=== PATIENT | female | born 1950 | race African-American/Black ===

== ENCOUNTER 2020-05-30 11:58 | Outpatient (CLI) | payer MEDICARE, OTHER, SELFPAY ==
[2020-05-30 12:38] LABS: Eosinophils Absolute Auto 0.1 K/mm3 (0-0.3); Eosinophils Percent Auto 2.5 % (0-4.4); Hematocrit 41.8 % (37.0-47.0); Hemoglobin 14.4 g/dL (12.0-15.0); Immature Granulocyte Absolute 0.01 K/mm3 (0.00-0.031); Immature Granulocyte Percent A 0.2 % (0-0.5); Lymphocytes Absolute Auto 1.81 K/mm3 (0.9-3.2); Lymphocytes Percent Auto 45.1 % (18.3-44.2); Mean Corpuscular HGB Conc 34.4 g/dl (32-36); Mean Corpuscular Hemoglobin 29.4 pg (26-34); Mean Corpuscular Volume 85.3 fl (80-100); Mean Platelet Volume 12.1 fl (7.4-10.4); Monocytes Absolute Auto 0.5 K/mm3 (0.1-0.6); Monocytes Percent Auto 11.7 % (2.6-8.5); Neutrophils Absolute Auto 1.6 K/mm3 (1.3-6.7); Neutrophils Percent Auto 39.5 % (45.5-73.1); Platelet Count Result 207 k/mm3 (150-375); Red Cell Distribution Width 14.6 % (11.5-14.5)
[2020-05-30 12:59] LABS: Alanine Aminotransferase 19 U/L (4-35); Albumin Level 4.2 g/dL (3.5-5.1); Alkaline Phosphatase 78 U/L (38-126); Aspartate Amino Transferase 31 U/L (14-36); Bilirubin,Total 0.7 mg/dL (0.2-1.3); Blood Urea Nitrogen 15 mg/dL (7-17); Calcium 9.4 mg/dL (8.4-10.2); Carbon Dioxide 24 mmol/L (22-30); Chloride 107 mmol/L (98-107); Cholesterol 253 mg/dL (0-200); Estimated Glomerular Filt Rate > 60; Glucose 99 mg/dL (65-105); HDL Direct 89 mg/dL; Potassium 3.8 mmol/L (3.4-5.0); Sodium 138 mmol/L (137-145); Triglycerides 41 mg/dL (<150)
[2020-05-30 13:10] LABS: LDL Cholesterol Direct 114 mg/dL
[2020-05-30 15:07] LABS: Total Triiodothyronine (T3) 0.96 NG/ML (0.97-1.69)
[2020-05-30 17:56] LABS: Vitamin D 25 Hydroxy 17.5 ng/mL
[2020-06-03 14:14] LABS: Triiodothyronine T3 Free 2.5 pg/mL (2.3-4.2)
== END 2020-05-30 11:59 | disposition home or self-care (01) ==
PROVIDERS: PCP Family Medicine; Visit Provider Nurse Practitioner
DX: E55.9 Vitamin D deficiency, unspecified (principal); E78.00 Pure hypercholesterolemia, unspecified
CPT/HCPCS: 36415; 80053; 80061; 82306; 84443; 84480; 84481; 85025

== ENCOUNTER → 2020-07-26 11:34 | Outpatient (CLI) | payer MEDICARE, OTHER, SELFPAY ==
--- NOTE | ~2020-07-26 | MM_ITS ---
EXAMINATION: MM screening art BI w gilberto HISTORY: Screening mammogram TECHNIQUE: Craniocaudal and mediolateral oblique 3-D tomosynthesis images were obtained and synthetic 2-D images were generated. CAD analysis was submitted and interpreted. COMPARISON: 06/09/2018 bilateral digital screening mammogram BREAST PARENCHYMAL COMPOSITION: FINDINGS: There is no evidence of suspicious mass, calcification, or architectural distortion to sugg est malignancy in either breast. There has been no suspicious interval change. IMPRESSION: 1. No mammographic evidence of malignancy. 2. Recommend routine screening mammography in one year. BI-RADS Category 1: Negative Reviewed, dictated and finalized at location A.
== END ==
PROVIDERS: PCP Family Medicine; Visit Provider Family Medicine
DX: Z12.31 Encounter for screening mammogram for malignant neoplasm of breast (principal)
CPT/HCPCS: 77063; 77067

== ENCOUNTER 2020-09-09 10:08 | Outpatient (CLI) | payer MEDICARE, OTHER, SELFPAY ==
[2020-09-09 11:48] LABS: Vitamin D 25 Hydroxy 33.7 ng/mL
== END 2020-09-09 10:09 | disposition home or self-care (01) ==
LOC: ANHLAB 10:11
PROVIDERS: PCP Family Medicine; Visit Provider Nurse Practitioner
DX: E55.9 Vitamin D deficiency, unspecified (principal)
CPT/HCPCS: 36415; 82306

== ENCOUNTER 2021-02-07 10:36 | Outpatient (CLI) | payer MEDICARE, OTHER, SELFPAY ==
[2021-02-07 11:04] LABS: Basophils Absolute Auto 0.1 K/mm3 (0.0-0.1); Basophils Percent Auto 1.2 % (0.2-1.2); Eosinophils Absolute Auto 0.1 K/mm3 (0-0.3); Eosinophils Percent Auto 2.6 % (0-4.4); Hematocrit 40.7 % (37.0-47.0); Hemoglobin 13.8 g/dL (12.0-15.0); Immature Reticulocyte Fraction 7.9 % (3.0-15.9); Lymphocytes Absolute Auto 2.16 K/mm3 (0.9-3.2); Lymphocytes Percent Auto 50.2 % (18.3-44.2); Mean Corpuscular HGB Conc 33.9 g/dl (32-36); Mean Corpuscular Hemoglobin 29.3 pg (26-34); Mean Corpuscular Volume 86.4 fl (80-100); Mean Platelet Volume 10.9 fl (7.4-10.4); Monocytes Absolute Auto 0.5 K/mm3 (0.1-0.6); Monocytes Percent Auto 12.6 % (2.6-8.5); Neutrophils Absolute Auto 1.4 K/mm3 (1.3-6.7); Neutrophils Percent Auto 33.4 % (45.5-73.1); Platelet Count Result 207 k/mm3 (150-375); Red Blood Count 4.71 M/mm3 (4.2-5.4); Red Cell Distribution Width 14.5 % (11.5-14.5); Reticulocyte Hemoglobin Conten 35.1 pg (28.2-35.7); Reticulocyte Percent 1.31 % (0.7-4.3); Reticulocytes Absolute 0.06 B/L (32.2-175.7); White Blood Count 4.3 K/mm3 (4.5-10.0)
[2021-02-07 11:19] LABS: Alanine Aminotransferase 20 U/L (4-35); Albumin Level 4.3 g/dL (3.5-5.1); Alkaline Phosphatase 73 U/L (38-126); Anion Gap 3 mmol/L (8-16); Aspartate Amino Transferase 33 U/L (14-36); Bilirubin,Total 0.6 mg/dL (0.2-1.3); Blood Urea Nitrogen 13 mg/dL (7-17); Calcium 9.3 mg/dL (8.4-10.2); Carbon Dioxide 29 mmol/L (22-30); Chloride 106 mmol/L (98-107); Cholesterol 257 mg/dL (0-200); Estimated Glomerular Filt Rate > 60; Glucose 97 mg/dL (65-105); HDL Direct 95 mg/dL; Lactate Dehydrogenase 546 U/L (313-618); Potassium 4.1 mmol/L (3.4-5.0); Sodium 138 mmol/L (137-145); Triglycerides 40 mg/dL (<150)
[2021-02-07 11:29] LABS: LDL Cholesterol Direct 111 mg/dL; Transferrin 257 mg/dL (206-381)
[2021-02-07 11:45] LABS: Iron 84 ug/dL (37-170)
[2021-02-07 11:48] LABS: Total Triiodothyronine (T3) 1.02 NG/ML (0.97-1.69)
[2021-02-07 11:54] LABS: Percent Iron Saturation 26 % (20-50)
[2021-02-07 11:56] LABS: Free T4 Free Thyroxine 0.99 ng/mL (0.78-2.19); Vitamin D 25 Hydroxy 32.7 ng/mL
[2021-02-07 12:23] LABS: Folic Acid 14.5 ng/mL (2.76->20)
== END 2021-02-07 10:37 | disposition home or self-care (01) ==
PROVIDERS: PCP Family Medicine; Visit Provider Nurse Practitioner Family
DX: N95.0 Postmenopausal bleeding (principal); E78.00 Pure hypercholesterolemia, unspecified; E55.9 Vitamin D deficiency, unspecified; R53.83 Other fatigue
CPT/HCPCS: 36415; 80053; 80061; 82306; 82607; 82728; 82746; 83540; 83550; 83615; 84439; 84443; 84466; 84480; 85025; 85046

== ENCOUNTER → 2022-06-11 08:27 | Outpatient (CLI) | payer MEDICARE, OTHER, SELFPAY ==
--- NOTE | ~2022-06-11 | US_ITS ---
EXAMINATION: US pelvic complete w TV DATE: 06/11/2022 09:15 INDICATION: Postmenopausal bleeding Comparison:No prior studies for comparison. TECHNIQUE: Multiple transabdominal and endovaginal sonographic images of the pelvis performed. FINDINGS: The uterus measures 13.4 x 8.3 x 10.5 cm. There are uterine fibroids, largest being calcifi ed measuring 7.7 x 7.3 x 5.8 cm The endometrial complex measures 9 mm. The ovaries are not visualized. There is no free fluid in the pelvis. There are no abnormal masses seen on either side. IMPRESSION: 1. Enlarged fibroid uterus with endometrial thickening. The differential diagnosis includes endometri al hyperplasia, polyp and carcinoma. Biopsy is recommended. Reviewed, dictated and finalized at location A. IMPRESSION: 1. Enlarged fibroid uterus with endometrial thickening. The differential diagno sis includes endometrial hyperplasia, polyp and carcinoma. Biopsy is recommended.
== END ==
PROVIDERS: PCP Family Medicine; Visit Provider Nurse Practitioner Adult Health
DX: N95.0 Postmenopausal bleeding (principal); D25.9 Leiomyoma of uterus, unspecified
CPT/HCPCS: 76830; 76856

== ENCOUNTER 2023-05-20 01:38 | Day surgery (SDC) | payer MEDICARE, OTHER, SELFPAY ==
[2023-05-08 14:00] VITALS: BMI 20.9
[2023-05-20 07:15] VITALS: BP 126/75; PULSE 61; RESP 18; TEMP 36.5; O2SAT 100; BMI 19.3
[2023-05-20] MEDS: LACTATED RINGERS 1,000 ML 150 ML IV CONT (07:30)
--- NOTE | 2023-05-20 08:02 | WPDANESEPPF ---
Anes - Initial Pre Proc Eval Procedure: Operation Date: 05/20/23 08:30 Proposed Procedures p Colonoscopy - Trevor Jeffrey MD Date/Time: 05/20/23 08:02 Surgeon: Trevor Jeffrey MD Pre Op Diagnosis: melena Patient Data Age: 73 Gender: F Height: 1.57 m Weight: 48.1 kg Last Vital Signs Temp 97.7 F 05/20/23 07:15 Pulse 61 05/20/23 07:15 Resp 18 05/20/23 07:15 BP 126/75 05/20/23 07:15 Pulse Ox 100 05/20/23 07:15 O2 Del Method Room Air 05/20/23 07:15 Allergies Allergy/AdvReac Type Severity Reaction Status Date / Time codeine Allergy Mild PASS OUT Verified 05/20/23 07:12 Home Medications Medication Instructions Recorded Confirmed Type No Home Medications 05/20/23 05/20/23 History Patient hx anesthesia problems: none Family hx anesthesia problems: none Results Review: All pre-operative results and documents have been reviewed as part of the pre-operative evaluation. [facility] Social History Social History Living arrangements: with family Anes - Eval Final PreProcedure Day of Procedure 05/20/23 08:02 Patient weight: normal Heart: regular rate and rhythm Lungs: clear to auscultation Airway: Mallampati scale class 1 Neurological: alert and oriented Last oral intake: >/= 8 hours ASA classification: I Emergent: no Anesthetic plan: proceed Anesthesia type and monitoring: general GIVS and standard monitoring Results Review: All pre-operative results and documents have been reviewed as part of the pre-operative evaluation. Informed Consent: The patient's anesthetic plan and its attendant risks and benefits were discussed with the patient/family/POA. Questions were solicited and answers provided to the satisfaction of the patient/family/POA.
--- NOTE | 2023-05-20 08:15 | P.HP_ITS ---
History of Present Illness History of Present Illness Consent: Risks, benefits, and alternatives have been discussed and questions answered. Patient agrees to proceed with procedure. Chief complaint: positive cologuard test by history Narrative: Carlos Hare is a 73 year old female Referred by primary care service. Patient states that she had a Cologuard test that was positive. For this reason she is referred for exam. Patient denies any obvious blood in her stools. Patient states that stools are brown in color and not black in color. No old records are sent to accompany patient. Patient states she is known to have hemorrhoids. Her family history is noncontributory. Review of Systems Review of Systems: Review of systems noncontributory. [facility] Social History Social History Living arrangements: with family Meds Home Medications and Allergies Home Medications Medication Instructions Recorded Confirmed Type No Home Medications 05/20/23 05/20/23 History Allergies Allergy/AdvReac Type Severity Reaction Status Date / Time codeine Allergy Mild PASS OUT Verified 05/20/23 07:12 Vital Signs Vital Signs - 24 hr 05/20/23 07:15 Temperature 97.7 F Pulse Rate 61 Respiratory Rate 18 Blood Pressure 126/75 Pulse Oximetry 100 Oxygen Delivery Room Air Exam Narrative: Physical exam reveals patient to be alert. Vital signs stable. HEENT exam is unremarkable. Patient is anicteric. Lungs are clear to auscultation and percussion. Heart is without murmur or extra sounds. Abdomen bowel sounds are present soft nontender with no hepatosplenomegaly. Digital external rectal exam is normal. Assessment and Plan Assessment and plan (1) Positive colorectal cancer screening using Cologuard test: Code(s): R19.5 - Other fecal abnormalities Status: Acute Assessment and Plan: Patient reports having positive Cologuard test. Results of testing not available for review. Patient is accompanied by a no from Stating she has melena. Patient however states she has had no visible blood in her stools. Her stools have been brown and she denies any black stools. Patient reports she does have a history of hemorrhoids. Colonoscopy arranged today at the [facility] primary care service it appears she has had a positive Cologuard test further recommendations on screening will be given after endoscopy.
[2023-05-20 09:24] VITALS: BP 98/58; PULSE 70; RESP 24; O2SAT 100
[2023-05-20 09:34] VITALS: BP 114/67; PULSE 70; RESP 16; O2SAT 100
[2023-05-20 09:44] VITALS: BP 140/80; PULSE 61; RESP 20; O2SAT 100
== END 2023-05-20 09:55 | disposition home or self-care (01) ==
PROVIDERS: PCP Nurse Practitioner Adult Health; Visit Provider Internal Medicine Gastroenterology
PROC: 0DJD8ZZ Inspection of Lower Intestinal Tract, Via Natural or Artificial Opening Endoscopic (ICD-10-PCS; CPT 45378; principal; 2023-05-20 08:30)
DX: R19.5 Other fecal abnormalities (principal); Z86.010 Personal history of colon polyps
CPT/HCPCS: 45378; J2704; J7120

== ENCOUNTER → 2023-05-30 11:11 | Outpatient (CLI) | payer MEDICARE, OTHER, SELFPAY ==
--- NOTE | ~2023-05-30 | MM_ITS ---
EXAMINATION: MM screening art BI w gilberto HISTORY: Screening TECHNIQUE: Craniocaudal and mediolateral oblique 3-D tomosynthesis images were obtained and synthetic 2-D images were generated. CAD analysis was submitted and interpreted. COMPARISON: Comparison to multiple prior studies sequentially, with oldest reviewed study dated 06/09. BREAST PARENCHYMAL COMPOSITION: The breasts are heterogeneously dense, which may obscure small masses . FINDINGS: There is no evidence of suspicious mass, calcification, or architectural distortion to sugg est malignancy in either breast. There has been no suspicious interval change. IMPRESSION: 1. No mammographic evidence of malignancy. 2. Recommend routine screening mammography in one year. BI-RADS Category 1: Negative Reviewed, dictated and finalized at location A.
== END ==
PROVIDERS: PCP Nurse Practitioner Adult Health; Visit Provider Nurse Practitioner Adult Health
DX: Z12.31 Encounter for screening mammogram for malignant neoplasm of breast (principal)
CPT/HCPCS: 77063; 77067

== ENCOUNTER 2023-06-05 11:18 | Outpatient (CLI) | payer MEDICARE, OTHER, SELFPAY ==
[2023-06-05 11:53] LABS: Basophils Percent Auto 0.7 % (0.2-1.2); Eosinophils Absolute Auto 0.1 K/mm3 (0-0.3); Eosinophils Percent Auto 1.3 % (0-4.4); Hemoglobin 13.4 g/dL (12.0-15.0); Immature Granulocyte Absolute 0.01 K/mm3 (0.00-0.031); Immature Granulocyte Percent A 0.2 % (0-0.5); Lymphocytes Percent Auto 41.3 % (18.3-44.2); Mean Corpuscular HGB Conc 33.5 g/dl (32-36); Mean Corpuscular Hemoglobin 28.8 pg (26-34); Mean Platelet Volume 11.1 fl (7.4-10.4); Monocytes Absolute Auto 0.5 K/mm3 (0.1-0.6); Monocytes Percent Auto 10.7 % (2.6-8.5); Neutrophils Absolute Auto 2.1 K/mm3 (1.3-6.7); Neutrophils Percent Auto 45.8 % (45.5-73.1); Platelet Count Result 235 k/mm3 (150-375); Red Blood Count 4.65 M/mm3 (4.2-5.4); Red Cell Distribution Width 14.8 % (11.5-14.5); White Blood Count 4.6 K/mm3 (4.5-10.0)
[2023-06-05 12:03] LABS: Alanine Aminotransferase 22 U/L (6-35); Albumin Level 4.2 g/dL (3.5-5.1); Alkaline Phosphatase 76 U/L (38-126); Anion Gap 4 mmol/L (8-16); Aspartate Amino Transferase 32 U/L (14-36); Bilirubin,Total 0.6 mg/dL (0.2-1.3); Blood Urea Nitrogen 13 mg/dL (7-17); Calcium 9.1 mg/dL (8.4-10.2); Carbon Dioxide 28 mmol/L (22-30); Chloride 106 mmol/L (98-107); Cholesterol 229 mg/dL (0-200); Estimated Glomerular Filt Rate > 60; Glucose 97 mg/dL (65-110); HDL Direct 90 mg/dL; Sodium 138 mmol/L (137-145); Triglycerides 47 mg/dL (<150)
[2023-06-05 12:14] LABS: LDL Cholesterol Direct 100 mg/dL
[2023-06-05 12:21] LABS: Creatinine Urine 108.4 mg/dL
[2023-06-05 12:25] LABS: Microalbumin Urine Random 22.8 mg/L (0-16.7)
[2023-06-05 12:27] LABS: Free T4 Free Thyroxine 1.12 ng/mL (0.78-2.19); Vitamin D 25 Hydroxy 22.2 ng/mL
[2023-06-05 12:58] LABS: Total Triiodothyronine (T3) 1.07 NG/ML (0.97-1.69)
== END 2023-06-05 11:19 | disposition home or self-care (01) ==
LOC: ANHLAB 11:20
PROVIDERS: PCP Nurse Practitioner Adult Health; Visit Provider Nurse Practitioner Adult Health
DX: E78.5 Hyperlipidemia, unspecified (principal); R53.83 Other fatigue; R53.1 Weakness; R80.9 Proteinuria, unspecified; E55.9 Vitamin D deficiency, unspecified
CPT/HCPCS: 36415; 80053; 80061; 82043; 82306; 84439; 84443; 84480; 85025

== ENCOUNTER 2024-02-12 15:47 | Outpatient (CLI) | payer MEDICARE, OTHER, SELFPAY ==
--- NOTE | ~2024-02-12 | XR_ITS ---
XR hip LT min 2V DATE: 02/12/2024 16:43 INDICATION: Left hip pain TECHNIQUE: AP and lateral views COMPARISON: None FINDINGS: There is prominent irregularity along the lateral aspect of the left iliac crest which may be related to recent or remote trauma. No fracture or dislocation of the left hip is noted otherwise. No avascular necrosis or bone destruct ion of the left femur. Normal alignment at the pubic symphysis and sacroiliac joints. IMPRESSION: Prominent irregularity at the lateral cortical margin of the left iliac crest, which may be due to recent or remote trauma. Radiographs are available for comparison Otherwise negative left hip Reviewed, dictated and finalized at location B. IMPRESSION: Prominent irregularity at the lateral cortical margin of the left i liac crest, which may be due to recent or remote trauma. Radiographs are availa ble for comparison Otherwise negative left hip
== END 2024-02-12 15:48 ==
LOC: MICIMG 15:50
PROVIDERS: PCP Registered Nurse; Visit Provider Registered Nurse
DX: M25.552 Pain in left hip (principal)
CPT/HCPCS: 73502

== ENCOUNTER 2024-10-07 14:59 | Emergency (ER) | payer MEDICARE, OTHER, SELFPAY ==
[2024-10-07] VITALS (15 sets, daily range): BP systolic 96–116; BP diastolic 61–75; PULSE 84–101; RESP 14–26; TEMP 37.2; O2SAT 97–100
--- NOTE | ~2024-10-07 | CT_ITS ---
CT cervical spine wo con Ordering provider: Jassi Pendleton MD History: . fall . Comparison: None. Technique: CT of the cervical spine was performed without contrast. Sagittal and coronal reformatted images were also obtained and reviewed. Automated exposure control and iterative reconstruction ishaan hnique were employed. The dose-length product was 97.15 mGy-cm. FINDINGS: VERTEBRAE: Destructive changes seen in multiple vertebrae with maximum changes seen in C6. Suggestive of metastatic lesion. Osteomyelitis is less likely. Slight loss of volume of C6 is noted. No subluxa tion.. The occipital condyles are intact. DISC SPACES: Narrowing of the disc C5-C6 and C6-C7. PARASPINOUS SOFT TISSUES: Soft tissue density seen anterior to the C6 vertebra most likely extension of metastatic lesion or hematoma. IMPRESSION: Pathological compression fracture seen in C6 with anterior soft tissue swelling. Underlying metastati c lesions highly suggestive. Other smaller hypodensities are seen in multiple vertebrae including C3 and C5. Reviewed, dictated and finalized at location A. AURANT HOST/HOSTESS IMPRESSION: Pathological compression fracture seen in C6 with anterior soft tissue swelling . Underlying metastatic lesions highly suggestive. Other smaller hypodensities are seen in multiple vertebrae including C3 and C5.
--- NOTE | ~2024-10-07 | CT_ITS ---
EXAMINATION: CT brain wo con DATE: 10/07/2024 15:58 INDICATION: Fall, found down TECHNIQUE: Computed tomography (CT) of the head was performed without intravenous contrast. Sagittal and coronal reconstructions were performed. The mA was adjusted according to patient size. Iterative reconstruction technique was employed. The dose-length product was 529.67 mGy-cm. COMPARISON: None FINDINGS: No fracture. No acute intracranial hemorrhage, acute infarction or abnormal extra axial fluid collect ion. There is mild scattered white matter hypoattenuation consistent with chronic small vessel ischem ic disease. Symmetric prominence of the sulci consistent with mild age-appropriate diffuse cerebral v olume loss. Ventricles are normal and symmetric. No mass/mass effect. The orbits, paranasal sinuses a nd mastoid air cells are normal. IMPRESSION: 1. Normal aging brain. No fracture or acute intracranial process. Reviewed, dictated and finalized at location A. ER
--- NOTE | ~2024-10-07 | XR_ITS ---
XR chest 1V portable Ordering provider: Connor Saleh MD History: 74 years Female with . syncope . Comparison: None. FINDINGS: MEDIASTINUM: The cardiac silhouette is not enlarged. Right Port-A-Cath with the tip overlying superio r vena cava. Slightly prominent right hilum. LUNGS: No infiltrates, effusions or pneumothorax. OTHER: No free air under the diaphragm. IMPRESSION: No acute cardiopulmonary pathology. Reviewed, dictated and finalized at location A. ET MACHINE OPERATOR
--- NOTE | 2024-10-07 15:06 | ECG_ITS ---
Test Date: 2024-10-07 15:09:02 Measurements Intervals [place] Rate: 93 P: 59 IN: 150 QRS: 40 QRSD: 72 T: 48 QT: 274 QTc: 342 Interpretive Statements SINUS RHYTHM NONSPECIFIC T-WAVE ABNORMALITY- INFERIOR LEADS BASELINE ARTIFACT- I, II, III, AVR, AVL, AVF, V1, V3, V7 BORDERLINE ECG No previous ECG available for comparison Electronically Signed On 10-07-2024 15:12:32 MEDICAL RECORD TRANSCRIBER by Torres Palumbo D.O.
--- NOTE | 2024-10-07 15:29 | ED.GENADULT ---
HPI - General Adult General Chief complaint: Syncope Stated complaint: SYNCOPY Time Seen by Provider: 10/07/24 15:28 Source: patient Related Data Home Medications Medication Instructions Recorded Confirmed No Home Medications 05/20/23 05/20/23 Allergies Allergy/AdvReac Type Severity Reaction Status Date / Time codeine Allergy Mild PASS OUT Verified 10/07/24 15:10 [facility] Social History Social History Living arrangements: with family Course Consultations Consultation #1: DR BLAIR, ONCOLOGIST AT [facility] ACCEPTED PATIENT TRANSFER. Date: 10/07/24 Time: 18:32 Consultation #2: DR LINDSEY SLAUGHTER AT [facility]. WAITING FOR BED AVAILABLE AT [facility] Date: 10/07/24 Time: 22:05 Vital Signs Vital signs: Vital Signs Temperature 37.2 C 10/07/24 14:59 Pulse Rate 95 10/07/24 14:59 Respiratory Rate 18 10/07/24 14:59 Blood Pressure 113/61 10/07/24 14:59 Pulse Oximetry 97 10/07/24 14:59 Oxygen Delivery Room Air 10/07/24 14:59 Temperature 37.2 C 10/07/24 14:59 Pulse Rate 86 10/07/24 20:46 Respiratory Rate 17 10/07/24 20:46 Blood Pressure 107/73 10/07/24 20:46 Pulse Oximetry 99 10/07/24 20:46 Oxygen Delivery Room Air 10/07/24 14:59 Medical Decision Making MDM Narrative Medical decision making narrative: PATIENT CAME TO THE ED BY AMBULANCE BECAUSE OF SYNCOPE, NO WARNING SIGNS PRIOR TO BLACKING OUT. PATIENT DENIES ANY PAIN AFTER THE FALL OR ON ARRIVAL TO THE ED. PATIENT BLAMING THE CHEMOTHERAPY ON September WHICH CAUSING HER GENERAL WEAKNESS. VITAL SIGNS ARE STABLE PHYSICAL EXAMINATION SHOWING A MILD MARCH STATION, UNDERWEIGHT, OTHERWISE INSIGNIFICANT. BLOOD WORKUP TODAY WITH CBC, CMP SHOWED HEMOGLOBIN OF 8.0, HEMATOCRIT 25.8, MCV 77.7, PLATELETS 388, SODIUM 133, OTHERWISE INSIGNIFICANT ABNORMALITY URINALYSIS SHOWED FINDING CONSISTENT WITH INFECTION CHEST X-RAY SHOWED NO ACUTE ABNORMALITIES, CT HEAD WITHOUT CONTRAST SHOWED NO ACUTE ABNORMALITIES CT CERVICAL SPINE WITHOUT CONTRAST SHOWED PATHOLOGICAL COMPRESSION FRACTURE C6 INDICATING UNDERLYING METASTATIC LESIONS, OTHER LESIONS IN MULTIPLE VERTEBRA INCLUDING C3 AND C5 PATIENT HAD HISTORY OF MIN ENDOMETRIAL CANCER LAST CHEMOTHERAPY SEPTEMBER 15, 2024 PATIENT WAS ACCEPTED TO BE TRANSFERRED TO [facility] DISCUSSED WITH THE ONCOLOGIST, DR. BLAIR. WAITING FOR BED AVAILABILITY UP Differential Diagnosis Differential Diagnosis: ABOVE Vital Signs Vital Signs: Vital Signs Temperature 37.2 C 10/07/24 14:59 Pulse Rate 95 10/07/24 14:59 Respiratory Rate 18 10/07/24 14:59 Blood Pressure 113/61 10/07/24 14:59 Pulse Oximetry 97 10/07/24 14:59 Oxygen Delivery Room Air 10/07/24 14:59 Temperature 37.2 C 10/07/24 14:59 Pulse Rate 86 10/07/24 20:46 Respiratory Rate 17 10/07/24 20:46 Blood Pressure 107/73 10/07/24 20:46 Pulse Oximetry 99 10/07/24 20:46 Oxygen Delivery Room Air 10/07/24 14:59 Lab Data 10/07/24 16:08 10/07/24 16:08 Labs: Lab Results 10/07/24 10/07/24 Range/Units 16:08 16:31 WBC 8.1 (4.5-10.0) K/mm3 RBC 3.32 L (4.2-5.4) M/mm3 Hgb 8.0 L D (12.0-15.0) g/dL Hct 25.8 L (37.0-47.0) % MCV 77.7 L (80-100) fl MCH 24.1 L (26-34) pg MCHC 31.0 L (32-36) g/dl RDW 20.9 H (11.5-14.5) % Plt Count 388 H D (150-375) k/mm3 MPV 9.2 (7.4-10.4) fl Immature Gran % (Auto) 1.0 H (0-0.5) % Neut % (Auto) 73.9 H (45.5-73.1) % Lymph % (Auto) 9.8 L (18.3-44.2) % Armstrong % (Auto) 14.4 H (2.6-8.5) % Eos % (Auto) 0.5 (0-4.4) % Baso % (Auto) 0.4 (0.2-1.2) % Lymph # (Auto) 0.80 L (0.9-3.2) K/mm3 Armstrong # (Auto) 1.2 H (0.1-0.6) K/mm3 Eos # (Auto) 0.0 (0-0.3) K/mm3 Baso # (Auto) 0.0 (0.0-0.1) K/mm3 Abs Immat Gran (auto) 0.08 H (0.00-0.031) K/mm3 Absolute Neuts (auto) 6.0 (1.3-6.7) K/mm3 Absolute Nucleated RBC 0.000 (0.0-0.012) K/mm3 Nucleated RBC % 0.0 (0.0-0.2) % Sodium 133 L (137-145) mmol/L Potassium 4.0 (3.4-5.0) mmol/L Chloride 96 L (98-107) mmol/L Carbon Dioxide 31 H (22-30) mmol/L Anion Gap 6 (4-12) mmol/L BUN 20 H (7-17) mg/dL Creatinine 0.90 (0.7-1.0) mg/dL Estim Creat Clear Calc 37 ml/min Estimated GFR > 60 (59 - ) Glucose 128 H (65-110) mg/dL Calcium 9.8 (8.4-10.2) mg/dL Total Bilirubin 0.4 (0.2-1.3) mg/dL AST 55 H (14-36) U/L ALT 48 H (6-35) U/L Alkaline Phosphatase 77 (38-126) U/L Total Protein 8.0 (6.3-8.2) g/dL Albumin 3.7 (3.5-5.1) g/dL Urine Color Dark yellow (Yellow) Urine Appearance Clear (Clear) Urine pH 6.0 (5.0-9.0) Ur Specific [place] 1.011 (1.001-1.035) Urine Protein Trace (Negative) mg/dL Urine Glucose (UA) Negative (Negative) mg/dL Urine Ketones Negative (Negative) mg/dL Ur Blood (Man) 2+ H (Negative) Urine Nitrate Negative (Negative) Urine Bilirubin Negative (Negative) Urine Urobilinogen 0.2 (<2.0) mg/dL Leukocyte Esterase Rfl 1+ H (Negative) GIGI/UL Urine RBC 21-50 H (0-2) /hpf Urine WBC 21-50 H (0-3) /hpf Ur Squamous Epith Cells Occasional (Few) /hpf Urine Bacteria None seen /hpf Urine Casts 0-2 Imaging Data Radiologist's impression: Impressions Head CT 10/07/24 16:10 IMPRESSION: 1. Normal aging brain. No fracture or acute intracranial process. Cervical Spine CT 10/07/24 16:11 IMPRESSION: Pathological compression fracture seen in C6 with anterior soft tissue swelling. Underlying metastatic lesions highly suggestive. Other smaller hypodensities are seen in multiple vertebrae including C3 and C5. Chest X-Ray 10/07/24 16:27 IMPRESSION: No acute cardiopulmonary pathology. Critical Care Time Critical Care Time Critical Care Time: Yes Total Critical Care Time: 30 Discharge Plan Discharge Clinical Impression: Syncope, Pathologic fracture of vertebra Patient Disposition: Acute Care Hospital Condition: Stable Prescriptions: No Action No Home Medications Follow-up/Referrals: Dwayne,Milind Perry, INK MAKER [Primary Care Provider] -
[2024-10-07 16:21] LABS: Basophils Percent Auto 0.4 % (0.2-1.2); Eosinophils Percent Auto 0.5 % (0-4.4); Hematocrit 25.8 % (37.0-47.0); Immature Granulocyte Absolute 0.08 K/mm3 (0.00-0.031); Lymphocytes Percent Auto 9.8 % (18.3-44.2); Mean Corpuscular Hemoglobin 24.1 pg (26-34); Mean Corpuscular Volume 77.7 fl (80-100); Mean Platelet Volume 9.2 fl (7.4-10.4); Monocytes Absolute Auto 1.2 K/mm3 (0.1-0.6); Monocytes Percent Auto 14.4 % (2.6-8.5); Neutrophils Percent Auto 73.9 % (45.5-73.1); Platelet Count Result 388 k/mm3 (150-375); Red Blood Count 3.32 M/mm3 (4.2-5.4); Red Cell Distribution Width 20.9 % (11.5-14.5); White Blood Count 8.1 K/mm3 (4.5-10.0)
[2024-10-07 16:32] LABS: Alanine Aminotransferase 48 U/L (6-35); Albumin Level 3.7 g/dL (3.5-5.1); Alkaline Phosphatase 77 U/L (38-126); Anion Gap 6 mmol/L (4-12); Aspartate Amino Transferase 55 U/L (14-36); Bilirubin,Total 0.4 mg/dL (0.2-1.3); Blood Urea Nitrogen 20 mg/dL (7-17); Calcium 9.8 mg/dL (8.4-10.2); Carbon Dioxide 31 mmol/L (22-30); Chloride 96 mmol/L (98-107); Estimated CRCL calculation 37 ml/min; Estimated Glomerular Filt Rate > 60; Glucose 128 mg/dL (65-110); Sodium 133 mmol/L (137-145)
[2024-10-07 16:57] LABS: Add Urine Microscopic? YES; Appearance Urine Clear (Clear); Bacteria Urine None Seen /hpf; Bilirubin Urine Negative (Negative); Blood Urine 2+ (Negative); Color Urine Dark Yellow (Yellow); Glucose Urine UA Negative (Negative); Ketones Urine Negative (Negative); Leukocyte Esterase Ur 1+ LEU/UL (Negative); Nitrate Urine Negative (Negative); Non Pathogenic Casts 0-2; Protein Urine Trace mg/dL (Negative); RBC Urine 21-50 /hpf (0-2); Specific Grav Ur 1.011 (1.001-1.035); Squamous Epithelial Cell Urine Occasional /hpf (Few); Urobilinogen Urine 0.2 mg/dL (<2.0); WBC Urine 21-50 /hpf (0-3)
[2024-10-08] VITALS (23 sets, daily range): BP systolic 98–115; BP diastolic 58–83; PULSE 79–98; RESP 10–29; TEMP 36.9; O2SAT 99–100
--- NOTE | 2024-10-08 00:19 | PC.NURSE ---
Pt transferred from stretcher to hospital bed at this time. Pt resting comfortably w call light within reach.
--- NOTE | 2024-10-08 08:10 | PC.NURSE ---
Food tray ordered for patient
--- NOTE | 2024-10-08 08:59 | PC.NURSE ---
[facility] transfer center called and states patient has been accepted and has a room at [facility] room 5941. EMS to be called for transport
== END 2024-10-08 10:26 | disposition short-term general hospital (02) ==
PROVIDERS: Emergency Medicine; Emergency Provider Emergency Medicine; PCP Registered Nurse
DX: R55 Syncope and collapse (principal); M84.58XA Pathological fracture in neoplastic disease, other specified site, initial encounter for fracture; C54.1 Malignant neoplasm of endometrium; Z79.60 Long term (current) use of unspecified immunomodulators and immunosuppressants; R94.31 Abnormal electrocardiogram [ECG] [EKG]
CPT/HCPCS: 36415; 70450; 71045; 72125; 80053; 81001; 85025; 87086; 93005; 99285

== ENCOUNTER 2024-12-15 16:50 | Inpatient (IN) | payer MEDICARE, OTHER, SELFPAY ==
--- NOTE | ~2024-12-15 | CT_ITS ---
Clinical Indication: Anemia, syncope, history of cancer CT Scan of the Chest, Abdomen, and Pelvis with Contrast: Technique: Contiguous sections were acquired throughout the chest, abdomen, and pelvis after intraven ous administration of 100 cc of Omnipaque 350. Dose reduction technique was used on this scan by uti lizing automated exposure control and iterative reconstruction technique. The dose-length product (DL P) was 438.26 mGy-cm. Findings: Enlarged AP window/left hilar lymph node measures 3.3 x 1.7 cm. Subcarinal adenopathy measures 3.3 x 2.7 cm. Right hilar lymph node measures 9 mm in short axis. No pulmonary embolus. No aortic aneurysm or dissection. No axillary lymphadenopathy. There is no evidence of pleural or pericardial effusion. The lungs are clear. No pulmonary nodules or infiltrates are noted. There is a 3.9 x 3.6 cm hypodense hepatic mass (axial image 30), suspicious for metastasis. There is an additional 0.8 cm hypodense mass in the lateral left hepatic lobe (axial image 44). There is a thi rd suspicious 1.5 cm hypodense lesion in the caudate lobe (axial image 53). Several probable tiny add itional hepatic cysts are present. The spleen, pancreas, gallbladder, left adrenal gland, and kidneys are within normal limits. There is a 4.3 x 2.2 cm right adrenal mass. No evidence of aortic aneurysm . There is left periaortic lymphadenopathy, with largest node measuring 2.7 cm in diameter. Adenopath y extends along the left common iliac chain.. No bowel obstruction or bowel wall thickening. There is no evidence to suggest acute appendicitis. Urinary bladder is unremarkable. No adnexal mass. Probable prior hysterectomy. No ascites. There is left inguinal lymphadenopathy, with largest node measuring 2.2 cm in diameter (axial image 1 34). There is a heterogeneous soft tissue mass at the anterior margin of the left iliac crest, measur ing 5.4 x 4.2 cm, with destructive change of the anterior aspect of the left iliac crest. There is a 2 cm ovoid lymph node or soft tissue mass in the posterolateral proximal right thigh (axial image 194 ), suspicious for soft tissue metastasis. There is lytic lesion extensively involving the left lamina, pedicle, and spinous process of T12, com patible with osseous metastasis. There is a small lucent lesion with sclerotic margin at the posterio r inferior corner of the L3 vertebral body, indeterminate. Impression: Extensive neoplastic/metastatic disease, including mediastinal lymphadenopathy, hepatic and right adr enal metastatic disease, retroperitoneal and left inguinal lymphadenopathy, as well as large soft tis tad mass extending from or involving the anterior margin of the left iliac wing. Additional osseous m etastasis present in the posterior elements of T12, and soft tissue metastasis in the posterolateral right thigh. Please see details above. Reviewed, dictated and finalized at location M. PLANT SUPERVISOR Impression: Extensive neoplastic/metastatic disease, including mediastinal lymphadenopathy, hepatic and right adrenal metastatic disease, retroperitoneal and left inguina l lymphadenopathy, as well as large soft tissue mass extending from or involvin g the anterior margin of the left iliac wing. Additional osseous metastasis pre sent in the posterior elements of T12, and soft tissue metastasis in the hide worker olateral right thigh. Please see details above.
--- NOTE | ~2024-12-15 | CT_ITS ---
Non-contrast Head CT History: Recurrent syncope COMPARISON: 10/07/2024 Technique: Axial non-contrast imaging of the brain was performed. Dose reduction technique was used on this scan by utilizing automated exposure control and iterative reconstruction technique. The dose -length product (DLP) was 605.33 mGy-cm. Findings: There is no evidence of intracranial hemorrhage, mass lesion, or acute infarct. Brain par enchyma appears normal. The ventricles and subarachnoid spaces are normal in size. The calvarium ap pears normal. There is left sphenoid sinus disease. The remaining visualized paranasal sinuses and ma stoid air cells are clear. Impression: No intracranial abnormality seen. Left sphenoid sinus disease. Reviewed, dictated and finalized at [facility]. OWS CHARGER ASSEMBLER Impression: No intracranial abnormality seen. Left sphenoid sinus disease.
--- NOTE | ~2024-12-15 | XR_ITS ---
CHEST RADIOGRAPH CLINICAL HISTORY: syncope cough . COMPARISON: 10/07/2024 TECHNIQUE: Single portable view of the chest. FINDINGS Right internal jugular central venous power port catheter identified with its tip projecting over the right atrium. The remainder of the cardiomediastinal silhouette is otherwise unremarkable. The lungs are clear. Visualized osseous structures and soft tissues are unremarkable. IMPRESSION: No focal infiltrate or effusion. Reviewed, dictated and finalized at location A. RN
--- OUTSIDE RECORDS SUMMARY | 2024-12-15 16:55 | XMS_ITS | Encounter Summary ---
Author Organization [facility] Healthcare Address [address] [place] [address] Care Team Providers Care Outer Diameter Grinder Name Role Phone Shea Mercado NP Unavailable [phone] Cristobal Salvador MD Primary Care Provider [phone] Kirsten Del Rosario MD Unavailable Tabatha Lopes MD Unavailable [phone] Encounter Details Date Type Department Care Team (Late st Contact Info) Description 12/11/2024 Telephone [facility] ([facility]) [address] [place] [id number] Linda Medley, LOLA Social History Tobacco Use Types Packs/Day Years Used Date Smoking Tobacco: Never OASIS D0700: Social Isolation Answer Da te Recorded Frequency of experiencing loneliness or isolatio n Never 12/12/2024 OASIS A1250: Transportation Answer Date Recorded Lack of Transportation (Medical) No 12/12/2024 Lack of Transportation (Non-Medical) No 12/12/2024 Patient Unable or Declines to Respond No 12/12/2024 OASIS B1300: Health Literacy Answer Ruddy e Recorded Frequency of needing help to read materials from doctor or pharmacy Rarely 12/12/2024 AUDIT-C Answer Date Recorded Q1: How often do you have a drink containing alcohol? Never 12/10/2024 Q2: How many drinks containi ng alcohol do you have on a typical day when you are drinking? Patient does not drink Q3: How often do you have si x or more drinks on one occasion? Never 12/10/2024 Personal Safety Answer Date Recorded Have you ever been in or are you currently in a harmful physical or emotional relationship or is someone making you feel afraid or unsafe? Denies 10/08/2024 Education Answer Date Recorded What is the highest level of school you have completed or the highest degree you have received? 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 Pt will go to local lab to get CBC and CMP. Discussed with pt if she has increasing or concerning symptoms to go to the ER. Patient verbalized understanding of all discussed and knows the number to reach out with any more questions. [employer] documented in this encounter Plan of Treatment Not on file documented as of this encounter Visit Diagnoses Not on filedocumented in this encounter Care Teams Outer Diameter Grinder Relationship Specialty Start Date End Date Cristobal Salvador MD [address] [place] [id number] PCP - General Family Medicine 03/17/24 Shea Mercado NP Nurse Practitioner Obstetrics and Gynecology 06/22/22 Kirsten Del Rosario MD [address] [facility] [address] [place] [address] Radiation Oncologist Radiation Oncology 06/30/24 Tabatha Lopes MD [id number] [place] [address] Surgeon Gynecologic Oncology 06/30/24 documented as of this encounter
--- OUTSIDE RECORDS SUMMARY | 2024-12-15 16:55 | XMS_ITS | Encounter Summary ---
Author Organization [facility] Healthcare Address [address] [place] [address] Care Team Providers Care Carpenters Supervisor Name Role Phone Shea Mercado NP Unavailable [phone] Cristobal Salvador MD Primary Care Provider Kirsten Del Rosario MD Unavailable Tabatha Lopes MD Unavailable [phone] Reason for Visit * Auth/Cert (Routine) Specialty Diagnoses / Procedures Referred By Contac t Referred To Contact Referral ID Status Reason Start Date Expiration Date Visits Re quested Visits Authorized [id number] 1 1 Encounter Details Date Type Department Care Team (Latest Contact Info) Description 12/12/2024 11:30 AM WORKFORCE SERVICES REPRESENTATIVE Home Care Visit [facility] [address] [address] [address] [place] [address] Yesenia Verma, PT PT OASIS START OF CARE Social History Tobacco Use Types Packs/Day Years [...] Master's degree (e.g., MA, MS, Sandy, MEd, SPRINKLER IRRIGATION EQUIPMENT MECHANIC, ADAM) 07/12/2022 Comments No Sex and Gender Information Value Date Recorded Sex Assigned at Not on file Legal Sex Female 1:04 PM CDT Gender Identity Not on file Sexual Orientation Not on file 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 Industry 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 End Date 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 Not on file Not on file Not on file documented as of this encounter Last Filed Vital Signs Vital Sign Reading Time Taken Comments Blood Pressure 104/62 12/12/2024 12:15 PM WORKFORCE SERVICES REPRESENTATIVE Pulse 70 12/12/2024 12:15 PM WORKFORCE SERVICES REPRESENTATIVE Temperature 36.4 ??C (97.5 ??F) 12/12/2024 12:[address] Respiratory Rate 17 12/12/2024 12:15 PM WORKFORCE SERVICES REPRESENTATIVE Oxygen Saturation 99% 12/12/2024 12:15 PM WORKFORCE SERVICES REPRESENTATIVE Inhaled Oxygen Concentration - - Weight - - Height - - Body Mass Index - - documented in this encounter Miscellaneous Notes * Home Health/Infusion Yesenia Richard, PT - 12/12/2024 12:05 PM WORKFORCE SERVICES REPRESENTATIVE SITUATION Focus of Care: 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 PMH: CONFIRMED in [facility] by PCP and palliative care: hypercholsterolemia, endometrial cancer, recent C-spine fx Prior Level of Functioning: independent with no device including up/down steps to bedroom and shower Current Living Conditions/Safety Hazards: fall risk, reports episodes of passing out ASSESSMENT Abnormal assessment findings: fall risk, fatigues easily Medication Issues: none noted Re-hospitalization risk: low Barriers to care/social drivers: Environmental barriers in home- upstairs bedroom and shower RECOMMENDATIONS POC confirmed with : Pete Plan for my discipline: 1 wk 2 then 2 wk 2 then 1 wk 5 Other disciplines ordered/recommended: Physical Therapy only Supply/HME/equipment needs or issues: may benefit from walker or cane or wheelchair in home in nearfuure Follow ups needed: as scheduled port not being accessed right now FORCE SERVICES REPRESENTATIVE * Quality Review - Toya Davison, ELECTRICAL DRAFTER - 12/12/2024 11:48 AM CST [id number] corrected. FORCE SERVICES REPRESENTATIVE documented in this encounter Plan of Treatment Not on file documented as of this encounter Visit Diagnoses Not on filedocumented in this encounter Home Health Visit - Care Plan Visit Details Visit Type -PT OASIS Start o f Care Discipline -Physical Therapy Problems Problem Description Start Date Status Goals Interve ntions Pressure Prevention Disciplines: Skilled Disciplines Pressure Prevention 12/12/2024 Active 1 goal linked to scheduled/documen brandon intervention 1 goal intervention scheduled/documen brandon in this visit Monitor patient's vital signs every home health visit Disciplines: Skilled Disciplines, SN, PT, OT, ELECTRICAL DRAFTER, INDUSTRIAL SAFETY AND HEALTH SPECIALIST Monitor patient's vital signs every home health visit. 12/12/2024 Active 1 goal linked to scheduled/documen brandon intervention 1 goal intervention scheduled/documen brandon in this visit Infection Prevention Disciplines: Skilled Disciplines Infection Prevention 12/12/2024 Active 1 goal linked to scheduled/documen brandon intervention 3 goal interventions scheduled/documen brandon in this visit Fall Precautions/Safe ty Concerns Disciplines: Skilled Disciplines Fall precautions and general safety 12/12/2024 Active 1 goal linked to scheduled/documen brandon intervention 1 goal intervention scheduled/documen brandon in this visit Pain Disciplines: Core Disciplines Alteration in comfort 12/12/2024 Active 1 goal linked to scheduled/documen brandon intervention 1 goal intervention scheduled/documen brandon in this visit PT Medication Management Disciplines: Physical Therapy PT Medication Management 12/12/2024 Active - 1 problem intervention scheduled/documen brandon in this visit PT Impaired Functional Mobility/Balance Disciplines: Physical Therapy Impaired functional mobility/balance 12/12/2024 Active - 3 problem interventions scheduled/hugo taylor in this visit Goals Goal Associated Problem Outcome Goal Met? Visit Notes Prevent development of pressure injuries Description: assisted goal: The patient will maintain intact skin and avoid the development of pressure injuries within 4 weeks Short term goal: The patient/caregiver will understand and adhere to pressure prevention interventions within 2 weeks Pressure Prevention No Measure vital signs during every home health visit during episode of care Description: Home industrial service technician to measure vital signs during every home health visit during episode of care. Monitor patient's vital signs every home health visit No Verbalize signs of infection Description: Patient/caregiver will demonstrate knowledge of infection prevention strategies by verbalizing signs and symptoms of infection. Infection Prevention No Demonstrate fall and safety precautions Description: Patient/caregiver maintains safe home environment as evidenced by remaining free from falls, injury due to falls, demonstrating safety precautions, and identifying strategies to reduce falls by discharge Fall Precautions/Safety Concerns No Report that pain has been reduced or controlled Description: Patient/caregiver/family will verbalize satisfaction with the patients level of pain and symptom control. Pain No Interventions Intervention Associated Problem/Goal Status Variance Visit Notes Instruct on Pressure Prevention Description: Instruct patient/caregiver on inspecting the skin regularly for signs of impaired skin integrity, repositioning the patient on an individualized schedule according to the patient's tissue tolerance, skin condition, mobility, medical condition, and treatment goals. Avoid vigorous massage and emphasize the importance of increasing activity and mobility. Avoid using donut-shaped devices and foam cutouts for pressure redistribution. Determine if patient is using or needs a pressure reduction surface. Instruct patient/caregiver on using moisture barriers and absorbent pads/briefs as needed, avoiding prolonged skin contact with wet materials, and cleaning and drying skin thoroughly after incontinence episodes. If patient is malnourished instruct patient/caregiver on physician ordered diet, increased fluid intake if not contraindicated, and a list of possible protein sources to promote skin integrity. Problem:Pressure Prevention Goal:Prevent development of pressure injuries Completed Instructed patient/caregiver on inspecting the skin regularly for signs of impaired skin integrity, repositioning the patient on an individualized schedule according to the patient's tissue tolerance, skin condition, mobility, medical condition, and treatment goals. Avoid vigorous massage and emphasize the importance of increasing activity and mobility. Monitor Vital Signs Description: Monitor blood pressure, pulse, oxygen saturation, respirations Problem:Monitor patient's vital signs every home health visit Goal:Measure vital signs during every home health visit during episode of care Completed Aspects of Care Description: Instruct patient/caregiver on universal precautions and home infection control measures Problem:Infection Prevention Goal:Verbalize signs of infection Completed Instructed patient/caregiver on universal precautions and home infection control measures patient verbalizes good understanding of instructions and provides safe verbalization/return demonstration of instructions. Educate Patient on Infection Prevention Description: Instruct patient on signs and symptoms of infection IE: fever, odor, change in color, increased amount of drainage, purulent drainage, warmth. Problem:Infection Prevention Goal:Verbalize signs of infection Completed Instructed patient on signs and symptoms of infection IE: fever, odor, change in color, increased amount of drainage, purulent drainage, warmth. patient verbalizes good understanding of instructions Educate Family on Infection Prevention Description: Instructed family on signs and symptoms of infection IE: fever, odor, change in color, increased amount of drainage, purulent drainage, warmth. Problem:Infection Prevention Goal:Verbalize signs of infection Completed Instructed patient on signs and symptoms of infection IE: fever, odor, change in color, increased amount of drainage, purulent drainage, warmth. patient verbalizes good understanding of instructions High Fall Risk Precautions Description: Instruct patient/caregiver Izzy to use proper lighting in all areas, stand/sit up slowly, use appropriate footwear when walking, use proper assistive devices, and to keep pathways clear of cords and clutter to prevent falls. Remove/secure throw rugs. Educate patient on medications and disease processes that increase fall risk, using corrective lenses as prescribed, placing hard to reach items within reach, what to do in the event of a fall and to report any falls to the home health agency. Problem:Fall Precautions/Safety Concerns Goal:Demonstrate fall and safety precautions Completed Instructed patient/caregiver Izzy to use proper lighting in all areas, stand/sit up slowly, use appropriate footwear when walking, use proper assistive devices, and to keep pathways clear of cords and clutter to prevent falls. Remove/secure throw rugs. Educated patient on medications and disease processes that increase fall risk, using corrective lenses as prescribed, placing hard to reach items within reach, what to do in the event of a fall and to report any falls to the home health agency. Instruct on pain management techniques Description: Instruct in pharmacologic and nonpharmacologic pain management techniques. Problem:Pain Goal:Report that pain has been reduced or controlled Completed Medication Regimen Description: Assess patient/caregiver ability to follow prescribed medication regimen, including monitoring for side effects, notifying physician of questions or concerns and contacting pharmacy for refills when needed. Problem:PT Medication Management Completed reviewed med list. patient denies any needs for education on meds. [facility] MD and pharmacy provide adequate medication education. no major interactions noted with current meds. reviewed meds in home. patient has complete med list available in home. instructed patient to take meds as prescribed. patient verbalizes good understanding of instructions and provides safe verbalization/return demonstration of instructions. Gait/Stair Training Description: Instruct patient/caregiver and perform gait/stair training. Problem:PT Impaired Functional Mobility/Balance Completed instructed to rest as needed, gradually increase walking program as tolerated and use assistive device as needed for safety. patient verbalizes good understanding of instructions and provides safe verbalization/return demonstration of instructions. Therapeutic Exercise Description: Perform therapeutic exercise, progressing as tolerated. Problem:PT Impaired Functional Mobility/Balance Completed demonstrates sitting Alejandro LE exercises X 10 reps: ankle pumps, knee extension, hip abduction, marching. Home Exercise Program (HEP) Description: Instruct patient/caregiver and perform HEP. Problem:PT Impaired Functional Mobility/Balance Completed instructed to continue HEP X 10-20 reps BID as tolerated. issued handouts for reference. patient verbalizes good understanding of instructions and provides safe verbalization/return demonstration of instructions. documented in this encounter Care Teams Carpenters Supervisor Relationship Specialty Start Date End Date Cristobal Salvador MD [address] [place] [address] PCP - General Family Medicine 03/17/24 Shea Mercado NP Nurse Practitioner Obstetrics and Gynecology 06/22/22 Kirsten Del Rosario MD [address] [facility] [address] [place] [address] Radiation Oncologist Radiation Oncology 06/30/24 Tabatha Lopes MD [id number] [place] [address] Surgeon Gynecologic Oncology 06/30/24 documented as of this encounter
--- OUTSIDE RECORDS SUMMARY | 2024-12-15 16:55 | XMS_ITS | Encounter Summary ---
Author Organization [facility] Healthcare Address [address] [place] [address] Care Team Providers Care Income Tax Preparer Name Role Phone Shea Mercado NP Unavailable [phone] Cristobal Salvador MD Primary Care Provider Kirsten Del Rosario MD Unavailable Tabatha Lopes MD Unavailable [phone] Reason for Visit * Auth/Cert (Routine) Specialty Diagnoses / Procedures Referred By Contac t Referred To Contact Referral ID Status Reason Start Date Expiration Date Visits Re quested Visits Authorized [id number] 1 1 Encounter Details Date Type Department Care Team (Late st Contact Info) Description 12/15/2024 Home Care Visit [facility] [address] [address] [address] [place] [address] Cherie Camarillo, [facility] Social History Tobacco Use Types Packs/Day Years [...] Master's degree (e.g., MA, MS, Sandy, MEd, HEDGE FUND TRADER, ADAM) 07/12/2022 Comments No Sex and Gender Information Value Date Recorded Sex Assigned at Not on file Legal Sex Female 1:04 PM CDT Gender Identity Not on file Sexual Orientation Not on file 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 on file Not on file Not on file documented as of this encounter Plan of Treatment Not on file documented as of this encounter Visit Diagnoses Not on filedocumented in this encounter Care Teams Income Tax Preparer Relationship Specialty Start Date End Date Cristobal Salvador MD [address] [address] PCP - General Family Medicine 03/17/24 Shea Mercado NP Nurse Practitioner Obstetrics and Gynecology 06/22/22 Kirsten Del Rosario MD [address] [facility] [address] [place] [address] Radiation Oncologist Radiation Oncology 06/30/24 Tabatha Lopes MD [address] [facility] [id number] [place] [address] Surgeon Gynecologic Oncology 06/30/24 documented as of this encounter
--- OUTSIDE RECORDS SUMMARY | 2024-12-15 16:55 | XMS_ITS | Encounter Summary ---
Author Organization [facility] Healthcare Address [address] [place] [address] Care Team Providers Care Speech Assistant Name Role Phone Shea Mercado NP Unavailable [phone] Cristobal Salvador MD Primary Care Provider Kirsten Del Roasrio MD Unavailable Tabatha Lopes MD Unavailable [phone] Reason for Visit * Auth/Cert (Routine) Specialty Diagnoses / Procedures Referred By Contac t Referred To Contact Referral ID Status Reason Start Date Expiration Date Visits Re quested Visits Authorized [id number] 1 1 Encounter Details Date Type Department Care Team (Late st Contact Info) Description 12/15/2024 Home Care Visit [facility] [address] [place] [address] Eveline Lagos RN NURSE MED RECON FOR THERAPY Social History Tobacco Use Types Packs/Day Years [...] Master's degree (e.g., MA, MS, Sandy, MEd, CLERICAL METHODS ANALYST, ADAM) 07/12/2022 Comments No Sex and Gender Information Value Date Recorded Sex Assigned at Not on file Legal Sex Female 1:04 PM CDT Gender Identity Not on file Sexual Orientation Not on file 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 file Not on file Not on file documented as of this encounter Plan of Treatment Not on file documented as of this encounter Visit Diagnoses Not on filedocumented in this encounter Care Teams Speech Assistant Relationship Specialty Start Date End Date Cristobal Salvador MD [address] [address] PCP - General Family Medicine 03/17/24 Shea Mercado NP Nurse Practitioner Obstetrics and Gynecology 06/22/22 Kirsten Del Rosario MD [address] [facility] [address] [place] [address] Radiation Oncologist Radiation Oncology 06/30/24 Tabatha Lopes MD [id number] [place] [address] Surgeon Gynecologic Oncology 06/30/24 documented as of this encounter
--- OUTSIDE RECORDS SUMMARY | 2024-12-15 16:56 | XMS_ITS | Data Portability ---
Author Organization [facility] Address [address] [place] [address] Care Team Providers [employer] Manager Name Role Phone NAHOMI SIGALA Primary Care Provider Assessment No assessment recorded. Plan of Treatment Reminders Order Date Submit Date Provider Last Modified By Organization Details Last Modified Time Details Appointments None record ed. Lab None record ed. Referral None record ed. Procedures None record ed. Surgeries None record ed. Imaging None record ed. Medication Orders None record ed. Patient TargetsNo targets recorded. Patient InstructionsNo instructions recorded. Reason for Referral None Reported. Results Created Date Observation Date Name Description Value Unit Range Abnormal Flag Note LastModifiedBy Organization Detail LastModifiedTime 06/12/20 22 06/12/2022 IMAGE GUIDE D PAP AND HPV REGAR DLESS image guided Pap, HPV regardless of Pap result SEE RESULT S BELOW CASE REPOR T: Cytol ogy Gynec ologi seda Repor t Case: [id number] Autho luis antonio francis Provi ole: Shea Mercado, VONNIE Colle cted: 06/12 1118 Order ing Locat ion: [place] Patho logy Recei sherita: 06/13 0238 First Scree n: Vik Paulino ed, CT Speci men: Scree beryl Pap - Image d, Cervi x STATE MENT OF ADEQU ACY: Satis facto ry for evalu ation Trans forma tion zone compo nent prese nt FINAL DIAGN OSIS: Negat tiny for Intra epith elial Lesio n or Malig elsi (NIL) . Elect ting godinez piedad d by Vik Paulino ed, CT on 022 at 11:02 PM ----- ----- ----- ----- ----- ----- ----- ----- ----- ----- ----- ----- ----- ----- ----- ----- ----- ---- HPV RESUL TS: HPV mRNA E6/E7 : No HPV mRNA Detec brandon NOTE: This high risk HPV mRNA assay detec ts fourt een high- risk HPV types (16, 18, 31, 33, 35, 39, 45, 51, 52, 56, 58, 59, 66, 68) witho ut diffe renti ation . COMME NT: Note: This speci men was revie wed by a Cytot echno logis t and/o r Patho logis t (as indic ated in this repor t) after evalu ation using the Thinp rep Imagi ng Syste m. CLINI SEDA INFOR MATIO N: Menst rual Statu s: LMP (if appli cable ): Clini seda Histo ry/Pr eviou s Pap: Type of Neopl antonia (if appli cable ): Signi fican t Clini seda Findi ngs: Other Histo ry: Hormo dianne (if appli cable ): PAP EDUCA MIHAI L NOTE: The Pap Test is a scree beryl test with an inher ent false negat tiny rate. Liqui d-bas ed sampl ing may decre ase, but will not elimi jarret, false negat tiny resul ts. A negat tiny resul t does not precl ude the prese nce and/o r devel opmen t of disea se, since the prese nce of abnor mal cells in the sampl e depen ds on the locat ion of the lesio n and sampl ing techn ique. Muriel nued regul ar scree beryl is the best metho d of cance r preve ntion . If repor brandon cytol ogic findi ng do not corre late with physi seda and/o r histo rical findi ngs, fur er inves tigat ion is recom zachery d, as clini stephy sheffield nted. Not Available [facility] [address], [place], [address], 06/16/2022 00:05:28 06/19/20 22 06/19/2022 SURGI SEDA PATHO LOGY surgical pathology SEE RESULT S BELOW CASE REPOR T: Surgi seda Patho logy Repor t Case: [id number] Autho luis antonio penny Provi ole: Shea Mercado, NEWSPAPER INSERTER Colle cted: 06/19 1012 Order ing Locat ion: [place] Patho [place] Recei sherita: 06/20 0758 Patho logis t: Hermes Wright MD Speci mens: A) - Endom etriu m, emb B) - Endoc ervix , ecc FINAL DIAGN OSIS: A. 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 B. Endoc ervix , curet tage: -Rare minut e fragm ent of benig n ectoc ervic al mucos a. -No endoc ervic al mucos a prese nt for evalu ation . Elect ting shine by Hermes Wright MD on 2021 at 10:54 AM ----- ----- ----- ----- ----- ----- ----- ----- ----- ----- ----- ----- ----- ----- ----- ----- ----- ---- COMME NT: Immun ohist ochem ical stain s, perfo rmed on block A1, revea l that tumor cells are posit tiny for Napsi n A (stro ng, diffu se), ER (weak , focal ), and negat tiny for RI and CEA; p53 is diffi cult to inter pret but favor ed to be wild- type (norm al) in tumor cells . This case was seen in intra depar tment al revie w with agree ment on the above diagn osis on 06/22. Diagn osis was commu nicat ed to Shea Mercado NEWSPAPER INSERTER by Dr. Nafisa luo via phone at 10:53 AM on 06/22. CLINI SEDA INFOR MATIO N: R93.8 9 MICRO SCOPI C DESCR IPTIO N: A micro scopi c exami natio n was perfo rmed. This test was devel oped and its perfo rmanc e wilfredo cteri stics deter mined by Mariusz duckworth r[facility] ine. It has not been clear ed or appro sherita by the U. S. Food and Drug Admin istra tion. The FDA has deter mined that such clear ance or appro sarai is not neces valeria. This test may be used for clini seda purpo se. It shoul d not be regar ded as inves tigat ional or for resea rch. This labor atory is certi fied under the Clini seda Labor atory Impro vemen t Amend ments of 1987 (CLIA ) as quali fied to perfo rm high compl exity clini seda labor atory testi ng. In cases which have decal cifie d tissu es, the resul ts shoul d be inter prete d with cauti on given the possi bilit y of false negat bjorn. The posit tiny contr ols demon strat e appro priat e posit tiny stain ing. The known tissu e negat tiny contr ols are negat tiny. The non-i mmune serum contr ol was non-r eacti ve. GROSS DESCR IPTIO N: A. Endom etriu m. The speci men is label ed with the patie nt's name, luca brantleyi cs and EMB . Recei sherita in forma sahara is a 2.0 x 2.0 x 0.3 cm aggre gate of hennessy-b rown tissu e and blood clot mixed with mucoi d mater ial. The entir e speci men is submi tted in one casse tte. Gross ed by Nasir Barnard Endoc ervix . The speci men is label ed with the patie nt's name, luca brantleyi cs and ECC . Recei sherita in forma sahara is a less than 0.1 cm aggre gate of mucus and minut e white -hennessy tissu e. The entir e speci men is filte red throu gh a filte r bag and is submi tted in one casse tte; howev er, defin itive tissu e may not survi ve proce ssing . Gross ed by Nasir Cifuentes Not Available [facility] [address] [place], [address], 06/22/2022 11:56:31 06/19/20 22 06/19/2022 SURGI SEDA PATHO LOGY surgical pathology SEE RESULT S BELOW SURI TIPTON: [facility] pan , the slide s were sent out for addit ional consu ltati on at [facility] [address] [place] [address] and revie wed by Radhika marroquin MD., who agree s with the origi nal diagn osis. The compl ete repor t has been scann ed into [employer]. Suri tipton elect ting herbert d by Hermes Wright MD on 10/01 at 10:25 AM ----- ----- ----- ----- ----- ----- ----- ----- ----- ----- ----- ----- ----- ----- ----- ----- ----- ---- CASE REPOR T: Surgi seda Patho logy Repor t Case: [id number] Autho luis antonio francis Provi ole: Shea Mercado NP Colle cted: 06/19 1012 Order ing Locat ion: [place] Patho [place]y Recei shreita: 06/20 0758 Patho logis t: Hermes Wright MD Speci mens: A) - Endom etriu m, emb B) - Endoc ervix , ecc FINAL DIAGN OSIS: A. 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 B. Endoc ervix , curet tage: -Rare minut e fragm ent of benig n ectoc ervic al mucos a. -No endoc ervic al mucos a prese nt for evalu ation . Elect ting shine by Hermes Wright MD on 2021 at 10:54 AM ----- ----- ----- ----- ----- ----- ----- ----- ----- ----- ----- ----- ----- ----- ----- ----- ----- ---- COMME NT: Immun ohist ochem ical stain s, perfo rmed on block A1, revea l that tumor cells are posit tiny for Napsi n A (stro ng, diffu se), ER (weak , focal ), and negat tiny for RI and CEA; p53 is diffi cult to inter pret but favor ed to be wild- type (norm al) in tumor cells . This case was seen in intra depar tment al revajit w with agree ment on the above diagn osis on 06/22. Diagn osis was commu nicat ed to Shea Mercado NEWSPAPER INSERTER by Dr. Nafisa luo via phone at 10:53 AM on 06/22. CLINI SEDA INFOR MATIO N: R93.8 9 MICRO SCOPI C DESCR IPTIO N: A micro scopi c exami natio n was perfo rmed. This test was devel oped and its perfo rmanc e wilfredo cteri stics deter mined by [facility] landon. It has not been clear ed or appro sherita by the U. S. Food and Drug Admin istra tion. The FDA has deter mined that such clear ance or appro sarai is not neces valeria. This test may be used for clini seda purpo se. It shoul d not be regar ded as inves tigat ional or for resea rch. This labor atory is certi fied under the Clini seda Labor atory Impro vemen t Amend ments of 1987 (CLIA ) as quali fied to perfo rm high compl exity clini seda labor atory testi ng. In cases which have decal cifie d tissu es, the resul ts shoul d be inter prete d with cauti on given the possi bilit y of false negat bjorn. The posit tiny contr ols demon strat e appro priat e posit tiny stain ing. The known tissu e negat tiny contr ols are negat tiny. The non-i mmune serum contr ol was non-r eacti ve. GROSS DESCR IPTIO N: A. Cheikhm wild m. The speci men is label ed with the patie nt's name, luca castillo cs and EMB . Recei sherita in forma sahara is a 2.0 x 2.0 x 0.3 cm aggre gate of hennessy-b rown tissu e and blood clot mixed with mucoi d mater ial. The entir e speci men is submi tted in one casse tte. Gross ed by Nasir Cifuentes B. Endoc ervix . The speci men is label ed with the patie nt's name, luca raphi cs and ECC . Recei sherita in forma sahara is a less than 0.1 cm aggre gate of mucus and minut e white -hennessy tissu e. The entir e speci men is filte red throu gh a filte r bag and is submi tted in one casse tte; howev er, defin itive tissu e may not survi ve proce ssing . Gross ed by Nasir Cifuentes Not Available [facility] (Lab) [address], [place], [address], 10/01/2022 11:28:06 06/12/20 22 06/11/2022 US, trans vagin al No observ ation record ed. [facility] [address], [place], [address], 06/14/2022 15:03:30 Result Notes None recorded. Procedures Surgical History Date Name Laterality Status Provider Name and Address Organization Details Recorded Time 06/19/20 22 Endometrial Biopsy completed Shea Mercado, [facility] [address], [place], [address], [facility] 06/19/2022 10:02:57 04/16/20 19 Date of Last Mammogram completed [facility] 06/12/2022 10:14:38 09/21/[address] [facility] 06/12/2022 10:14:38 06/18/20 16 Date of Last Pap Smear completed [facility] 06/12/2022 10:14:38 Tubal Ligation completed [facility] 06/12/2022 10:14:50 Imaging Results Imaging Date Name Status LastModified by Organization Details LastModified Time 06/11/2022 US, transvaginal completed [facility] [address] [address], [place], [address], 06/14/2022 15:03:30 Procedure Notes None recorded. Medical Equipment None Reported. Allergies No known drug allergies Medications Not known to be on any medication Vitals Date Recorded Body height Body mass index (BMI) Body weight Systolic blood pressure Diastolic blood pressure Provider Name and Address Organization Details Last Updated DateTime 06/12/2022 157.48 cm 20.9 kg/m2 66586.25 g 133 mm[Hg] 76 mm[Hg] [facility] 10:14:34 Date Recorded Body height Body mass index (BMI) Body weight Systolic blood pressure Diastolic blood pressure Provider Name and Address Organization Details Last Updated DateTime 06/19/2022 157.48 cm 20.9 kg/m2 48044.53 g 121 mm[Hg] 73 mm[Hg] [facility] 09:50:34 Social History Question Answer Notes LastModified by Organizat ion Details LastModified Time Tobacco Smoking Status Never Smoker Augie Carlos [facility] 06/19/2022 09:27:46 Do You Have An Advance Directive? Yes Information n ot available 06/12/2022 What Is Your Level Of Alcohol Consumption? None Information not available 06/12/2022 Are You Blind Or Do You Have Difficulty Seeing? No Information n ot available 06/12/2022 What Is Your Level Of Caffeine Consumption? Occasional Information not available 06/12/2022 In The 14 Days Before Symptom Onset, Have You Had Close Contact With A Laboratory-confirm ed COVID-19 While That Case Was Ill? No Information n ot available 06/12/2022 In The 14 Days Before Symptom Onset, Have You Had Close Contact With A Person Who Is Under Investigation For COVID-19 While That Person Was Ill? No Information not available 06/12/2022 Have You Been To An Area Known To Be High Risk For COVID-19? Yes Information not available 06/12/2022 Are You Deaf Or Do You Have Serious Difficulty Hearing? No Information not available 06/12/2022 What Type Of Diet Are You Following? REGULAR Information n ot available 06/12/2022 What Is The Highest Grade Or Level Of School You Have Completed Or The Highest Degree You Have Received? [id number] Information not available 06/12/2022 What Is Your Occupation? Retired Information not available 06/12/2022 Are There Any Guns Present In Your Home? No Information not available 06/12/2022 Do You Use Protection During Sex? No Information not available 06/12/2022 Do You Use Your Seat Belt Or Car Seat Routinely? Yes Information not available 06/12/2022 Do You Have Smoke And Carbon Monoxide Detectors In Your Home? Yes Information not available 06/12/2022 How Much Tobacco Do You Smoke? No Information not available 06/12/2022 Do You Feel Stressed (tense, Restless, Nervous, Or Anxious, Or Unable To Sleep At Night)? [id number] Information not available 06/12/2022 Do You Use Any Illicit Or Recreational Drugs? No Information not available 06/12/2022 Do You Use Sunscreen Routinely? No Information not available 06/12/2022 Have You Used IV Drugs? No Information not available 06/12/2022 Sex: Unknown Functional Status Question Answer Note LastModified by Organizat ion Details LastModified Time Do you have difficulty walking or climbing stairs? No [email or web address] Information not available 06/19/2022 Are you able to walk? YESWOREST Information not available 06/12/2022 Are you able to care for yourself? Yes [email or web address] Information not available 06/19/2022 Do you have difficulty dressing or bathing? No [email or web address] Information not available 06/19/2022 What is your exercise level? Moderate Information not available 06/12/2022 Mental Status None recorded. Family History Nothing Reported. Medical History Condition Response Allergies (Food, seasonal, environmental ) N Other N Drug/Latex Allergies/Reactions N Blood Transfusion N Breast Cancer N Dermatologic Disorders N Lung Disease N Defects or Inherited Disease N Breast Problem N Gestational Diabetes N Hematologic disorders N Anesthesia Complications N History of STI N Deep Vein Thrombosis N Polycystic ovary syndrome N Anxiety Disorder N Autoimmune disease N Arthritis N Polyps N Infertility N Acid Reflux (GERD) N History of abnormal pap N Cancer N Varicosities N Stroke N Neurologic/Epilepsy N Endometriosis N High Cholesterol N Fibromyalgia N Headaches N Kidney Disease N Heart Problems N Thyroid Problems N Kidney or Bladder Problems N GI Problems N Eating Disorder N Anemia N Art (IVF or FET) N Psychiatric Illness N Ovarian Cancer N Diabetes N Pulmonary (TB, Asthma) N Hepatitis/Liver Disease N No Past Medical History Y Eczema N Urinary Tract Infection N Abuse/Domestic Violence N Asthma N Trauma/Violence N Depression/ depression N Heart Disease N Pre-Eclampsia N Hypertension N Osteoporosis N Thrombophilias N Gynecological History Statement/Question Response Date of Last Mammogram 04/16/2019 Y STIs/STDs N Was last menstrual period normal N HPV Vaccine N Duration of Flow (days) 7 Current Control Method Tubal Ligat ion Age at First Child 25 If Post Menopausal, Age at Menopause 51 Sexually Active? N Age of first menstrual cycle 13 Date of Last Pap Smear 06/18/2016 LMP Unknown 09/21/2018 N Obstetrics History GPAL:G 2 P 0 0 0 2 Type Value Living 2 Total 2 Past Encounters Encounter ID Performer Location Encounter Start Date Encounter Closed Date Diagnosis/Indication Diagnosis SNOMED-CT Code Diagnosis ICD10 Code Diagnosis Note [id number] HEATHER Desai [place] [address] [address] 06/12/2022 09:31:35 06/12/2022 11:55:51 Postmenopausal bleeding 75458761 N95.0 We discussed postmenopa usal bleeding and the need for further evaluation / testingRec ords release signed and faxed, [facility] [place] [facility]Pap done todayWe discussed need for EMB for further evaluation , she will schedule thisWill await imaging reportRTC for EMB Time spent in visit is a total of 30 mins with at least 50% of visit consisting of counseling and review of plan of care. [id number] HEATHER Desai [facility] [address] [address] 06/19/2022 09:27:25 06/19/2022 10:31:36 Postmenopausal bleeding 84262390 N95.0 ECC and EMB performed without any immediate complicati onsPatient to call the office with any heavy vaginal bleeding, extreme pain, fevers, flu-like symptoms, foul vaginal discharge, etc.EMB f/u scheduled with Dr. Loving to discuss result/fur ther management Endometrium thickened 44 [id number] R93.89 Health Concerns Section Related Observation LastModified by Organization Detai ls LastModified Time None Recorded Concern Status LastModified by Organization Details LastModified Time None Recorded Advance Directives Directive Y: Payers Encounter Date Sequence Insurance Name Policy Number Policy Dubon Covered Member ID Dubon Member ID Guarantor Name 06/12/2022 1 [facility] [id number] Carlos Hare [id number] Carlos Hare 06/12/2022 2 [place] Carlos Hare [id number] Carlos Figueroad 06/19/2022 1 [facility] [id number] Carlos Figueroad [id number] Carlos Hare 06/19/2022 2 [place] Carlos Figueroad [id number] Carlos Hare Notes Date Note Type Note Provider Name and Address Organization Details Recorded Time 2 text/html 72yo Presents for postmenopausal bleeding x 2 weeksStarted as a heavier flow, now just only light spotting when wipingPostmenopausal since her early 50's. She has had an episode of postmenopausal bleeding every year since 2019. Was seen somewhere previously in 2020 and had a pelvic u/s but she did not go back for f/u.Seen by her PCP for this current episode, had a pelvic u/s done yesterday at [facility].She is having some pelvic tendernessNo hx of abnormal papsNot sexually active x 30 yearsDenies any medical hx or problems HEATHER Desai [address], [place], [address], [facility] 06/12/2022 11:11:20 2 text/html Patient presents for EMB due to endometrial thickening/[id number] Presents for postmenopausal bleeding x 2 weeksStarted as a heavier flow, now just only light spotting when wipingPostmenopausal since her early 50's. She has had an episode of postmenopausal bleeding every year since 2019. Was seen somewhere previously in 2020 and had a pelvic u/s but she did not go back for f/u.Seen by her PCP for this current episode, had a pelvic u/s done at [facility] on 06/11/22, showed thickened endometrium.She is having some pelvic tendernessNo hx of abnormal papsNot sexually active x 30 yearsDenies any medical hx or problems [address] [place], [address], [facility] 06/19/2022 10:09:42 OBGyn Episode Ob Episode Information Episode Created Date Number of Fetuses Patient Bloodtype Patient rh Status Prepregnancy Weight lbs Domestic Partner Domestic Partner Phone Father Name Instrument Operator Status 06/12/20 22 1 CLOSED Fetus Data First Name Last Name Admitted to NICU Weight (g) Sex Living Outcome Pediatric Complications Fetus ID Race Codes Race Delivery Type 3770.25 [id number] Vaginal Delivery Stephen Calculation Initial Stephen Date Initial Exam Date Initial Exam Provider Initial Ultrasound Date Last Menstrual Period Date Ultra Sound Weeks Gestation 0 Eighteen To Twenty Week Stephen Update Ultra Sound Date Fundal Height At Umbil Quickening Date Ultra Sound Latest Weeks Gestation Final Stephen Confirmed By Final Stephen Confirmed Date Final Stephen Date Ultra Sound Latest Days Gestation 0 0 Menstrual History Last Menstrual Date Menses Monthly On Bcp Conception Prior Menses Frequency Hcg Plus Date Menarche Onset Age Delivery Information Delivery Date Delivery Type Labor Anesthesia Weeks Gestation Incision Type Labor Labor Length Hrs Delivered By Post Complications Tubal Sterilization Discharge Date Comments 9 Discharge Information Feeding Method Contraceptive Method Maternal HG B and HCT Levels Ob Episode Information Episode Created Date Number of Fetuses Patient Bloodtype Patient rh Status Prepregnancy Weight lbs Domestic Partner Domestic Partner Phone Father Name Instrument Operator Status 06/12/20 22 1 CLOSED Fetus Data First Name Last Name Admitted to NICU Weight (g) Sex Living Outcome Pediatric Complications Fetus ID Race Codes Race Delivery Type 3316.66 [id number] Vaginal Delivery Stephen Calculation Initial Stephen Date Initial Exam Date Initial Exam Provider Initial Ultrasound Date Last Menstrual Period Date Ultra Sound Weeks Gestation 0 Eighteen To Twenty Week Stephen Update Ultra Sound Date Fundal Height At Umbil Quickening Date Ultra Sound Latest Weeks Gestation Final Stephen Confirmed By Final Stephen Confirmed Date Final Stephen Date Ultra Sound Latest Days Gestation 0 0 Menstrual History Last Menstrual Date Menses Monthly On Bcp Conception Prior Menses Frequency Hcg Plus Date Menarche Onset Age Delivery Information Delivery Date Delivery Type Labor Anesthesia Weeks Gestation Incision Type Labor Labor Length Hrs Delivered By Post Complications Tubal Sterilization Discharge Date Comments 5 Discharge Information Feeding Method Contraceptive Method Maternal HG B and HCT Levels
--- OUTSIDE RECORDS SUMMARY | 2024-12-15 16:56 | XMS_ITS | Referral Summary ---
Author Organization [facility] Address [address] [place] [address] Care Team Providers Care Medical Microbiologist Name Role Phone Shea Mercado TRAVELING REPAIR ACCOUNTANT Unavailable Cristobal Salvador MD Primary Care Provider [phone] Kirsten Del Rosario MD Unavailable Fe Le MD Unavailable Encounters Date Type Department Care Team Description 12/15/2024 Home Care Visit [address] [place] [address] Eveline Lagos, RN NURSE MED RECON FOR THERAPY 12/15/2024 Home Care Visit [address] [place] [address] Cherie Camarillo, PT CARE CONFERENCE 12/12/2024 Plan of Care Documentation [address] [place] [address] 12/12/2024 11:30 AM BODY PAINTER Home Care Visit [address] [place] [address] Yesenia Verma, PT PT OASIS START OF CARE 12/11/2024 3:42 PM BODY PAINTER - 12/11/2024 11:59 PM BODY PAINTER Hospital Encounter [address] [address] Endometrial cancer (CMS/HCC) (HCC) Discharge Disposition: Discharge to home or self care 12/11/2024 4:00 PM BODY PAINTER Lab [facility] Outpatient Lab at [address] [address] Hypercholesteremia (Primary Dx) 12/11/2024 Telephone [facility] Gynecologic [facility] ([facility]) [address] [place] [address] Lidna Medley, LOLA 12/11/2024 Orders Only [facility] Gynecologic Oncology [facility]) [address] [place] [address] Linda Medley, LOLA Endometrial cancer (CMS/HCC) (HCC) (Primary Dx) 12/11/2024 Telephone [facility] [address] [place] [address] Betzy Miller, LOLA Home Health 12/11/2024 Telephone [facility] Geriatric Medicine [address] [facility] [address] Medical Office Building 2 [place] [phone] Kymberly Shelton RN 12/10/2024 Telephone [facility] Orthopaedic Surgery [address] [place] [address] 6th [place] [address] Jay Hussein MD Appointment 12/10/2024 Telephone [facility] Nutrition Counseling [address] [place] [address] 12/10/2024 3:00 PM BODY PAINTER Telemedicine [facility] Outpatient Health - Palliative Care [address] [place] [address] Catrachita [facility] MD Cancer related pain (Primary Dx); Endometrial cancer (CMS/HCC) (HCC); Pain from bone metastases (HCC); Nausea and vomiting, unspecified vomiting type; Physical debility; Constipation, unspecified constipation type; Repeated falls; Palliative care encounter 11/26/2024 Telephone [facility] Outpatient Health - Palliative Care [address] [place] [address] Millie Tim, LOLA 11/19/2024 Telephone [facility] Nutrition Counseling 1 [facility] [place] [address] 11/18/2024 Orders Only [facility] ([facility]) [address] [place] [address] Linda Medley, LOLA 11/17/2024 Orders Only [facility] Gy[facility] ([facility]) [address] [place] [address] Linda Medley RN Endometrial cancer (CMS/HCC) (HCC) (Primary Dx); High risk medication use 11/13/2024 1:45 PM BODY PAINTER - 11/13/2024 11:59 PM BODY PAINTER Hospital Encounter [facility] ([facility]) [address] [place] [address] Cervical spinal stenosis Discharge Disposition: Discharge to home or self care 11/13/2024 2:30 PM BODY PAINTER Office Visit [facility] Orthopaedic Surgery [address] [place] [address] Advanced [facility] 6th [place] [address] [place] [address] Aiden Rowe MD Cervical spinal stenosis (Primary Dx) 11/12/2024 Orders Only [facility] Gy[facility] ([facility]) [address] [place] [address] Linda Medley, LOLA 11/06/2024 Telephone [facility] Outpatient Health - Palliative Care [address] [place] [address] [place] [address] Lolita Rojas RN 10/30/2024 9:00 AM BODY PAINTER Home Care Visit [address] [place] [phone] hCerie Camarillo, PT PT OASIS DISCHARGE 10/29/2024 Orders Only [facility] Gy[facility] ([facility]) [address] [place] [address] Linda Medley, LOLA Endometrial cancer (CMS/HCC) (HCC) (Primary Dx) 10/29/2024 Orders Only [facility] Gynecologic [facility] ([facility]) [address] [place] [address] Linda Medley RN 10/29/2024 11:30 AM BODY PAINTER Office Visit [facility] Obstetrics and Gynecology [address] [facility] Advanced Medicine 13th [place] [address] [place] [address] Fe Le MD Endometrial cancer (CMS/HCC) (HCC) (Primary Dx) 10/28/2024 12:15 PM BODY PAINTER Home Care Visit [address] [place] [address] Lorie Schaeffer PTA PT HOME VISIT 10/27/2024 Orders Only [facility] Radiation Oncology [address] [place] [address] Kirsten Del Rosario MD Adverse effect of radiation therapy, initial encounter (Primary Dx) 10/27/2024 Telephone [facility] Nutrition Counseling [address] [place] [address] 10/23/2024 1:30 PM BODY PAINTER Home Care Visit [address] [place] [address] Lorie Schaeffer PTA PT HOME VISIT 10/22/2024 Completion of Therapy [facility] Radiation Oncology [address] [place] [address] Kirsten Del Rosario MD 10/22/2024 Orders Only RAD ONC TREATMENTS Miscellaneous, Not In File 10/22/2024 3:43 PM BODY PAINTER - 10/22/2024 11:59 PM BODY PAINTER Hospital Encounter [facility] Radiation Oncology [address] [place] [address] Kirsten Del Rosario MD Discharge Disposition: Discharge to home or self care 10/21/2024 Orders Only RAD ONC TREATMENTS Miscellaneous, Not In File 10/21/2024 12:15 PM BODY PAINTER Home Care Visit [address] [place] [address] Lorie Schaeffer PTA PT HOME VISIT 10/21/2024 3:00 PM BODY PAINTER - 10/21/2024 11:59 PM BODY PAINTER Hospital Encounter [facility] Radiation Oncology [address] [facility] [place] [address] Kirsten Del Rosario MD Discharge Disposition: Discharge to home or self care 10/20/2024 OTV [facility] Radiation Oncology [address] [place] [address] Kirsten Del Rosario MD Endometrial cancer (CMS/HCC) (HCC) [C54.1] (Primary Dx) 10/20/2024 Orders Only RAD ONC TREATMENTS Miscellaneous, Not In File 10/20/2024 Home Care Visit [address] [place] [address] Cherie Camarillo, PT CARE CONFERENCE 10/20/2024 2:40 PM BODY PAINTER - 10/20/2024 11:59 PM BODY PAINTER Hospital Encounter [facility] Radiation Oncology [address] [place] [address] Kirsten Del Rosario MD Discharge Disposition: Discharge to home or self care 10/19/2024 Orders Only RAD ONC TREATMENTS Miscellaneous, Not In File 10/19/2024 3:56 PM BODY PAINTER - 10/19/2024 11:59 PM BODY PAINTER Hospital Encounter [facility] Radiation Oncology [address] [place] [address] Kirsten Del Rosario MD Discharge Disposition: Discharge to home or self care 10/18/2024 Home Care Visit [address] [place] [address] Sera Lopez, LOLA NURSE MED RECON FOR THERAPY 10/17/2024 Plan of Care Documentation [address] [place] [address] 10/17/2024 9:00 AM BODY PAINTER Home Care Visit [address] [place] [address] Suhail Huff, PT PT OASIS START OF CARE 10/16/2024 Orders Only RAD ONC TREATMENTS Miscellaneous, Not In File 10/16/2024 2:34 PM BODY PAINTER - 10/16/2024 11:59 PM BODY PAINTER Hospital Encounter [facility] Radiation Oncology [address] [place] [address] Kirsten Del Rosario MD Discharge Disposition: Discharge to home or self care 10/08/2024 11:12 AM BODY PAINTER - 10/15/2024 12:30 PM BODY PAINTER Hospital Encounter [address] [address] Fe Le MD Sanders, Brooke Elizabeth, MD Diagnosis unknown (Primary Dx); Endometrial cancer (CMS/HCC) (HCC); Physical deconditioning Discharge Disposition: Discharge to home, home health skilled care 10/13/2024 10:38 AM BODY PAINTER - 10/13/2024 11:59 PM BODY PAINTER Hospital Encounter [facility] Advanced [facility] Radiation Oncology [address] [place] [address] Kirsten Del Rosario MD Discharge Disposition: Discharge to home or self care 10/12/2024 7:55 AM BODY PAINTER Ancillary Procedure [facility] Vascular Lab IP [address] [place] [address] 09/24/2024 4:55 PM BODY PAINTER Lab [facility]) [facility] [place] [address] Endometrial cancer (CMS/HCC) (HCC) (Primary Dx) 09/24/2024 Orders Only [facility] Gynecologic [facility]) [address] [place] [address] Linda Medley RN Endometrial cancer (CMS/HCC) (HCC) (Primary Dx) 09/24/2024 1:00 PM BODY PAINTER Office Visit [facility] Obstetrics and Gynecology [address] [facility] 13th [place] [address] [place] [address] Fe Le MD Endometrial cancer (CMS/HCC) (HCC) 09/23/2024 Orders Only [facility] Gy[facility]) [address] [place] [address] Linda Medley RN Endometrial cancer (CMS/HCC) (HCC) (Primary Dx) 09/23/2024 Telephone [facility] Nutrition Counseling [address] [place] [address] Moon Daniels, JOSSELYN 09/15/2024 Completion of Therapy [facility] Radiation Oncology [address] [place] [address] [place] [address] Kirsten Del Rosario MD 09/15/2024 Orders Only RAD ONC TREATMENTS Miscellaneous, Not In File 09/15/2024 OTV [facility] Radiation Oncology [address] [place] [address] Kirsten Del Rosario MD Endometrial cancer ([facility]/HCC) (HCC) [C54.1] (Primary Dx) 09/15/2024 Orders Only RAD ONC TREATMENTS Miscellaneous, Not In File 09/15/2024 9:53 AM BODY PAINTER - 09/15/2024 11:59 PM BODY PAINTER Hospital Encounter [facility] Radiation Oncology [address] [place] [address] Kirsten Del Rosario MD Discharge Disposition: Discharge to home or self care 09/14/2024 Orders Only RAD ONC TREATMENTS Miscellaneous, Not In File 09/14/2024 12:38 PM BODY PAINTER - 09/14/2024 11:59 PM BODY PAINTER Hospital Encounter [facility] Radiation Oncology [address] [facility] [place] [address] Discharge Disposition: Discharge to home or self care from Last 3 Months Allergies Active Allergy Reactions Criticality Noted Date Comments Codeine Other (See comments) Low 08/02/2022 Patient states she passed out Medications cholecalcifero l (VITAMIN D-3) 400 unit capsuleIndicat ions:supplemen t Take by mouth every morning Active acetaminophen (TYLENOL) 500 mg tabletIndicati ons:Pain Take 1 tablet (500 mg total) by mouth every 6 (six) hours as needed for pain 30 tablet 2 Active polyethylene glycol (MIRALAX) 17 gram packetIndicati ons:constipati on Take 1 packet (17 g total) by mouth daily 14 packet 2 Active Additional Information Patient not taking.Reported on 12/10/2024 lidocaine-pril ocaine creamIndicatio ns:Administrat ion of Local Anesthesia Apply topically as needed for pain Apply 1 hour prior to IV access and cover. 30 g 1 4 Active pyridoxine HCl, vitamin B6, (VITAMIN B-6 ORAL) Take 1 tablet by mouth 2 (two) times a day Active ibuprofen (ADVIL,MOTRIN) 600 mg tabletIndicati ons:Pain Take 1 tablet (600 mg total) by mouth every 6 (six) hours as needed for pain 30 tablet 4 Active B complex-vitami n C-folic acid 5 mg tabletIndicati ons:Vitamin Deficiency Prevention Take 1 tablet by mouth daily 30 tablet 11 4 10/15/20 25 Active Additional Information Patient not taking.Reported on 12/10/2024 cyanocobalamin (Vitamin B-12) 1,000 mcg tabletIndicati ons:Prevention of Vitamin B12 Deficiency Take 1 tablet (1,000 mcg total) by mouth daily 30 tablet 11 4 10/15/20 25 Active prochlorperazi ne (COMPAZINE) 5 mg tabletIndicati ons:Nausea and Vomiting Take 1 tablet (5 mg total) by mouth every 6 (six) hours as needed for nausea or vomiting Active ondansetron (ZOFRAN) 8 mg tabletIndicati ons:Prevention of Chemotherapy-I nduced Nausea and Vomiting Take 1 tablet by mouth every 8 (eight) hours as needed for nausea or vomiting Active ferrous sulfate 325 mg (65 mg of elemental iron) tabletIndicati ons:Iron Deficiency Anemia Take 1 tablet (325 mg total) by mouth daily with breakfast 30 tablet 11 4 12/10/19 25 Discontin ued(Thera py completed ) al & mag hydroxide with simethicone-di phenhydramine- lidocaine (MAGIC MOUTHWASH) suspension 2-4-3Isgihufbh ns:Adverse effect of radiation therapy, initial encounter Take 10 mL by mouth every 3 (three) hours as needed (esophagitis) 500 mL 2 4 12/10/19 25 Discontin ued(Thera py completed ) Active Problems Problem Noted Date Diagnosed Date Physical debility 12/10/2024 Repeated falls 12/10/2024 Endometrial cancer (CMS/HCC) 07/12/2022 Cancer Staging:Pathologic stage from 08/20/2022:FIGO Stage IA(pT1a, pN0(sn), cM0) - Signed by Fe Le MD on 10/12/2022 Clinical stage from 03/02/2024:FIGO Stage IVC, calculated as Stage IVB(rcTX, cN2a, cM1) - Signed by Flaquito Christensen MD on 06/27/2024 Hypercholesteremia 07/12/2022 Resolved Problems Problem Noted Date Diagnosed Date Resolved Date Pre-procedure lab exam 04/10/202406/17 At high risk for bleeding 04/10/2024 Social History Tobacco Use Types Packs/Day Years Used Date Smoking Tobacco: Never Tobacco Cessation:Counseling Given: Not Answered OASIS [id number]: Social Isolation Answer Da te [...] Master's degree (e.g., MA, MS, Sandy, MEd, [employer], ADAM) 07/12/2022 Comments No Sex and Gender Information Value Date Recorded Sex Assigned at Not on file Legal Sex Female 1:04 PM CDT Gender Identity Not on file Sexual Orientation Not on file 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 Not on file Not on file Not on file Last Filed Vital Signs Vital Sign Reading Time Taken Comments Blood Pressure 104/62 12/12/2024 12:15 PM BODY PAINTER Pulse 70 12/12/2024 12:15 PM BODY PAINTER Temperature 36.4 ??C (97.5 ??F) 12/12/2024 1 2:15 PM BODY PAINTER Respiratory Rate 17 12/12/2024 12:1 5 PM BODY PAINTER Oxygen Saturation 99% 12/12/2024 12: 15 PM BODY PAINTER Inhaled Oxygen Concentration - - Weight 46.2 kg (101 lb 14.4 oz) 024 11:48 AM BODY PAINTER Height 157.5 cm (5' 2.01 ) 10/29/2024 1 1:48 AM BODY PAINTER Body Mass Index 18.63 10/29/2024 11:48 AM BODY PAINTER Plan of Treatment Not on file Medical Devices Implanted Type Area Tar Man Device Identifier Shelf Expiration Date Model / Serial / Lot [employer] Excela Low Porfile Power Port 8fr 1.6mm 1 Lumen [id number] - [id number] Implanted:Qty: 1 on 04/14/2024 at [facility] [employer] 01/11/2029 [id number] / / [id number] Procedures Procedure Name Priority Date/Time Associated Diagnosis Comments EGFR Routine 12/11/2024 4:17 PM BODY PAINTER Endometrial cancer (CMS/HCC) (HCC) DIFFERENTIAL AUTO Routine 12/11/2024 4:1 7 PM BODY PAINTER Endometrial cancer (CMS/HCC) (HCC) CBC WITH AUTO DIFFERENTIAL Routine 12/11/2024 4:17 PM BODY PAINTER Endometrial cancer (CMS/HCC) (HCC) COMPREHENSIVE METABOLIC PANEL Routine 12/11/2024 4:17 PM BODY PAINTER Endometrial cancer (CMS/HCC) (HCC) XR SPINE CERVICAL 2 OR 3 VIEWS Schedule Routine, Read Routine (OP Routine) 11/13/2024 2:02 PM BODY PAINTER Cervical spinal stenosis RAD ONC ARIA SESSION SUMMARY 10/22/2024 4:33 PM BODY PAINTER RAD ONC ARIA SESSION SUMMARY 10/21/2024 3:32 PM BODY PAINTER RAD ONC ARIA SESSION SUMMARY 10/20/2024 3:06 PM BODY PAINTER RAD ONC ARIA SESSION SUMMARY 10/19/2024 4:23 PM BODY PAINTER RAD ONC ARIA SESSION SUMMARY 10/16/2024 3:10 PM BODY PAINTER EGFR Routine 10/14/2024 9:03 PM BODY PAINTER PHOSPHORUS Routine 10/14/2024 9:03 PM BODY PAINTER MAGNESIUM Routine 10/14/2024 9:03 PM BODY PAINTER BASIC METABOLIC PANEL Routine 10/14/2024 9:03 PM BODY PAINTER CBC WITHOUT DIFFERENTIAL Routine 10/14/2024 9:03 PM BODY PAINTER EGFR Routine 10/13/2024 8:20 PM BODY PAINTER PHOSPHORUS Routine 10/13/2024 8:20 PM BODY PAINTER MAGNESIUM Routine 10/13/2024 8:20 PM BODY PAINTER BASIC METABOLIC PANEL Routine 10/13/2024 8:20 PM BODY PAINTER CBC WITHOUT DIFFERENTIAL Routine 10/13/2024 8:20 PM BODY PAINTER TRANSFUSE RED BLOOD CELLS Timed 10/13/2024 5:35 PM BODY PAINTER TYPE AND SCREEN Timed 10/13/2024 3:35 PM BODY PAINTER PREPARE RBC Timed 10/13/2024 3:31 PM BODY PAINTER EGFR Routine 10/12/2024 8:40 PM BODY PAINTER PHOSPHORUS Routine 10/12/2024 8:40 PM BODY PAINTER MAGNESIUM Routine 10/12/2024 8:40 PM BODY PAINTER BASIC METABOLIC PANEL Routine 10/12/2024 8:40 PM BODY PAINTER CBC WITHOUT DIFFERENTIAL Routine 10/12/2024 8:40 PM BODY PAINTER US CAROTIDS DUPLEX BILATERAL ED Urgent/IP Urgent 10/12/2024 2:[address] CHEST PE ABDOMEN PELVIS W CONTRAST ED Urgent/IP Urgent 10/12/2024 10:50 AM BODY PAINTER TROPONIN I HIGH-SENSITIVITY Timed 10/12/2024 7:07 AM BODY PAINTER ECG 12-LEAD Routine 10/12/2024 6:58 AM BODY PAINTER EGFR Routine 10/11/2024 8:23 PM BODY PAINTER PHOSPHORUS Routine 10/11/2024 8:23 PM BODY PAINTER MAGNESIUM Routine 10/11/2024 8:23 PM BODY PAINTER BASIC METABOLIC PANEL Routine 10/11/2024 8:23 PM BODY PAINTER CBC WITHOUT DIFFERENTIAL Routine 10/11/2024 8:23 PM BODY PAINTER XR CHEST 1 VIEW ED Urgent/IP Urgent 10/11/2024 3:07 PM BODY PAINTER URINALYSIS, MICROSCOPIC ONLY STAT 10/11/2024 2:32 PM BODY PAINTER URINALYSIS AND REFLEX TO MICROSCOPIC AND CULTURE STAT 10/11/2024 2:32 PM BODY PAINTER EGFR STAT 10/11/2024 2:22 PM BODY PAINTER DIFFERENTIAL AUTO STAT 10/11/2024 2:2 2 PM BODY PAINTER LACTATE STAT 10/11/2024 2:22 PM BODY PAINTER BASIC METABOLIC PANEL STAT 10/11/2024 2:22 PM BODY PAINTER CBC WITH AUTO DIFFERENTIAL STAT 10/11/2024 2:22 PM BODY PAINTER RESPIRATORY PATHOGEN PANEL Routine 10/11/2024 2:22 PM BODY PAINTER BLOOD CULTURE Routine 10/11/2024 2:22 PM BODY PAINTER BLOOD CULTURE Routine 10/11/2024 2:22 PM BODY PAINTER EGFR Routine 10/10/2024 8:47 PM BODY PAINTER PHOSPHORUS Routine 10/10/2024 8:47 PM BODY PAINTER MAGNESIUM Routine 10/10/2024 8:47 PM BODY PAINTER BASIC METABOLIC PANEL Routine 10/10/2024 8:47 PM BODY PAINTER CBC WITHOUT DIFFERENTIAL Routine 10/10/2024 8:47 PM BODY PAINTER ECG 12-LEAD STAT 10/10/2024 2:15 PM BODY PAINTER EGFR Routine 10/09/2024 8:11 PM BODY PAINTER PHOSPHORUS Routine 10/09/2024 8:11 PM BODY PAINTER MAGNESIUM Routine 10/09/2024 8:11 PM BODY PAINTER BASIC METABOLIC PANEL Routine 10/09/2024 8:11 PM BODY PAINTER CBC WITHOUT DIFFERENTIAL Routine 10/09/2024 8:11 PM BODY PAINTER MRI BRAIN W WO CONTRAST IP Routine 10/09/2024 2:25 PM BODY PAINTER MRI SPINE TOTAL COMPLETE W WO CONTRAST IP Routine 10/09/2024 2:25 PM BODY PAINTER EGFR Routine 10/08/2024 8:48 PM BODY PAINTER PHOSPHORUS Routine 10/08/2024 8:48 PM BODY PAINTER MAGNESIUM Routine 10/08/2024 8:48 PM BODY PAINTER BASIC METABOLIC PANEL Routine 10/08/2024 8:48 PM BODY PAINTER CBC WITHOUT DIFFERENTIAL Routine 10/08/2024 8:48 PM BODY PAINTER XR SPINE CERVICAL 2 OR 3 VIEWS IP Routine 10/08/2024 6:20 PM BODY PAINTER XR SCOLIOSIS AP LAT IP Routine 10/08/2024 6 :19 PM BODY PAINTER XR TRANSFER OF OUTSIDE FILMS Routine 10/08/2024 2:48 PM BODY PAINTER NEURO CT OUTSIDE CONSULT Routine 10/08/2024 2:42 PM BODY PAINTER Diagnosis unknown NEURO CT OUTSIDE CONSULT Routine 10/08/2024 2:35 PM BODY PAINTER Diagnosis unknown EGFR Routine 10/08/2024 12:25 PM BODY PAINTER DIFFERENTIAL AUTO Routine 10/08/2024 12: 25 PM BODY PAINTER CBC WITH AUTO DIFFERENTIAL Routine 10/08/2024 12:25 PM BODY PAINTER PHOSPHORUS Routine 10/08/2024 12:25 PM BODY PAINTER MAGNESIUM Routine 10/08/2024 12:25 PM BODY PAINTER COMPREHENSIVE METABOLIC PANEL Routine 10/08/2024 12:25 PM BODY PAINTER EGFR Routine 09/24/2024 2:26 PM BODY PAINTER Endometrial cancer (CMS/HCC) (HCC) DIFFERENTIAL AUTO Routine 09/24/2024 2:2 6 PM BODY PAINTER Endometrial cancer (CMS/HCC) (HCC) COMPREHENSIVE METABOLIC PANEL Routine 09/24/2024 2:26 PM BODY PAINTER Endometrial cancer (CMS/HCC) (HCC) CA 125 Routine 09/24/2024 2:26 PM BODY PAINTER Endometrial cancer (CMS/HCC) (HCC) CBC WITH AUTO DIFFERENTIAL Routine 09/24/2024 2:26 PM BODY PAINTER Endometrial cancer (CMS/HCC) (HCC) RAD ONC ARIA COURSE SUMMARY 09/15/2024 1:49 PM BODY PAINTER RAD ONC ARIA SESSION SUMMARY 09/15/2024 10:26 AM BODY PAINTER RAD ONC ARIA SESSION SUMMARY 09/14/2024 1:15 PM BODY PAINTER from Last 3 Months Results * eGFR (12/11/2024 4:17 PM BODY PAINTER) eGFR >90 >=60 mL/min/1. 73 m2 Comment: Interpretive Data Reference Interval Normal ?>/= 90 mL/min/1.73m2 Mildly decreased* ? 60 - 89 mL/min/1.73m2 Mildly to moderately decreased ?45 - 59 mL/min/1.73m2 Moderately to severely decreased ??30 - 44 mL/min/1.73m2 Severely decreased ?15 - 29 mL/min/1.73m2 Kidney Failure ?< 15 ??mL/min/1.73m2 *Relative to young adult level Estimated glomerular filtration rate is determined by the 2020 CKD-EPI equation recommended by the National Kidney Foundation (A Unifying Approach to GFR Estimation: Recommendations of the NKF-ASK Task Force on Reassessing the Inclusion of Race in Diagnosing Kidney Disease, JASN 2020). The CKD-EPI equation should not be used for patients with unstable renal function and has not been validated in children and those over 70. Current interpretive data was last reviewed 2021. Blood 12/11/2024 4:17 PM BODY PAINTER 12/11/2024 8:52 PM BODY PAINTER us Fe Le MD LAB BLOOD ORDERABLES Eleni parker Result [facility] [id number] Department [place] [address] * (ABNORMAL) Differential, auto (12/11/2024 4:17 PM BODY PAINTER) Neutrophil abs 6.2 1.5 - 6.5 K/cumm Imm gran abs 0.2(H) 0.0 - 0.1 K/cumm [facility] Lymphocyte abs 0.9 0.8 - 3.3 K/cumm [facility] Monocyte abs 1.2(H) 0.2 - 0.8 K/cumm [facility] Eosinophil abs 0.0 0.0 - 0.5 K/cumm [facility] Basophil abs 0.0 0.0 - 0.1 K/cumm [facility] Neutrophil pct 72.4 % [facility] Comment: Interpretive Data Percent cell count reference ranges are not reported, since discordance with absolute values may lead to misinterpretation of CBC data. Current Interpretive Data was last revised on 2018. Imm gran pct 1.8 % [facility] Comment: Interpretive Data Percent cell count reference ranges are not reported, since discordance with absolute values may lead to misinterpretation of CBC data. Current Interpretive Data was last revised on 2018. Lymphocyte pct 10.9 % [facility] Comment: Interpretive Data Percent cell count reference ranges are not reported, since discordance with absolute values may lead to misinterpretation of CBC data. Current Interpretive Data was last revised on 2018. Monocyte pct 14.0 % [facility] Comment: Interpretive Data Percent cell count reference ranges are not reported, since discordance with absolute values may lead to misinterpretation of CBC data. Current Interpretive Data was last revised on 2018. Eosinophil pct 0.4 % [facility] Comment: Interpretive Data Percent cell count reference ranges are not reported, since discordance with absolute values may lead to misinterpretation of CBC data. Current Interpretive Data was last revised on 2018. Basophil pct 0.5 % [facility] Comment: Interpretive Data Percent cell count reference ranges are not reported, since discordance with absolute values may lead to misinterpretation of CBC data. Current Interpretive Data was last revised on 2018. Blood 12/11/2024 4:17 PM BODY PAINTER 12/11/2024 8:47 PM BODY PAINTER us Fe Le MD LAB BLOOD ORDERABLES Eleni l Result [facility] [id number] [address] Department of Laboratories [place], [place] [id number] * (ABNORMAL) CBC with auto differential (12/11/2024 4:17 PM BODY PAINTER) WBC 8.5 3.8 - 9.9 K/cumm Hgb 6.8(L) 11.9 - 15.5 g/dL [facility] Hct 23.1(L) 35.6 - 45.5 % [facility] Plt 562(H) 150 - 400 K/cumm [facility] MPV 9.4 9.1 - 12.3 fL [facility] RBC 3.13(L) 3.90 - 5.20 M/cumm [facility] MCV 73.8(L) 81.3 - 96.4 fL [facility] MCH 21.7(L) 27.1 - 33.3 pg [facility] MCHC 29.4(L) 32.3 - 35.7 g/dL [facility] RDW CV 19.4(H) 11.1 - 14.9 % [facility] RDW SD 51.6(H) 35.7 - 48.1 fL [facility] NRBC abs 0.00 0.00 - 0.01 K/cumm [facility] Blood 12/11/2024 4:17 PM BODY PAINTER 12/11/2024 8:47 PM BODY PAINTER us Fe Le MD LAB BLOOD ORDERABLES Eleni parker Result [facility] [address] [address] Department [place] [address] * (ABNORMAL) Comprehensive metabolic panel (12/11/2024 4:17 PM BODY PAINTER) Sodium 129(L) 135 - 145 mmol/L Potassium, pl 4.7 3.3 - 4.9 mmol/L [facility] Chloride 92(L) 97 - 110 mmol/L [facility] CO2 24 22 - 32 mmol/L [facility] Anion gap 13 2 - 15 mmol/L [facility] BUN 10 6 - 25 mg/dL [facility] Creatinine 0.49(L) 0.60 - 1.10 mg/dL [facility] Glucose 134 70 - 199 mg/dL [facility] Comment: Interpretive Data Fasting glucose >/= 126 mg/dl is diagnostic for diabetes. ?? Fasting is defined as no caloric intake for at least 8 hours. Fasting glucose between 100 mg/dl to 125 mg/dl is diagnostic of prediabetes. In a patient with classic symptoms of hyperglycemia or hyperglycemic crisis, a random glucose >/= 200 mg/dl is diagnostic for diabetes. In the absence of unequivocal hyperglycemia, results should be confirmed by repeat testing. The classification and Diagnosis of Diabetes Diabetes Care 202; 46: S19-S40. Current interpretive data was last revised 2022. Calcium 10.8(H) 8.5 - 10.3 mg/dL [facility] Bilirubin, total 0.3 0.1 - 1.2 mg/dL [facility] Protein, pl 8.0 6.5 - 8.5 g/dL [facility] Albumin 2.8(L) 3.5 - 5.0 g/dL [facility] Alk phos 198(H) 40 - 130 Units/L [facility] ALT 119(H) 7 - 45 Units/L [facility] AST 114(H) 10 - 45 Units/L [facility] Blood 12/11/2024 4:17 PM BODY PAINTER 12/11/2024 8:47 PM BODY PAINTER Fe Le MD LAB BLOOD [place] [address] [address] Department [place] [address] * XR Spine Cervical 2 or 3 Views (11/13/2024 2:02 PM BODY PAINTER) Anatomical Region Laterality Modality Spine N/A Computed Radiogr aphy 11/13/2024 2:33 PM BODY PAINTER Impressions 11/13/2024 2:33 PM BODY PAINTER 1. ??Unchanged appearance of the lytic C6 lesion with pathologic fracture without interval height loss. Electronically signed by: Shruti Hogue MD Narrative 11/13/2024 2:33 PM BODY PAINTER EXAMINATION: XR SPINE CERVICAL 2 OR 3 VIEWS HISTORY: ??Fracture. FINDINGS: Comparison to 10/08/2024, 10/07/2024. Unchanged appearance of the C6 lytic lesion with mild pathologic fracture. ??No significant interval height loss. ??Moderate multilevel degenerative disc disease. ??Mild retrolisthesis of C4-C6. Prevertebral soft tissues are normal. ??No new fractures. ??Partially visualized right internal jugular Port-A-Cath. Procedure Note Shruti Hogue MD - 11/13/2024 EXAMINATION: XR SPINE CERVICAL 2 OR 3 VIEWS HISTORY: Fracture. FINDINGS: Comparison to 10/08/2024, 10/07/2024. Unchanged appearance of the C6 lytic lesion with mild pathologic fracture. No significant interval height loss. Moderate multilevel degenerative disc disease. Mild retrolisthesis of C4-C6. Prevertebral soft tissues are normal. No new fractures. Partially visualized right internal jugular Port-A-Cath. IMPRESSION: 1. Unchanged appearance of the lytic C6 lesion with pathologic fracture without interval height loss. Electronically signed by: Shruti Hogue MD us Aiden Rowe MD IMG XR PROCEDURES Final Re sult * RAD ONC ARIA SESSION SUMMARY (10/22/2024 4:33 PM BODY PAINTER) Course Name C2_C_spine _2023 ARIA Course Plan Date 10/13/2024 6:42 AM ARIA Elapsed Days 6 ARIA Treatment Start Date 10/16/2024 ARIA Treatment Site C Spine ARIA Dose Given To Date (cGy) 2,000 ARIA Session Dosage Given (cGy) 400 ARIA Plan ID C Spine ARIA Fractions Treated 5 ARIA Prescribed Dose Per Fraction (cGy) 400 ARIA Prescribed Total Dose (cGy) 2,000 ARIA 10/22/2024 4:33 PM BODY PAINTER us Not In File Miscellaneous RADIATION ONCOLOGY ORD ERABLES Final Result ARIA * RAD ONC ARIA SESSION SUMMARY (10/21/2024 3:32 PM BODY PAINTER) Course Name C2_C_spine _2023 ARIA Course Plan Date 10/13/2024 6:42 AM ARIA Elapsed Days 5 ARIA Treatment Start Date 10/16/2024 ARIA Treatment Site C Spine ARIA Dose Given To Date (cGy) 1,600 ARIA Session Dosage Given (cGy) 400 ARIA Plan ID C Spine ARIA Fractions Treated 4 ARIA Prescribed Dose Per Fraction (cGy) 400 ARIA Prescribed Total Dose (cGy) 2,000 ARIA 10/21/2024 3:32 PM BODY PAINTER us Not In File Miscellaneous RADIATION ONCOLOGY ORD ERABLES Final Result [facility] * RAD ONC ARIA SESSION SUMMARY (10/20/2024 3:06 PM BODY PAINTER) Course Name C2_C_spine _2023 ARIA Course Plan Date 10/13/2024 6:42 AM ARIA Elapsed Days 4 ARIA Treatment Start Date 10/16/2024 ARIA Treatment Site C Spine ARIA Dose Given To Date (cGy) 1,200 ARIA Session Dosage Given (cGy) 400 ARIA Plan ID C Spine ARIA Fractions Treated 3 ARIA Prescribed Dose Per Fraction (cGy) 400 ARIA Prescribed Total Dose (cGy) 2,000 ARIA 10/20/2024 3:06 PM BODY PAINTER us Not In File Miscellaneous RADIATION ONCOLOGY ORD ERABLES Final Result Performing Organization Address City/[facility] Co de Phone Number ARIA * RAD ONC ARIA SESSION SUMMARY (10/19/2024 4:23 PM BODY PAINTER) Course Name C2_C_spine ARIA Course Plan Date 10/13/2024 6:42 AM ARIA Elapsed Days 3 ARIA Treatment Start Date 10/16/2024 ARIA Treatment Site C Spine ARIA Dose Given To Date (cGy) 800 ARIA Session Dosage Given (cGy) 400 ARIA Plan ID C Spine ARIA Fractions Treated 2 ARIA Prescribed Dose Per Fraction (cGy) 400 ARIA Prescribed Total Dose (cGy) 2,000 ARIA 10/19/2024 4:23 PM BODY PAINTER us Not In File Miscellaneous RADIATION ONCOLOGY ORD ERABLES Final Result ARIA * RAD ONC ARIA SESSION SUMMARY (10/16/2024 3:10 PM BODY PAINTER) Course Name C2_C_spine _2024 ARIA Course Plan Date 10/13/2024 6:42 AM ARIA Elapsed Days 0 ARIA Treatment Start Date 10/16/2024 ARIA Treatment Site C Spine ARIA Dose Given To Date (cGy) 400 ARIA Session Dosage Given (cGy) 400 ARIA Plan ID C Spine ARIA Fractions Treated 1 ARIA Prescribed Dose Per Fraction (cGy) 400 ARIA Prescribed Total Dose (cGy) 2,000 ARIA 10/16/2024 3:10 PM BODY PAINTER us Not In File Miscellaneous RADIATION ONCOLOGY ORD ERABLES Final Result ARIA * eGFR (10/14/2024 9:03 PM BODY PAINTER) eGFR >90 >=60 mL/min/1. 73 m2 Comment: Interpretive Data Reference Interval Normal ?>/= 90 mL/min/1.73m2 Mildly decreased* ? 60 - 89 mL/min/1.73m2 Mildly to moderately decreased ?45 - 59 mL/min/1.73m2 Moderately to severely decreased ??30 - 44 mL/min/1.73m2 Severely decreased ?15 - 29 mL/min/1.73m2 Kidney Failure ?< 15 ??mL/min/1.73m2 *Relative to young adult level Estimated glomerular filtration rate is determined by the 2020 CKD-EPI equation recommended by the National Kidney Foundation (A Unifying Approach to GFR Estimation: Recommendations of the NKF-ASK Task Force on Reassessing the Inclusion of Race in Diagnosing Kidney Disease, JASN 2020). The CKD-EPI equation should not be used for patients with unstable renal function and has not been validated in children and those over 70. Current interpretive data was last reviewed 2021. Blood 10/14/2024 9:03 PM BODY PAINTER 10/14/2024 9:22 PM BODY PAINTER Fe Le MD LAB BLOOD ORDERABLES Eleni l Result Performing Organization Address [facility]/ZIP Co de Phone Number [facility] Department [place] [address] * (ABNORMAL) CBC without differential (10/14/2024 9:03 PM BODY PAINTER) Pathologist [facility] [place] WBC 6.9 3.8 - 9.9 K/cumm Hgb 8.4(L) 11.9 - 15.5 g/dL [facility] Hct 26.2(L) 35.6 - 45.5 % [facility] Plt 354 150 - 400 K/cumm [facility] MPV 9.5 9.1 - 12.3 fL [facility] RBC 3.33(L) 3.90 - 5.20 M/cumm [facility] MCV 78.7(L) 81.3 - 96.4 fL [facility] MCH 25.2(L) 27.1 - 33.3 pg [facility] MCHC 32.1(L) 32.3 - 35.7 g/dL [facility] RDW CV 19.8(H) 11.1 - 14.9 % [facility] RDW SD 57.2(H) 35.7 - 48.1 fL [facility] NRBC abs 0.00 0.00 - 0.01 K/cumm [facility] Blood 10/14/2024 9:03 PM BODY PAINTER 10/14/2024 9:22 PM BODY PAINTER Fe Le MD LAB BLOOD ORDERABLES Eleni l Result [facility] Department [place] [address] * Phosphorus (10/14/2024 9:03 PM BODY PAINTER) Pathologist [facility] [place] Phosphorus, pl 2.5 2.3 - 4.5 mg/dL Blood 10/14/2024 9:03 PM BODY PAINTER 10/14/2024 9:22 PM BODY PAINTER Fe Le MD LAB BLOOD ORDERABLES Eleni l Result Performing Organization Address City/[facility]/ZIP Co de Phone Number [facility] [place] [address] * Magnesium (10/14/2024 9:03 PM BODY PAINTER) [facility] Magnesium 1.9 1.4 - 2.5 mg/dL Blood 10/14/2024 9:03 PM BODY PAINTER 10/14/2024 9:22 PM BODY PAINTER Fe Le MD LAB BLOOD ORDERABLES Eleni l Result Performing Organization Address [facility] de Phone Number [facility] [place] [address] * (ABNORMAL) Basic metabolic panel (10/14/2024 9:03 PM BODY PAINTER) [facility] Sodium 135 135 - 145 mmol/L Potassium, pl 3.5 3.3 - 4.9 mmol/L [facility] Chloride 98 97 - 110 mmol/L [facility] CO2 24 22 - 32 mmol/L [facility] Anion gap 13 2 - 15 mmol/L [facility] BUN 12 6 - 25 mg/dL [facility] Creatinine 0.59(L) 0.60 - 1.10 mg/dL [facility] Glucose 218(H) 70 - 199 mg/dL [facility] Comment: Interpretive Data Fasting glucose >/= 126 mg/dl is diagnostic for diabetes. ?? Fasting is defined as no caloric intake for at least 8 hours. Fasting glucose between 100 mg/dl to 125 mg/dl is diagnostic of prediabetes. In a patient with classic symptoms of hyperglycemia or hyperglycemic crisis, a random glucose >/= 200 mg/dl is diagnostic for diabetes. In the absence of unequivocal hyperglycemia, results should be confirmed by repeat testing. The classification and Diagnosis of Diabetes Diabetes Care 202; 46: S19-S40. Current interpretive data was last revised 2022. Calcium 8.9 8.5 - 10.3 mg/dL [facility] Blood 10/14/2024 9:03 PM BODY PAINTER 10/14/2024 9:22 PM BODY PAINTER us Fe Le MD LAB BLOOD ORDERABLES Eleni parker Result [facility] Department [place] [address] * eGFR (10/13/2024 8:20 PM BODY PAINTER) eGFR >90 >=60 mL/min/1. 73 m2 Comment: Interpretive Data Reference Interval Normal ?>/= 90 mL/min/1.73m2 Mildly decreased* ? 60 - 89 mL/min/1.73m2 Mildly to moderately decreased ?45 - 59 mL/min/1.73m2 Moderately to severely decreased ??30 - 44 mL/min/1.73m2 Severely decreased ?15 - 29 mL/min/1.73m2 Kidney Failure ?< 15 ??mL/min/1.73m2 *Relative to young adult level Estimated glomerular filtration rate is determined by the 2020 CKD-EPI equation recommended by the National Kidney Foundation (A Unifying Approach to GFR Estimation: Recommendations of the NKF-ASK Task Force on Reassessing the Inclusion of Race in Diagnosing Kidney Disease, JASN 2020). The CKD-EPI equation should not be used for patients with unstable renal function and has not been validated in children and those over 70. Current interpretive data was last reviewed 2021. Blood 10/13/2024 8:20 PM BODY PAINTER 10/13/2024 8:49 PM BODY PAINTER Fe Le MD LAB BLOOD ORDERABLES Eleni l Result Performing Organization Address City/[facility]/ZIP Co de Phone Number [facility] Department [place] [address] * (ABNORMAL) CBC without differential (10/13/2024 8:20 PM BODY PAINTER) Pathologist [facility] [place] WBC 6.7 3.8 - 9.9 K/cumm Hgb 8.6(L) 11.9 - 15.5 g/dL [facility] Hct 26.3(L) 35.6 - 45.5 % [facility] Plt 351 150 - 400 K/cumm [facility] MPV 9.3 9.1 - 12.3 fL [facility] RBC 3.40(L) 3.90 - 5.20 M/cumm [facility] MCV 77.4(L) 81.3 - 96.4 fL [facility] MCH 25.3(L) 27.1 - 33.3 pg [facility] MCHC 32.7 32.3 - 35.7 g/dL [facility] RDW CV 20.0(H) 11.1 - 14.9 % [facility] RDW SD 56.2(H) 35.7 - 48.1 fL [facility] NRBC abs 0.00 0.00 - 0.01 K/cumm [facility] Blood 10/13/2024 8:20 PM BODY PAINTER 10/13/2024 8:48 PM BODY PAINTER Fe Le MD LAB BLOOD ORDERABLES Eleni l Result [facility] [place] [employer] [place] [address] * Phosphorus (10/13/2024 8:20 PM BODY PAINTER) Pathologist [facility] Phosphorus, pl 3.7 2.3 - 4.5 mg/dL Blood 10/13/2024 8:20 PM BODY PAINTER 10/13/2024 8:49 PM BODY PAINTER Fe Le MD LAB BLOOD ORDERABLES Eleni l Result Performing Organization Address City/[facility]/ZIP Co de Phone Number [facility] [place] [address] * Magnesium (10/13/2024 8:20 PM BODY PAINTER) Pathologist [facility] Magnesium 2.1 1.4 - 2.5 mg/dL Blood 10/13/2024 8:20 PM BODY PAINTER 10/13/2024 8:49 PM BODY PAINTER Fe Le MD LAB BLOOD ORDERABLES Eleni l Result Performing Organization Address [facility] de Phone Number [facility] [place] [address] * (ABNORMAL) Basic metabolic panel (10/13/2024 8:20 PM BODY PAINTER) [facility] Sodium 137 135 - 145 mmol/L Potassium, pl 3.9 3.3 - 4.9 mmol/L [facility] Chloride 100 97 - 110 mmol/L [facility] CO2 27 22 - 32 mmol/L [facility] Anion gap 10 2 - 15 mmol/L [facility] BUN 12 6 - 25 mg/dL [facility] Creatinine 0.58(L) 0.60 - 1.10 mg/dL [facility] Glucose 97 70 - 199 mg/dL [facility] Comment: Interpretive Data Fasting glucose >/= 126 mg/dl is diagnostic for diabetes. ?? Fasting is defined as no caloric intake for at least 8 hours. Fasting glucose between 100 mg/dl to 125 mg/dl is diagnostic of prediabetes. In a patient with classic symptoms of hyperglycemia or hyperglycemic crisis, a random glucose >/= 200 mg/dl is diagnostic for diabetes. In the absence of unequivocal hyperglycemia, results should be confirmed by repeat testing. The classification and Diagnosis of Diabetes Diabetes Care 202; 46: S19-S40. Current interpretive data was last revised 2022. Calcium 9.2 8.5 - 10.3 mg/dL [facility] Blood 10/13/2024 8:20 PM BODY PAINTER 10/13/2024 8:49 PM BODY PAINTER Fe Le MD LAB BLOOD ORDERABLES Eleni l Result Performing Organization Address [facility]/ZIP Co de Phone Number [facility] [place] [employer] [address] * Transfuse RBC (10/13/2024 7:17 PM BODY PAINTER) Blood Fe Le MD BLOOD TRANSFUSION ORDERAB LES Final Result Performing Organization Address [facility] Co de Phone Number [facility] [place] [employer] [place] [address] * Type and screen (10/13/2024 3:35 PM BODY PAINTER) ABO Rh AB Positive Dara, indirect Negative [facility] Blood 10/13/2024 3:35 PM BODY PAINTER 10/13/2024 3:54 PM BODY PAINTER Narrative [facility] - 10/13/2024 5:03 PM BODY PAINTER Has the patient had Daratumumab or Isatuximab in the past 6 months?->Unknown Fe Le MD LAB BLOOD BANK TEST ORDER VANESSA Final Result Performing Organization Address [facility] Co de Phone Number [facility] [place] [employer] [place] [address] * Prepare RBC: 1 Units (10/13/2024 3:31 PM BODY PAINTER) Product code [id number] Unit Number [id number] [facility] Product Blood Type APOS [facility] Dispense Status PRESUMED TRANSFUSED [facility] Blood 10/13/2024 3:31 PM BODY PAINTER 10/13/2024 3:31 PM BODY PAINTER Narrative [facility] - 10/14/2024 12:55 AM BODY PAINTER Other indication->Rads < 8 Are special requirements needed? (All products are leukoreduced and CMV- safe)- >No Date required:-[id number] LRRBC # of [id number] Reasons:-Other (specify)} us Fe Le MD BLOOD BANK PRODUCT ORDERA BLES Final Result [facility] Department [place] [address] * eGFR (10/12/2024 8:40 PM BODY PAINTER) eGFR >90 >=60 mL/min/1. 73 m2 Comment: Interpretive Data Reference Interval Normal ?>/= 90 mL/min/1.73m2 Mildly decreased* ? 60 - 89 mL/min/1.73m2 Mildly to moderately decreased ?45 - 59 mL/min/1.73m2 Moderately to severely decreased ??30 - 44 mL/min/1.73m2 Severely decreased ?15 - 29 mL/min/1.73m2 Kidney Failure ?< 15 ??mL/min/1.73m2 *Relative to young adult level Estimated glomerular filtration rate is determined by the 2020 CKD-EPI equation recommended by the National Kidney Foundation (A Unifying Approach to GFR Estimation: Recommendations of the NKF-ASK Task Force on Reassessing the Inclusion of Race in Diagnosing Kidney Disease, JASN 202). The CKD-EPI equation should not be used for patients with unstable renal function and has not been validated in children and those over 70. Current interpretive data was last reviewed 2021. Blood 10/12/2024 8:40 PM BODY PAINTER 10/12/2024 9:20 PM BODY PAINTER Fe Le MD LAB BLOOD ORDERABLES Eleni parker Result Performing Organization Address [facility] Co de Phone Number [facility] Department [place] [address] * (ABNORMAL) CBC without differential (10/12/2024 8:40 PM BODY PAINTER) WBC 7.5 3.8 - 9.9 K/cumm Hgb 7.4(L) 11.9 - 15.5 g/dL [facility] Hct 23.1(L) 35.6 - 45.5 % [facility] Plt 375 150 - 400 K/cumm [facility] MPV 9.6 9.1 - 12.3 fL [facility] RBC 3.04(L) 3.90 - 5.20 M/cumm [facility] MCV 76.0(L) 81.3 - 96.4 fL [facility] MCH 24.3(L) 27.1 - 33.3 pg [facility] MCHC 32.0(L) 32.3 - 35.7 g/dL [facility] RDW CV 20.7(H) 11.1 - 14.9 % [facility] RDW SD 57.1(H) 35.7 - 48.1 fL [facility] NRBC abs 0.00 0.00 - 0.01 K/cumm [facility] Blood 10/12/2024 8:40 PM BODY PAINTER 10/12/2024 9:20 PM BODY PAINTER Fe Le MD LAB BLOOD ORDERABLES Eleni l Result [facility] Department [place] [address] * Phosphorus (10/12/2024 8:40 PM BODY PAINTER) Phosphorus, pl 3.4 2.3 - 4.5 mg/dL Blood 10/12/2024 8:40 PM BODY PAINTER 10/12/2024 9:20 PM BODY PAINTER Fe Le MD LAB BLOOD ORDERABLES Eleni l Result Performing Organization Address City/[facility]/ZIP Co de Phone Number [facility] [place] [address] * Magnesium (10/12/2024 8:40 PM BODY PAINTER) Pathologist [facility] Magnesium 2.0 1.4 - 2.5 mg/dL Blood 10/12/2024 8:40 PM BODY PAINTER 10/12/2024 9:20 PM BODY PAINTER Fe Le MD LAB BLOOD ORDERABLES Eleni l Result Performing Organization Address [facility] de Phone Number [facility] Department [place] [address] * Basic metabolic panel (10/12/2024 8:40 PM BODY PAINTER) Pathologist [facility] [place] Sodium 136 135 - 145 mmol/L Potassium, pl 4.1 3.3 - 4.9 mmol/L [facility] Chloride 99 97 - 110 mmol/L [facility] CO2 26 22 - 32 mmol/L [facility] Anion gap 11 2 - 15 mmol/L [facility] BUN 13 6 - 25 mg/dL [facility] Creatinine 0.63 0.60 - 1.10 mg/dL [facility] Glucose 155 70 - 199 mg/dL [facility] Comment: Interpretive Data Fasting glucose >/= 126 mg/dl is diagnostic for diabetes. ?? Fasting is defined as no caloric intake for at least 8 hours. Fasting glucose between 100 mg/dl to 125 mg/dl is diagnostic of prediabetes. In a patient with classic symptoms of hyperglycemia or hyperglycemic crisis, a random glucose >/= 200 mg/dl is diagnostic for diabetes. In the absence of unequivocal hyperglycemia, results should be confirmed by repeat testing. The classification and Diagnosis of Diabetes Diabetes Care 2021; 46: S19-S40. Current interpretive data was last revised 2022. Calcium 9.3 8.5 - 10.3 mg/dL [facility] Blood 10/12/2024 8:40 PM BODY PAINTER 10/12/2024 9:20 PM BODY PAINTER Fe Le MD LAB BLOOD ORDERABLES Eleni parker Result [facility] Department [place] [address] * Carotids Duplex Bilateral (10/12/2024 2:45 PM BODY PAINTER) Anatomical Region Laterality Modality Vascular Bilateral Ultrasound 10/12/2024 12:1 7 PM BODY PAINTER Narrative 10/13/2024 1:10 AM BODY PAINTER [facility] - Department of Vascular Surgery, Vascular Laboratory [address] [place] [id number] Carotid Duplex Ultrasound Report Patient Name: AMY HARE M : 1950 (74y 7m) Study Date: 10/12/2024 12:17:45 PM Gender: F Tech: Location: [id number] Ref Provider: FE LE Quality: Adequate Order Provider: FE LE PROCEDURES: Carotid Report: Carotid duplex examination of the extracranial arteries was performed using 2D, color and spectral Doppler. INDICATIONS: Syncope and Collapse - Measurements: Right ?Left Measurement ?Value ?Units ? Measurement ?Value ?Units RT Prox CCA PSV ?124 ?cm/sec ?LT Prox CCA PSV ?150 ?cm/sec RT Prox CCA EDV ?34 ? cm/sec ?LT Prox CCA EDV ?34 ? cm/sec RT Distal CCA PSV ?127 ?cm/sec ?LT Distal CCA PSV ?104 ?cm/sec RT Distal CCA EDV ?33 ? cm/sec ?LT Distal CCA EDV ?32 ? cm/sec RT Prox ICA PSV ?98 ? cm/sec ?LT Prox ICA PSV ?101 ?cm/sec RT Prox ICA EDV ?26 ? cm/sec ?LT Prox ICA EDV ?20 ? cm/sec RT Mid ICA PSV ? 106 ?cm/sec ?LT Mid ICA PSV ? 138 ?cm/sec RT Mid ICA EDV ? 44 ? cm/sec ?LT Mid ICA EDV ? 35 ? cm/sec RT Distal ICA PSV ?83 ? cm/sec ?LT Distal ICA PSV ?118 ?cm/sec RT Distal ICA EDV ?35 ? cm/sec ?LT Distal ICA EDV ?35 ? cm/sec RT ECA Prx PSV ? 88 ? cm/sec ?LT ECA Prx PSV ? 85 ? cm/sec RT ICA/CCA ? 0.83 ? ratio ? LT ICA/CCA ? 1.33 ? ratio RT VERT PSV ?71 ? cm/sec ?LT VERT PSV ?86 ? cm/sec - FINDINGS: Performing Contract Engineer: Liana Hills RVT. Rt Common Carotid Artery: There is intimal thickening but no significant atherosclerotic plaque noted in the right common carotid artery. Elevated right common carotid artery velocity as noted above with no evidence of significant atherosclerosis disease. Rt Internal Carotid Artery: Duplex imaging of the right internal carotid artery is within normal limits without evidence for atherosclerotic disease. Rt External Carotid Artery: The right external carotid artery is patent without evidence of atherosclerotic plaque. Rt Vertebral Artery: The right vertebral artery is patent with antegrade flow. Lt Common Carotid Artery: There is intimal thickening but no significant atherosclerotic plaque noted in the left common carotid artery. Elevated left common carotid artery velocity as noted above with no evidence of significant atherosclerosis disease. Lt Internal Carotid Artery: Duplex imaging of the left internal carotid artery is within normal limits without evidence of atherosclerotic disease. Lt External Carotid Artery: The left external carotid artery is patent without evidence of atherosclerotic plaque. Lt Vertebral Artery: The left vertebral artery is patent with antegrade flow. CONCLUSIONS: 1. Normal right internal carotid artery, no evidence of significant plaque. 2. Normal left internal carotid artery, no evidence of significant plaque. 3. No evidence of hemodynamically significant stenosis in the common carotid artery bilaterally. 4. Normal, antegrade flow is noted in bilateral vertebral arteries. HISTORY: Cancer. PREVIOUS STUDIES: No previous studies for comparison. DISCLAIMER: The study images and the final report will be retained in the patient chart by the Vascular Laboratory for the legally required time period. This chart constitutes the legal record of any testing performed. ATTESTATION: I have reviewed and interpreted the pertinent images and measurements of this study. I attest to the conclusions in the final report that is provided above. Electronically Signed By: Fly Argueta MD FACS 10/13/2024 1:09:29 AM BODY PAINTER Procedure Note Fly Argueta MD - 10/13/2024 [facility] - Department of Vascular Surgery,Vascular Laboratory [address] [place] [id number] Carotid Duplex Ultrasound Report Patient Name: AMY HARE M : 1950 (74y 7m) Study Date: 10/12/2024 12:17:45 PM Gender: F Tech: Location: [id number] Ref Provider: FE LE Quality: Adequate Order Provider: FE LE PROCEDURES: Carotid Report: Carotid duplex examination of the extracranial arterieswas performed using 2D, color and spectral Doppler. INDICATIONS: Syncope and Collapse - Measurements: Right Left Measurement Value Units Measurement ValueUnits RT Prox CCA PSV 124 cm/sec LT Prox CCA PSV 150cm/sec RT Prox CCA EDV 34 cm/sec LT Prox CCA EDV 34cm/sec RT Distal CCA PSV 127 cm/sec LT Distal CCA PSV 104cm/sec RT Distal CCA EDV 33 cm/sec LT Distal CCA EDV 32cm/sec RT Prox ICA PSV 98 cm/sec LT Prox ICA PSV 101cm/sec RT Prox ICA EDV 26 cm/sec LT Prox ICA EDV 20cm/sec RT Mid ICA PSV 106 cm/sec LT Mid ICA PSV 138cm/sec RT Mid ICA EDV 44 cm/sec LT Mid ICA EDV 35cm/sec RT Distal ICA PSV 83 cm/sec LT Distal ICA PSV 118cm/sec RT Distal ICA EDV 35 cm/sec LT Distal ICA EDV 35cm/sec RT ECA Prx PSV 88 cm/sec LT ECA Prx PSV 85cm/sec RT ICA/CCA 0.83 ratio LT ICA/CCA 1.33ratio RT VERT PSV 71 cm/sec LT VERT PSV 86cm/sec - FINDINGS: Performing Contract Engineer: Liana Hills RVT. Rt Common Carotid Artery: There is intimal thickening but no significantatherosclerotic plaque noted in the right common carotid artery. Elevated right commoncarotid artery velocity as noted above with no evidence of significant atherosclerosisdisease. Rt Internal Carotid Artery: Duplex imaging of the right internal carotidartery is within normal limits without evidence for atherosclerotic disease. Rt External Carotid Artery: The right external carotid artery is patentwithout evidence of atherosclerotic plaque. Rt Vertebral Artery: The right vertebral artery is patent with antegradeflow. Lt Common Carotid Artery: There is intimal thickening but no significantatherosclerotic plaque noted in the left common carotid artery. Elevated left commoncarotid artery velocity as noted above with no evidence of significant atherosclerosisdisease. Lt Internal Carotid Artery: Duplex imaging of the left internal carotidartery is within normal limits without evidence of atherosclerotic disease. Lt External Carotid Artery: The left external carotid artery is patentwithout evidence of atherosclerotic plaque. Lt Vertebral Artery: The left vertebral artery is patent with antegradeflow. CONCLUSIONS: 1. Normal right internal carotid artery, no evidence of significantplaque. 2. Normal left internal carotid artery, no evidence of significantplaque. 3. No evidence of hemodynamically significant stenosis in the commoncarotid artery bilaterally. 4. Normal, antegrade flow is noted in bilateral vertebral arteries. HISTORY: Cancer. PREVIOUS STUDIES: No previous studies for comparison. DISCLAIMER: The study images and the final report will be retained in the patientchart by the Vascular Laboratory for the legally required time period. This chartconstitutes the legal record of any testing performed. ATTESTATION: I have reviewed and interpreted the pertinent images and measurements ofthis study. I attest to the conclusions in the final report that is provided above. Electronically Signed By: Fly Argueta MD [facility] 10/13/2024 1:09:29 AM BODY PAINTER Fe Le MD IM US PROCEDURES Final R esult * CT Chest PE (CTA) Abdomen Pelvis W Contrast (10/12/2024 10:50 AM BODY PAINTER) Anatomical Region Laterality Modality Body N/A Computed Tomogra phy 10/12/2024 11:3 1 AM BODY PAINTER Impressions 10/12/2024 11:31 AM BODY PAINTER 1. ??No pulmonary embolism. 2. ??Progressive disease with progressive mediastinal, retroperitoneal, and pelvic lymphadenopathy. ??There is also increased size of a hepatic segment 7 metastatic lesion. 3. ??New small left lower lobe groundglass nodule, indeterminate, this may be infectious or inflammatory. ??Recommend attention on follow-up. 4. ??Redemonstrated osseous metastatic disease. Electronically signed by: Erna Lebron M.D. Narrative 10/12/2024 11:31 AM BODY PAINTER EXAMINATION: CT CHEST PE (CTA) ABDOMEN PELVIS W CONTRAST HISTORY: Metastatic endometrial cancer, increased tachypnea TECHNIQUE: Computed tomographic images were acquired using a chest angiographic protocol optimized for pulmonary embolism. ??Computed tomographic examination of the abdomen and pelvis with intravenous contrast was performed using a standard protocol. ??Contrast enhanced transaxial images were obtained following the intravenous administration of 90 ml of nonionic contrast. ??Multiplanar reformatted images and three-dimensional images were obtained on the 3-D workstation and sent to the PACS archival system. ?? COMPARISON: 08/17/2024 FINDINGS: No pulmonary embolism. ??There is progressive thoracic lymphadenopathy with increased size of subcarinal, aortocaval, and right hilar lymph nodes. ??For reference, subcarinal node measures 16 mm in short axis, previously 11 mm. ??The heart size is within normal limits. ??No pericardial effusion. In the lungs, there is no focal consolidation, pleural effusion, or pneumothorax. ??There is a 4 mm groundglass nodule in the left lower lobe which is new (series 6 image 85). Increased size of hepatic segment 7 lesion measuring 16 mm, previously 12 mm. ??Additional scattered hepatic cysts and hypoattenuating foci too small to characterize are not significantly changed. ??Patent portal, splenic, superior mesenteric veins. ??No biliary ductal dilatation. ??Spleen, pancreas, gallbladder are within normal limits. ??Unchanged thickened appearance of the right greater than left adrenal glands. ??Right upper pole renal cyst. ??No hydronephrosis. ??Symmetric renal enhancement. Urinary bladder is normal. ??Uterus is absent. ??No ascites or pneumoperitoneum. ??There is progressive lymphadenopathy in the retroperitoneum and pelvis. ??For reference, a left inguinal lymph node measures 19 mm in short axis, previously 8 mm. ??Left periaortic node measures 15 mm in short axis, previously 10 mm (series 11 image 60). There is no bowel obstruction or bowel wall thickening. ??The appendix is normal. ??There is high density material layering within the stomach which is mildly distended with ingested fluid. ??Gas within the left lower quadrant abdominal wall related to medication injection. Subacute left 11th rib fracture, new compared to prior. ??Destructive lytic lesion involving the posterior elements of T12 and L1 more completely evaluated on recent MRI 10/09/2024. ??Similar appearance of destructive lytic lesion with soft tissue component involving the left iliac wing. Procedure Note Erna Lebron MD - 10/12/2024 EXAMINATION: CT CHEST PE (CTA) ABDOMEN PELVIS W CONTRAST HISTORY: Metastatic endometrial cancer, increased tachypnea TECHNIQUE: Computed tomographic images were acquired using a chest angiographic protocol optimized for pulmonary embolism. Computed tomographic examination of the abdomen and pelvis with intravenous contrast was performed using a standard protocol. Contrast enhanced transaxial images were obtained following the intravenous administration of 90 ml of nonionic contrast. Multiplanar reformatted images and three-dimensional images were obtained on the 3-D workstation and sent to the PACS archival system. COMPARISON: 08/17/2024 FINDINGS: No pulmonary embolism. There is progressive thoracic lymphadenopathy with increased size of subcarinal, aortocaval, and right hilar lymph nodes. For reference, subcarinal node measures 16 mm in short axis, previously 11 mm. The heart size is within normal limits. No pericardial effusion. In the lungs, there is no focal consolidation, pleural effusion, or pneumothorax. There is a 4 mm groundglass nodule in the left lower lobe which is new (series 6 image 85). Increased size of hepatic segment 7 lesion measuring 16 mm, previously 12 mm. Additional scattered hepatic cysts and hypoattenuating foci too small to characterize are not significantly changed. Patent portal, splenic, superior mesenteric veins. No biliary ductal dilatation. Spleen, pancreas, gallbladder are within normal limits. Unchanged thickened appearance of the right greater than left adrenal glands. Right upper pole renal cyst. No hydronephrosis. Symmetric renal enhancement. Urinary bladder is normal. Uterus is absent. No ascites or pneumoperitoneum. There is progressive lymphadenopathy in the retroperitoneum and pelvis. For reference, a left inguinal lymph node measures 19 mm in short axis, previously 8 mm. Left periaortic node measures 15 mm in short axis, previously 10 mm (series 11 image 60). There is no bowel obstruction or bowel wall thickening. The appendix is normal. There is high density material layering within the stomach which is mildly distended with ingested fluid. Gas within the left lower quadrant abdominal wall related to medication injection. Subacute left 11th rib fracture, new compared to prior. Destructive lytic lesion involving the posterior elements of T12 and L1 more completely evaluated on recent MRI 10/09/2024. Similar appearance of destructive lytic lesion with soft tissue component involving the left iliac wing. IMPRESSION: 1. No pulmonary embolism. 2. Progressive disease with progressive mediastinal, retroperitoneal, and pelvic lymphadenopathy. There is also increased size of a hepatic segment 7 metastatic lesion. 3. New small left lower lobe groundglass nodule, indeterminate, this may be infectious or inflammatory. Recommend attention on follow-up. 4. Redemonstrated osseous metastatic disease. Electronically signed by: Erna Lebron M.D. Fe Le MD IMG CT PROCEDURES Final R esult * Troponin I high-sensitivity (10/12/2024 7:07 AM BODY PAINTER) Pathologist [facility] [place] Trop I hs <4 <=17 ng/L Comment: Interpretive Data For further hscTnI resources including the diagnostic algorithm and an aid in interpretation, copy and paste this link: [email or web address].testcatalog.org/show/[email or web address] Current Interpretive Data last revised 2020. Blood 10/12/2024 7:07 AM BODY PAINTER 10/12/2024 7:52 AM BODY PAINTER Fe Le MD LAB BLOOD ORDERABLES Eleni l Result [facility] Department [place] [address] * ECG 12 lead (10/12/2024 6:58 AM BODY PAINTER) Ventricular Rate EKG/Min 91 BPM [facility] Atrial Rate 91 BPM [facility] OK-Interval (MSEC) 146 ms [facility] QRS-Interval (MSEC) 70 ms [facility] QT-Interval (MSEC) 354 ms [facility] QTc 435 ms [facility] P Codorus 54 degrees [facility] R [place]orus 29 degrees [facility] T Codorus 40 degrees [facility] Diagnosis Normal sinus rhythm Normal ECG When compared with ECG of 10-OCT-2024 14:15, (unconfirmed ) Nonspecific T wave abnormality, improved in Anterior leads Confirmed by YAIR LUJAN M.D ([id number]) on 10/13/2024 8:39:16 AM [facility] 10/12/2024 6:58 AM BODY PAINTER 10/13/2024 8:39 AM BODY PAINTER us Fe Le MD ECG ORDERABLES Final Res ult [facility] * eGFR (10/11/2024 8:23 PM BODY PAINTER) eGFR >90 >=60 mL/min/1. 73 m2 Comment: Interpretive Data Reference Interval Normal ?>/= 90 mL/min/1.73m2 Mildly decreased* ? 60 - 89 mL/min/1.73m2 Mildly to moderately decreased ?45 - 59 mL/min/1.73m2 Moderately to severely decreased ??30 - 44 mL/min/1.73m2 Severely decreased ?15 - 29 mL/min/1.73m2 Kidney Failure ?< 15 ??mL/min/1.73m2 *Relative to young adult level Estimated glomerular filtration rate is determined by the 2020 CKD-EPI equation recommended by the National Kidney Foundation (A Unifying Approach to GFR Estimation: Recommendations of the NKF-ASK Task Force on Reassessing the Inclusion of Race in Diagnosing Kidney Disease, JASN 2020). The CKD-EPI equation should not be used for patients with unstable renal function and has not been validated in children and those over 70. Current interpretive data was last reviewed 2021. Blood 10/11/2024 8:23 PM BODY PAINTER 10/11/2024 8:43 PM BODY PAINTER Fe Le MD LAB BLOOD ORDERABLES Eleni l Result [facility] [place] [address] * (ABNORMAL) CBC without differential (10/11/2024 8:23 PM BODY PAINTER) WBC 7.0 3.8 - 9.9 K/cumm Hgb 7.5(L) 11.9 - 15.5 g/dL [facility] Hct 24.0(L) 35.6 - 45.5 % [facility] Plt 364 150 - 400 K/cumm [facility] MPV 9.2 9.1 - 12.3 fL [facility] RBC 3.15(L) 3.90 - 5.20 M/cumm [facility] MCV 76.2(L) 81.3 - 96.4 fL [facility] MCH 23.8(L) 27.1 - 33.3 pg [facility] MCHC 31.3(L) 32.3 - 35.7 g/dL [facility] RDW CV 21.0(H) 11.1 - 14.9 % [facility] RDW SD 57.8(H) 35.7 - 48.1 fL [facility] NRBC abs 0.00 0.00 - 0.01 K/cumm [facility] Blood 10/11/2024 8:23 PM BODY PAINTER 10/11/2024 8:43 PM BODY PAINTER Fe Le MD LAB BLOOD ORDERABLES Eleni l Result [facility] [place] [address] * Phosphorus (10/11/2024 8:23 PM BODY PAINTER) Phosphorus, pl 3.1 2.3 - 4.5 mg/dL Blood 10/11/2024 8:23 PM BODY PAINTER 10/11/2024 8:43 PM BODY PAINTER Fe Le MD LAB BLOOD ORDERABLES Eleni l Result Performing Organization Address City/[facility]/ZIP Co de Phone Number [facility] Department [place] [address] * Magnesium (10/11/2024 8:23 PM BODY PAINTER) Pathologist [facility] [place] Magnesium 2.1 1.4 - 2.5 mg/dL Blood 10/11/2024 8:23 PM BODY PAINTER 10/11/2024 8:43 PM BODY PAINTER Fe Le MD LAB BLOOD ORDERABLES Eleni l Result Performing Organization Address [facility] Co de Phone Number [facility] [place] [address] * (ABNORMAL) Basic metabolic panel (10/11/2024 8:23 PM BODY PAINTER) [facility] Sodium 133(L) 135 - 145 mmol/L Potassium, pl 3.6 3.3 - 4.9 mmol/L [facility] Chloride 98 97 - 110 mmol/L [facility] CO2 25 22 - 32 mmol/L [facility] Anion gap 10 2 - 15 mmol/L [facility] BUN 14 6 - 25 mg/dL [facility] Creatinine 0.63 0.60 - 1.10 mg/dL [facility] Glucose 199 70 - 199 mg/dL [facility] Comment: Interpretive Data Fasting glucose >/= 126 mg/dl is diagnostic for diabetes. ?? Fasting is defined as no caloric intake for at least 8 hours. Fasting glucose between 100 mg/dl to 125 mg/dl is diagnostic of prediabetes. In a patient with classic symptoms of hyperglycemia or hyperglycemic crisis, a random glucose >/= 200 mg/dl is diagnostic for diabetes. In the absence of unequivocal hyperglycemia, results should be confirmed by repeat testing. The classification and Diagnosis of Diabetes Diabetes Care 2021; 46: S19-S40. Current interpretive data was last revised 2022. Calcium 9.2 8.5 - 10.3 mg/dL [facility] Blood 10/11/2024 8:23 PM BODY PAINTER 10/11/2024 8:43 PM BODY PAINTER Fe Le MD LAB BLOOD ORDERABLES Eleni parker Result [facility] Department [place] [address] * XR Chest 1 View (10/11/2024 3:07 PM BODY PAINTER) Anatomical Region Laterality Modality Body, Chest N/A Computed Radiogr aphy 10/11/2024 3:35 PM BODY PAINTER Impressions 10/11/2024 3:35 PM BODY PAINTER Comparison 07/30/2024 5:57 PM. Heart size remains within normal limits. ??New mild contour bulge seen in the region of the aortopulmonary window, corresponding to lymphadenopathy on computed tomographic examination 08/17/2024. The lungs are clear without focal consolidation or pulmonary edema. No pneumothorax or pleural effusion seen. Electronically signed by: Jerrell Reyes M.D. Narrative 10/11/2024 3:35 PM BODY PAINTER EXAMINATION: 1 view chest radiograph Procedure Note Jerrell Reyes MD - 10/11/2024 EXAMINATION: 1 view chest radiograph IMPRESSION: Comparison 07/30/2024 5:57 PM. Heart size remains within normal limits. New mild contour bulge seen in the region of the aortopulmonary window, corresponding to lymphadenopathy on computed tomographic examination 08/17/2024. The lungs are clear without focal consolidation or pulmonary edema. No pneumothorax or pleural effusion seen. Electronically signed by: Jerrell Reyes M.D. Fe Le MD IMG XR PROCEDURES Final R esult * (ABNORMAL) Urinalysis reflex to microscopic and culture Urine, clean voided (10/11/2024 2:32 PM BODY PAINTER) Color, ur Straw Yellow Clarity, ur Clear Clear [facility] Specific gravity, ur 1.012 1.003 - 1.030 [facility] pH, urine 7.0 [facility] Comment: Interpretive Data ? Urine pH is affected by diet, medications, systemic acid-base disturbances, and renal tubular function. ??pH may affect urinary stone formation. ??For example, urine pH below 6.0 may help reduce the tendency for calcium phosphate stones and pH greater than 6.0 may reduce the tendency for uric acid stone formation. Source: [facility] Current Interpretive Data was last revised on 2017 Protein, ur ql Trace Negative [facility] Glucose, ur ql Negative Negative [facility] Ketones, ur Negative Negative [facility] Bilirubin, ur Negative Negative [facility] Blood, ur 2+(A) Negative [facility] Urobilinogen, ur <2.0 <2.0 mg/dL [facility] Nitrite, ur Negative Negative [facility] Leukocyte esterase, ur Negative Negative [facility] UA reflex comment Reflex to microscopic UA will be performed. [facility] Urine, clean voided 10/11/2024 2:32 PM BODY PAINTER 10/11/2024 2:53 PM BODY PAINTER Fe Le MD LAB MICROBIOLOGY - GENERA L ORDERABLES Final Result [facility] Department [place] [address] * (ABNORMAL) Urinalysis, microscopic only (10/11/2024 2:32 PM BODY PAINTER) WBC, ur 6-10(A) 0 - 5 /HPF RBC, ur 21-50(A) 0 - 2 /HPF [facility] Epithelial cells, squamous, ur 1-5 0 - 5 /HPF [facility] Mucous, ur Present(A) [facility] Culture Reflex Comment Reflex conditions for urine culture (WBC >10) not met. [facility] Urine, clean voided 10/11/2024 2:32 PM BODY PAINTER 10/11/2024 2:53 PM BODY PAINTER Fe Le MD LAB URINE ORDERABLES Eleni l Result Performing Organization Address [facility] Co de Phone Number [facility] Department [place] [address] * Lactate (10/11/2024 2:22 PM BODY PAINTER) Lactate 0.7 0.7 - 2.0 mmol/L Blood 10/11/2024 2:22 PM BODY PAINTER 10/11/2024 3:00 PM BODY PAINTER Fe Le MD LAB BLOOD ORDERABLES Eleni l Result Performing Organization Address [facility] de Phone Number [facility] Department [place] [address] * eGFR (10/11/2024 2:22 PM BODY PAINTER) eGFR >90 >=60 mL/min/1. 73 m2 Comment: Interpretive Data Reference Interval Normal ?>/= 90 mL/min/1.73m2 Mildly decreased* ? 60 - 89 mL/min/1.73m2 Mildly to moderately decreased ?45 - 59 mL/min/1.73m2 Moderately to severely decreased ??30 - 44 mL/min/1.73m2 Severely decreased ?15 - 29 mL/min/1.73m2 Kidney Failure ?< 15 ??mL/min/1.73m2 *Relative to young adult level Estimated glomerular filtration rate is determined by the 2020 CKD-EPI equation recommended by the National Kidney Foundation (A Unifying Approach to GFR Estimation: Recommendations of the NKF-ASK Task Force on Reassessing the Inclusion of Race in Diagnosing Kidney Disease, JASN 2020). The CKD-EPI equation should not be used for patients with unstable renal function and has not been validated in children and those over 70. Current interpretive data was last reviewed 2021. Blood 10/11/2024 2:22 PM BODY PAINTER 10/11/2024 3:00 PM BODY PAINTER Fe Le MD LAB BLOOD ORDERABLES Eleni l Result [facility] Department [place] [address] * (ABNORMAL) Differential, auto (10/11/2024 2:22 PM BODY PAINTER) Neutrophil abs 5.3 1.5 - 6.5 K/cumm Imm gran abs 0.1 0.0 - 0.1 K/cumm [facility] Lymphocyte abs 1.0 0.8 - 3.3 K/cumm [facility] Monocyte abs 1.1(H) 0.2 - 0.8 K/cumm [facility] Eosinophil abs 0.0 0.0 - 0.5 K/cumm [facility] Basophil abs 0.0 0.0 - 0.1 K/cumm [facility] Neutrophil pct 71.0 % [facility] Comment: Interpretive Data Percent cell count reference ranges are not reported, since discordance with absolute values may lead to misinterpretation of CBC data. Current Interpretive Data was last revised on 2018. Imm gran pct 0.7 % [facility] Comment: Interpretive Data Percent cell count reference ranges are not reported, since discordance with absolute values may lead to misinterpretation of CBC data. Current Interpretive Data was last revised on 2018. Lymphocyte pct 12.8 % [facility] Comment: Interpretive Data Percent cell count reference ranges are not reported, since discordance with absolute values may lead to misinterpretation of CBC data. Current Interpretive Data was last revised on 2018. Monocyte pct 14.5 % [facility] Comment: Interpretive Data Percent cell count reference ranges are not reported, since discordance with absolute values may lead to misinterpretation of CBC data. Current Interpretive Data was last revised on 2018. Eosinophil pct 0.5 % [facility] Comment: Interpretive Data Percent cell count reference ranges are not reported, since discordance with absolute values may lead to misinterpretation of CBC data. Current Interpretive Data was last revised on 2018. Basophil pct 0.5 % [facility] Comment: Interpretive Data Percent cell count reference ranges are not reported, since discordance with absolute values may lead to misinterpretation of CBC data. Current Interpretive Data was last revised on 2018. Blood 10/11/2024 2:22 PM BODY PAINTER 10/11/2024 3:00 PM BODY PAINTER us Fe Le MD LAB BLOOD ORDERABLES Eleni parker Result [facility] Department [place] [address] * Respiratory pathogen panel Nasopharyngeal (10/11/2024 2:22 PM BODY PAINTER) Pathologist [facility] [place] Influenza A RNA Not Detected Not Detected Influenza B RNA Not Detected Not Detected [facility] RSV RNA Not Detected Not Detected [facility] COVID-19 RNA Not Detected Not Detected [facility] Coronavirus 229E RNA Not Detected Not Detected [facility] Coronavirus HKU1 RNA Not Detected Not Detected [facility] Coronavirus NL63 RNA Not Detected Not Detected [facility] Coronavirus OC43 RNA Not Detected Not Detected [facility] Adenovirus DNA Not Detected Not Detected [facility] Metapneumovirus RNA Not Detected Not Detected [facility] Rhinovirus/Enterov irus RNA Not Detected Not Detected [facility] Parainfluenza 1 RNA Not Detected Not Detected [facility] Parainfluenza 2 RNA Not Detected Not Detected [facility] Parainfluenza 3 RNA Not Detected Not Detected [facility] Parainfluenza 4 RNA Not Detected Not Detected [facility] B. pertussis DNA Not Detected Not Detected [facility] B. parapertussis DNA Not Detected Not Detected [facility] C. pneumoniae DNA Not Detected Not Detected [facility] M. pneumoniae DNA Not Detected Not Detected [facility] Nasopharyngeal 10/11/2024 2: 22 PM BODY PAINTER 10/11/2024 3:13 PM BODY PAINTER Sharon [facility] - 10/11/2024 4:10 PM BODY PAINTER Is the Patient experiencing symptoms consistent with COVID?->No Surveillance testing for transplant patient?->No ??Interpretive Data The [employer] FilmArray Respiratory Panel (RP2.1) assay is a multiplexed real-time PCR based nucleic acid test capable of simultaneous qualitative detection and identification of multiple respiratory viral and bacterial nucleic acids, including SARS Coronavirus 2 (the causative agent of COVID-19). The following bacteria, viruses and virus subtypes can be identified using the FilmArray RP2.1 assay: Bordetella pertussis, Bordetella parapertussis, Chlamydia pneumoniae, Mycoplasma pneumoniae, Adenovirus, SARS Coronavirus 2, seasonal coronaviruses (Coronavirus HKU1, Coronavirus NL63, Coronavirus 229E, and Coronavirus OC43), Influenza A, Influenza A subtype H1, Influenza A subtype H3, Influenza A subtype 2009 H1, Influenza B, Metapneumovirus, Parainfluenza 1, Parainfluenza 2, Parainfluenza 3, Parainfluenza 4, RSV, Rhinovirus/Enterovirus. Due to the genetic similarity between human Rhinovirus and Enterovirus, the FilmArray RP2.1 assay cannot reliably differentiate them. Coronavirus OC43 may cross-react with some isolates of Coronavirus HKU1. ??A dual positive result may be due to cross-reactivity or may indicate a co-infection. The detection and identification of specific viral and bacterial nucleic acids from individuals exhibiting signs and symptoms of a respiratory infection aids in the diagnosis of respiratory infection if used in conjunction with other clinical and epidemiological information. ??The results of this test should not be used as the sole basis for diagnosis, treatment, or other management decisions. ??Negative results in the setting of a respiratory illness may be due to infection with pathogens that are not detected by this test. ??Positive results do not rule out infection/co-infection with other organisms. ??The agent(s) detected by the FilmArray RP2.1 may not be the definite cause of disease. ??Additional testing (lab, imaging, etc.) may be necessary when evaluating a patient with possible respiratory tract infection. The FilmArray RP2.1 assay has FDA clearance for testing of TRAVELING REPAIR ACCOUNTANT swabs. ??The performance of additional specimen types has been assessed by the performing laboratory. ??The performance characteristics of this assay have been determined by [facility] Molecular Infectious Disease Laboratory. Current interpretive data was last revised on 22. Fe Le MD LAB MICROBIOLOGY - GENERA L ORDERABLES Final Result Performing Organization Address [facility]/ZIP Co de Phone Number [facility] Department [place] [address] * (ABNORMAL) CBC with auto differential (10/11/2024 2:22 PM BODY PAINTER) Pathologist [facility] [place] WBC 7.5 3.8 - 9.9 K/cumm Hgb 7.4(L) 11.9 - 15.5 g/dL [facility] Hct 24.1(L) 35.6 - 45.5 % [facility] Plt 387 150 - 400 K/cumm [facility] MPV 9.8 9.1 - 12.3 fL [facility] RBC 3.11(L) 3.90 - 5.20 M/cumm [facility] MCV 77.5(L) 81.3 - 96.4 fL [facility] MCH 23.8(L) 27.1 - 33.3 pg [facility] MCHC 30.7(L) 32.3 - 35.7 g/dL [facility] RDW CV 20.9(H) 11.1 - 14.9 % [facility] RDW SD 58.3(H) 35.7 - 48.1 fL [facility] NRBC abs 0.00 0.00 - 0.01 K/cumm [facility] Blood 10/11/2024 2:22 PM BODY PAINTER 10/11/2024 3:00 PM BODY PAINTER Fe Le MD LAB BLOOD ORDERABLES Eleni l Result Performing Organization Address City/[facility]/ZIP Co de Phone Number [facility] Department [place] [address] * Blood culture Blood (10/11/2024 2:22 PM BODY PAINTER) Report Final Report: No growth Blood 10/11/2024 2:22 PM BODY PAINTER 10/11/2024 3:23 PM BODY PAINTER Sharon GALLAGHER - 10/15/2024 4:00 PM BODY PAINTER From a different site than #1. Collection->Peripheral 1. ?Blood cultures are incubated for 4 days on a continuously monitored blood culture system. The first report of a negative culture is issued within 24 hours of receipt of the specimen in the laboratory. 2. ?Positive culture results are reported as soon as they are detected. 3. ?The most important factor for detection of microbes in the setting of bloodstream infection is the volume of blood submitted for culture. Failure to collect an optimal blood volume can result in false negative blood cultures. For pediatric patients, the recommended blood volume to collect is 1 mL of blood per year of patient age (up to 20 mL) per blood culture set. For adult patients, 20 mL of blood, divided equally between aerobic and anaerobic blood culture bottles, is recommended for each blood culture set. 4. ?For blood cultures with Gram-positive cocci, a rapid molecular test for organism identification may be performed using the [employer] Gram-Positive Blood Culture Assay. This assay detects microbial DNA in positive blood culture broth via hybridization of target DNA to capture oligonucleotides on a microarray. This assay has been cleared by the [place] Food and Drug Administration and its performance characteristics have been verified by the [facility] Microbiology Laboratory. 5. ?For questions about this culture, contact the Microbiology Laboratory at [phone]. Interpretive data was last revised on 2020. us Fe Le MD LAB MICROBIOLOGY - GENERA L ORDERABLES Final Result MELA G[facility] Department [place] [address] * Blood culture Blood (10/11/2024 2:22 PM BODY PAINTER) Report Final Report: No growth Blood 10/11/2024 2:22 PM BODY PAINTER 10/11/2024 3:23 PM BODY PAINTER Narrative [facility] - 10/15/2024 4:00 PM BODY PAINTER Collection->Peripheral 1. ?Blood cultures are incubated for 4 days on a continuously monitored blood culture system. The first report of a negative culture is issued within 24 hours of receipt of the specimen in the laboratory. 2. ?Positive culture results are reported as soon as they are detected. 3. ?The most important factor for detection of microbes in the setting of bloodstream infection is the volume of blood submitted for culture. Failure to collect an optimal blood volume can result in false negative blood cultures. For pediatric patients, the recommended blood volume to collect is 1 mL of blood per year of patient age (up to 20 mL) per blood culture set. For adult patients, 20 mL of blood, divided equally between aerobic and anaerobic blood culture bottles, is recommended for each blood culture set. 4. ?For blood cultures with Gram-positive cocci, a rapid molecular test for organism identification may be performed using the [employer] Gram-Positive Blood Culture Assay. This assay detects microbial DNA in positive blood culture broth via hybridization of target DNA to capture oligonucleotides on a microarray. This assay has been cleared by the [place] Food and Drug Administration and its performance characteristics have been verified by the [facility] Microbiology Laboratory. 5. ?For questions about this culture, contact the Microbiology Laboratory at [phone]. Interpretive data was last revised on 2020. Fe Le MD LAB MICROBIOLOGY - GENERA L ORDERABLES Final Result [facility] Department [place] [address] * (ABNORMAL) Basic metabolic panel (10/11/2024 2:22 PM BODY PAINTER) Sodium 134(L) 135 - 145 mmol/L Potassium, pl 3.8 3.3 - 4.9 mmol/L [facility] Chloride 97 97 - 110 mmol/L [facility] CO2 26 22 - 32 mmol/L [facility] Anion gap 11 2 - 15 mmol/L [facility] BUN 14 6 - 25 mg/dL [facility] Creatinine 0.61 0.60 - 1.10 mg/dL [facility] Glucose 110 70 - 199 mg/dL [facility] Comment: Interpretive Data Fasting glucose >/= 126 mg/dl is diagnostic for diabetes. ?? Fasting is defined as no caloric intake for at least 8 hours. Fasting glucose between 100 mg/dl to 125 mg/dl is diagnostic of prediabetes. In a patient with classic symptoms of hyperglycemia or hyperglycemic crisis, a random glucose >/= 200 mg/dl is diagnostic for diabetes. In the absence of unequivocal hyperglycemia, results should be confirmed by repeat testing. The classification and Diagnosis of Diabetes Diabetes Care 202; 46: S19-S40. Current interpretive data was last revised 2022. Calcium 9.2 8.5 - 10.3 mg/dL [facility] Blood 10/11/2024 2:22 PM BODY PAINTER 10/11/2024 3:00 PM BODY PAINTER us Fe Le MD LAB BLOOD ORDERABLES Eleni parker Result [facility] Department [place] [address] * eGFR (10/10/2024 8:47 PM BODY PAINTER) eGFR >90 >=60 mL/min/1. 73 m2 Comment: Interpretive Data Reference Interval Normal ?>/= 90 mL/min/1.73m2 Mildly decreased* ? 60 - 89 mL/min/1.73m2 Mildly to moderately decreased ?45 - 59 mL/min/1.73m2 Moderately to severely decreased ??30 - 44 mL/min/1.73m2 Severely decreased ?15 - 29 mL/min/1.73m2 Kidney Failure ?< 15 ??mL/min/1.73m2 *Relative to young adult level Estimated glomerular filtration rate is determined by the 2020 CKD-EPI equation recommended by the National Kidney Foundation (A Unifying Approach to GFR Estimation: Recommendations of the NKF-ASK Task Force on Reassessing the Inclusion of Race in Diagnosing Kidney Disease, JASN 2020). The CKD-EPI equation should not be used for patients with unstable renal function and has not been validated in children and those over 70. Current interpretive data was last reviewed 2021. Blood 10/10/2024 8:47 PM BODY PAINTER 10/10/2024 9:23 PM BODY PAINTER us Fe Le MD LAB BLOOD ORDERABLES Eleni parker Result [facility] Department [place] [address] * (ABNORMAL) CBC without differential (10/10/2024 8:47 PM BODY PAINTER) WBC 8.4 3.8 - 9.9 K/cumm Hgb 8.0(L) 11.9 - 15.5 g/dL [facility] Hct 25.1(L) 35.6 - 45.5 % [facility] Plt 392 150 - 400 K/cumm [facility] MPV 9.6 9.1 - 12.3 fL [facility] RBC 3.23(L) 3.90 - 5.20 M/cumm [facility] MCV 77.7(L) 81.3 - 96.4 fL [facility] MCH 24.8(L) 27.1 - 33.3 pg [facility] MCHC 31.9(L) 32.3 - 35.7 g/dL [facility] RDW CV 21.0(H) 11.1 - 14.9 % [facility] RDW SD 59.2(H) 35.7 - 48.1 fL [facility] NRBC abs 0.00 0.00 - 0.01 K/cumm [facility] Blood 10/10/2024 8:47 PM BODY PAINTER 10/10/2024 9:24 PM BODY PAINTER Fe Le MD LAB BLOOD ORDERABLES Eleni l Result Performing Organization Address [facility] Co de Phone Number [facility] [place] [address] * Phosphorus (10/10/2024 8:47 PM BODY PAINTER) [facility] Phosphorus, pl 3.4 2.3 - 4.5 mg/dL Blood 10/10/2024 8:47 PM BODY PAINTER 10/10/2024 9:23 PM BODY PAINTER Fe Le MD LAB BLOOD ORDERABLES Eleni l Result Performing Organization Address [facility] Phone Number [facility] [place] [address] * Magnesium (10/10/2024 8:47 PM BODY PAINTER) [facility] Magnesium 2.1 1.4 - 2.5 mg/dL Blood 10/10/2024 8:47 PM BODY PAINTER 10/10/2024 9:23 PM BODY PAINTER Fe Le MD LAB BLOOD ORDERABLES Eleni l Result Performing Organization Address [facility] de Phone Number [facility] [place] [address] * Basic metabolic panel (10/10/2024 8:47 PM BODY PAINTER) [facility] Sodium 136 135 - 145 mmol/L Potassium, pl 3.8 3.3 - 4.9 mmol/L [facility] Chloride 98 97 - 110 mmol/L [facility] CO2 26 22 - 32 mmol/L [facility] Anion gap 12 2 - 15 mmol/L [facility] BUN 19 6 - 25 mg/dL [facility] Creatinine 0.68 0.60 - 1.10 mg/dL [facility] Glucose 189 70 - 199 mg/dL [facility] Comment: Interpretive Data Fasting glucose >/= 126 mg/dl is diagnostic for diabetes. ?? Fasting is defined as no caloric intake for at least 8 hours. Fasting glucose between 100 mg/dl to 125 mg/dl is diagnostic of prediabetes. In a patient with classic symptoms of hyperglycemia or hyperglycemic crisis, a random glucose >/= 200 mg/dl is diagnostic for diabetes. In the absence of unequivocal hyperglycemia, results should be confirmed by repeat testing. The classification and Diagnosis of Diabetes Diabetes Care 2021; 46: S19-S40. Current interpretive data was last revised 2022. Calcium 9.4 8.5 - 10.3 mg/dL [facility] Blood 10/10/2024 8:47 PM BODY PAINTER 10/10/2024 9:23 PM BODY PAINTER Fe Le MD LAB BLOOD ORDERABLES Eleni l Result Performing Organization Address City/[facility] Co de Phone Number [facility] Department [place] [address] * ECG 12 lead (10/10/2024 2:15 PM BODY PAINTER) Ventricular Rate EKG/Min 103 BPM [facility] Atrial Rate 103 BPM [facility] OK-Interval (MSEC) 138 ms [facility] QRS-Interval (MSEC) 70 ms [facility] QT-Interval (MSEC) 336 ms [facility] QTc 440 ms [facility] P Codorus 58 degrees [facility] R [place] 49 degrees [facility] T Codorus 5 degrees [facility] Diagnosis Sinus tachycardia Nonspecific T wave abnormality Abnormal ECG No previous ECGs available Confirmed by STEFFANY BLOUNT M.D ([id number]) on 10/13/2024 4:52:56 PM [facility] 10/10/2024 2:15 PM BODY PAINTER 10/13/2024 4:52 PM BODY PAINTER Fe Le MD ECG ORDERABLES Final Res ult [facility] * eGFR (10/09/2024 8:11 PM BODY PAINTER) eGFR 87 >=60 mL/min/1. 73 m2 Comment: Interpretive Data Reference Interval Normal ?>/= 90 mL/min/1.73m2 Mildly decreased* ? 60 - 89 mL/min/1.73m2 Mildly to moderately decreased ?45 - 59 mL/min/1.73m2 Moderately to severely decreased ??30 - 44 mL/min/1.73m2 Severely decreased ?15 - 29 mL/min/1.73m2 Kidney Failure ?< 15 ??mL/min/1.73m2 *Relative to young adult level Estimated glomerular filtration rate is determined by the 2020 CKD-EPI equation recommended by the National Kidney Foundation (A Unifying Approach to GFR Estimation: Recommendations of the NKF-ASK Task Force on Reassessing the Inclusion of Race in Diagnosing Kidney Disease, JASN 2020). The CKD-EPI equation should not be used for patients with unstable renal function and has not been validated in children and those over 70. Current interpretive data was last reviewed 2021. Blood 10/09/2024 8:11 PM BODY PAINTER 10/09/2024 8:42 PM BODY PAINTER us Fe Le MD LAB BLOOD ORDERABLES Eleni l Result [facility] Department [place] [address] * (ABNORMAL) CBC without differential (10/09/2024 8:11 PM BODY PAINTER) WBC 7.2 3.8 - 9.9 K/cumm Hgb 7.4(L) 11.9 - 15.5 g/dL [facility] Hct 23.8(L) 35.6 - 45.5 % [facility] Plt 342 150 - 400 K/cumm [facility] MPV 9.4 9.1 - 12.3 fL [facility] RBC 3.10(L) 3.90 - 5.20 M/cumm [facility] MCV 76.8(L) 81.3 - 96.4 fL [facility] MCH 23.9(L) 27.1 - 33.3 pg [facility] MCHC 31.1(L) 32.3 - 35.7 g/dL [facility] RDW CV 21.1(H) 11.1 - 14.9 % [facility] RDW SD 58.5(H) 35.7 - 48.1 fL [facility] NRBC abs 0.00 0.00 - 0.01 K/cumm [facility] Blood 10/09/2024 8:11 PM BODY PAINTER 10/09/2024 8:42 PM BODY PAINTER Fe Le MD LAB BLOOD ORDERABLES Eleni l Result [facility] Department [place] [place] [address] * (ABNORMAL) Phosphorus (10/09/2024 8:11 PM BODY PAINTER) Pathologist [facility] [place] Phosphorus, pl 1.8(L) 2.3 - 4.5 mg/dL Blood 10/09/2024 8:11 PM BODY PAINTER 10/09/2024 8:42 PM BODY PAINTER Fe Le MD LAB BLOOD ORDERABLES Eleni l Result [facility] Department [place] [place] [address] * Magnesium (10/09/2024 8:11 PM BODY PAINTER) Pathologist [facility] [place] Magnesium 1.9 1.4 - 2.5 mg/dL Blood 10/09/2024 8:1 1 PM BODY PAINTER 10/09/2024 8:42 PM BODY PAINTER Fe Le MD LAB BLOOD ORDERABLES Eleni l Result Performing Organization Address [facility]/ZIP Co de Phone Number [facility] Department [place] [address] * Basic metabolic panel (10/09/2024 8:11 PM BODY PAINTER) [facility] Sodium 136 135 - 145 mmol/L Potassium, pl 3.7 3.3 - 4.9 mmol/L [facility] Chloride 99 97 - 110 mmol/L [facility] CO2 27 22 - 32 mmol/L [facility] Anion gap 10 2 - 15 mmol/L [facility] BUN 15 6 - 25 mg/dL [facility] Creatinine 0.73 0.60 - 1.10 mg/dL [facility] Glucose 193 70 - 199 mg/dL [facility] Comment: Interpretive Data Fasting glucose >/= 126 mg/dl is diagnostic for diabetes. ?? Fasting is defined as no caloric intake for at least 8 hours. Fasting glucose between 100 mg/dl to 125 mg/dl is diagnostic of prediabetes. In a patient with classic symptoms of hyperglycemia or hyperglycemic crisis, a random glucose >/= 200 mg/dl is diagnostic for diabetes. In the absence of unequivocal hyperglycemia, results should be confirmed by repeat testing. The classification and Diagnosis of Diabetes Diabetes Care 202; 46: S19-S40. Current interpretive data was last revised 2022. Calcium 9.5 8.5 - 10.3 mg/dL [facility] Blood 10/09/2024 8:11 PM BODY PAINTER 10/09/2024 8:42 PM BODY PAINTER Fe Le MD LAB BLOOD ORDERABLES Eleni l Result Performing Organization Address [facility] Co de Phone Number [facility] Department [place] [address] * MRI Spine Total Complete W WO Contrast (10/09/2024 2:25 PM BODY PAINTER) Anatomical Region Laterality Modality Spine N/A Magnetic Resonan ce 10/09/2024 3:21 PM BODY PAINTER Impressions 10/09/2024 4:36 PM BODY PAINTER 1. 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 ??There is prevertebral soft tissue extension of disease extending from approximately C5-C7. 2. ??Additional sites of likely disease include the posterior body, left pedicle, left facet, and spinous process of T12 with extension into the paraspinal musculature. ??There is also involvement of the superior articular facet of L1. 3. ??Questionable disease involvement of the C5 inferior endplate and the L1 superior endplate. 4. ??No evidence of intracranial metastatic disease. ??No evidence of epidural disease. Dictated by: Caio Carlson MD The radiology attending physician has personally reviewed this study, and had reviewed and/or edited this written report and agrees with it. Electronically signed by: Alec Weathers MD, PHD Narrative 10/09/2024 4:36 PM BODY PAINTER EXAMINATION: 1. Magnetic resonance imaging (MRI) of the brain and brainstem without and with contrast 2. Magnetic resonance imaging (MRI) of the cervical spine without and with contrast 3. Magnetic resonance imaging (MRI) of the thoracic spine without and with contrast 4. 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 ??Patient most recently has been undergoing palliative radiation to bones(left iliac bone and L1) and soft tissues with recent admission for fall and pathologic fractures in the cervical spine. TECHNIQUE: Multiplanar multi-weighted MRI of the brain and brainstem was performed without and with intravenous contrast using the general brain protocol. Multiplanar multi-weighted MRI of the cervical spine was performed without and with intravenous contrast using the standard protocol. Multiplanar multi-weighted MRI of the thoracic was performed without and with intravenous contrast using the standard protocol. Multiplanar multi-weighted MRI of the lumbar spine was performed without and with intravenous contrast using the standard protocol. Contrast information: 8 mL Gadoterate Meglumine COMPARISON: None Available. ??CT head and cervical spine dated 10/07/2024 were reviewed. FINDINGS: BRAIN: The scalp and calvarium are normal. The superior sagittal sinus demonstrates normal venous flow. The corpus callosum is normal in shape and signal intensity. The posterior fossa is unremarkable. The pituitary and sella are normal. The brainstem and craniocervical junction are unremarkable. Diffusion weighted images reveal no hyperintensities to suggest acute cerebral infarction. The susceptibility weighted sequences reveal no evidence of acute or chronic hemorrhage. The ventricles are normal in size and position without evidence of hydrocephalus. The paranasal sinuses are normal. The visualized portions of the mastoids are unremarkable. The orbits appear normal. Normal flow voids are demonstrated in the carotid arteries and basilar artery. There is no abnormal contrast enhancement. CERVICAL SPINE: There is a compression fracture of C6 vertebral body associated with a contrast enhancing lesion that replaces the near entirety of the vertebral body. There is approximately 20% height loss and minimal retropulsion. ??There is adjacent STIR hyperintensity and enhancement in the prevertebral soft tissues from C5-7, predominantly on the right, concerning for soft tissue extension of disease (series 9, image 5). ??There is questionable disease involvement of the C5 inferior endplate as well. The spinal cord demonstrates normal signal intensity on all sequences. Multilevel cervical spondylosis. There is mild spinal canal stenosis at C6-C7. No high grade spinal canal or neuroforaminal stenosis. ?? There are no annular fissures identified. ??Normal signal voids are present in the vertebral arteries. THORACIC SPINE: There is STIR hyperintensity and contrast enhancement of the posterior body and left pedicle of the T12 vertebra, concerning for disease. ??There is extension of this signal abnormality to T12 spinous process, left T12 facet, and the adjacent paraspinal musculature (series 49, image 97). ??There is also likely involvement of the left L1 superior articular facet. ??There is no overt extension into the spinal canal or evidence of epidural disease. ??There is no high-grade spinal canal or neuroforaminal stenosis. ??The alignment of the thoracic spine is normal. ??There are no compression fractures. The spinal cord demonstrates normal signal intensity on all sequences. ??Limited views of the chest and abdomen show no soft tissue abnormality. The aorta is normal. LUMBAR SPINE: There is contrast enhancement and STIR hyperintensity in L1 superior articular facet. ??There is also more mild STIR hyperintensity and enhancement along the L1 superior endplate, suspicious for disease. There is no high-grade neuroforaminal or spinal canal stenosis. ??No evidence of epidural disease. The alignment of the lumbar spine is normal. Vertebral bodies demonstrate normal signal intensity on all sequences. There are no compression fractures. The conus medullaris terminates at the level of L1-L2. The distal spinal cord signal intensity is normal. Limited views of the abdomen and pelvis show no soft tissue abnormality. The aorta is normal. Procedure Note Alec Weathers MD PhD - 10/09/2024 EXAMINATION: 1. Magnetic resonance imaging (MRI) of the brain and brainstem without and with contrast 2. Magnetic resonance imaging (MRI) of the cervical spine without and with contrast 3. Magnetic resonance imaging (MRI) of the thoracic spine without and with contrast 4. 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 Patient most recently has been undergoing palliative radiation to bones(left iliac bone and L1) and soft tissues with recent admission for fall and pathologic fractures in the cervical spine. TECHNIQUE: Multiplanar multi-weighted MRI of the brain and brainstem was performed without and with intravenous contrast using the general brain protocol. Multiplanar multi-weighted MRI of the cervical spine was performed without and with intravenous contrast using the standard protocol. Multiplanar multi-weighted MRI of the thoracic was performed without and with intravenous contrast using the standard protocol. Multiplanar multi-weighted MRI of the lumbar spine was performed without and with intravenous contrast using the standard protocol. Contrast information: 8 mL Gadoterate Meglumine COMPARISON: None Available. CT head and cervical spine dated 10/07/2024 were reviewed. FINDINGS: BRAIN: The scalp and calvarium are normal. The superior sagittal sinus demonstrates normal venous flow. The corpus callosum is normal in shape and signal intensity. The posterior fossa is unremarkable. The pituitary and sella are normal. The brainstem and craniocervical junction are unremarkable. Diffusion weighted images reveal no hyperintensities to suggest acute cerebral infarction. The susceptibility weighted sequences reveal no evidence of acute or chronic hemorrhage. The ventricles are normal in size and position without evidence of hydrocephalus. The paranasal sinuses are normal. The visualized portions of the mastoids are unremarkable. The orbits appear normal. Normal flow voids are demonstrated in the carotid arteries and basilar artery. There is no abnormal contrast enhancement. CERVICAL SPINE: There is a compression fracture of C6 vertebral body associated with a contrast enhancing lesion that replaces the near entirety of the vertebral body. There is approximately 20% height loss and minimal retropulsion. There is adjacent STIR hyperintensity and enhancement in the prevertebral soft tissues from C5-7, predominantly on the right, concerning for soft tissue extension of disease (series 9, image 5). There is questionable disease involvement of the C5 inferior endplate as well. The spinal cord demonstrates normal signal intensity on all sequences. Multilevel cervical spondylosis. There is mild spinal canal stenosis at C6-C7. No high grade spinal canal or neuroforaminal stenosis. There are no annular fissures identified. Normal signal voids are present in the vertebral arteries. THORACIC SPINE: There is STIR hyperintensity and contrast enhancement of the posterior body and left pedicle of the T12 vertebra, concerning for disease. There is extension of this signal abnormality to T12 spinous process, left T12 facet, and the adjacent paraspinal musculature (series 49, image 97). There is also likely involvement of the left L1 superior articular facet. There is no overt extension into the spinal canal or evidence of epidural disease. There is no high-grade spinal canal or neuroforaminal stenosis. The alignment of the thoracic spine is normal. There are no compression fractures. The spinal cord demonstrates normal signal intensity on all sequences. Limited views of the chest and abdomen show no soft tissue abnormality. The aorta is normal. LUMBAR SPINE: There is contrast enhancement and STIR hyperintensity in L1 superior articular facet. There is also more mild STIR hyperintensity and enhancement along the L1 superior endplate, suspicious for disease. There is no high-grade neuroforaminal or spinal canal stenosis. No evidence of epidural disease. The alignment of the lumbar spine is normal. Vertebral bodies demonstrate normal signal intensity on all sequences. There are no compression fractures. The conus medullaris terminates at the level of L1-L2. The distal spinal cord signal intensity is normal. Limited views of the abdomen and pelvis show no soft tissue abnormality. The aorta is normal. IMPRESSION: 1. 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 There is prevertebral soft tissue extension of disease extending from approximately C5-C7. 2. Additional sites of likely disease include the posterior body, left pedicle, left facet, and spinous process of T12 with extension into the paraspinal musculature. There is also involvement of the superior articular facet of L1. 3. Questionable disease involvement of the C5 inferior endplate and the L1 superior endplate. 4. No evidence of intracranial metastatic disease. No evidence of epidural disease. Dictated by: Caio Carlson MD The radiology attending physician has personally reviewed this study, and had reviewed and/or edited this written report and agrees with it. Electronically signed by: Alec Weathers MD, PHD Fe Le MD IM MRI PROCEDURES Final Result * MRI Brain W WO Contrast (10/09/2024 2:25 PM BODY PAINTER) Anatomical Region Laterality Modality Head and Neck N/A Magnetic Resonan ce 10/09/2024 3:21 PM BODY PAINTER Impressions 10/09/2024 4:36 PM BODY PAINTER 1. 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 ??There is prevertebral soft tissue extension of disease extending from approximately C5-C7. 2. ??Additional sites of likely disease include the posterior body, left pedicle, left facet, and spinous process of T12 with extension into the paraspinal musculature. ??There is also involvement of the superior articular facet of L1. 3. ??Questionable disease involvement of the C5 inferior endplate and the L1 superior endplate. 4. ??No evidence of intracranial metastatic disease. ??No evidence of epidural disease. Dictated by: Caio Carlson MD The radiology attending physician has personally reviewed this study, and had reviewed and/or edited this written report and agrees with it. Electronically signed by: Alec Weathers MD, PHD Narrative 10/09/2024 4:36 PM BODY PAINTER EXAMINATION: 1. Magnetic resonance imaging (MRI) of the brain and brainstem without and with contrast 2. Magnetic resonance imaging (MRI) of the cervical spine without and with contrast 3. Magnetic resonance imaging (MRI) of the thoracic spine without and with contrast 4. 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 ??Patient most recently has been undergoing palliative radiation to bones(left iliac bone and L1) and soft tissues with recent admission for fall and pathologic fractures in the cervical spine. TECHNIQUE: Multiplanar multi-weighted MRI of the brain and brainstem was performed without and with intravenous contrast using the general brain protocol. Multiplanar multi-weighted MRI of the cervical spine was performed without and with intravenous contrast using the standard protocol. Multiplanar multi-weighted MRI of the thoracic was performed without and with intravenous contrast using the standard protocol. Multiplanar multi-weighted MRI of the lumbar spine was performed without and with intravenous contrast using the standard protocol. Contrast information: 8 mL Gadoterate Meglumine COMPARISON: None Available. ??CT head and cervical spine dated 10/07/2024 were reviewed. FINDINGS: BRAIN: The scalp and calvarium are normal. The superior sagittal sinus demonstrates normal venous flow. The corpus callosum is normal in shape and signal intensity. The posterior fossa is unremarkable. The pituitary and sella are normal. The brainstem and craniocervical junction are unremarkable. Diffusion weighted images reveal no hyperintensities to suggest acute cerebral infarction. The susceptibility weighted sequences reveal no evidence of acute or chronic hemorrhage. The ventricles are normal in size and position without evidence of hydrocephalus. The paranasal sinuses are normal. The visualized portions of the mastoids are unremarkable. The orbits appear normal. Normal flow voids are demonstrated in the carotid arteries and basilar artery. There is no abnormal contrast enhancement. CERVICAL SPINE: There is a compression fracture of C6 vertebral body associated with a contrast enhancing lesion that replaces the near entirety of the vertebral body. There is approximately 20% height loss and minimal retropulsion. ??There is adjacent STIR hyperintensity and enhancement in the prevertebral soft tissues from C5-7, predominantly on the right, concerning for soft tissue extension of disease (series 9, image 5). ??There is questionable disease involvement of the C5 inferior endplate as well. The spinal cord demonstrates normal signal intensity on all sequences. Multilevel cervical spondylosis. There is mild spinal canal stenosis at C6-C7. No high grade spinal canal or neuroforaminal stenosis. ?? There are no annular fissures identified. ??Normal signal voids are present in the vertebral arteries. THORACIC SPINE: There is STIR hyperintensity and contrast enhancement of the posterior body and left pedicle of the T12 vertebra, concerning for disease. ??There is extension of this signal abnormality to T12 spinous process, left T12 facet, and the adjacent paraspinal musculature (series 49, image 97). ??There is also likely involvement of the left L1 superior articular facet. ??There is no overt extension into the spinal canal or evidence of epidural disease. ??There is no high-grade spinal canal or neuroforaminal stenosis. ??The alignment of the thoracic spine is normal. ??There are no compression fractures. The spinal cord demonstrates normal signal intensity on all sequences. ??Limited views of the chest and abdomen show no soft tissue abnormality. The aorta is normal. LUMBAR SPINE: There is contrast enhancement and STIR hyperintensity in L1 superior articular facet. ??There is also more mild STIR hyperintensity and enhancement along the L1 superior endplate, suspicious for disease. There is no high-grade neuroforaminal or spinal canal stenosis. ??No evidence of epidural disease. The alignment of the lumbar spine is normal. Vertebral bodies demonstrate normal signal intensity on all sequences. There are no compression fractures. The conus medullaris terminates at the level of L1-L2. The distal spinal cord signal intensity is normal. Limited views of the abdomen and pelvis show no soft tissue abnormality. The aorta is normal. Procedure Note Alec Weathers MD PhD - 10/09/2024 EXAMINATION: 1. Magnetic resonance imaging (MRI) of the brain and brainstem without and with contrast 2. Magnetic resonance imaging (MRI) of the cervical spine without and with contrast 3. Magnetic resonance imaging (MRI) of the thoracic spine without and with contrast 4. 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 Patient most recently has been undergoing palliative radiation to bones(left iliac bone and L1) and soft tissues with recent admission for fall and pathologic fractures in the cervical spine. TECHNIQUE: Multiplanar multi-weighted MRI of the brain and brainstem was performed without and with intravenous contrast using the general brain protocol. Multiplanar multi-weighted MRI of the cervical spine was performed without and with intravenous contrast using the standard protocol. Multiplanar multi-weighted MRI of the thoracic was performed without and with intravenous contrast using the standard protocol. Multiplanar multi-weighted MRI of the lumbar spine was performed without and with intravenous contrast using the standard protocol. Contrast information: 8 mL Gadoterate Meglumine COMPARISON: None Available. CT head and cervical spine dated 10/07/2024 were reviewed. FINDINGS: BRAIN: The scalp and calvarium are normal. The superior sagittal sinus demonstrates normal venous flow. The corpus callosum is normal in shape and signal intensity. The posterior fossa is unremarkable. The pituitary and sella are normal. The brainstem and craniocervical junction are unremarkable. Diffusion weighted images reveal no hyperintensities to suggest acute cerebral infarction. The susceptibility weighted sequences reveal no evidence of acute or chronic hemorrhage. The ventricles are normal in size and position without evidence of hydrocephalus. The paranasal sinuses are normal. The visualized portions of the mastoids are unremarkable. The orbits appear normal. Normal flow voids are demonstrated in the carotid arteries and basilar artery. There is no abnormal contrast enhancement. CERVICAL SPINE: There is a compression fracture of C6 vertebral body associated with a contrast enhancing lesion that replaces the near entirety of the vertebral body. There is approximately 20% height loss and minimal retropulsion. There is adjacent STIR hyperintensity and enhancement in the prevertebral soft tissues from C5-7, predominantly on the right, concerning for soft tissue extension of disease (series 9, image 5). There is questionable disease involvement of the C5 inferior endplate as well. The spinal cord demonstrates normal signal intensity on all sequences. Multilevel cervical spondylosis. There is mild spinal canal stenosis at C6-C7. No high grade spinal canal or neuroforaminal stenosis. There are no annular fissures identified. Normal signal voids are present in the vertebral arteries. THORACIC SPINE: There is STIR hyperintensity and contrast enhancement of the posterior body and left pedicle of the T12 vertebra, concerning for disease. There is extension of this signal abnormality to T12 spinous process, left T12 facet, and the adjacent paraspinal musculature (series 49, image 97). There is also likely involvement of the left L1 superior articular facet. There is no overt extension into the spinal canal or evidence of epidural disease. There is no high-grade spinal canal or neuroforaminal stenosis. The alignment of the thoracic spine is normal. There are no compression fractures. The spinal cord demonstrates normal signal intensity on all sequences. Limited views of the chest and abdomen show no soft tissue abnormality. The aorta is normal. LUMBAR SPINE: There is contrast enhancement and STIR hyperintensity in L1 superior articular facet. There is also more mild STIR hyperintensity and enhancement along the L1 superior endplate, suspicious for disease. There is no high-grade neuroforaminal or spinal canal stenosis. No evidence of epidural disease. The alignment of the lumbar spine is normal. Vertebral bodies demonstrate normal signal intensity on all sequences. There are no compression fractures. The conus medullaris terminates at the level of L1-L2. The distal spinal cord signal intensity is normal. Limited views of the abdomen and pelvis show no soft tissue abnormality. The aorta is normal. IMPRESSION: 1. 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 There is prevertebral soft tissue extension of disease extending from approximately C5-C7. 2. Additional sites of likely disease include the posterior body, left pedicle, left facet, and spinous process of T12 with extension into the paraspinal musculature. There is also involvement of the superior articular facet of L1. 3. Questionable disease involvement of the C5 inferior endplate and the L1 superior endplate. 4. No evidence of intracranial metastatic disease. No evidence of epidural disease. Dictated by: Caio Carlson MD The radiology attending physician has personally reviewed this study, and had reviewed and/or edited this written report and agrees with it. Electronically signed by: Alec Weathers MD, PHD Fe Le MD IMG MRI PROCEDURES Final Result * eGFR (10/08/2024 8:48 PM BODY PAINTER) [facility] Signature eGFR 79 >=60 mL/min/1. 73 m2 Comment: Interpretive Data Reference Interval Normal ?>/= 90 mL/min/1.73m2 Mildly decreased* ? 60 - 89 mL/min/1.73m2 Mildly to moderately decreased ?45 - 59 mL/min/1.73m2 Moderately to severely decreased ??30 - 44 mL/min/1.73m2 Severely decreased ?15 - 29 mL/min/1.73m2 Kidney Failure ?< 15 ??mL/min/1.73m2 *Relative to young adult level Estimated glomerular filtration rate is determined by the 2020 CKD-EPI equation recommended by the National Kid[employer] (A Unifying Approach to GFR Estimation: Recommendations of the NKF-ASK Task Force on Reassessing the Inclusion of Race in Diagnosing Kidney Disease, JASN 2020). The CKD-EPI equation should not be used for patients with unstable renal function and has not been validated in children and those over 70. Current interpretive data was last reviewed 2021. Blood 10/08/2024 8:48 PM BODY PAINTER 10/08/2024 9:13 PM BODY PAINTER us Fe Le MD LAB BLOOD ORDERABLES Eleni parker Result [facility] Department [place] [address] * (ABNORMAL) CBC without differential (10/08/2024 8:48 PM BODY PAINTER) WBC 7.8 3.8 - 9.9 K/cumm Hgb 7.5(L) 11.9 - 15.5 g/dL [facility] Hct 23.9(L) 35.6 - 45.5 % [facility] Plt 376 150 - 400 K/cumm [facility] MPV 9.7 9.1 - 12.3 fL [facility] RBC 3.11(L) 3.90 - 5.20 M/cumm [facility] MCV 76.8(L) 81.3 - 96.4 fL [facility] MCH 24.1(L) 27.1 - 33.3 pg [facility] MCHC 31.4(L) 32.3 - 35.7 g/dL [facility] RDW CV 20.9(H) 11.1 - 14.9 % [facility] RDW SD 58.6(H) 35.7 - 48.1 fL [facility] NRBC abs 0.00 0.00 - 0.01 K/cumm [facility] Blood 10/08/2024 8:48 PM BODY PAINTER 10/08/2024 9:13 PM BODY PAINTER Fe Le MD LAB BLOOD ORDERABLES Eleni l Result Performing Organization Address [facility] Co de Phone Number [facility] [place] [address] * Phosphorus (10/08/2024 8:48 PM BODY PAINTER) [facility] Phosphorus, pl 2.3 2.3 - 4.5 mg/dL Blood 10/08/2024 8:48 PM BODY PAINTER 10/08/2024 9:13 PM BODY PAINTER Fe Le MD LAB BLOOD ORDERABLES Eleni l Result Performing Organization Address [facility] Co de Phone Number [facility] Department [place] [employer] [place] [address] * Magnesium (10/08/2024 8:48 PM BODY PAINTER) [facility] Magnesium 2.4 1.4 - 2.5 mg/dL Blood 10/08/2024 8:48 PM BODY PAINTER 10/08/2024 9:13 PM BODY PAINTER Fe Le MD LAB BLOOD ORDERABLES Eleni l Result Performing Organization Address [facility] [place] [address] * Basic metabolic panel (10/08/2024 8:48 PM BODY PAINTER) [facility] Sodium 140 135 - 145 mmol/L Potassium, pl 4.4 3.3 - 4.9 mmol/L [facility] Chloride 102 97 - 110 mmol/L [facility] CO2 27 22 - 32 mmol/L [facility] Anion gap 11 2 - 15 mmol/L [facility] BUN 17 6 - 25 mg/dL [facility] Creatinine 0.79 0.60 - 1.10 mg/dL [facility] Glucose 98 70 - 199 mg/dL [facility] Comment: Interpretive Data Fasting glucose >/= 126 mg/dl is diagnostic for diabetes. ?? Fasting is defined as no caloric intake for at least 8 hours. Fasting glucose between 100 mg/dl to 125 mg/dl is diagnostic of prediabetes. In a patient with classic symptoms of hyperglycemia or hyperglycemic crisis, a random glucose >/= 200 mg/dl is diagnostic for diabetes. In the absence of unequivocal hyperglycemia, results should be confirmed by repeat testing. The classification and Diagnosis of Diabetes Diabetes Care 2021; 46: S19-S40. Current interpretive data was last revised 2022. Calcium 9.4 8.5 - 10.3 mg/dL [facility] Blood 10/08/2024 8:48 PM BODY PAINTER 10/08/2024 9:13 PM BODY PAINTER Fe Le MD LAB BLOOD ORDERABLES Eleni l Result [facility] Department [place] [address] * XR Spine Cervical 2 or 3 Views (10/08/2024 6:20 PM BODY PAINTER) Anatomical Region Laterality Modality Spine N/A Computed Radiogr aphy 10/08/2024 7:05 PM BODY PAINTER Impressions 10/08/2024 7:05 PM BODY PAINTER 1. ??C6 pathologic impression fracture with unchanged mild height loss. 2. ??Lytic defect in posterior elements of T12-L1 as well as the left iliac bone lesion are better characterized on prior CT. Electronically signed by: Cristian Salgado D.O. Narrative 10/08/2024 7:05 PM BODY PAINTER EXAMINATION: XR SCOLIOSIS AP AND LATERAL, XR SPINE CERVICAL 2 OR 3 VIEWS HISTORY: mets pathologic FINDINGS: Exam is partly limited due to over exposure/overpenetration particularly of the thoracic spine. Comparison is made to 10/07/2024 CT cervical spine, 10/07/2024 chest radiograph, and 08/17/2024 CT chest abdomen pelvis. No significant scoliotic curvature. There is mild leftward coronal truncal imbalance without significant pelvic obliquity. No significant sagittal truncal imbalance. There is straightening of the cervical spine. C6 pathologic fracture with unchanged mild height loss. No additional compression fractures are identified. No spondylolisthesis. Intervertebral disc heights in the thoracic and lumbar spine are fairly well-maintained. There is mild to moderate multilevel lower cervical degenerative disc disease from C4 through C7. Prevertebral cervical soft tissues are within normal limits. Right chest wall port associated central venous catheter. Lytic defect in the posterior elements of T12 and L1 are the visualized due to technique, better characterized on prior CT. Redemonstration of lytic mass in the left ilium with cortical breakthrough and soft tissue component Procedure Note Cristian Salgado, DO - 10/08/2024 EXAMINATION: XR SCOLIOSIS AP AND LATERAL, XR SPINE CERVICAL 2 OR 3 VIEWS HISTORY: mets pathologic FINDINGS: Exam is partly limited due to over exposure/overpenetration particularly of the thoracic spine. Comparison is made to 10/07/2024 CT cervical spine, 10/07/2024 chest radiograph, and 08/17/2024 CT chest abdomen pelvis. No significant scoliotic curvature. There is mild leftward coronal truncal imbalance without significant pelvic obliquity. No significant sagittal truncal imbalance. There is straightening of the cervical spine. C6 pathologic fracture with unchanged mild height loss. No additional compression fractures are identified. No spondylolisthesis. Intervertebral disc heights in the thoracic and lumbar spine are fairly well-maintained. There is mild to moderate multilevel lower cervical degenerative disc disease from C4 through C7. Prevertebral cervical soft tissues are within normal limits. Right chest wall port associated central venous catheter. Lytic defect in the posterior elements of T12 and L1 are the visualized due to technique, better characterized on prior CT. Redemonstration of lytic mass in the left ilium with cortical breakthrough and soft tissue component IMPRESSION: 1. C6 pathologic impression fracture with unchanged mild height loss. 2. Lytic defect in posterior elements of T12-L1 as well as the left iliac bone lesion are better characterized on prior CT. Electronically signed by: Cristian Densley, D.O. us Fe Le MD IMG XR PROCEDURES Final R esult * XR Scoliosis Ap Lat (10/08/2024 6:19 PM BODY PAINTER) Anatomical Region Laterality Modality Spine N/A Computed Radiogr aphy 10/08/2024 7:05 PM BODY PAINTER Impressions 10/08/2024 7:05 PM BODY PAINTER 1. ??C6 pathologic impression fracture with unchanged mild height loss. 2. ??Lytic defect in posterior elements of T12-L1 as well as the left iliac bone lesion are better characterized on prior CT. Electronically signed by: Cristian Salgado D.O. Narrative 10/08/2024 7:05 PM BODY PAINTER EXAMINATION: XR SCOLIOSIS AP AND LATERAL, XR SPINE CERVICAL 2 OR 3 VIEWS HISTORY: mets pathologic FINDINGS: Exam is partly limited due to over exposure/overpenetration particularly of the thoracic spine. Comparison is made to 10/07/2024 CT cervical spine, 10/07/2024 chest radiograph, and 08/17/2024 CT chest abdomen pelvis. No significant scoliotic curvature. There is mild leftward coronal truncal imbalance without significant pelvic obliquity. No significant sagittal truncal imbalance. There is straightening of the cervical spine. C6 pathologic fracture with unchanged mild height loss. No additional compression fractures are identified. No spondylolisthesis. Intervertebral disc heights in the thoracic and lumbar spine are fairly well-maintained. There is mild to moderate multilevel lower cervical degenerative disc disease from C4 through C7. Prevertebral cervical soft tissues are within normal limits. Right chest wall port associated central venous catheter. Lytic defect in the posterior elements of T12 and L1 are the visualized due to technique, better characterized on prior CT. Redemonstration of lytic mass in the left ilium with cortical breakthrough and soft tissue component Procedure Note Cristian Salgado, DO - 10/08/2024 EXAMINATION: XR SCOLIOSIS AP AND LATERAL, XR SPINE CERVICAL 2 OR 3 VIEWS HISTORY: mets pathologic FINDINGS: Exam is partly limited due to over exposure/overpenetration particularly of the thoracic spine. Comparison is made to 10/07/2024 CT cervical spine, 10/07/2024 chest radiograph, and 08/17/2024 CT chest abdomen pelvis. No significant scoliotic curvature. There is mild leftward coronal truncal imbalance without significant pelvic obliquity. No significant sagittal truncal imbalance. There is straightening of the cervical spine. C6 pathologic fracture with unchanged mild height loss. No additional compression fractures are identified. No spondylolisthesis. Intervertebral disc heights in the thoracic and lumbar spine are fairly well-maintained. There is mild to moderate multilevel lower cervical degenerative disc disease from C4 through C7. Prevertebral cervical soft tissues are within normal limits. Right chest wall port associated central venous catheter. Lytic defect in the posterior elements of T12 and L1 are the visualized due to technique, better characterized on prior CT. Redemonstration of lytic mass in the left ilium with cortical breakthrough and soft tissue component IMPRESSION: 1. C6 pathologic impression fracture with unchanged mild height loss. 2. Lytic defect in posterior elements of T12-L1 as well as the left iliac bone lesion are better characterized on prior CT. Electronically signed by: Cristian Salgado D.O. Fe Le MD IMG XR PROCEDURES Final R esult * XR Outside Reference (10/08/2024 2:48 PM BODY PAINTER) Impressions [facility] - 10/08/2024 2:48 PM BODY PAINTER These images are for Reference purposes only and have not been reviewed by [facility]. ??There will be no report generated by a [facility] Radiologist. Narrative [facility] - 10/08/2024 2:48 PM BODY PAINTER EXAMINATION: ??Images For Reference Purposes Only us Manjinder Hines MD IMG XR PROCEDURES Final Resul t [id number] * Neuro CT Outside Consult (10/08/2024 2:42 PM BODY PAINTER) Anatomical Region Laterality Modality N/A Computed Tomogra phy 10/08/2024 5:14 PM BODY PAINTER Impressions 10/09/2024 12:53 AM BODY PAINTER 1. No acute intracranial process. 2. Lytic lesion suspicious for osseous metastasis in the C6 vertebral body anteriorly with a pathologic compression fracture with approximately 30% height loss. ??There is additional subtle areas of hypodensity within the clivus and C2-C5 vertebral bodies suspicious for an additional lytic metastases. ??Recommend further evaluation with a cervical spine MRI without and with contrast or PET CT. 3. ??A few lucent calvarial foci are seen, these appear to be predominantly venous channels, although a few are less well characterized including bilateral frontal bone lesions with indistinct borders (series 4 image 24 series 4 image 27. ??These are indeterminate and could be benign e.g. calvarial hemangioma or venous castellanos, however setting of known metastatic disease, metastasis cannot be excluded. ??Recommend correlation with prior imaging available. ??If no prior imaging is available, consider further evaluation by MRI or PET/CT. Dictated by: Simeon Salazar M.D. The radiology attending physician has personally reviewed this study, and had reviewed and/or edited this written report and agrees with it. Electronically signed by: Jc Masters MD Narrative 10/09/2024 12:53 AM BODY PAINTER EXAMINATION: 1. CT head without contrast 2. CT of the cervical spine without contrast HISTORY: 74 years-old Female with diagnosis unknown. 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 ??Status post palliative radiation to both soft tissues. TECHNIQUE: CT of the head was performed with images acquired from skull base to vertex without intravenous contrast. CT of the cervical spine was performed according to the standard protocol without intravenous contrast. COMPARISON: None Available. FINDINGS: HEAD: There is no acute intracranial hemorrhage. Ventricles are of normal size and morphology. No mass effect or midline shift is present. The kapoor-white matter differentiation is normal. The visualized portions of the orbits are normal. The visualized portions of the mastoids are normal. The visualized portions of the paranasal sinuses are normal. No fractures are identified. ??A few lucent calvarial foci are seen, these appear to be predominantly venous channels, although a few are less well characterized including bilateral frontal bone lesions with indistinct borders (series 4 image 24 series 4 image 27. CERVICAL SPINE: Mild retrolisthesis of C5 on C6. Lytic lesion suspicious for osseous metastasis in the C6 vertebral body anteriorly with pathologic compression fracture with approximately 30% height loss. There are additional subtle areas of hypodensity within the clivus, C2-C5 vertebral bodies. ?? Intervertebral disk heights are normal. The craniocervical junction is normal. Limited views of the skull base appear normal. The sphenoid sinus is well aerated. No soft tissue abnormality is identified. ??Partially visualized right IJ chest port. Mild multilevel disc height loss with shallow disc osteophyte complex at C3-C4, C4-C5, C5-C6, and C6-C7 There is no facet arthropathy. There is no uncovertebral joint disease. There is scattered mild neuroforaminal stenosis. There is no spinal canal stenosis. Procedure Note Jc Masters MD - 10/09/2024 EXAMINATION: 1. CT head without contrast 2. CT of the cervical spine without contrast HISTORY: 74 years-old Female with diagnosis unknown. 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 Status post palliative radiation to both soft tissues. TECHNIQUE: CT of the head was performed with images acquired from skull base to vertex without intravenous contrast. CT of the cervical spine was performed according to the standard protocol without intravenous contrast. COMPARISON: None Available. FINDINGS: HEAD: There is no acute intracranial hemorrhage. Ventricles are of normal size and morphology. No mass effect or midline shift is present. The kapoor-white matter differentiation is normal. The visualized portions of the orbits are normal. The visualized portions of the mastoids are normal. The visualized portions of the paranasal sinuses are normal. No fractures are identified. A few lucent calvarial foci are seen, these appear to be predominantly venous channels, although a few are less well characterized including bilateral frontal bone lesions with indistinct borders (series 4 image 24 series 4 image 27. CERVICAL SPINE: Mild retrolisthesis of C5 on C6. Lytic lesion suspicious for osseous metastasis in the C6 vertebral body anteriorly with pathologic compression fracture with approximately 30% height loss. There are additional subtle areas of hypodensity within the clivus, C2-C5 vertebral bodies. Intervertebral disk heights are normal. The craniocervical junction is normal. Limited views of the skull base appear normal. The sphenoid sinus is well aerated. No soft tissue abnormality is identified. Partially visualized right IJ chest port. Mild multilevel disc height loss with shallow disc osteophyte complex at C3-C4, C4-C5, C5-C6, and C6-C7 There is no facet arthropathy. There is no uncovertebral joint disease. There is scattered mild neuroforaminal stenosis. There is no spinal canal stenosis. IMPRESSION: 1. No acute intracranial process. 2. Lytic lesion suspicious for osseous metastasis in the C6 vertebral body anteriorly with a pathologic compression fracture with approximately 30% height loss. There is additional subtle areas of hypodensity within the clivus and C2-C5 vertebral bodies suspicious for an additional lytic metastases. Recommend further evaluation with a cervical spine MRI without and with contrast or PET CT. 3. A few lucent calvarial foci are seen, these appear to be predominantly venous channels, although a few are less well characterized including bilateral frontal bone lesions with indistinct borders (series 4 image 24 series 4 image 27. These are indeterminate and could be benign e.g. calvarial hemangioma or venous castellanos, however setting of known metastatic disease, metastasis cannot be excluded. Recommend correlation with prior imaging available. If no prior imaging is available, consider further evaluation by MRI or PET/CT. Dictated by: Simeon Salazar M.D. The radiology attending physician has personally reviewed this study, and had reviewed and/or edited this written report and agrees with it. Electronically signed by: Jc Masters MD Manjinder Paulino Hines MD IMG CT PROCEDURES Final Resul t * Neuro CT Outside Consult (10/08/2024 2:35 PM BODY PAINTER) Anatomical Region Laterality Modality N/A Computed Tomogra phy 10/08/2024 5:14 PM BODY PAINTER Impressions 10/09/2024 12:53 AM BODY PAINTER 1. No acute intracranial process. 2. Lytic lesion suspicious for osseous metastasis in the C6 vertebral body anteriorly with a pathologic compression fracture with approximately 30% height loss. ??There is additional subtle areas of hypodensity within the clivus and C2-C5 vertebral bodies suspicious for an additional lytic metastases. ??Recommend further evaluation with a cervical spine MRI without and with contrast or PET CT. 3. ??A few lucent calvarial foci are seen, these appear to be predominantly venous channels, although a few are less well characterized including bilateral frontal bone lesions with indistinct borders (series 4 image 24 series 4 image 27. ??These are indeterminate and could be benign e.g. calvarial hemangioma or venous castellanos, however setting of known metastatic disease, metastasis cannot be excluded. ??Recommend correlation with prior imaging available. ??If no prior imaging is available, consider further evaluation by MRI or PET/CT. Dictated by: Simeon Salazar M.D. The radiology attending physician has personally reviewed this study, and had reviewed and/or edited this written report and agrees with it. Electronically signed by: Jc Masters MD Narrative 10/09/2024 12:53 AM BODY PAINTER EXAMINATION: 1. CT head without contrast 2. CT of the cervical spine without contrast HISTORY: 74 years-old Female with diagnosis unknown. 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 ??Status post palliative radiation to both soft tissues. TECHNIQUE: CT of the head was performed with images acquired from skull base to vertex without intravenous contrast. CT of the cervical spine was performed according to the standard protocol without intravenous contrast. COMPARISON: None Available. FINDINGS: HEAD: There is no acute intracranial hemorrhage. Ventricles are of normal size and morphology. No mass effect or midline shift is present. The kapoor-white matter differentiation is normal. The visualized portions of the orbits are normal. The visualized portions of the mastoids are normal. The visualized portions of the paranasal sinuses are normal. No fractures are identified. ??A few lucent calvarial foci are seen, these appear to be predominantly venous channels, although a few are less well characterized including bilateral frontal bone lesions with indistinct borders (series 4 image 24 series 4 image 27. CERVICAL SPINE: Mild retrolisthesis of C5 on C6. Lytic lesion suspicious for osseous metastasis in the C6 vertebral body anteriorly with pathologic compression fracture with approximately 30% height loss. There are additional subtle areas of hypodensity within the clivus, C2-C5 vertebral bodies. ?? Intervertebral disk heights are normal. The craniocervical junction is normal. Limited views of the skull base appear normal. The sphenoid sinus is well aerated. No soft tissue abnormality is identified. ??Partially visualized right IJ chest port. Mild multilevel disc height loss with shallow disc osteophyte complex at C3-C4, C4-C5, C5-C6, and C6-C7 There is no facet arthropathy. There is no uncovertebral joint disease. There is scattered mild neuroforaminal stenosis. There is no spinal canal stenosis. Procedure Note Jc Masters MD - 10/09/2024 EXAMINATION: 1. CT head without contrast 2. CT of the cervical spine without contrast HISTORY: 74 years-old Female with diagnosis unknown. 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 Status post palliative radiation to both soft tissues. TECHNIQUE: CT of the head was performed with images acquired from skull base to vertex without intravenous contrast. CT of the cervical spine was performed according to the standard protocol without intravenous contrast. COMPARISON: None Available. FINDINGS: HEAD: There is no acute intracranial hemorrhage. Ventricles are of normal size and morphology. No mass effect or midline shift is present. The kapoor-white matter differentiation is normal. The visualized portions of the orbits are normal. The visualized portions of the mastoids are normal. The visualized portions of the paranasal sinuses are normal. No fractures are identified. A few lucent calvarial foci are seen, these appear to be predominantly venous channels, although a few are less well characterized including bilateral frontal bone lesions with indistinct borders (series 4 image 24 series 4 image 27. CERVICAL SPINE: Mild retrolisthesis of C5 on C6. Lytic lesion suspicious for osseous metastasis in the C6 vertebral body anteriorly with pathologic compression fracture with approximately 30% height loss. There are additional subtle areas of hypodensity within the clivus, C2-C5 vertebral bodies. Intervertebral disk heights are normal. The craniocervical junction is normal. Limited views of the skull base appear normal. The sphenoid sinus is well aerated. No soft tissue abnormality is identified. Partially visualized right IJ chest port. Mild multilevel disc height loss with shallow disc osteophyte complex at C3-C4, C4-C5, C5-C6, and C6-C7 There is no facet arthropathy. There is no uncovertebral joint disease. There is scattered mild neuroforaminal stenosis. There is no spinal canal stenosis. IMPRESSION: 1. No acute intracranial process. 2. Lytic lesion suspicious for osseous metastasis in the C6 vertebral body anteriorly with a pathologic compression fracture with approximately 30% height loss. There is additional subtle areas of hypodensity within the clivus and C2-C5 vertebral bodies suspicious for an additional lytic metastases. Recommend further evaluation with a cervical spine MRI without and with contrast or PET CT. 3. A few lucent calvarial foci are seen, these appear to be predominantly venous channels, although a few are less well characterized including bilateral frontal bone lesions with indistinct borders (series 4 image 24 series 4 image 27. These are indeterminate and could be benign e.g. calvarial hemangioma or venous castellanos, however setting of known metastatic disease, metastasis cannot be excluded. Recommend correlation with prior imaging available. If no prior imaging is available, consider further evaluation by MRI or PET/CT. Dictated by: Simeon Salazar M.D. The radiology attending physician has personally reviewed this study, and had reviewed and/or edited this written report and agrees with it. Electronically signed by: Jc Masters MD us Manjinder Hines MD IMG CT PROCEDURES Final Resul t * eGFR (10/08/2024 12:25 PM BODY PAINTER) eGFR >90 >=60 mL/min/1. 73 m2 Comment: Interpretive Data Reference Interval Normal ?>/= 90 mL/min/1.73m2 Mildly decreased* ? 60 - 89 mL/min/1.73m2 Mildly to moderately decreased ?45 - 59 mL/min/1.73m2 Moderately to severely decreased ??30 - 44 mL/min/1.73m2 Severely decreased ?15 - 29 mL/min/1.73m2 Kidney Failure ?< 15 ??mL/min/1.73m2 *Relative to young adult level Estimated glomerular filtration rate is determined by the 2020 CKD-EPI equation recommended by the [employer] (A Unifying Approach to GFR Estimation: Recommendations of the NKF-ASK Task Force on Reassessing the Inclusion of Race in Diagnosing Kidney Disease, JASN 202). The CKD-EPI equation should not be used for patients with unstable renal function and has not been validated in children and those over 70. Current interpretive data was last reviewed 2021. Blood 10/08/2024 12:2 5 PM BODY PAINTER 10/08/2024 12:55 PM BODY PAINTER us Fe Le MD LAB BLOOD ORDERABLES Eleni parker Result [facility] Department [place] [address] * (ABNORMAL) Differential, auto (10/08/2024 12:25 PM BODY PAINTER) Neutrophil abs 5.0 1.5 - 6.5 K/cumm Imm gran abs 0.1 0.0 - 0.1 K/cumm [facility] Lymphocyte abs 1.0 0.8 - 3.3 K/cumm [facility] Monocyte abs 1.2(H) 0.2 - 0.8 K/cumm [facility] Eosinophil abs 0.1 0.0 - 0.5 K[facility]umm [facility] Basophil abs 0.0 0.0 - 0.1 K/cumm [facility] Neutrophil pct 69.2 % [facility] Comment: Interpretive Data Percent cell count reference ranges are not reported, since discordance with absolute values may lead to misinterpretation of CBC data. Current Interpretive Data was last revised on 2018. Imm gran pct 0.7 % [facility] Comment: Interpretive Data Percent cell count reference ranges are not reported, since discordance with absolute values may lead to misinterpretation of CBC data. Current Interpretive Data was last revised on 2018. Lymphocyte pct 13.0 % [facility] Comment: Interpretive Data Percent cell count reference ranges are not reported, since discordance with absolute values may lead to misinterpretation of CBC data. Current Interpretive Data was last revised on 2018. Monocyte pct 16.0 % [facility] Comment: Interpretive Data Percent cell count reference ranges are not reported, since discordance with absolute values may lead to misinterpretation of CBC data. Current Interpretive Data was last revised on 2018. Eosinophil pct 0.7 % [facility] Comment: Interpretive Data Percent cell count reference ranges are not reported, since discordance with absolute values may lead to misinterpretation of CBC data. Current Interpretive Data was last revised on 2018. Basophil pct 0.4 % [facility] Comment: Interpretive Data Percent cell count reference ranges are not reported, since discordance with absolute values may lead to misinterpretation of CBC data. Current Interpretive Data was last revised on 2018. Blood 10/08/2024 12:2 5 PM BODY PAINTER 10/08/2024 12:55 PM BODY PAINTER Fe Le MD LAB BLOOD ORDERABLES Eleni l Result Performing Organization Address [facility] Co de Phone Number [facility] Department [place] [address] * (ABNORMAL) CBC with auto differential (10/08/2024 12:25 PM BODY PAINTER) WBC 7.3 3.8 - 9.9 K/cumm Hgb 7.5(L) 11.9 - 15.5 g/dL [facility] Hct 24.7(L) 35.6 - 45.5 % [facility] Plt 393 150 - 400 K/cumm [facility] MPV 9.6 9.1 - 12.3 fL [facility] RBC 3.18(L) 3.90 - 5.20 M/cumm [facility] MCV 77.7(L) 81.3 - 96.4 fL [facility] MCH 23.6(L) 27.1 - 33.3 pg [facility] MCHC 30.4(L) 32.3 - 35.7 g/dL [facility] RDW CV 20.8(H) 11.1 - 14.9 % [facility] RDW SD 58.4(H) 35.7 - 48.1 fL [facility] NRBC abs 0.00 0.00 - 0.01 K/cumm [facility] Blood 10/08/2024 12:2 5 PM BODY PAINTER 10/08/2024 12:55 PM BODY PAINTER Fe Le MD LAB BLOOD ORDERABLES Eleni l Result Performing Organization Address [facility] Co de Phone Number [facility] Department [place] [address] * Phosphorus (10/08/2024 12:25 PM BODY PAINTER) [facility] Phosphorus, pl 2.5 2.3 - 4.5 mg/dL Blood 10/08/2024 12:2 5 PM BODY PAINTER 10/08/2024 12:55 PM BODY PAINTER Fe Le MD LAB BLOOD ORDERABLES Eleni l Result [facility] [place] [address] * Magnesium (10/08/2024 12:25 PM BODY PAINTER) [facility] Magnesium 2.0 1.4 - 2.5 mg/dL Blood 10/08/2024 12:2 5 PM BODY PAINTER 10/08/2024 12:55 PM BODY PAINTER Fe Le MD LAB BLOOD ORDERABLES Eleni l Result Performing Organization Address City/[facility]/[place] [address] * (ABNORMAL) Comprehensive metabolic panel (10/08/2024 12:25 PM BODY PAINTER) [facility] Sodium 134(L) 135 - 145 mmol/L Potassium, pl 3.8 3.3 - 4.9 mmol/L [facility] Chloride 96(L) 97 - 110 mmol/L [facility] CO2 28 22 - 32 mmol/L [facility] Anion gap 10 2 - 15 mmol/L [facility] BUN 13 6 - 25 mg/dL [facility] Creatinine 0.58(L) 0.60 - 1.10 mg/dL [facility] Glucose 111 70 - 199 mg/dL [facility] Comment: Interpretive Data Fasting glucose >/= 126 mg/dl is diagnostic for diabetes. ?? Fasting is defined as no caloric intake for at least 8 hours. Fasting glucose between 100 mg/dl to 125 mg/dl is diagnostic of prediabetes. In a patient with classic symptoms of hyperglycemia or hyperglycemic crisis, a random glucose >/= 200 mg/dl is diagnostic for diabetes. In the absence of unequivocal hyperglycemia, results should be confirmed by repeat testing. The classification and Diagnosis of Diabetes Diabetes Care 2021; 46: S19-S40. Current interpretive data was last revised 2022. Calcium 9.6 8.5 - 10.3 mg/dL [facility] Bilirubin, total 0.2 0.1 - 1.2 mg/dL [facility] Protein, pl 7.7 6.5 - 8.5 g/dL [facility] Albumin 2.9(L) 3.5 - 5.0 g/dL [facility] Alk phos 64 40 - 130 Units/L [facility] ALT 36 7 - 45 Units/L [facility] AST 31 10 - 45 Units/L [facility] Blood 10/08/2024 12:2 5 PM BODY PAINTER 10/08/2024 12:55 PM BODY PAINTER us Fe Le MD LAB BLOOD ORDERABLES Eleni parker Result [facility] Department [place] [address] * eGFR (09/24/2024 2:26 PM BODY PAINTER) eGFR 83 >=60 mL/min/1. 73 m2 Comment: Interpretive Data Reference Interval Normal ?>/= 90 mL/min/1.73m2 Mildly decreased* ? 60 - 89 mL/min/1.73m2 Mildly to moderately decreased ?45 - 59 mL/min/1.73m2 Moderately to severely decreased ??30 - 44 mL/min/1.73m2 Severely decreased ?15 - 29 mL/min/1.73m2 Kidney Failure ?< 15 ??mL/min/1.73m2 *Relative to young adult level Estimated glomerular filtration rate is determined by the 2020 CKD-EPI equation recommended by the National Kidney Foundation (A Unifying Approach to GFR Estimation: Recommendations of the NKF-ASK Task Force on Reassessing the Inclusion of Race in Diagnosing Kidney Disease, JASN 202). The CKD-EPI equation should not be used for patients with unstable renal function and has not been validated in children and those over 70. Current interpretive data was last reviewed 2021. Blood 09/24/2024 2:26 PM BODY PAINTER 09/24/2024 3:04 PM BODY PAINTER us Fe Le MD LAB BLOOD ORDERABLES Eleni parker Result [facility] Department [place] [address] * (ABNORMAL) Differential, auto (09/24/2024 2:26 PM BODY PAINTER) Neutrophil abs 5.3 1.5 - 6.5 K/cumm Imm gran abs 0.1 0.0 - 0.1 K/cumm [facility] Lymphocyte abs 0.9 0.8 - 3.3 K/cumm [facility] Monocyte abs 1.2(H) 0.2 - 0.8 K/cumm [facility] Eosinophil abs 0.0 0.0 - 0.5 K/cumm [facility] Basophil abs 0.0 0.0 - 0.1 K/cumm [facility] Neutrophil pct 70.5 % [facility] Comment: Interpretive Data Percent cell count reference ranges are not reported, since discordance with absolute values may lead to misinterpretation of CBC data. Current Interpretive Data was last revised on 2018. Imm gran pct 0.9 % [facility] Comment: Interpretive Data Percent cell count reference ranges are not reported, since discordance with absolute values may lead to misinterpretation of CBC data. Current Interpretive Data was last revised on 2018. Lymphocyte pct 11.9 % [facility] Comment: Interpretive Data Percent cell count reference ranges are not reported, since discordance with absolute values may lead to misinterpretation of CBC data. Current Interpretive Data was last revised on 2018. Monocyte pct 16.0 % [facility] Comment: Interpretive Data Percent cell count reference ranges are not reported, since discordance with absolute values may lead to misinterpretation of CBC data. Current Interpretive Data was last revised on 2018. Eosinophil pct 0.4 % [facility] Comment: Interpretive Data Percent cell count reference ranges are not reported, since discordance with absolute values may lead to misinterpretation of CBC data. Current Interpretive Data was last revised on 2018. Basophil pct 0.3 % [facility] Comment: Interpretive Data Percent cell count reference ranges are not reported, since discordance with absolute values may lead to misinterpretation of CBC data. Current Interpretive Data was last revised on 2018. Blood 09/24/2024 2:26 PM BODY PAINTER 09/24/2024 2:53 PM BODY PAINTER us Fe Le MD LAB BLOOD ORDERABLES Eleni parker Result [facility] Department [place] [address] * (ABNORMAL) CBC with auto differential (09/24/2024 2:26 PM BODY PAINTER) WBC 7.6 3.8 - 9.9 K/cumm Hgb 8.1(L) 11.9 - 15.5 g/dL [facility] Hct 25.2(L) 35.6 - 45.5 % [facility] Plt 451(H) 150 - 400 K/cumm [facility] MPV 10.0 9.1 - 12.3 fL [facility] RBC 3.27(L) 3.90 - 5.20 M/cumm [facility] MCV 77.1(L) 81.3 - 96.4 fL [facility] MCH 24.8(L) 27.1 - 33.3 pg [facility] MCHC 32.1(L) 32.3 - 35.7 g/dL [facility] RDW CV 20.7(H) 11.1 - 14.9 % [facility] RDW SD 58.1(H) 35.7 - 48.1 fL [facility] NRBC abs 0.00 0.00 - 0.01 K/cumm [facility] Blood 09/24/2024 2:26 PM BODY PAINTER 09/24/2024 2:53 PM BODY PAINTER Fe Le MD LAB BLOOD ORDERABLES Eleni l Result Performing Organization Address [facility] Co de Phone Number [facility] [place] [address] * (ABNORMAL) CA 125 (09/24/2024 2:26 PM BODY PAINTER) [facility] CA 125 ag 60.6(H) 0.0 - 38.1 units/mL Comment: Interpretive Data [employer] CA 125 assay procedure was used. Results from different manufacturers or methods may not be comparable. Serial testing should be performed using the same method. Blood 09/24/2024 2:26 PM BODY PAINTER 09/24/2024 2:53 PM BODY PAINTER Fe Le MD LAB BLOOD ORDERABLES Eleni l Result Performing Organization Address [facility] Co de Phone Number [facility] [place] [employer] [place] [address] * (ABNORMAL) Comprehensive metabolic panel (09/24/2024 2:26 PM BODY PAINTER) Pathologist [facility] Sodium 132(L) 135 - 145 mmol/L Potassium, pl 3.8 3.3 - 4.9 mmol/L [facility] Chloride 93(L) 97 - 110 mmol/L [facility] CO2 27 22 - 32 mmol/L [facility] Anion gap 12 2 - 15 mmol/L [facility] BUN 19 6 - 25 mg/dL [facility] Creatinine 0.76 0.60 - 1.10 mg/dL [facility] Glucose 95 70 - 199 mg/dL [facility] Comment: Interpretive Data Fasting glucose >/= 126 mg/dl is diagnostic for diabetes. ?? Fasting is defined as no caloric intake for at least 8 hours. Fasting glucose between 100 mg/dl to 125 mg/dl is diagnostic of prediabetes. In a patient with classic symptoms of hyperglycemia or hyperglycemic crisis, a random glucose >/= 200 mg/dl is diagnostic for diabetes. In the absence of unequivocal hyperglycemia, results should be confirmed by repeat testing. The classification and Diagnosis of Diabetes Diabetes Care 2021; 46: S19-S40. Current interpretive data was last revised 2022. Calcium 10.3 8.5 - 10.3 mg/dL [facility] Bilirubin, total 0.2 0.1 - 1.2 mg/dL [facility] Protein, pl 8.4 6.5 - 8.5 g/dL [facility] Albumin 3.2(L) 3.5 - 5.0 g/dL [facility] Alk phos 73 40 - 130 Units/L [facility] ALT 44 7 - 45 Units/L [facility] AST 49(H) 10 - 45 Units/L [facility] Blood 09/24/2024 2:26 PM BODY PAINTER 09/24/2024 2:53 PM BODY PAINTER us Fe Le MD LAB BLOOD ORDERABLES Eleni l Result [facility] Department [place] [address] * RAD ONC ARIA COURSE SUMMARY (09/15/2024 1:49 PM BODY PAINTER) Course Name [id number] ARIA Course Plan Date 09/01/2024 9:53 AM ARIA Elapsed Days 6 ARIA Treatment Start Date 09/09/2024 ARIA Treatment Site [id number] 00 ARIA Dose Given To Date (cGy) 2,000 ARIA Session Dosage Given (cGy) 0 ARIA Treatment Site [id number] ARIA Dose Given To Date (cGy) 2,000 ARIA Session Dosage Given (cGy) 0 ARIA Plan ID LT ILIAC ARIA Fractions Treated 5 ARIA Prescribed Dose Per Fraction (cGy) 400 ARIA Prescribed Total Dose (cGy) 2,000 ARIA Plan ID L1 SPINE ARIA Fractions Treated 5 ARIA Prescribed Dose Per Fraction (cGy) 400 ARIA Prescribed Total Dose (cGy) 2,000 ARIA 09/15/2024 1:49 PM BODY PAINTER us Not In File Miscellaneous RADIATION ONCOLOGY ORD ERABLES Final Result ARIA * RAD ONC ARIA SESSION SUMMARY (09/15/2024 10:26 AM BODY PAINTER) Course Name [id number] ARIA Course Plan Date 09/01/2024 9:53 AM ARIA Elapsed Days 6 ARIA Treatment Start Date 09/09/2024 ARIA Treatment Site [id number] 00 ARIA Dose Given To Date (cGy) 2,000 ARIA Session Dosage Given (cGy) 400 ARIA Treatment Site [id number] ARIA Dose Given To Date (cGy) 2,000 ARIA Session Dosage Given (cGy) 400 ARIA Plan ID LT ILIAC ARIA Fractions Treated 5 ARIA Prescribed Dose Per Fraction (cGy) 400 ARIA Prescribed Total Dose (cGy) 2,000 ARIA Plan ID L1 SPINE ARIA Fractions Treated 5 ARIA Prescribed Dose Per Fraction (cGy) 400 ARIA Prescribed Total Dose (cGy) 2,000 ARIA 09/15/2024 10:2 6 AM BODY PAINTER us Not In File Miscellaneous RADIATION ONCOLOGY ORD ERABLES Final Result ARIA * RAD ONC ARIA SESSION SUMMARY (09/14/2024 1:15 PM BODY PAINTER) Course Name [id number] ARIA Course Plan Date 09/01/2024 9:53 AM ARIA Elapsed Days 5 ARIA Treatment Start Date 09/09/2024 ARIA Treatment Site [id number] 00 ARIA Dose Given To Date (cGy) 1,600 ARIA Session Dosage Given (cGy) 400 ARIA Treatment Site [id number]_2000 ARIA Dose Given To Date (cGy) 1,600 ARIA Session Dosage Given (cGy) 400 ARIA Plan ID LT ILIAC ARIA Fractions Treated 4 ARIA Prescribed Dose Per Fraction (cGy) 400 ARIA Prescribed Total Dose (cGy) 2,000 ARIA Plan ID L1 SPINE ARIA Fractions Treated 4 ARIA Prescribed Dose Per Fraction (cGy) 400 ARIA Prescribed Total Dose (cGy) 2,000 ARIA 09/14/2024 1:15 PM BODY PAINTER us Not In File Miscellaneous RADIATION ONCOLOGY ORD ERABLES Final Result Performing Organization Address City/State/[facility] Co de Phone Number ARIA from Last [address] [facility] CHOICE PLUS MEDICARE [facility] CHOICE PLUS MEDICARE Advance Directives For more information, please contact: [phone] * Full Code (Latest Code Status on File) Date Activated Date Inactivated Comments 10/08/2024 11:44 AM 10/15/2024 4:56 PM * Full Code Date Activated Date Inactivated Comments 04/14/2024 7:20 AM 04/15/2024 5:32 AM Care Teams Medical Microbiologist Relationship Specialty Start Date End Date Cristobal Salvador MD [address] [place] [address] PCP - General Family Medicine 03/17/24 Shea Mercado NP Nurse Practitioner Obstetrics and Gynecology 06/22/22 Kirsten Del Rosario MD [address] [facility] [address] [place] [address] Radiation Oncologist Radiation Oncology 06/30/24 Fe Le MD [id number] [place] [address] Surgeon Gynecologic Oncology 06/30/24
--- OUTSIDE RECORDS SUMMARY | 2024-12-15 16:56 | XMS_ITS ---
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 Name Role Phone Shea Mercado NP Unavailable [phone] Cristobal Salvador MD Primary Care Provider [phone] Kirsten Del Rosario MD Unavailable Tabatha Lopes MD Unavailable Active Problems Problem Noted Date Diagnosed Date Physical debility 12/10/2024 Repeated falls 12/10/2024 Endometrial cancer (CMS/HCC) 07/12/2022 Cancer Staging:Pathologic stage from 08/20/2022:FIGO Stage IA(pT1a, pN0(sn), cM0) - Signed by Tabatha Lopes MD on 10/12/2022 Clinical stage from 03/02/2024:FIGO Stage IVC, calculated as Stage IVB(rcTX, cN2a, cM1) - Signed by Flaquito Christensen MD on 06/27/2024 Hypercholesteremia 07/12/2022 Current Oncology Plans Adult BMT/ONC - Blood and/or Platelet Administration for Outpatient* Plan Start Date:07/30/2024 Plan Provider:Tabatha Lopes MD Linked Problems Endometrial cancer (CMS/HCC) (HCC) Treatment Medications No medications scheduled. IV Maintenance Therapy Plan* Plan Start Date:04/15/2024 Plan Provider:Tabatha Lopes MD Linked Problems Endometrial cancer (CMS/HCC) (HCC) Treatment Medications No medications scheduled. Venous Sampling from IVAD* Plan Start Date:09/24/2024 Plan Provider:Tabatha Lopes MD Linked Problems Endometrial cancer (CMS/HCC) (HCC) Treatment Medications No medications scheduled. Zoledronic Acid (Reclast) Infusion* Plan Start Date:11/26/2024 Plan Provider:Tabatha Lopes MD Linked Problems Endometrial cancer (CMS/HCC) (HCC) Treatment Medications No medications scheduled. 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 (in specialty plan) 06/17/2025 11/18/2024 fam-trastuzumab deruxtecan-nxki (ENHERTU) Patient Preference Tabatha Lopes MD Treatment not started Trastuzumab 21 Day Cycles (Neoadjuvant / Adjuvant) - Breast with Zometa q 6weeks 4 10/29/2024 trastuzumab-dks t (OGIVRI) Progression Tabatha Lopes MD Treatment not started PACLItaxel / CARBOplatin / Trastuzumab 21 Day Cycles - Breast with Zometa q 6weeks 4 10/29/2024 CARBOplatin (PARAPLATIN) IVPB in 250 mLPACLItaxel (TAXOL) IVPB in 500 mLtrastuzumab (HERCEPTIN)tras tuzumab (HERCEPTIN) IVPB Progressive Disease Tabatha Lopes MD 6 of 7 cycles started Specialty Infusion Treatment Plan Name Start Date Discontinue Date Treatment Medications Discontinue Reason Plan Provider Zoledronic Acid (Reclast) Infusion 06/18/2024 11/18/2024 No medications scheduled. Therapy Complete Tabatha Lopes MD Radiation Treatments * Plan Last Treated On Elapsed Days Fractions Treated Prescribed Fraction Dose Prescribed Total Dose C Spine 10/22/2024 6 5 400 cGy 2,000 cGy L1 SPINE 09/15/2024 6 5 400 cGy 2,000 cGy LT ILIAC 09/15/2024 6 5 400 cGy 2,000 cGy Reference Point Last Treated On Elapsed Days Session Dose Total Dose C Spine 10/22/2024 6 400 cGy 2,000 cGy [id number] 09/15/2024 6 0 cGy 2,000 cGy [id number] 09/15/2024 6 0 cGy 2,000 cGy Lifetime Dose Tracking * Chemical Lifetime Dose Automatic Entry Manual Entr y Fluoro Time 0.4 minutes 0.4 minutes 0 minutes Air kerma at the reference point (Ka,r) 1 mGy 1 mGy 0 mGy DLP 1,939 mGycm 1,939 mGycm 0 mGycm Resolved Problems Problem Noted Date Diagnosed Date Resolved Date Pre-procedure lab exam 04/10/202406/17 At high risk for bleeding 04/10/2024
--- OUTSIDE RECORDS SUMMARY | 2024-12-15 16:56 | XMS_ITS | Clinical Summary ---
Author Organization [facility] Address [address] [place] [address] Care Team Providers Care Library Media Technician Name Role Phone Shea Mercado NP Unavailable [phone] Cristobal Salvador MD Primary Care Provider Kirsten Del Rosario MD Unavailable Fe Le MD Unavailable Allergies Active Allergy Reactions Criticality Noted Date [...] with simethicone-di phenhydramine- lidocaine (MAGIC MOUTHWASH) suspension [id number] ns:Adverse effect of radiation therapy, initial encounter [...] 04/10/202406/17 At high risk for bleeding 04/10/2024 Encounters Date Type Department Care Team Description 12/15/2024 Home Care Visit [address] [place] [address] Eveline Lagos RN NURSE MED RECON FOR THERAPY 12/15/2024 Home Care Visit [address] [place] [address] Cherie Camarillo, PT CARE CONFERENCE 12/12/2024 11:30 AM DRY CELL SEALER Home Care Visit [address] [address] [address] [place] [address] Yesenia Verma, PT PT OASIS START OF CARE 12/12/2024 Plan of Care Documentation [address] [place] [address] 12/11/2024 4:00 PM DRY CELL SEALER Lab [facility] Outpatient Lab at [address] [address] Hypercholesteremia (Primary Dx) 12/11/2024 3:42 PM DRY CELL SEALER - 12/11/2024 11:59 PM DRY CELL SEALER Hospital Encounter [address] [address] Endometrial cancer (CMS/HCC) (HCC) Discharge Disposition: Discharge to home or self care 12/11/2024 Telephone [facility] Gy[facility] [address] [place] [address] Linda Medley, LOLA 12/11/2024 Orders Only [facility] Gy[facility] ([facility]) [address] [place] [address] [phone] Linda Medley, RN Endometrial cancer (CMS/HCC) (HCC) (Primary Dx) 12/11/2024 Telephone [facility] [address] [place] [phone] Betzy Miller, LOLA Home Health 12/11/2024 Telephone [facility] Geriatric Medicine [address] [facility] [address] Medical Office Building 2 [place] [phone] Kymberly Shelton RN 12/10/2024 3:00 PM DRY CELL SEALER Telemedicine [facility] for Outpatient [facility] - Palliative Care [address] [place] [phone] Catrachita Freeman MD Cancer related pain (Primary Dx); Endometrial cancer (CMS/HCC) (HCC); Pain from bone metastases (HCC); Nausea and vomiting, unspecified vomiting type; Physical debility; Constipation, unspecified constipation type; Repeated falls; Palliative care encounter 12/10/2024 Telephone [facility] Orthopaedic Surgery [address] [place] [address] 6th [place] [address] [place] [address] Jay Hussein MD Appointment 12/10/2024 Telephone [facility] Nutrition Counseling 1 [place] [address] 11/26/2024 Telephone [facility] Outpatient Health - Palliative Care [address] [place] [address] Millie Tim RN 11/19/2024 Telephone [facility] Nutrition Counseling 1 [place] [address] 11/18/2024 Orders Only [facility] Gynecologic [facility] [address] [place] [address] Linda Medley, LOLA 11/17/2024 Orders Only [facility] Gynecologic [facility] [address] [place] [address] Linda Medley, LOLA Endometrial cancer (CMS/HCC) (HCC) (Primary Dx); High risk medication use 11/13/2024 2:30 PM DRY CELL SEALER Office Visit [facility] Orthopaedic Surgery [address] [facility] Advanced Medicine 6th [place] [address] [place] [address] Aiden Rowe MD Cervical spinal stenosis (Primary Dx) 11/13/2024 1:45 PM DRY CELL SEALER - 11/13/2024 11:59 PM DRY CELL SEALER Hospital Encounter [facility] Radiology [place] [facility] ([facility]) [address] [place] [address] Cervical spinal stenosis Discharge Disposition: Discharge to home or self care 11/12/2024 Orders Only [facility] Gynecologic Oncology [place] [facility] ([facility]) [address] [place] [address] Linda Medley RN 11/06/2024 [facility] Outpatient [facility] - Palliative Care [address] [place] [address] [place] [address] Lolita Rojas RN 10/30/2024 9:00 AM DRY CELL SEALER Home Care Visit [address] [place] [address] Cherie Camarillo, PT PT OASIS DISCHARGE 10/29/2024 11:30 AM DRY CELL SEALER Office Visit [facility] Obstetrics and Gynecology [address] [place] [address] Advanced Medicine 13th [place] [address] [place] [address] Fe Le MD Endometrial cancer (CMS/HCC) (HCC) (Primary Dx) 10/29/2024 Orders Only [facility] Gynecologic Oncology [place] [facility] ([facility]) [address] [place] [address] Linda Medley, LOLA Endometrial cancer (CMS/HCC) (HCC) (Primary Dx) 10/29/2024 Orders Only [facility] Gynecologic Oncology [place] [facility] ([facility]) [address] [place] [address] Linda Medley, LOLA 10/28/2024 12:15 PM DRY CELL SEALER Home Care Visit [address] [place] [address] Lorie Schaeffer, POWER MULE OPERATOR PT HOME VISIT 10/27/2024 Orders Only [facility] Radiation Oncology [address] [place] [address] Kirsten Del Rosario MD Adverse effect of radiation therapy, initial encounter (Primary Dx) 10/27/2024 Telephone [facility] Nutrition Counseling 1 [place] [address] Shante Cali, JOSSELYN 10/23/2024 1:30 PM DRY CELL SEALER Home Care Visit [address] [place] [address] Lorie Schaeffer PTA PT HOME VISIT 10/22/2024 3:43 PM DRY CELL SEALER - 10/22/2024 11:59 PM DRY CELL SEALER Hospital Encounter [facility] Advanced Medicine Radiation Oncology [address] [place] [address] Kirsten Del Rosario MD Discharge Disposition: Discharge to home or self care 10/22/2024 Completion of Therapy [facility] Radiation Oncology [address] [place] [address] Kirsten Del Rosario MD 10/22/2024 Orders Only RAD ONC TREATMENTS Miscellaneous, Not In File 10/21/2024 3:00 PM DRY CELL SEALER - 10/21/2024 11:59 PM DRY CELL SEALER Hospital Encounter [facility] Advanced Medicine Radiation Oncology [address] [facility] [place] [address] Kirsten Del Rosario MD Discharge Disposition: Discharge to home or self care 10/21/2024 12:15 PM DRY CELL SEALER Home Care Visit [address] [place] [address] Lorie Schaeffer PTA PT HOME VISIT 10/21/2024 Orders Only RAD ONC TREATMENTS Miscellaneous, Not In File 10/20/2024 2:40 PM DRY CELL SEALER - 10/20/2024 11:59 PM DRY CELL SEALER Hospital Encounter [facility] Radiation Oncology [address] [place] [address] Kirsten Del Rosario MD Discharge Disposition: Discharge to home or self care 10/20/2024 [facility] Radiation Oncology [address] [place] [address] Kirsten Del Rosario MD Endometrial cancer (CMS/HCC) (HCC) [C54.1] (Primary Dx) 10/20/2024 Orders Only RAD ONC TREATMENTS Miscellaneous, Not In File 10/20/2024 Home Care Visit [address] [place] [address] Cherie Camarillo, PT CARE CONFERENCE 10/19/2024 3:56 PM DRY CELL SEALER - 10/19/2024 11:59 PM DRY CELL SEALER Hospital Encounter [facility] Radiation Oncology [address] [place] [address] Kirsten Del Rosario MD Discharge Disposition: Discharge to home or self care 10/19/2024 Orders Only RAD ONC TREATMENTS Miscellaneous, Not In File 10/18/2024 Home Care Visit [address] [place] [address] Sera Lopez, LOLA NURSE MED RECON FOR THERAPY 10/17/2024 9:00 AM DRY CELL SEALER Home Care Visit [address] [place] [address] Suhail Huff, PT PT OASIS START OF CARE 10/17/2024 Plan of Care Documentation [address] [place] [address] 10/16/2024 2:34 PM DRY CELL SEALER - 10/16/2024 11:59 PM DRY CELL SEALER Hospital Encounter [facility] Radiation Oncology [address] [place] [address] Kirsten Del Rosario MD Discharge Disposition: Discharge to home or self care 10/16/2024 Orders Only RAD ONC TREATMENTS Miscellaneous, Not In File 10/13/2024 10:38 AM DRY CELL SEALER - 10/13/2024 11:59 PM DRY CELL SEALER Hospital Encounter [facility] Advanced Medicine Radiation Oncology [address] [facility] [place] [address] Kirsten Del Rosario MD Discharge Disposition: Discharge to home or self care 10/12/2024 7:55 AM DRY CELL SEALER Ancillary Procedure [facility] Vascular Lab IP [address] [facility] [address] [place] [address] 10/08/2024 11:12 AM DRY CELL SEALER - 10/15/2024 12:30 PM DRY CELL SEALER Hospital Encounter [facility] 1 [place] [address] Fe Le MD Sanders, Brooke Elizabeth, MD Diagnosis unknown (Primary Dx); Endometrial cancer (CMS/HCC) (HCC); Physical deconditioning Discharge Disposition: Discharge to home, home health skilled care 09/24/2024 4:55 PM DRY CELL SEALER Lab [facility] [address] [place] [address] Endometrial cancer (CMS/HCC) (HCC) (Primary Dx) 09/24/2024 1:00 PM DRY CELL SEALER Office Visit [facility] Obstetrics and Gynecology [address] [facility] 13th [place] [address] [place] [address] Fe Le MD Endometrial cancer (CMS/HCC) (HCC) 09/24/2024 Orders Only [facility] Gynecologic [facility] [address] [place] [address] Linda Medley RN Endometrial cancer (CMS/HCC) (HCC) (Primary Dx) 09/23/2024 Orders Only [facility] Gynecologic [facility] [address] [place] [address] Linda Medley RN Endometrial cancer (CMS/HCC) (HCC) (Primary Dx) 09/23/2024 Telephone [facility] Nutrition Counseling 1 [place] [address] 09/15/2024 9:53 AM DRY CELL SEALER - 09/15/2024 11:59 PM DRY CELL SEALER Hospital Encounter [facility] Radiation Oncology [address] [facility] [place] [address] Kirsten Del Rosario MD Discharge Disposition: Discharge to home or self care 09/15/2024 Completion of Therapy [facility] Radiation Oncology [address] [facility] [place] [address] Kirsten Del Rosario MD 09/15/2024 Orders Only RAD ONC TREATMENTS Miscellaneous, Not In File 09/15/2024 OTV [facility] Radiation Oncology [address] [place] [address] Kirsten Del Rosario MD Endometrial cancer (CMS/HCC) (HCC) [C54.1] (Primary Dx) 09/15/2024 Orders Only RAD ONC TREATMENTS Miscellaneous, Not In File 09/14/2024 12:38 PM DRY CELL SEALER - 09/14/2024 11:59 PM DRY CELL SEALER Hospital Encounter [facility] Radiation Oncology [address] [place] [address] Discharge Disposition: Discharge to home or self care 09/14/2024 Orders Only RAD ONC TREATMENTS Miscellaneous, Not In File from Last 3 Months Surgical History Surgery Date Site/Laterality Comments TUBAL LIGATION 06/11/1979 - 07/11/1979 LAPAROSCOPIC TOTAL HYSTERECTOMY 08/11/2022 - 09/10/2022 Bilateral BSO/mini-lap/SLN/OmBx SUPERFICIAL BONE BIOPSY 03/18/2024 N/A PORT PLACEMENT CHEST >5 YEARS 04/14/2024 N/A Medical History Medical History Date Comments Hypercholesteremia Family History Medical History Relation Name Comments Stroke Father Uterine cancer Mother DOD Anesthesia problems Neg Hx Relation Name Status Comments Brother Alive Father Mother Sister 1 Alive Sister 2 Alive Sister 3 Alive Sister 4 Alive Sister 5 Social History Tobacco Use Types Packs/Day Years [...] Master's degree (e.g., MA, MS, Sandy, MEd, PHOTOVOLTAIC POWER SYSTEMS ENGINEER, ADAM) 07/12/2022 Comments No Sex and Gender Information Value Date Recorded Sex Assigned at Not on file Legal Sex Female 1:04 PM CDT Gender Identity Not on file Sexual Orientation Not on file 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 file Not on file Not on file Obstetrics History Para Term AB IAB SAB Ectopic Multiple Livin g Live Births 2 2 2 2 2 Date Outcome GA Total Labor Labor/2nd/3rd Weight Sex Type Anes PTL Tresa A1 A5 Name Clin Term Term Comments x 2 Last Filed Vital Signs Vital Sign Reading Time Taken Comments Blood Pressure 104/62 12/12/2024 12:15 PM DRY CELL SEALER Pulse 70 12/12/2024 12:15 PM DRY CELL SEALER Temperature 36.4 ??C (97.5 ??F) 12/12/2024 1 2:15 PM DRY CELL SEALER Respiratory Rate 17 12/12/2024 12:1 5 PM DRY CELL SEALER Oxygen Saturation 99% 12/12/2024 12: 15 PM DRY CELL SEALER Inhaled Oxygen Concentration - - Weight 46.2 kg (101 lb 14.4 oz) 024 11:48 AM DRY CELL SEALER Height 157.5 cm (5' 2.01 ) 10/29/2024 1 1:48 AM DRY CELL SEALER Body Mass Index 18.63 10/29/2024 11:48 AM DRY CELL SEALER Plan of Treatment Health Maintenance Due Date Last Done Comments Breast Cancer Screening-Mammogram 1950 Colon Cancer Screening-Colonoscopy 1950 Depression Screening 1950 Hepatitis C Screening 1950 Osteoporosis Screening-Bone Density Scan 1951 Pneumococcal vaccine 65+ (1 of 2 - PCV) 1957 DTaP/Tdap/Td Vaccine (1 - Tdap) 1962 Hepatitis B Screening 1969 Zoster Vaccine (1 of 2) 1970 Well Visit 65+ 02/23/2016 Influenza Vaccine (#1) 2024 Fall Risk Assessment 12/10/2025 12/10/2024, 10/15/2024, 06/30/2024 Medical Devices Implanted Type Area Ctrs Device Identifier Shelf Expiration Date Model / Serial / Lot [employer] Excela Low Porfile Power Port 8fr 1.6mm 1 Lumen [id number] - [id number] Implanted:Qty: 1 on 04/14/2024 at [facility] [employer] 01/11/2029 [id number] / / [id number] Procedures Procedure Name Priority Date/Time Associated Diagnosis Comments EGFR Routine 12/11/2024 4:17 PM DRY CELL SEALER Endometrial cancer (CMS/HCC) (HCC) DIFFERENTIAL AUTO Routine 12/11/2024 4:1 7 PM DRY CELL SEALER Endometrial cancer (CMS/HCC) (HCC) CBC WITH AUTO DIFFERENTIAL Routine 12/11/2024 4:17 PM DRY CELL SEALER Endometrial cancer (CMS/HCC) (HCC) COMPREHENSIVE METABOLIC PANEL Routine 12/11/2024 4:17 PM DRY CELL SEALER Endometrial cancer (CMS/HCC) (HCC) XR SPINE CERVICAL 2 OR 3 VIEWS Schedule Routine, Read Routine (OP Routine) 11/13/2024 2:02 PM DRY CELL SEALER Cervical spinal stenosis RAD ONC ARIA SESSION SUMMARY 10/22/2024 4:33 PM DRY CELL SEALER RAD ONC ARIA SESSION SUMMARY 10/21/2024 3:32 PM DRY CELL SEALER RAD ONC ARIA SESSION SUMMARY 10/20/2024 3:06 PM DRY CELL SEALER RAD ONC ARIA SESSION SUMMARY 10/19/2024 4:23 PM DRY CELL SEALER RAD ONC ARIA SESSION SUMMARY 10/16/2024 3:10 PM DRY CELL SEALER EGFR Routine 10/14/2024 9:03 PM DRY CELL SEALER PHOSPHORUS Routine 10/14/2024 9:03 PM DRY CELL SEALER MAGNESIUM Routine 10/14/2024 9:03 PM DRY CELL SEALER BASIC METABOLIC PANEL Routine 10/14/2024 9:03 PM DRY CELL SEALER CBC WITHOUT DIFFERENTIAL Routine 10/14/2024 9:03 PM DRY CELL SEALER EGFR Routine 10/13/2024 8:20 PM DRY CELL SEALER PHOSPHORUS Routine 10/13/2024 8:20 PM DRY CELL SEALER MAGNESIUM Routine 10/13/2024 8:20 PM DRY CELL SEALER BASIC METABOLIC PANEL Routine 10/13/2024 8:20 PM DRY CELL SEALER CBC WITHOUT DIFFERENTIAL Routine 10/13/2024 8:20 PM DRY CELL SEALER TRANSFUSE RED BLOOD CELLS Timed 10/13/2024 5:35 PM DRY CELL SEALER TYPE AND SCREEN Timed 10/13/2024 3:35 PM DRY CELL SEALER PREPARE RBC Timed 10/13/2024 3:31 PM DRY CELL SEALER EGFR Routine 10/12/2024 8:40 PM DRY CELL SEALER PHOSPHORUS Routine 10/12/2024 8:40 PM DRY CELL SEALER MAGNESIUM Routine 10/12/2024 8:40 PM DRY CELL SEALER BASIC METABOLIC PANEL Routine 10/12/2024 8:40 PM DRY CELL SEALER CBC WITHOUT DIFFERENTIAL Routine 10/12/2024 8:40 PM DRY CELL SEALER US CAROTIDS DUPLEX BILATERAL ED Urgent/IP Urgent 10/12/2024 2:[address] CHEST PE ABDOMEN PELVIS W CONTRAST ED Urgent/IP Urgent 10/12/2024 10:50 AM DRY CELL SEALER TROPONIN I HIGH-SENSITIVITY Timed 10/12/2024 7:07 AM DRY CELL SEALER ECG 12-LEAD Routine 10/12/2024 6:58 AM DRY CELL SEALER EGFR Routine 10/11/2024 8:23 PM DRY CELL SEALER PHOSPHORUS Routine 10/11/2024 8:23 PM DRY CELL SEALER MAGNESIUM Routine 10/11/2024 8:23 PM DRY CELL SEALER BASIC METABOLIC PANEL Routine 10/11/2024 8:23 PM DRY CELL SEALER CBC WITHOUT DIFFERENTIAL Routine 10/11/2024 8:23 PM DRY CELL SEALER XR CHEST 1 VIEW ED Urgent/IP Urgent 10/11/2024 3:07 PM DRY CELL SEALER URINALYSIS, MICROSCOPIC ONLY STAT 10/11/2024 2:32 PM DRY CELL SEALER URINALYSIS AND REFLEX TO MICROSCOPIC AND CULTURE STAT 10/11/2024 2:32 PM DRY CELL SEALER EGFR STAT 10/11/2024 2:22 PM DRY CELL SEALER DIFFERENTIAL AUTO STAT 10/11/2024 2:2 2 PM DRY CELL SEALER LACTATE STAT 10/11/2024 2:22 PM DRY CELL SEALER BASIC METABOLIC PANEL STAT 10/11/2024 2:22 PM DRY CELL SEALER CBC WITH AUTO DIFFERENTIAL STAT 10/11/2024 2:22 PM DRY CELL SEALER RESPIRATORY PATHOGEN PANEL Routine 10/11/2024 2:22 PM DRY CELL SEALER BLOOD CULTURE Routine 10/11/2024 2:22 PM DRY CELL SEALER BLOOD CULTURE Routine 10/11/2024 2:22 PM DRY CELL SEALER EGFR Routine 10/10/2024 8:47 PM DRY CELL SEALER PHOSPHORUS Routine 10/10/2024 8:47 PM DRY CELL SEALER MAGNESIUM Routine 10/10/2024 8:47 PM DRY CELL SEALER BASIC METABOLIC PANEL Routine 10/10/2024 8:47 PM DRY CELL SEALER CBC WITHOUT DIFFERENTIAL Routine 10/10/2024 8:47 PM DRY CELL SEALER ECG 12-LEAD STAT 10/10/2024 2:15 PM DRY CELL SEALER EGFR Routine 10/09/2024 8:11 PM DRY CELL SEALER PHOSPHORUS Routine 10/09/2024 8:11 PM DRY CELL SEALER MAGNESIUM Routine 10/09/2024 8:11 PM DRY CELL SEALER BASIC METABOLIC PANEL Routine 10/09/2024 8:11 PM DRY CELL SEALER CBC WITHOUT DIFFERENTIAL Routine 10/09/2024 8:11 PM DRY CELL SEALER MRI BRAIN W WO CONTRAST IP Routine 10/09/2024 2:25 PM DRY CELL SEALER MRI SPINE TOTAL COMPLETE W WO CONTRAST IP Routine 10/09/2024 2:25 PM DRY CELL SEALER EGFR Routine 10/08/2024 8:48 PM DRY CELL SEALER PHOSPHORUS Routine 10/08/2024 8:48 PM DRY CELL SEALER MAGNESIUM Routine 10/08/2024 8:48 PM DRY CELL SEALER BASIC METABOLIC PANEL Routine 10/08/2024 8:48 PM DRY CELL SEALER CBC WITHOUT DIFFERENTIAL Routine 10/08/2024 8:48 PM DRY CELL SEALER XR SPINE CERVICAL 2 OR 3 VIEWS IP Routine 10/08/2024 6:20 PM DRY CELL SEALER XR SCOLIOSIS AP LAT IP Routine 10/08/2024 6 :19 PM DRY CELL SEALER XR TRANSFER OF OUTSIDE FILMS Routine 10/08/2024 2:48 PM DRY CELL SEALER NEURO CT OUTSIDE CONSULT Routine 10/08/2024 2:42 PM DRY CELL SEALER Diagnosis unknown NEURO CT OUTSIDE CONSULT Routine 10/08/2024 2:35 PM DRY CELL SEALER Diagnosis unknown EGFR Routine 10/08/2024 12:25 PM DRY CELL SEALER DIFFERENTIAL AUTO Routine 10/08/2024 12: 25 PM DRY CELL SEALER CBC WITH AUTO DIFFERENTIAL Routine 10/08/2024 12:25 PM DRY CELL SEALER PHOSPHORUS Routine 10/08/2024 12:25 PM DRY CELL SEALER MAGNESIUM Routine 10/08/2024 12:25 PM DRY CELL SEALER COMPREHENSIVE METABOLIC PANEL Routine 10/08/2024 12:25 PM DRY CELL SEALER EGFR Routine 09/24/2024 2:26 PM DRY CELL SEALER Endometrial cancer (CMS/HCC) (HCC) DIFFERENTIAL AUTO Routine 09/24/2024 2:2 6 PM DRY CELL SEALER Endometrial cancer (CMS/HCC) (HCC) COMPREHENSIVE METABOLIC PANEL Routine 09/24/2024 2:26 PM DRY CELL SEALER Endometrial cancer (CMS/HCC) (HCC) CA 125 Routine 09/24/2024 2:26 PM DRY CELL SEALER Endometrial cancer (CMS/HCC) (HCC) CBC WITH AUTO DIFFERENTIAL Routine 09/24/2024 2:26 PM DRY CELL SEALER Endometrial cancer (CMS/HCC) (HCC) RAD ONC ARIA COURSE SUMMARY 09/15/2024 1:49 PM DRY CELL SEALER RAD ONC ARIA SESSION SUMMARY 09/15/2024 10:26 AM DRY CELL SEALER RAD ONC ARIA SESSION SUMMARY 09/14/2024 1:15 PM DRY CELL SEALER from Last 3 Months Results * eGFR (12/11/2024 4:17 PM DRY CELL SEALER) eGFR >90 >=60 mL/min/1. 73 m2 Comment: [...] last reviewed 2021. Blood 12/11/2024 4:17 PM DRY CELL SEALER 12/11/2024 8:52 PM DRY CELL SEALER us Fe Le MD LAB BLOOD ORDERABLES Eleni l Result [facility] [address] Department [place] [address] * (ABNORMAL) Differential, auto (12/11/2024 4:17 PM DRY CELL SEALER) Neutrophil abs 6.2 1.5 - 6.5 K/cumm Imm gran abs 0.2(H) 0.0 - 0.1 K/cumm [facility] Lymphocyte abs 0.9 0.8 - 3.3 K/cumm [facility] Monocyte abs 1.2(H) 0.2 - 0.8 K/cumm [facility] Eosinophil abs 0.0 0.0 - 0.5 K/cumm [facility] Basophil abs 0.0 0.0 - 0.1 K/cumm [facility] Neutrophil pct 72.4 % [facility] Comment: Interpretive Data Percent cell count reference ranges are not reported, since discordance with absolute values may lead to misinterpretation of CBC data. Current Interpretive Data was last revised on 2018. Imm gran pct 1.8 % [facility] Comment: Interpretive Data Percent cell count reference ranges are not reported, since discordance with absolute values may lead to misinterpretation of CBC data. Current Interpretive Data was last revised on 2018. Lymphocyte pct 10.9 % [facility] Comment: Interpretive Data Percent cell count reference ranges are not reported, since discordance with absolute values may lead to misinterpretation of CBC data. Current Interpretive Data was last revised on 2018. Monocyte pct 14.0 % [facility] Comment: Interpretive Data Percent cell count reference ranges are not reported, since discordance with absolute values may lead to misinterpretation of CBC data. Current Interpretive Data was last revised on 2018. Eosinophil pct 0.4 % [facility] Comment: Interpretive Data Percent cell count reference ranges are not reported, since discordance with absolute values may lead to misinterpretation of CBC data. Current Interpretive Data was last revised on 2018. Basophil pct 0.5 % [facility] Comment: Interpretive Data Percent cell count reference ranges are not reported, since discordance with absolute values may lead to misinterpretation of CBC data. Current Interpretive Data was last revised on 2018. Blood 12/11/2024 4:17 PM DRY CELL SEALER 12/11/2024 8:47 PM DRY CELL SEALER Fe Le MD LAB BLOOD ORDERABLES Eleni parker Result [facility] [address] Department [place] [address] * (ABNORMAL) CBC with auto differential (12/11/2024 4:17 PM DRY CELL SEALER) WBC 8.5 3.8 - 9.9 K/cumm Hgb 6.8(L) 11.9 - 15.5 g/dL [facility] Hct 23.1(L) 35.6 - 45.5 % [facility] Plt 562(H) 150 - 400 K/cumm [facility] MPV 9.4 9.1 - 12.3 fL [facility] RBC 3.13(L) 3.90 - 5.20 M/cumm [facility] MCV 73.8(L) 81.3 - 96.4 fL [facility] MCH 21.7(L) 27.1 - 33.3 pg [facility] MCHC 29.4(L) 32.3 - 35.7 g/dL [facility] RDW CV 19.4(H) 11.1 - 14.9 % [facility] RDW SD 51.6(H) 35.7 - 48.1 fL [facility] NRBC abs 0.00 0.00 - 0.01 K/cumm [facility] Blood 12/11/2024 4:17 PM DRY CELL SEALER 12/11/2024 8:47 PM DRY CELL SEALER us Fe Le MD LAB BLOOD ORDERABLES Eleni parker Result [facility] [address] Department [place] [address] * (ABNORMAL) Comprehensive metabolic panel (12/11/2024 4:17 PM DRY CELL SEALER) Sodium 129(L) 135 - 145 mmol/L Potassium, pl 4.7 3.3 - 4.9 mmol/L [facility] Chloride 92(L) 97 - 110 mmol/L [facility] CO2 24 22 - 32 mmol/L [facility] Anion gap 13 2 - 15 mmol/L [facility] BUN 10 6 - 25 mg/dL [facility] Creatinine 0.49(L) 0.60 - 1.10 mg/dL [facility] Glucose 134 70 - 199 mg/dL [facility] Comment: Interpretive Data Fasting glucose >/= 126 [...] Units/L [facility] Blood 12/11/2024 4:17 PM DRY CELL SEALER 12/11/2024 8:47 PM DRY CELL SEALER us Fe Le MD LAB BLOOD ORDERABLES Eleni elena Result [facility] [address] Department of Laboratories [place], [place] [address] * XR Spine Cervical 2 or 3 Views (11/13/2024 2:02 PM DRY CELL SEALER) Anatomical Region Laterality Modality Spine N/A Computed Radiogr aphy 11/13/2024 2:33 PM DRY CELL SEALER Impressions 11/13/2024 2:33 PM DRY CELL SEALER 1. ??Unchanged appearance of the lytic C6 lesion with pathologic fracture without interval height loss. Electronically signed by: Shruti Hogue MD Narrative 11/13/2024 2:33 PM DRY CELL SEALER EXAMINATION: XR SPINE CERVICAL 2 OR 3 [...] ONC ARIA SESSION SUMMARY (10/22/2024 4:33 PM DRY CELL SEALER) Course Name C2_C_spine ARIA Course Plan Date 10/13/2024 6:42 AM ARIA Elapsed Days 6 ARIA Treatment Start Date 10/16/2024 ARIA Treatment Site C Spine ARIA Dose Given To Date (cGy) 2,000 ARIA Session Dosage Given (cGy) 400 ARIA Plan ID C Spine ARIA Fractions Treated 5 ARIA Prescribed Dose Per Fraction (cGy) 400 ARIA Prescribed Total Dose (cGy) 2,000 ARIA 10/22/2024 4:33 PM DRY CELL SEALER us Not In File Miscellaneous RADIATION ONCOLOGY ORD ERABLES Final Result Performing Organization Address [facility] [address]/[facility] Co de Phone Number ARIA * RAD ONC ARIA SESSION SUMMARY (10/21/2024 3:32 PM DRY CELL SEALER) Course Name C2_C_spine ARIA Course Plan Date 10/13/2024 6:42 AM ARIA Elapsed Days 5 ARIA Treatment Start Date 10/16/2024 ARIA Treatment Site C Spine ARIA Dose Given To Date (cGy) 1,600 ARIA Session Dosage Given (cGy) 400 ARIA Plan ID C Spine ARIA Fractions Treated 4 ARIA Prescribed Dose Per Fraction (cGy) 400 ARIA Prescribed Total Dose (cGy) 2,000 ARIA 10/21/2024 3:32 PM DRY CELL SEALER us Not In File Miscellaneous RADIATION ONCOLOGY ORD ERABLES Final Result ARIA * RAD ONC ARIA SESSION SUMMARY (10/20/2024 3:06 PM DRY CELL SEALER) Course Name C2_C_spine ARIA Course Plan Date 10/13/2024 6:42 AM ARIA Elapsed Days 4 ARIA Treatment Start Date 10/16/2024 ARIA Treatment Site C Spine ARIA Dose Given To Date (cGy) 1,200 ARIA Session Dosage Given (cGy) 400 ARIA Plan ID C Spine ARIA Fractions Treated 3 ARIA Prescribed Dose Per Fraction (cGy) 400 ARIA Prescribed Total Dose (cGy) 2,000 ARIA 10/20/2024 3:06 PM DRY CELL SEALER us Not In File Miscellaneous RADIATION ONCOLOGY ORD ERABLES Final Result FLORECITA * RAD ONC ARIA SESSION SUMMARY (10/19/2024 4:23 PM DRY CELL SEALER) Course Name C2_C_spine _2023 ARIA Course Plan [...] Dose (cGy) 2,000 ARIA 10/19/2024 4:23 PM DRY CELL SEALER us Not In File Miscellaneous RADIATION ONCOLOGY ORD ERABLES Final Result FLORECITA * RAD ONC ARIA SESSION SUMMARY (10/16/2024 3:10 PM DRY CELL SEALER) Course Name C2_C_spine _2023 ARIA Course Plan [...] Dose (cGy) 2,000 ARIA 10/16/2024 3:10 PM DRY CELL SEALER us Not In File Miscellaneous RADIATION ONCOLOGY ORD ERABLES Final Result FLORECITA * eGFR (10/14/2024 9:03 PM DRY CELL SEALER) eGFR >90 >=60 mL/min/1. 73 m2 Comment: [...] last reviewed 2021. Blood 10/14/2024 9:03 PM DRY CELL SEALER 10/14/2024 9:22 PM DRY CELL SEALER us Fe Le MD LAB BLOOD ORDERABLES Eleni parker Result [facility] Department of Laboratories [place], [place] [id number] * (ABNORMAL) CBC without differential (10/14/2024 9:03 PM DRY CELL SEALER) Pathologist [facility] WBC 6.9 3.8 - 9.9 K/cumm Hgb 8.4(L) 11.9 - 15.5 g/dL [facility] Hct 26.2(L) 35.6 - 45.5 % [facility] Plt 354 150 - 400 K/cumm [facility] MPV 9.5 9.1 - 12.3 fL [facility] RBC 3.33(L) 3.90 - 5.20 M/cumm [facility] MCV 78.7(L) 81.3 - 96.4 fL [facility] MCH 25.2(L) 27.1 - 33.3 pg [facility] MCHC 32.1(L) 32.3 - 35.7 g/dL [facility] RDW CV 19.8(H) 11.1 - 14.9 % [facility] RDW SD 57.2(H) 35.7 - 48.1 fL [facility] NRBC abs 0.00 0.00 - 0.01 K/cumm [facility] Blood 10/14/2024 9:03 PM DRY CELL SEALER 10/14/2024 9:22 PM DRY CELL SEALER Fe Le MD LAB BLOOD ORDERABLES Eleni l Result [facility] [place] [address] * Phosphorus (10/14/2024 9:03 PM DRY CELL SEALER) Phosphorus, pl 2.5 2.3 - 4.5 mg/dL Blood 10/14/2024 9:03 PM DRY CELL SEALER 10/14/2024 9:22 PM DRY CELL SEALER Fe Le MD LAB BLOOD ORDERABLES Eleni l Result [facility] [place] [address] * Magnesium (10/14/2024 9:03 PM DRY CELL SEALER) Magnesium 1.9 1.4 - 2.5 mg/dL Blood 10/14/2024 9:03 PM DRY CELL SEALER 10/14/2024 9:22 PM DRY CELL SEALER Fe Le MD LAB BLOOD ORDERABLES Eleni l Result [facility] Department [place] [address] * (ABNORMAL) Basic metabolic panel (10/14/2024 9:03 PM DRY CELL SEALER) [facility] Sodium 135 135 - 145 mmol/L Potassium, pl 3.5 3.3 - 4.9 mmol/L [facility] Chloride 98 97 - 110 mmol/L [facility] CO2 24 22 - 32 mmol/L [facility] Anion gap 13 2 - 15 mmol/L [facility] BUN 12 6 - 25 mg/dL [facility] Creatinine 0.59(L) 0.60 - 1.10 mg/dL [facility] Glucose 218(H) 70 - 199 mg/dL [facility] Comment: Interpretive Data Fasting glucose >/= 126 [...] 2022. Calcium 8.9 8.5 - 10.3 mg/dL [facility] Blood 10/14/2024 9:03 PM DRY CELL SEALER 10/14/2024 9:22 PM DRY CELL SEALER us Fe Le MD LAB BLOOD ORDERABLES Eleni l Result Performing Organization Address [facility] [address]/ZIP Co de Phone Number [facility] Department [place] [address] * eGFR (10/13/2024 8:20 PM DRY CELL SEALER) eGFR >90 >=60 mL/min/1. 73 m2 Comment: [...] last reviewed 2021. Blood 10/13/2024 8:20 PM DRY CELL SEALER 10/13/2024 8:49 PM DRY CELL SEALER us Fe Le MD LAB BLOOD ORDERABLES Eleni elena Result [facility] Department [place] [address] * (ABNORMAL) CBC without differential (10/13/2024 8:20 PM DRY CELL SEALER) Pathologist [facility] WBC 6.7 3.8 - 9.9 K/cumm Hgb 8.6(L) 11.9 - 15.5 g/dL [facility] Hct 26.3(L) 35.6 - 45.5 % [facility] Plt 351 150 - 400 K/cumm [facility] MPV 9.3 9.1 - 12.3 fL [facility] RBC 3.40(L) 3.90 - 5.20 M/cumm [facility] MCV 77.4(L) 81.3 - 96.4 fL [facility] MCH 25.3(L) 27.1 - 33.3 pg [facility] MCHC 32.7 32.3 - 35.7 g/dL [facility] RDW CV 20.0(H) 11.1 - 14.9 % [facility] RDW SD 56.2(H) 35.7 - 48.1 fL [facility] NRBC abs 0.00 0.00 - 0.01 K/cumm [facility] Blood 10/13/2024 8:20 PM DRY CELL SEALER 10/13/2024 8:48 PM DRY CELL SEALER Fe Le MD LAB BLOOD ORDERABLES Eleni l Result [facility] Department [place] [employer] [place] [address] * Phosphorus (10/13/2024 8:20 PM DRY CELL SEALER) Pathologist [facility] Phosphorus, pl 3.7 2.3 - 4.5 mg/dL Blood 10/13/2024 8:20 PM DRY CELL SEALER 10/13/2024 8:49 PM DRY CELL SEALER Fe Le MD LAB BLOOD ORDERABLES Eleni l Result [facility] [place] [address] * Magnesium (10/13/2024 8:20 PM DRY CELL SEALER) Pathologist [facility] Magnesium 2.1 1.4 - 2.5 mg/dL Blood 10/13/2024 8:20 PM DRY CELL SEALER 10/13/2024 8:49 PM DRY CELL SEALER Fe Le MD LAB BLOOD ORDERABLES Eleni l Result Performing Organization Address City/[facility] [address]/ZIP Co de Phone Number [facility] Department [place] [address] * (ABNORMAL) Basic metabolic panel (10/13/2024 8:20 PM DRY CELL SEALER) Pathologist [facility] Sodium 137 135 - 145 mmol/L Potassium, pl 3.9 3.3 - 4.9 mmol/L [facility] Chloride 100 97 - 110 mmol/L [facility] CO2 27 22 - 32 mmol/L [facility] Anion gap 10 2 - 15 mmol/L [facility] BUN 12 6 - 25 mg/dL [facility] Creatinine 0.58(L) 0.60 - 1.10 mg/dL [facility] Glucose 97 70 - 199 mg/dL [facility] Comment: Interpretive Data Fasting glucose >/= 126 [...] 2022. Calcium 9.2 8.5 - 10.3 mg/dL [facility] Blood 10/13/2024 8:20 PM DRY CELL SEALER 10/13/2024 8:49 PM DRY CELL SEALER Fe Le MD LAB BLOOD ORDERABLES Eleni l Result Performing Organization Address [facility] [address]/ZIP Co de Phone Number [facility] Department [place] [address] * Transfuse RBC (10/13/2024 7:17 PM DRY CELL SEALER) Blood Fe Le MD BLOOD TRANSFUSION ORDERAB LES Final Result Performing Organization Address [facility] [address]/[facility] Co de Phone Number [facility] [place] [address] * Type and screen (10/13/2024 3:35 PM DRY CELL SEALER) ABO Rh AB Positive Dara, indirect Negative [facility] Blood 10/13/2024 3:35 PM DRY CELL SEALER 10/13/2024 3:54 PM DRY CELL SEALER Narrative [facility] - 10/13/2024 5:03 PM DRY CELL SEALER Has the patient had Daratumumab or Isatuximab in the past 6 months?->Unknown Fe Le MD LAB BLOOD BANK TEST ORDER VANESSA Final Result Performing Organization Address [facility] de Phone Number [facility] [place] [address] * Prepare RBC: 1 Units (10/13/2024 3:31 PM DRY CELL SEALER) Pathologist [facility] Product code [id number] Unit Number [id number] [facility] Product Blood Type APOS [facility] Dispense Status PRESUMED TRANSFUSED [facility] Blood 10/13/2024 3:31 PM DRY CELL SEALER 10/13/2024 3:31 PM DRY CELL SEALER Narrative [facility] - 10/14/2024 12:55 AM DRY CELL SEALER Other indication->Rads < 8 Are special requirements needed? (All products are leukoreduced and CMV- safe)- >No Date required:-20241013 LRRBC # of [id number] Reasons:-Other (specify)} Fe Le MD BLOOD BANK PRODUCT ORDERA BLES Final Result Performing Organization Address [facility] [address]/[facility] Co de Phone Number [facility] [place] [address] * eGFR (10/12/2024 8:40 PM DRY CELL SEALER) Pathologist [facility] eGFR >90 >=60 mL/min/1. 73 m2 Comment: [...] last reviewed 2021. Blood 10/12/2024 8:40 PM DRY CELL SEALER 10/12/2024 9:20 PM DRY CELL SEALER us Fe Le MD LAB BLOOD ORDERABLES Eleni parker Result [facility] Department [place] [address] * (ABNORMAL) CBC without differential (10/12/2024 8:40 PM DRY CELL SEALER) Pathologist [facility] WBC 7.5 3.8 - 9.9 K/cumm Hgb 7.4(L) 11.9 - 15.5 g/dL [facility] Hct 23.1(L) 35.6 - 45.5 % [facility] Plt 375 150 - 400 K/cumm [facility] MPV 9.6 9.1 - 12.3 fL [facility] RBC 3.04(L) 3.90 - 5.20 M/cumm [facility] MCV 76.0(L) 81.3 - 96.4 fL [facility] MCH 24.3(L) 27.1 - 33.3 pg [facility] MCHC 32.0(L) 32.3 - 35.7 g/dL [facility] RDW CV 20.7(H) 11.1 - 14.9 % [facility] RDW SD 57.1(H) 35.7 - 48.1 fL [facility] NRBC abs 0.00 0.00 - 0.01 K/cumm [facility] Blood 10/12/2024 8:40 PM DRY CELL SEALER 10/12/2024 9:20 PM DRY CELL SEALER Fe Le MD LAB BLOOD ORDERABLES Eleni l Result [facility] Department [place] [address] * Phosphorus (10/12/2024 8:40 PM DRY CELL SEALER) Phosphorus, pl 3.4 2.3 - 4.5 mg/dL Blood 10/12/2024 8:40 PM DRY CELL SEALER 10/12/2024 9:20 PM DRY CELL SEALER Fe Le MD LAB BLOOD ORDERABLES Eleni l Result [facility] [place] [address] * Magnesium (10/12/2024 8:40 PM DRY CELL SEALER) Magnesium 2.0 1.4 - 2.5 mg/dL Blood 10/12/2024 8:40 PM DRY CELL SEALER 10/12/2024 9:20 PM DRY CELL SEALER Fe Le MD LAB BLOOD ORDERABLES Eleni l Result Performing Organization Address City/[facility] [address]/[facility] Co de Phone Number [facility] Department [place] [address] * Basic metabolic panel (10/12/2024 8:40 PM DRY CELL SEALER) [facility] Sodium 136 135 - 145 mmol/L Potassium, pl 4.1 3.3 - 4.9 mmol/L [facility] Chloride 99 97 - 110 mmol/L [facility] CO2 26 22 - 32 mmol/L [facility] Anion gap 11 2 - 15 mmol/L [facility] BUN 13 6 - 25 mg/dL [facility] Creatinine 0.63 0.60 - 1.10 mg/dL [facility] Glucose 155 70 - 199 mg/dL [facility] Comment: Interpretive Data Fasting glucose >/= 126 [...] 2022. Calcium 9.3 8.5 - 10.3 mg/dL [facility] Blood 10/12/2024 8:40 PM DRY CELL SEALER 10/12/2024 9:20 PM DRY CELL SEALER Fe Le MD LAB BLOOD ORDERABLES Eleni l Result Performing Organization Address [facility] [address]/[facility] Co de Phone Number [facility] Department [place] [address] * US Carotids Duplex Bilateral (10/12/2024 2:45 PM DRY CELL SEALER) Anatomical Region Laterality Modality Vascular Bilateral Ultrasound 10/12/2024 12:1 7 PM DRY CELL SEALER Narrative 10/13/2024 1:10 AM DRY CELL SEALER [facility] [employer] - Department of Vascular Surgery, Vascular Laboratory [address] [place] [id number] Carotid Duplex Ultrasound Report Patient Name: AMY HARE M : 1950 (74y 7m) Study Date: 10/12/2024 12:17:45 PM Gender: F Tech: Location: [id number] Ref Provider: FE LE Quality: Adequate Order [...] PSV ?86 ? cm/sec - FINDINGS: Performing Pv Design Engineer: Liana Hills RVT. Rt Common Carotid [...] Fly Argueta MD FACS 10/13/2024 1:09:29 AM DRY CELL SEALER Procedure Note Fly Argueta MD - 10/13/2024 [facility] [employer] - Department of Vascular Surgery,Vascular Laboratory [address] [place] [address] Carotid Duplex Ultrasound Report Patient Name: AMY HARE M : 1950 (74y 7m) Study Date: 10/12/2024 12:17:45 PM Gender: F Tech: Location: [id number] Ref Provider: FE LE Quality: Adequate Order [...] LT VERT PSV 86cm/sec - FINDINGS: Performing Pv Design Engineer: Liana Hills RVT. Rt Common Carotid [...] above. Electronically Signed By: Fly Argueta MD [facility] 10/13/2024 1:09:29 AM DRY CELL SEALER us Fe Le MD IM US PROCEDURES Final R esult * CT Chest PE (CTA) Abdomen Pelvis W Contrast (10/12/2024 10:50 AM DRY CELL SEALER) Anatomical Region Laterality Modality Body N/A Computed Tomogra phy 10/12/2024 11:3 1 AM DRY CELL SEALER Impressions 10/12/2024 11:31 AM DRY CELL SEALER 1. ??No pulmonary embolism. 2. ??Progressive disease with progressive mediastinal, retroperitoneal, and pelvic lymphadenopathy. ??There is also increased size of a hepatic segment 7 metastatic lesion. 3. ??New small left lower lobe groundglass nodule, indeterminate, this may be infectious or inflammatory. ??Recommend attention on follow-up. 4. ??Redemonstrated osseous metastatic disease. Electronically signed by: Erna Lebron M.D. Narrative 10/12/2024 11:31 AM DRY CELL SEALER EXAMINATION: CT CHEST PE (CTA) ABDOMEN PELVIS [...] disease. Electronically signed by: Erna Lebron M.D. us Fe Le MD IMG CT PROCEDURES Final R esult * Troponin I high-sensitivity (10/12/2024 7:07 AM DRY CELL SEALER) Pathologist [facility] Trop I hs <4 <=17 ng/L Comment: Interpretive Data For further hscTnI resources including the diagnostic algorithm and an aid in interpretation, copy and paste this link: [email or web address]/[email or web address] Current Interpretive Data last revised 2020. Blood 10/12/2024 7:07 AM DRY CELL SEALER 10/12/2024 7:52 AM DRY CELL SEALER Fe Le MD LAB BLOOD ORDERABLES Eleni l Result [facility] Department [place] [address] * ECG 12 lead (10/12/2024 6:58 AM DRY CELL SEALER) [facility] Ventricular Rate EKG/Min 91 BPM [facility] Atrial Rate 91 BPM [facility] [place]-Interval (MSEC) 146 ms [facility] QRS-Interval (MSEC) 70 ms [facility] QT-Interval (MSEC) 354 ms [facility] QTc 435 ms [facility] P [place] 54 degrees [facility] R [place] 29 degrees [facility] T [place] 40 degrees [facility] Diagnosis Normal sinus rhythm Normal ECG When compared with ECG of 10-OCT-2024 14:15, (unconfirmed ) Nonspecific T wave abnormality, improved in Anterior leads Confirmed by YAIR LUJAN M.D ([id number]) on 10/13/2024 8:39:16 AM [facility] 10/12/2024 6:58 AM DRY CELL SEALER 10/13/2024 8:39 AM DRY CELL SEALER Fe Le MD ECG ORDERABLES Final Res ult [facility] * eGFR (10/11/2024 8:23 PM DRY CELL SEALER) [facility] eGFR >90 >=60 mL/min/1. 73 m2 Comment: [...] last reviewed 2021. Blood 10/11/2024 8:23 PM DRY CELL SEALER 10/11/2024 8:43 PM DRY CELL SEALER us Fe Le MD LAB BLOOD ORDERABLES Eleni parker Result [facility] Department [place] [address] * (ABNORMAL) CBC without differential (10/11/2024 8:23 PM DRY CELL SEALER) [facility] WBC 7.0 3.8 - 9.9 K/cumm Hgb 7.5(L) 11.9 - 15.5 g/dL [facility] Hct 24.0(L) 35.6 - 45.5 % [facility] Plt 364 150 - 400 K/cumm [facility] MPV 9.2 9.1 - 12.3 fL [facility] RBC 3.15(L) 3.90 - 5.20 M/cumm [facility] MCV 76.2(L) 81.3 - 96.4 fL [facility] MCH 23.8(L) 27.1 - 33.3 pg [facility] MCHC 31.3(L) 32.3 - 35.7 g/dL [facility] RDW CV 21.0(H) 11.1 - 14.9 % [facility] RDW SD 57.8(H) 35.7 - 48.1 fL [facility] NRBC abs 0.00 0.00 - 0.01 K/cumm [facility] Blood 10/11/2024 8:23 PM DRY CELL SEALER 10/11/2024 8:43 PM DRY CELL SEALER Fe Le MD LAB BLOOD ORDERABLES Eleni l Result [facility] [place] [address] * Phosphorus (10/11/2024 8:23 PM DRY CELL SEALER) Phosphorus, pl 3.1 2.3 - 4.5 mg/dL Blood 10/11/2024 8:23 PM DRY CELL SEALER 10/11/2024 8:43 PM DRY CELL SEALER Fe Le MD LAB BLOOD ORDERABLES Eleni l Result [facility] [place] [address] * Magnesium (10/11/2024 8:23 PM DRY CELL SEALER) Pathologist [facility] Magnesium 2.1 1.4 - 2.5 mg/dL Blood 10/11/2024 8:23 PM DRY CELL SEALER 10/11/2024 8:43 PM DRY CELL SEALER Fe Le MD LAB BLOOD ORDERABLES Eleni parker Result [facility] [place] [address] * (ABNORMAL) Basic metabolic panel (10/11/2024 8:23 PM DRY CELL SEALER) Sodium 133(L) 135 - 145 mmol/L Potassium, pl 3.6 3.3 - 4.9 mmol/L [facility] Chloride 98 97 - 110 mmol/L [facility] CO2 25 22 - 32 mmol/L [facility] Anion gap 10 2 - 15 mmol/L [facility] BUN 14 6 - 25 mg/dL [facility] Creatinine 0.63 0.60 - 1.10 mg/dL [facility] Glucose 199 70 - 199 mg/dL [facility] Comment: Interpretive Data Fasting glucose >/= 126 [...] 2022. Calcium 9.2 8.5 - 10.3 mg/dL [facility] Blood 10/11/2024 8:23 PM DRY CELL SEALER 10/11/2024 8:43 PM DRY CELL SEALER Fe Le MD LAB BLOOD ORDERABLES Eleni l Result Performing Organization Address [facility] [address]/ZIP Co de Phone Number [facility] Department [place] [address] * XR Chest 1 View (10/11/2024 3:07 PM DRY CELL SEALER) Anatomical Region Laterality Modality Body, Chest N/A Computed Radiogr aphy 10/11/2024 3:35 PM DRY CELL SEALER Impressions 10/11/2024 3:35 PM DRY CELL SEALER Comparison 07/30/2024 5:57 PM. Heart size remains within normal limits. ??New mild contour bulge seen in the region of the aortopulmonary window, corresponding to lymphadenopathy on computed tomographic examination 08/17/2024. The lungs are clear without focal consolidation or pulmonary edema. No pneumothorax or pleural effusion seen. Electronically signed by: Jerrell Reyes M.D. Narrative 10/11/2024 3:35 PM DRY CELL SEALER EXAMINATION: 1 view chest radiograph Procedure Note [...] seen. Electronically signed by: Jerrell Reyes M.D. us Fe Le MD IMG XR PROCEDURES Final R esult * (ABNORMAL) Urinalysis reflex to microscopic and culture Urine, clean voided (10/11/2024 2:32 PM DRY CELL SEALER) Color, ur Straw Yellow Clarity, ur Clear Clear [facility] Specific gravity, ur 1.012 1.003 - 1.030 [facility] pH, urine 7.0 [facility] Comment: Interpretive Data ? Urine pH is affected by diet, medications, systemic acid-base disturbances, and renal tubular function. ??pH may affect urinary stone formation. ??For example, urine pH below 6.0 may help reduce the tendency for calcium phosphate stones and pH greater than 6.0 may reduce the tendency for uric acid stone formation. Source: [facility] Current Interpretive Data was last revised on 2017 Protein, ur ql Trace Negative [facility] Glucose, ur ql Negative Negative [facility] Ketones, ur Negative Negative [facility] Bilirubin, ur Negative Negative [facility] Blood, ur 2+(A) Negative [facility] Urobilinogen, ur <2.0 <2.0 mg/dL [facility] Nitrite, ur Negative Negative [facility] Leukocyte esterase, ur Negative Negative [facility] UA reflex comment Reflex to microscopic UA will be performed. [facility] Urine, clean voided 10/11/2024 2:32 PM DRY CELL SEALER 10/11/2024 2:53 PM DRY CELL SEALER Fe Le MD LAB MICROBIOLOGY - GENERA L ORDERABLES Final Result Performing Organization Address [facility] [address]/[facility] Co de Phone Number [facility] [place] [employer] [place] [address] * (ABNORMAL) Urinalysis, microscopic only (10/11/2024 2:32 PM DRY CELL SEALER) WBC, ur 6-10(A) 0 - 5 /HPF RBC, ur 21-50(A) 0 - 2 /HPF [facility] Epithelial cells, squamous, ur 1-5 0 - 5 /HPF [facility] Mucous, ur Present(A) [facility] Culture Reflex Comment Reflex conditions for urine culture (WBC >10) not met. [facility] Urine, clean voided 10/11/2024 2:32 PM DRY CELL SEALER 10/11/2024 2:53 PM DRY CELL SEALER Fe Le MD LAB URINE ORDERABLES Eleni l Result Performing Organization Address City/[facility] [address]/ZIP Co de Phone Number [facility] [place] [place] [address] * Lactate (10/11/2024 2:22 PM DRY CELL SEALER) Lactate 0.7 0.7 - 2.0 mmol/L Blood 10/11/2024 2:22 PM DRY CELL SEALER 10/11/2024 3:00 PM DRY CELL SEALER Fe Le MD LAB BLOOD ORDERABLES Eleni l Result Performing Organization Address [facility] [address]/[facility] Co de Phone Number MELA COKER [facility] [place] [address] * eGFR (10/11/2024 2:22 PM DRY CELL SEALER) eGFR >90 >=60 mL/min/1. 73 m2 Comment: [...] last reviewed 2021. Blood 10/11/2024 2:22 PM DRY CELL SEALER 10/11/2024 3:00 PM DRY CELL SEALER us Fe Le MD LAB BLOOD ORDERABLES Eleni l Result Performing Organization Address [facility] [facility] [address]/[facility] Co de Phone Number MELA COKER [facility] Department [place] [address] * (ABNORMAL) Differential, auto (10/11/2024 2:22 PM DRY CELL SEALER) Neutrophil abs 5.3 1.5 - 6.5 K/cumm Imm gran abs 0.1 0.0 - 0.1 K/cumm [facility] Lymphocyte abs 1.0 0.8 - 3.3 K/cumm [facility] Monocyte abs 1.1(H) 0.2 - 0.8 K/cumm [facility] Eosinophil abs 0.0 0.0 - 0.5 K/cumm [facility] Basophil abs 0.0 0.0 - 0.1 K/cumm [facility] Neutrophil pct 71.0 % [facility] Comment: Interpretive Data Percent cell count reference ranges are not reported, since discordance with absolute values may lead to misinterpretation of CBC data. Current Interpretive Data was last revised on 2018. Imm gran pct 0.7 % [facility] Comment: Interpretive Data Percent cell count reference ranges are not reported, since discordance with absolute values may lead to misinterpretation of CBC data. Current Interpretive Data was last revised on 2018. Lymphocyte pct 12.8 % [facility] Comment: Interpretive Data Percent cell count reference ranges are not reported, since discordance with absolute values may lead to misinterpretation of CBC data. Current Interpretive Data was last revised on 2018. Monocyte pct 14.5 % [facility] Comment: Interpretive Data Percent cell count reference ranges are not reported, since discordance with absolute values may lead to misinterpretation of CBC data. Current Interpretive Data was last revised on 2018. Eosinophil pct 0.5 % [facility] Comment: Interpretive Data Percent cell count reference ranges are not reported, since discordance with absolute values may lead to misinterpretation of CBC data. Current Interpretive Data was last revised on 2018. Basophil pct 0.5 % [facility] Comment: Interpretive Data Percent cell count reference ranges are not reported, since discordance with absolute values may lead to misinterpretation of CBC data. Current Interpretive Data was last revised on 2018. Blood 10/11/2024 2:22 PM DRY CELL SEALER 10/11/2024 3:00 PM DRY CELL SEALER Fe Le MD LAB BLOOD ORDERABLES Eleni parker Result [facility] Department [place] [address] * Respiratory pathogen panel Nasopharyngeal (10/11/2024 2:22 PM DRY CELL SEALER) Pathologist [facility] Influenza A RNA Not Detected Not Detected Influenza B RNA Not Detected Not Detected [facility] RSV RNA Not Detected Not Detected [facility] COVID-19 RNA Not Detected Not Detected [facility] Coronavirus 229E RNA Not Detected Not Detected [facility] Coronavirus HKU1 RNA Not Detected Not Detected [facility] Coronavirus NL63 RNA Not Detected Not Detected [facility] Coronavirus OC43 RNA Not Detected Not Detected [facility] Adenovirus DNA Not Detected Not Detected [facility] Metapneumovirus RNA Not Detected Not Detected [facility] Rhinovirus/Enterov irus RNA Not Detected Not Detected [facility] Parainfluenza 1 RNA Not Detected Not Detected [facility] Parainfluenza 2 RNA Not Detected Not Detected [facility] Parainfluenza 3 RNA Not Detected Not Detected [facility] Parainfluenza 4 RNA Not Detected Not Detected [facility] B. pertussis DNA Not Detected Not Detected [facility] B. parapertussis DNA Not Detected Not Detected [facility] C. pneumoniae DNA Not Detected Not Detected [facility] M. pneumoniae DNA Not Detected Not Detected [facility] Nasopharyngeal 10/11/2024 2: 22 PM DRY CELL SEALER 10/11/2024 3:13 PM DRY CELL SEALER Narrative [facility] - 10/11/2024 4:10 PM DRY CELL SEALER Is the Patient experiencing symptoms consistent with COVID?->No Surveillance testing for transplant patient?->No ??Interpretive Data The Inaura FilmArray Respiratory Panel (RP2.1) assay is a [...] assay has FDA clearance for testing of CONTRACT AGENT swabs. ??The performance of additional specimen types has been assessed by the performing laboratory. ??The performance characteristics of this assay have been determined by [facility]. Current interpretive data was last revised on 22. us Fe Le MD LAB MICROBIOLOGY - GENERA L ORDERABLES Final Result [facility] Department [place] [address] * (ABNORMAL) CBC with auto differential (10/11/2024 2:22 PM DRY CELL SEALER) [facility] WBC 7.5 3.8 - 9.9 K/cumm Hgb 7.4(L) 11.9 - 15.5 g/dL [facility] Hct 24.1(L) 35.6 - 45.5 % [facility] Plt 387 150 - 400 K/cumm [facility] MPV 9.8 9.1 - 12.3 fL [facility] RBC 3.11(L) 3.90 - 5.20 M/cumm [facility] MCV 77.5(L) 81.3 - 96.4 fL [facility] MCH 23.8(L) 27.1 - 33.3 pg [facility] MCHC 30.7(L) 32.3 - 35.7 g/dL [facility] RDW CV 20.9(H) 11.1 - 14.9 % [facility] RDW SD 58.3(H) 35.7 - 48.1 fL [facility] NRBC abs 0.00 0.00 - 0.01 K/cumm [facility] Blood 10/11/2024 2:22 PM DRY CELL SEALER 10/11/2024 3:00 PM DRY CELL SEALER Fe Le MD LAB BLOOD ORDERABLES Eleni parker Result [facility] Department [place] [address] * Blood culture Blood (10/11/2024 2:22 PM DRY CELL SEALER) Pathologist [facility] Report Final Report: No growth Blood 10/11/2024 2:22 PM DRY CELL SEALER 10/11/2024 3:23 PM DRY CELL SEALER Narrative [facility] - 10/15/2024 4:00 PM DRY CELL SEALER From a different site than #1. Collection->Peripheral [...] organism identification may be performed using the [employer] Gram-Positive Blood Culture Assay. This assay detects microbial DNA in positive blood culture broth via hybridization of target DNA to capture oligonucleotides on a microarray. This assay has been cleared by the [place] Food and Drug Administration and its performance characteristics have been verified by the [facility]biology Laboratory. 5. ?For questions about this culture, contact the Microbiology Laboratory at [phone]. Interpretive data was last revised on 2020. Fe Le MD LAB MICROBIOLOGY - GENERA L ORDERABLES Final Result [facility] Department [place] [address] * Blood culture Blood (10/11/2024 2:22 PM DRY CELL SEALER) Report Final Report: No growth Blood 10/11/2024 2:22 PM DRY CELL SEALER 10/11/2024 3:23 PM DRY CELL SEALER Narrative [facility] - 10/15/2024 4:00 PM DRY CELL SEALER Collection->Peripheral 1. ?Blood cultures are incubated for [...] organism identification may be performed using the [employer] Gram-Positive Blood Culture Assay. This assay detects microbial DNA in positive blood culture broth via hybridization of target DNA to capture oligonucleotides on a microarray. This assay has been cleared by the [place] Food and Drug Administration and its performance characteristics have been verified by the [facility]. 5. ?For questions about this culture, contact the Microbiology Laboratory at [phone]. Interpretive data was last revised on 2020. Fe Le MD LAB MICROBIOLOGY - GENERA L ORDERABLES Final Result [facility] Department [place] [address] * (ABNORMAL) Basic metabolic panel (10/11/2024 2:22 PM DRY CELL SEALER) Sodium 134(L) 135 - 145 mmol/L Potassium, pl 3.8 3.3 - 4.9 mmol/L [facility] Chloride 97 97 - 110 mmol/L [facility] CO2 26 22 - 32 mmol/L [facility] Anion gap 11 2 - 15 mmol/L [facility] BUN 14 6 - 25 mg/dL [facility] Creatinine 0.61 0.60 - 1.10 mg/dL [facility] Glucose 110 70 - 199 mg/dL [facility] Comment: Interpretive Data Fasting glucose >/= 126 [...] classification and Diagnosis of Diabetes Diabetes Care 2022; 46: [id number]. Current interpretive data was last revised 2022. Calcium 9.2 8.5 - 10.3 mg/dL [facility] Blood 10/11/2024 2:22 PM DRY CELL SEALER 10/11/2024 3:00 PM DRY CELL SEALER us Fe Le MD LAB BLOOD ORDERABLES Eleni parker Result [facility] Department [place] [address] * eGFR (10/10/2024 8:47 PM DRY CELL SEALER) eGFR >90 >=60 mL/min/1. 73 m2 Comment: [...] last reviewed 2021. Blood 10/10/2024 8:47 PM DRY CELL SEALER 10/10/2024 9:23 PM DRY CELL SEALER Fe Le MD LAB BLOOD ORDERABLES Eleni l Result Performing Organization Address City/[facility] [address]/ZIP Co de Phone Number [facility] Department [place] [address] * (ABNORMAL) CBC without differential (10/10/2024 8:47 PM DRY CELL SEALER) WBC 8.4 3.8 - 9.9 K/cumm Hgb 8.0(L) 11.9 - 15.5 g/dL [facility] Hct 25.1(L) 35.6 - 45.5 % [facility] Plt 392 150 - 400 K/cumm [facility] MPV 9.6 9.1 - 12.3 fL [facility] RBC 3.23(L) 3.90 - 5.20 M/cumm [facility] MCV 77.7(L) 81.3 - 96.4 fL [facility] MCH 24.8(L) 27.1 - 33.3 pg [facility] MCHC 31.9(L) 32.3 - 35.7 g/dL [facility] RDW CV 21.0(H) 11.1 - 14.9 % [facility] RDW SD 59.2(H) 35.7 - 48.1 fL [facility] NRBC abs 0.00 0.00 - 0.01 K/cumm [facility] Blood 10/10/2024 8:47 PM DRY CELL SEALER 10/10/2024 9:24 PM DRY CELL SEALER Fe Le MD LAB BLOOD ORDERABLES Eleni l Result [facility] [place] [address] * Phosphorus (10/10/2024 8:47 PM DRY CELL SEALER) Phosphorus, pl 3.4 2.3 - 4.5 mg/dL Blood 10/10/2024 8:47 PM DRY CELL SEALER 10/10/2024 9:23 PM DRY CELL SEALER Fe Le MD LAB BLOOD ORDERABLES Eleni l Result Performing Organization Address City/[facility] [address]/[facility] Co de Phone Number [facility] Department [place] [address] * Magnesium (10/10/2024 8:47 PM DRY CELL SEALER) [facility] Magnesium 2.1 1.4 - 2.5 mg/dL Blood 10/10/2024 8:47 PM DRY CELL SEALER 10/10/2024 9:23 PM DRY CELL SEALER Fe Le MD LAB BLOOD ORDERABLES Eleni l Result Performing Organization Address [facility] [address]/[facility] de Phone Number [facility] Department [place] [address] * Basic metabolic panel (10/10/2024 8:47 PM DRY CELL SEALER) [facility] Sodium 136 135 - 145 mmol/L Potassium, pl 3.8 3.3 - 4.9 mmol/L [facility] Chloride 98 97 - 110 mmol/L [facility] CO2 26 22 - 32 mmol/L [facility] Anion gap 12 2 - 15 mmol/L [facility] BUN 19 6 - 25 mg/dL [facility] Creatinine 0.68 0.60 - 1.10 mg/dL [facility] Glucose 189 70 - 199 mg/dL [facility] Comment: Interpretive Data Fasting glucose >/= 126 [...] 2022. Calcium 9.4 8.5 - 10.3 mg/dL [facility] Blood 10/10/2024 8:47 PM DRY CELL SEALER 10/10/2024 9:23 PM DRY CELL SEALER Fe Le MD LAB BLOOD ORDERABLES Eleni l Result Performing Organization Address [facility] [address]/[facility] Co de Phone Number [facility] Department [place] [address] * ECG 12 lead (10/10/2024 2:15 PM DRY CELL SEALER) Ventricular Rate EKG/Min 103 BPM [facility] Atrial Rate 103 BPM [facility] [place]-Interval (MSEC) 138 ms [facility] QRS-Interval (MSEC) 70 ms [facility] QT-Interval (MSEC) 336 ms [facility] QTc 440 ms [facility] P [place] 58 degrees [facility] R [place] 49 degrees [facility] T [place] 5 degrees [facility] Diagnosis Sinus tachycardia Nonspecific T wave abnormality Abnormal ECG No previous ECGs available Confirmed by STEFFANY BLOUNT M.D ([id number]) on 10/13/2024 4:52:56 PM [facility] 10/10/2024 2:15 PM DRY CELL SEALER 10/13/2024 4:52 PM DRY CELL SEALER us Fe Le MD ECG ORDERABLES Final Res ult Performing Organization Address [facility] [address]/[facility] de Phone Number [facility] * eGFR (10/09/2024 8:11 PM DRY CELL SEALER) eGFR 87 >=60 mL/min/1. 73 m2 Comment: [...] last reviewed 2021. Blood 10/09/2024 8:11 PM DRY CELL SEALER 10/09/2024 8:42 PM DRY CELL SEALER us Fe Le MD LAB BLOOD ORDERABLES Eleni parker Result [facility] Department [place] [address] * (ABNORMAL) CBC without differential (10/09/2024 8:11 PM DRY CELL SEALER) WBC 7.2 3.8 - 9.9 K/cumm Hgb 7.4(L) 11.9 - 15.5 g/dL [facility] Hct 23.8(L) 35.6 - 45.5 % [facility] Plt 342 150 - 400 K/cumm [facility] MPV 9.4 9.1 - 12.3 fL [facility] RBC 3.10(L) 3.90 - 5.20 M/cumm [facility] MCV 76.8(L) 81.3 - 96.4 fL [facility] MCH 23.9(L) 27.1 - 33.3 pg [facility] MCHC 31.1(L) 32.3 - 35.7 g/dL [facility] RDW CV 21.1(H) 11.1 - 14.9 % [facility] RDW SD 58.5(H) 35.7 - 48.1 fL [facility] NRBC abs 0.00 0.00 - 0.01 K/cumm [facility] Blood 10/09/2024 8:11 PM DRY CELL SEALER 10/09/2024 8:42 PM DRY CELL SEALER Fe Le MD LAB BLOOD ORDERABLES Eleni l Result Performing Organization Address City/[facility] [address]/[facility] Co de Phone Number [facility] [place] [address] * (ABNORMAL) Phosphorus (10/09/2024 8:11 PM DRY CELL SEALER) Pathologist [facility] Phosphorus, pl 1.8(L) 2.3 - 4.5 mg/dL Blood 10/09/2024 8:11 PM DRY CELL SEALER 10/09/2024 8:42 PM DRY CELL SEALER Fe Le MD LAB BLOOD ORDERABLES Eleni l Result Performing Organization Address [facility] [address]/[facility] de Phone Number [facility] [place] [address] * Magnesium (10/09/2024 8:11 PM DRY CELL SEALER) Magnesium 1.9 1.4 - 2.5 mg/dL Blood 10/09/2024 8:11 PM DRY CELL SEALER 10/09/2024 8:42 PM DRY CELL SEALER Fe Le MD LAB BLOOD ORDERABLES Eleni l Result Performing Organization Address [facility] [address]/[facility] Co de Phone Number [facility] [place] [employer] [place] [address] * Basic metabolic panel (10/09/2024 8:11 PM DRY CELL SEALER) Sodium 136 135 - 145 mmol/L Potassium, pl 3.7 3.3 - 4.9 mmol/L [facility] Chloride 99 97 - 110 mmol/L [facility] CO2 27 22 - 32 mmol/L [facility] Anion gap 10 2 - 15 mmol/L [facility] BUN 15 6 - 25 mg/dL [facility] Creatinine 0.73 0.60 - 1.10 mg/dL [facility] Glucose 193 70 - 199 mg/dL [facility] Comment: Interpretive Data Fasting glucose >/= 126 [...] 2022. Calcium 9.5 8.5 - 10.3 mg/dL [facility] Blood 10/09/2024 8:11 PM DRY CELL SEALER 10/09/2024 8:42 PM DRY CELL SEALER Fe Le MD LAB BLOOD ORDERABLES Eleni parker Result [facility] Department [place] [address] * MRI Spine Total Complete W WO Contrast (10/09/2024 2:25 PM DRY CELL SEALER) Anatomical Region Laterality Modality Spine N/A Magnetic Resonan ce 10/09/2024 3:21 PM DRY CELL SEALER Impressions 10/09/2024 4:36 PM DRY CELL SEALER 1. Findings concerning for metastatic disease in [...] Weathers MD, PHD Narrative 10/09/2024 4:36 PM DRY CELL SEALER EXAMINATION: 1. Magnetic resonance imaging (MRI) of [...] Electronically signed by: Alec Weathers MD, PHD us Fe Le MD IMG MRI PROCEDURES Final Result * MRI Brain W WO Contrast (10/09/2024 2:25 PM DRY CELL SEALER) Anatomical Region Laterality Modality Head and Neck N/A Magnetic Resonan ce 10/09/2024 3:21 PM DRY CELL SEALER Impressions 10/09/2024 4:36 PM DRY CELL SEALER 1. Findings concerning for metastatic disease in [...] Weathers MD, PHD Narrative 10/09/2024 4:36 PM DRY CELL SEALER EXAMINATION: 1. Magnetic resonance imaging (MRI) of [...] Final Result * eGFR (10/08/2024 8:48 PM DRY CELL SEALER) eGFR 79 >=60 mL/min/1. 73 m2 Comment: [...] last reviewed 2021. Blood 10/08/2024 8:48 PM DRY CELL SEALER 10/08/2024 9:13 PM DRY CELL SEALER Fe Le MD LAB BLOOD ORDERABLES Eleni elena Result Performing Organization Address [facility] [address]/[facility] Co de Phone Number [facility] [place] [address] * (ABNORMAL) CBC without differential (10/08/2024 8:48 PM DRY CELL SEALER) [facility] WBC 7.8 3.8 - 9.9 K/cumm Hgb 7.5(L) 11.9 - 15.5 g/dL [facility] Hct 23.9(L) 35.6 - 45.5 % [facility] Plt 376 150 - 400 K/cumm [facility] MPV 9.7 9.1 - 12.3 fL [facility] RBC 3.11(L) 3.90 - 5.20 M/cumm [facility] MCV 76.8(L) 81.3 - 96.4 fL [facility] MCH 24.1(L) 27.1 - 33.3 pg [facility] MCHC 31.4(L) 32.3 - 35.7 g/dL [facility] RDW CV 20.9(H) 11.1 - 14.9 % [facility] RDW SD 58.6(H) 35.7 - 48.1 fL [facility] NRBC abs 0.00 0.00 - 0.01 K/cumm [facility] Blood 10/08/2024 8:48 PM DRY CELL SEALER 10/08/2024 9:13 PM DRY CELL SEALER Fe Le MD LAB BLOOD ORDERABLES Eleni parker Result Performing Organization Address [facility] [address]/ZIP Co de Phone Number [facility] [place] [address] * Phosphorus (10/08/2024 8:48 PM DRY CELL SEALER) Pathologist [facility] Phosphorus, pl 2.3 2.3 - 4.5 mg/dL Blood 10/08/2024 8:48 PM DRY CELL SEALER 10/08/2024 9:13 PM DRY CELL SEALER Fe Le MD LAB BLOOD ORDERABLES Eleni l Result Performing Organization Address City/[facility] [address]/ZIP Co de Phone Number [facility] [place] [address] * Magnesium (10/08/2024 8:48 PM DRY CELL SEALER) Pathologist [facility] Magnesium 2.4 1.4 - 2.5 mg/dL Blood 10/08/2024 8:48 PM DRY CELL SEALER 10/08/2024 9:13 PM DRY CELL SEALER Fe Le MD LAB BLOOD ORDERABLES Eleni l Result Performing Organization Address [facility] [address]/[facility] de Phone Number [facility] [place] [address] * Basic metabolic panel (10/08/2024 8:48 PM DRY CELL SEALER) Pathologist [facility] Sodium 140 135 - 145 mmol/L Potassium, pl 4.4 3.3 - 4.9 mmol/L [facility] Chloride 102 97 - 110 mmol/L [facility] CO2 27 22 - 32 mmol/L [facility] Anion gap 11 2 - 15 mmol/L [facility] BUN 17 6 - 25 mg/dL [facility] Creatinine 0.79 0.60 - 1.10 mg/dL [facility] Glucose 98 70 - 199 mg/dL [facility] Comment: Interpretive Data Fasting glucose >/= 126 [...] 2022. Calcium 9.4 8.5 - 10.3 mg/dL [facility] Blood 10/08/2024 8:48 PM DRY CELL SEALER 10/08/2024 9:13 PM DRY CELL SEALER us Fe Le MD LAB BLOOD ORDERABLES Eleni l Result [facility] [place] [address] * XR Spine Cervical 2 or 3 Views (10/08/2024 6:20 PM DRY CELL SEALER) Anatomical Region Laterality Modality Spine N/A Computed Radiogr aphy 10/08/2024 7:05 PM DRY CELL SEALER Impressions 10/08/2024 7:05 PM DRY CELL SEALER 1. ??C6 pathologic impression fracture with unchanged mild height loss. 2. ??Lytic defect in posterior elements of T12-L1 as well as the left iliac bone lesion are better characterized on prior CT. Electronically signed by: Cristian Salgado D.O. Narrative 10/08/2024 7:05 PM DRY CELL SEALER EXAMINATION: XR SCOLIOSIS AP AND LATERAL, XR [...] XR Scoliosis Ap Lat (10/08/2024 6:19 PM DRY CELL SEALER) Anatomical Region Laterality Modality Spine N/A Computed Radiogr aphy 10/08/2024 7:05 PM DRY CELL SEALER Impressions 10/08/2024 7:05 PM DRY CELL SEALER 1. ??C6 pathologic impression fracture with unchanged mild height loss. 2. ??Lytic defect in posterior elements of T12-L1 as well as the left iliac bone lesion are better characterized on prior CT. Electronically signed by: Cristian Salgado D.O. Narrative 10/08/2024 7:05 PM DRY CELL SEALER EXAMINATION: XR SCOLIOSIS AP AND LATERAL, XR [...] CT. Electronically signed by: Cristian Salgado D.O. us Fe Le MD IMG XR PROCEDURES Final R esult * XR Outside Reference (10/08/2024 2:48 PM DRY CELL SEALER) Impressions [facility] - 10/08/2024 2:48 PM DRY CELL SEALER These images are for Reference purposes only and have not been reviewed by [facility] Radiology. ??There will be no report generated by a [facility] Radiologist. Narrative [facility] - 10/08/2024 2:48 PM DRY CELL SEALER EXAMINATION: ??Images For Reference Purposes Only us Manjinder Hines MD IMG XR PROCEDURES Final Resul t [facility] * Neuro CT Outside Consult (10/08/2024 2:42 PM DRY CELL SEALER) Anatomical Region Laterality Modality N/A Computed Tomogra phy 10/08/2024 5:14 PM DRY CELL SEALER Impressions 10/09/2024 12:53 AM DRY CELL SEALER 1. No acute intracranial process. 2. Lytic [...] Jc Masters MD Narrative 10/09/2024 12:53 AM DRY CELL SEALER EXAMINATION: 1. CT head without contrast 2. [...] Electronically signed by: Jc Masters MD Manjinder Hines MD IM CT PROCEDURES Final Resul t * Neuro CT Outside Consult (10/08/2024 2:35 PM DRY CELL SEALER) Anatomical Region Laterality Modality N/A Computed Tomogra phy 10/08/2024 5:14 PM DRY CELL SEALER Impressions 10/09/2024 12:53 AM DRY CELL SEALER 1. No acute intracranial process. 2. Lytic [...] Jc Masters MD Narrative 10/09/2024 12:53 AM DRY CELL SEALER EXAMINATION: 1. CT head without contrast 2. [...] Electronically signed by: Jc Masters MD Manjinder Hines MD IM CT PROCEDURES Final Resul t * eGFR (10/08/2024 12:25 PM DRY CELL SEALER) eGFR >90 >=60 mL/min/1. 73 m2 Comment: [...] reviewed 2021. Blood 10/08/2024 12:2 5 PM DRY CELL SEALER 10/08/2024 12:55 PM DRY CELL SEALER us Fe Le MD LAB BLOOD ORDERABLES Eleni parker Result [facility] Department [place] [address] * (ABNORMAL) Differential, auto (10/08/2024 12:25 PM DRY CELL SEALER) Pathologist [facility] Neutrophil abs 5.0 1.5 - 6.5 K/cumm Imm gran abs 0.1 0.0 - 0.1 K/cumm [facility] Lymphocyte abs 1.0 0.8 - 3.3 K/cumm [facility] Monocyte abs 1.2(H) 0.2 - 0.8 K/cumm [facility] Eosinophil abs 0.1 0.0 - 0.5 K/cumm [facility] Basophil abs 0.0 0.0 - 0.1 K/cumm [facility] Neutrophil pct 69.2 % [facility] Comment: Interpretive Data Percent cell count reference ranges are not reported, since discordance with absolute values may lead to misinterpretation of CBC data. Current Interpretive Data was last revised on 2018. Imm gran pct 0.7 % [facility] Comment: Interpretive Data Percent cell count reference ranges are not reported, since discordance with absolute values may lead to misinterpretation of CBC data. Current Interpretive Data was last revised on 2018. Lymphocyte pct 13.0 % [facility] Comment: Interpretive Data Percent cell count reference ranges are not reported, since discordance with absolute values may lead to misinterpretation of CBC data. Current Interpretive Data was last revised on 2018. Monocyte pct 16.0 % [facility] Comment: Interpretive Data Percent cell count reference ranges are not reported, since discordance with absolute values may lead to misinterpretation of CBC data. Current Interpretive Data was last revised on 2018. Eosinophil pct 0.7 % [facility] Comment: Interpretive Data Percent cell count reference ranges are not reported, since discordance with absolute values may lead to misinterpretation of CBC data. Current Interpretive Data was last revised on 2018. Basophil pct 0.4 % [facility] Comment: Interpretive Data Percent cell count reference ranges are not reported, since discordance with absolute values may lead to misinterpretation of CBC data. Current Interpretive Data was last revised on 2018. Blood 10/08/2024 12:2 5 PM DRY CELL SEALER 10/08/2024 12:55 PM DRY CELL SEALER us Fe Le MD LAB BLOOD ORDERABLES Eleni parker Result [facility] Department [place] [address] * (ABNORMAL) CBC with auto differential (10/08/2024 12:25 PM DRY CELL SEALER) Pathologist [facility] WBC 7.3 3.8 - 9.9 K/cumm Hgb 7.5(L) 11.9 - 15.5 g/dL [facility] Hct 24.7(L) 35.6 - 45.5 % [facility] Plt 393 150 - 400 K/cumm [facility] MPV 9.6 9.1 - 12.3 fL [facility] RBC 3.18(L) 3.90 - 5.20 M/cumm [facility] MCV 77.7(L) 81.3 - 96.4 fL [facility] MCH 23.6(L) 27.1 - 33.3 pg [facility] MCHC 30.4(L) 32.3 - 35.7 g/dL [facility] RDW CV 20.8(H) 11.1 - 14.9 % [facility] RDW SD 58.4(H) 35.7 - 48.1 fL [facility] NRBC abs 0.00 0.00 - 0.01 K/cumm [facility] Blood 10/08/2024 12:2 5 PM DRY CELL SEALER 10/08/2024 12:55 PM DRY CELL SEALER Fe Le MD LAB BLOOD ORDERABLES Eleni l Result Performing Organization Address [facility] Co de Phone Number [facility] [place] [address] * Phosphorus (10/08/2024 12:25 PM DRY CELL SEALER) Pathologist [facility] Phosphorus, pl 2.5 2.3 - 4.5 mg/dL Blood 10/08/2024 12:2 5 PM DRY CELL SEALER 10/08/2024 12:55 PM DRY CELL SEALER Fe Le MD LAB BLOOD ORDERABLES Eleni l Result Performing Organization Address City/[facility] [address]/ZIP Co de Phone Number [facility] Department [place] [address] * Magnesium (10/08/2024 12:25 PM DRY CELL SEALER) Pathologist [facility] Magnesium 2.0 1.4 - 2.5 mg/dL Blood 10/08/2024 12:2 5 PM DRY CELL SEALER 10/08/2024 12:55 PM DRY CELL SEALER Fe Le MD LAB BLOOD ORDERABLES Eleni elena Result [facility] Department [place] [address] * (ABNORMAL) Comprehensive metabolic panel (10/08/2024 12:25 PM DRY CELL SEALER) Pathologist [facility] Sodium 134(L) 135 - 145 mmol/L Potassium, pl 3.8 3.3 - 4.9 mmol/L [facility] Chloride 96(L) 97 - 110 mmol/L [facility] CO2 28 22 - 32 mmol/L [facility] Anion gap 10 2 - 15 mmol/L [facility] BUN 13 6 - 25 mg/dL [facility] Creatinine 0.58(L) 0.60 - 1.10 mg/dL [facility] Glucose 111 70 - 199 mg/dL [facility] Comment: Interpretive Data Fasting glucose >/= 126 [...] 2022. Calcium 9.6 8.5 - 10.3 mg/dL [facility] Bilirubin, total 0.2 0.1 - 1.2 mg/dL [facility] Protein, pl 7.7 6.5 - 8.5 g/dL [facility] Albumin 2.9(L) 3.5 - 5.0 g/dL [facility] Alk phos 64 40 - 130 Units/L [facility] ALT 36 7 - 45 Units/L [facility] AST 31 10 - 45 Units/L [facility] Blood 10/08/2024 12:2 5 PM DRY CELL SEALER 10/08/2024 12:55 PM DRY CELL SEALER us Fe Le MD LAB BLOOD ORDERABLES Eleni elena Result [facility] Department [place] [address] * eGFR (09/24/2024 2:26 PM DRY CELL SEALER) eGFR 83 >=60 mL/min/1. 73 m2 Comment: [...] last reviewed 2021. Blood 09/24/2024 2:26 PM DRY CELL SEALER 09/24/2024 3:04 PM DRY CELL SEALER us Fe Le MD LAB BLOOD ORDERABLES Eleni parker Result [facility] Department [place] [address] * (ABNORMAL) Differential, auto (09/24/2024 2:26 PM DRY CELL SEALER) Pathologist [facility] Neutrophil abs 5.3 1.5 - 6.5 K/cumm Imm gran abs 0.1 0.0 - 0.1 K/cumm [facility] Lymphocyte abs 0.9 0.8 - 3.3 K/cumm [facility] Monocyte abs 1.2(H) 0.2 - 0.8 K/cumm [facility] Eosinophil abs 0.0 0.0 - 0.5 K/cumm [facility] Basophil abs 0.0 0.0 - 0.1 K/cumm [facility] Neutrophil pct 70.5 % [facility] Comment: Interpretive Data Percent cell count reference ranges are not reported, since discordance with absolute values may lead to misinterpretation of CBC data. Current Interpretive Data was last revised on 2018. Imm gran pct 0.9 % [facility] Comment: Interpretive Data Percent cell count reference ranges are not reported, since discordance with absolute values may lead to misinterpretation of CBC data. Current Interpretive Data was last revised on 2018. Lymphocyte pct 11.9 % [facility] Comment: Interpretive Data Percent cell count reference ranges are not reported, since discordance with absolute values may lead to misinterpretation of CBC data. Current Interpretive Data was last revised on 2018. Monocyte pct 16.0 % [facility] Comment: Interpretive Data Percent cell count reference ranges are not reported, since discordance with absolute values may lead to misinterpretation of CBC data. Current Interpretive Data was last revised on 2018. Eosinophil pct 0.4 % [facility] Comment: Interpretive Data Percent cell count reference ranges are not reported, since discordance with absolute values may lead to misinterpretation of CBC data. Current Interpretive Data was last revised on 2018. Basophil pct 0.3 % [facility] Comment: Interpretive Data Percent cell count reference ranges are not reported, since discordance with absolute values may lead to misinterpretation of CBC data. Current Interpretive Data was last revised on 2018. Blood 09/24/2024 2:26 PM DRY CELL SEALER 09/24/2024 2:53 PM DRY CELL SEALER Fe Le MD LAB BLOOD ORDERABLES Eleni l Result Performing Organization Address [facility] Co de Phone Number [facility] Department [place] [address] * (ABNORMAL) CBC with auto differential (09/24/2024 2:26 PM DRY CELL SEALER) WBC 7.6 3.8 - 9.9 K/cumm Hgb 8.1(L) 11.9 - 15.5 g/dL [facility] Hct 25.2(L) 35.6 - 45.5 % [facility] Plt 451(H) 150 - 400 K/cumm [facility] MPV 10.0 9.1 - 12.3 fL [facility] RBC 3.27(L) 3.90 - 5.20 M/cumm [facility] MCV 77.1(L) 81.3 - 96.4 fL [facility] MCH 24.8(L) 27.1 - 33.3 pg [facility] MCHC 32.1(L) 32.3 - 35.7 g/dL [facility] RDW CV 20.7(H) 11.1 - 14.9 % [facility] RDW SD 58.1(H) 35.7 - 48.1 fL [facility] NRBC abs 0.00 0.00 - 0.01 K/cumm [facility] Blood 09/24/2024 2:26 PM DRY CELL SEALER 09/24/2024 2:53 PM DRY CELL SEALER us Fe Le MD LAB BLOOD ORDERABLES Eleni l Result Performing Organization Address City/[facility] [address]/ZIP Co de Phone Number [facility] [place] [address] * (ABNORMAL) CA 125 (09/24/2024 2:26 PM DRY CELL SEALER) [facility] CA 125 ag 60.6(H) 0.0 - 38.1 units/mL Comment: Interpretive Data The [employer] CA 125 assay procedure was used. Results from different manufacturers or methods may not be comparable. Serial testing should be performed using the same method. Blood 09/24/2024 2:26 PM DRY CELL SEALER 09/24/2024 2:53 PM DRY CELL SEALER Fe Le MD LAB BLOOD ORDERABLES Eleni l Result Performing Organization Address [facility] [address]/[facility] de Phone Number [facility] [place] [address] * (ABNORMAL) Comprehensive metabolic panel (09/24/2024 2:26 PM DRY CELL SEALER) [facility] Sodium 132(L) 135 - 145 mmol/L Potassium, pl 3.8 3.3 - 4.9 mmol/L [facility] Chloride 93(L) 97 - 110 mmol/L [facility] CO2 27 22 - 32 mmol/L [facility] Anion gap 12 2 - 15 mmol/L [facility] BUN 19 6 - 25 mg/dL [facility] Creatinine 0.76 0.60 - 1.10 mg/dL [facility] Glucose 95 70 - 199 mg/dL [facility] Comment: Interpretive Data Fasting glucose >/= 126 [...] 2022. Calcium 10.3 8.5 - 10.3 mg/dL [facility] Bilirubin, total 0.2 0.1 - 1.2 mg/dL [facility] Protein, pl 8.4 6.5 - 8.5 g/dL [facility] Albumin 3.2(L) 3.5 - 5.0 g/dL [facility] Alk phos 73 40 - 130 Units/L [facility] ALT 44 7 - 45 Units/L [facility] AST 49(H) 10 - 45 Units/L [facility] Blood 09/24/2024 2:26 PM DRY CELL SEALER 09/24/2024 2:53 PM DRY CELL SEALER us Fe Le MD LAB BLOOD ORDERABLES Eleni l Result [facility] Department [place] [address] * RAD ONC ARIA COURSE SUMMARY (09/15/2024 1:49 PM DRY CELL SEALER) Course Name C1_Lspn_Li liac24 ARIA Course Plan [...] Dose (cGy) 2,000 ARIA 09/15/2024 1:49 PM DRY CELL SEALER us Not In File Miscellaneous RADIATION ONCOLOGY ORD ERABLES Final Result ARIA * RAD ONC ARIA SESSION SUMMARY (09/15/2024 10:26 AM DRY CELL SEALER) Course Name C1_Lspn_Li liac24 ARIA Course Plan [...] (cGy) 2,000 ARIA 09/15/2024 10:2 6 AM DRY CELL SEALER us Not In File Miscellaneous RADIATION ONCOLOGY ORD ERABLES Final Result ARIA * RAD ONC ARIA SESSION SUMMARY (09/14/2024 1:15 PM DRY CELL SEALER) Course Name C1_Lspn_Li liac24 ARIA Course Plan [...] Dose (cGy) 2,000 ARIA 09/14/2024 1:15 PM DRY CELL SEALER us Not In File Miscellaneous RADIATION ONCOLOGY ORD ERABLES Final Result FLOR[place] from Last 3 Months Insurance [facility] CHOICE PLUS MEDICARE [facility] CHOICE PLUS MEDICARE Advance Directives For more information, please contact: [phone] * Full Code (Latest Code Status on File) Date Activated Date Inactivated Comments 10/08/2024 11:44 AM 10/15/2024 4:56 PM * Full Code Date Activated Date Inactivated Comments 04/14/2024 7:20 AM 04/15/2024 5:32 AM Care Teams Library Media Technician Relationship Specialty Start Date End Date Cristobal Salvador MD [address] [address] PCP - General Family Medicine 03/17/24 Shea Mercado NP Nurse Practitioner Obstetrics and Gynecology 06/22/22 Kirsten Del Rosario MD [address] [facility] # LL LL [address] [place] [address] Radiation Oncologist Radiation Oncology 06/30/24 Fe Le MD [address] [facility] [id number] [place] [address] Surgeon Gynecologic Oncology 06/30/24
[2024-12-15 18:39] VITALS: BP 91/54; PULSE 98; RESP 16; TEMP 36.8; O2SAT 97
--- NOTE | 2024-12-15 23:46 | ECG_ITS ---
Test Date: 2024-12-16 00:18:16 Measurements Intervals [place] Rate: 87 P: 61 OH: 137 QRS: 38 QRSD: 76 T: 50 QT: 352 QTc: 424 Interpretive Statements SINUS RHYTHM BASELINE ARTIFACT- I, II, III, AVR, AVL, AVF, V1-V6 NORMAL ECG Compared to ECG 10/07/2024 15:09:02 NO SIGNIFICANT CHANGE Electronically Signed On 12-16-2024 13:33:24 GAS MAIN AND LINE FITTER by oTrres Palumbo D.O.
--- OUTSIDE RECORDS SUMMARY | 2024-12-15 23:54 | XMS_ITS | Encounter Summary ---
Author Organization [facility] Healthcare Address [address] [place] [address] Care Team Providers Care Extruder Name Role Phone Shea Mercado NP Unavailable [phone] Cristobal Salvador MD Primary Care Provider Kirsten Del Rosario MD Unavailable Tabatha Lopes MD Unavailable [phone] Reason for Visit * Auth/Cert (Routine) Specialty Diagnoses / Procedures Referred By Contac t Referred To Contact Referral ID Status Reason Start Date Expiration Date Visits Re quested Visits Authorized [id number] 1 1 Encounter Details Date Type Department Care Team (Latest Contact Info) Description 12/12/2024 11:30 AM BRANCH OPERATIONS MANAGER Home Care Visit [facility] Health [address] [address] [address] [place] [address] Yesenia Verma, PT PT OASIS START OF [...] Master's degree (e.g., MA, MS, Sandy, MEd, CAR MOVER, ADAM) 07/12/2022 Comments No Sex and Gender Information Value Date Recorded Sex Assigned at Not on file Legal Sex Female 1:04 PM CDT Gender Identity Not on file Sexual Orientation Not on file 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 on file Not on file Not on file documented as of this encounter Last Filed Vital Signs Vital Sign Reading Time Taken Comments Blood Pressure 104/62 12/12/2024 12:15 PM BRANCH OPERATIONS MANAGER Pulse 70 12/12/2024 12:15 PM BRANCH OPERATIONS MANAGER Temperature 36.4 ??C (97.5 ??F) 12/12/2024 12:[address] Respiratory Rate 17 12/12/2024 12:15 PM BRANCH OPERATIONS MANAGER Oxygen Saturation 99% 12/12/2024 12:15 PM BRANCH OPERATIONS MANAGER Inhaled Oxygen Concentration - - Weight - - Height - - Body Mass Index - - documented in this encounter Miscellaneous Notes * Home Health/Infusion Yesenia Richard, PT - 12/12/2024 12:05 PM BRANCH OPERATIONS MANAGER SITUATION Focus of Care: 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 PMH: CONFIRMED in [facility] by PCP and palliative care: hypercholsterolemia, endometrial [...] scheduled port not being accessed right now CH OPERATIONS MANAGER * Quality Review - Toya Davison, SALES AND MARKETING ANALYST - 12/12/2024 11:48 AM CST [id number] corrected. CH OPERATIONS MANAGER documented in this encounter Plan of Treatment [...] visit Disciplines: Skilled Disciplines, SN, PT, OT, SALES AND MARKETING ANALYST, COUNTER HELPER Monitor patient's vital signs every home health [...] Notes Prevent development of pressure injuries Description: MCFP goal: The patient will maintain intact skin and avoid the development of pressure injuries within 4 weeks Short term goal: The patient/caregiver will understand and adhere to pressure prevention interventions within 2 weeks Pressure Prevention No Measure vital signs during every home health visit during episode of care Description: Home diamond setter apprentice to measure vital signs during every home [...] denies any needs for education on meds. [facility] MD and pharmacy provide adequate [...] instructions. documented in this encounter Care Teams Extruder Relationship Specialty Start Date End Date Cristobal Salvador MD [address] [place] [address] PCP - General Family Medicine 03/17/24 Shea Mercado NP Nurse Practitioner Obstetrics and Gynecology 06/22/22 Kirsten Del Rosario MD [address] [facility] # [address] LL [address] [place] [address] Radiation Oncologist Radiation Oncology 06/30/24 Tabatha Lopes MD [address] [facility] [id number] [place] [address] Surgeon Gynecologic Oncology 06/30/24 documented as of this encounter
--- OUTSIDE RECORDS SUMMARY | 2024-12-15 23:54 | XMS_ITS | Encounter Summary ---
Author Organization [facility] Healthcare Address [address] [place] [address] Care Team Providers Care Frog Shaker Name Role Phone Shea Mercado NP Unavailable [phone] Cristobal Salvador MD Primary Care Provider Kirsten Del Rosario MD Unavailable Tabatha Lopes MD Unavailable [phone] Reason for Visit * Auth/Cert (Routine) Specialty Diagnoses / Procedures Referred By Contac t Referred To Contact Referral ID Status Reason Start Date Expiration Date Visits Re quested Visits Authorized [id number] 1 1 Encounter Details Date Type Department Care Team (Late st Contact Info) Description 12/15/2024 Home Care Visit [facility] Health [address] [address] [address] [place] [address] Cherie Camarillo, ANUEL CARE CONFERENCE Social History Tobacco Use Types [...] Master's degree (e.g., MA, MS, Sandy, MEd, CHICKEN VACCINATOR, ADAM) 07/12/2022 Comments No Sex and Gender Information Value Date Recorded Sex Assigned at Not on file Legal Sex Female 1:04 PM CDT Gender Identity Not on file Sexual Orientation Not on file 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 on file Not on file Not on file documented as of this encounter Plan of Treatment Not on file documented as of this encounter Visit Diagnoses Not on filedocumented in this encounter Care Teams Frog Shaker Relationship Specialty Start Date End Date Cristobal Salvador MD [address] [address] PCP - General Family Medicine 03/17/24 Shea Mercado NP Nurse Practitioner Obstetrics and Gynecology 06/22/22 Kirsten Del Rosario MD [address] [facility] # LL LL [address] [place] [address] Radiation Oncologist Radiation Oncology 06/30/24 Tabatha Lopes MD [address] [facility] [id number] [place] [address] Surgeon Gynecologic Oncology 06/30/24 documented as of this encounter
--- OUTSIDE RECORDS SUMMARY | 2024-12-15 23:54 | XMS_ITS | Encounter Summary ---
Author Organization [facility] Healthcare Address [address] [place] [address] Care Team Providers Care Outreach Coordinator Name Role Phone Shea Mercado NP Unavailable [phone] Cristobal Salvador MD Primary Care Provider Kirsten Del Rosario MD Unavailable Tabatha Lopes MD Unavailable [phone] Encounter Details Date Type Department Care Team (Late st Contact Info) Description 12/11/2024 Telephone [facility] Gy[facility]ologic On[facility] ([facility]) [address] [place] [address] Linda Medley, LOLA Social History Tobacco [...] Master's degree (e.g., MA, MS, Sandy, MEd, RAG SORTER, ADAM) 07/12/2022 Comments No Sex and Gender Information Value Date Recorded Sex Assigned at Not on file Legal Sex Female 1:04 PM CDT Gender Identity Not on file Sexual Orientation Not on file 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 Pt will go to local lab to get CBC and CMP. Discussed with pt if she has increasing or concerning symptoms to go to the ER. Patient verbalized understanding of all discussed and knows the number to reach out with any more questions. ICATING ENGINEER documented in this encounter Plan of Treatment Not on file documented as of this encounter Visit Diagnoses Not on filedocumented in this encounter Care Teams Outreach Coordinator Relationship Specialty Start Date End Date Cristobal Salvador MD [address] [place] [address] PCP - General Family Medicine 03/17/24 Shea Mercado NP Nurse Practitioner Obstetrics and Gynecology 06/22/22 Kirsten Del Rosario MD [address] [facility] # LL LL [address] [place] [address] Radiation Oncologist Radiation Oncology 06/30/24 Tabatha Lopes MD [address] [id number] [place] [address] Surgeon Gynecologic Oncology 06/30/24 documented as of this encounter
--- OUTSIDE RECORDS SUMMARY | 2024-12-15 23:54 | XMS_ITS | Encounter Summary ---
Author Organization [facility] Healthcare Address [address] [place] [address] Care Team Providers Care Forensics Analyst Name Role Phone Shea Mercado NP Unavailable [phone] Cristobal Salvador MD Primary Care Provider Kirsten Del Rosario MD Unavailable Tabatha Lopes MD Unavailable [phone] Reason for Visit * Auth/Cert (Routine) Specialty Diagnoses / Procedures Referred By Contac t Referred To Contact Referral ID Status Reason Start Date Expiration Date Visits Re quested Visits Authorized [id number] 1 1 Encounter Details Date Type Department Care Team (Late st Contact Info) Description 12/15/2024 Home Care Visit [facility] [address] [place] [address] Eveline Lagos RN NURSE MED RECON FOR [...] Master's degree (e.g., MA, MS, Sandy, MEd, IN FILE OPERATOR, ADAM) 07/12/2022 Comments No Sex and Gender Information Value Date Recorded Sex Assigned at Not on file Legal Sex Female 1:04 PM CDT Gender Identity Not on file Sexual Orientation Not on file 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 on file Not on file Not on file documented as of this encounter Plan of Treatment Not on file documented as of this encounter Visit Diagnoses Not on filedocumented in this encounter Care Teams Forensics Analyst Relationship Specialty Start Date End Date Cristobal Salvador MD [address] [address] PCP - General Family Medicine 03/17/24 Shea Mercado NP Nurse Practitioner Obstetrics and Gynecology 06/22/22 Kirsten Del Rosario MD [address] [facility] # [address] LL [address] [place] [address] Radiation Oncologist Radiation Oncology 06/30/24 Tabatha Lopes MD [address] [id number] [place] [address] Surgeon Gynecologic Oncology 06/30/24 documented as of this encounter
--- OUTSIDE RECORDS SUMMARY | 2024-12-15 23:55 | XMS_ITS ---
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
--- OUTSIDE RECORDS SUMMARY | 2024-12-15 23:55 | XMS_ITS | Clinical Summary ---
Author Organization [facility] Address [address] [place] [address] Care Team Providers Care Packaging Engineer Name Role Phone Shea Mercado NP Unavailable [phone] Cristobal Salvador MD Primary Care Provider Kirsten [...] with simethicone-di phenhydramine- lidocaine (MAGIC MOUTHWASH) suspension 1-3-3Ctjedodli ns:Adverse effect of radiation therapy, initial encounter [...] Care Team Description 12/15/2024 Home Care Visit [address] [place] [address] Eveline Lagos RN NURSE MED RECON FOR THERAPY 12/15/2024 Home Care Visit [address] [place] [address] Cherie Camarillo, PT CARE CONFERENCE 12/12/2024 11:30 AM BRIDAL SALES CONSULTANT Home Care Visit [address] [address] [address] [place] [address] Yesenia Verma, PT PT OASIS START OF CARE 12/12/2024 Plan of Care Documentation [address] [place] [address] 12/11/2024 4:00 PM BRIDAL SALES CONSULTANT Lab [facility] Outpatient Lab at [address] [address] Hypercholesteremia (Primary Dx) 12/11/2024 3:42 PM BRIDAL SALES CONSULTANT - 12/11/2024 11:59 PM BRIDAL SALES CONSULTANT Hospital Encounter [address] [address] Endometrial cancer (CMS/HCC) (HCC) Discharge Disposition: Discharge to home or self care 12/11/2024 Telephone [facility] Gy[facility] [address] [place] [id number] Linda Medley, LOLA 12/11/2024 Orders Only [facility] Gy[facility] ([facility] [address] [place] [id number] Linda Medley, RN Endometrial cancer (CMS/HCC) (HCC) (Primary Dx) 12/11/2024 Telephone [facility] [address] [place] [phone] Betzy Miller, LOLA Home Health 12/11/2024 Telephone [facility] Geriatric Medicine [address] [facility] [address] Medical Office Building 2 [place] [phone] Kymberly Shelton RN 12/10/2024 3:00 PM BRIDAL SALES CONSULTANT Telemedicine [facility] for Outpatient Health - Palliative Care [address] [place] [address] Catrachita Freeman MD Cancer related pain (Primary Dx); Endometrial cancer (CMS/HCC) (HCC); Pain from bone metastases (HCC); Nausea and vomiting, unspecified vomiting type; Physical debility; Constipation, unspecified constipation type; Repeated falls; Palliative care encounter 12/10/2024 Telephone [facility] Orthopaedic Surgery [address] [place] [address] 6th [place] [address] [place] [address] Jay Hussein MD Appointment 12/10/2024 Telephone [facility] Nutrition Counseling 1 [place] [address] 11/26/2024 Telephone [facility] Outpatient Health - Palliative Care [address] [place] [address] Millie Tim RN 11/19/2024 Telephone [facility] Nutrition Counseling 1 [place] [address] 11/18/2024 Orders Only [facility] Gynecologic [facility] [address] [place] [id number] Linda Medley, LOLA 11/17/2024 Orders Only [facility] Gynecologic [facility] [address] [place] [phone] Linda Medley, LOLA Endometrial cancer (CMS/HCC) (HCC) (Primary Dx); High risk medication use 11/13/2024 2:30 PM BRIDAL SALES CONSULTANT Office Visit [facility] Orthopaedic Surgery [address] [facility] Advanced Medicine 6th [place] [address] [place] [address] Aiden Rowe MD Cervical spinal stenosis (Primary Dx) 11/13/2024 1:45 PM BRIDAL SALES CONSULTANT - 11/13/2024 11:59 PM BRIDAL SALES CONSULTANT Hospital Encounter [facility] Radiology [place] [facility] ([facility]) [address] [place] [address] Cervical spinal stenosis Discharge Disposition: Discharge to home or self care 11/12/2024 Orders Only [facility] Gynecologic Oncology [place] [facility] ([facility]) [address] [place] [address] Linda Medley RN 11/06/2024 [facility] Outpatient [facility] - Palliative Care [address] [place] [address] [place] [address] Lolita oRjas RN 10/30/2024 9:00 AM BRIDAL SALES CONSULTANT Home Care Visit [address] [place] [address] Cherie Camarillo, PT PT OASIS DISCHARGE 10/29/2024 11:30 AM BRIDAL SALES CONSULTANT Office Visit [facility] Obstetrics and Gynecology [address] [place] [address] Advanced Medicine 13th [place] [address] [place] [address] Fe Le MD Endometrial cancer (CMS/HCC) (HCC) (Primary Dx) 10/29/2024 Orders Only [facility] Gynecologic Oncology [place] [facility] ([facility]) [address] [place] [address] Linda Medley, LOLA Endometrial cancer (CMS/HCC) (HCC) (Primary Dx) 10/29/2024 Orders Only [facility] Gynecologic Oncology [place] [facility] ([facility]) [address] [place] [address] Linda Medley, LOLA 10/28/2024 12:15 PM BRIDAL SALES CONSULTANT Home Care Visit [address] [place] [address] Lorie Schaeffer, MINIBUS DRIVER PT HOME VISIT 10/27/2024 Orders Only [facility] Radiation Oncology [address] [place] [address] Kirsten Del Rosario MD Adverse effect of radiation therapy, initial encounter (Primary Dx) 10/27/2024 Telephone [facility] Nutrition Counseling 1 [place] [address] Shante Cali, JOSSELYN 10/23/2024 1:30 PM BRIDAL SALES CONSULTANT Home Care Visit [address] [place] [address] Lorie Schaeffer PTA PT HOME VISIT 10/22/2024 3:43 PM BRIDAL SALES CONSULTANT - 10/22/2024 11:59 PM BRIDAL SALES CONSULTANT Hospital Encounter [facility] Advanced Medicine Radiation Oncology [address] [place] [address] Kirsten Del Rosario MD Discharge Disposition: Discharge to home or self care 10/22/2024 Completion of Therapy [facility] Radiation Oncology [address] [place] [address] Kirsten Del Rosario MD 10/22/2024 Orders Only RAD ONC TREATMENTS Miscellaneous, Not In File 10/21/2024 3:00 PM BRIDAL SALES CONSULTANT - 10/21/2024 11:59 PM BRIDAL SALES CONSULTANT Hospital Encounter [facility] Advanced Medicine Radiation Oncology [address] [facility] [place] [address] Kirsten Del Rosario MD Discharge Disposition: Discharge to home or self care 10/21/2024 12:15 PM BRIDAL SALES CONSULTANT Home Care Visit [address] [place] [address] Lorie Schaeffer PTA PT HOME VISIT 10/21/2024 Orders Only RAD ONC TREATMENTS Miscellaneous, Not In File 10/20/2024 2:40 PM BRIDAL SALES CONSULTANT - 10/20/2024 11:59 PM BRIDAL SALES CONSULTANT Hospital Encounter [facility] Radiation Oncology [address] [place] [address] Kirsten Del Rosario MD Discharge Disposition: Discharge to home or self care 10/20/2024 OTV [facility] Medicine Radiation Oncology [address] [place] [address] Kirsten Del Rosario MD Endometrial cancer (CMS/HCC) (HCC) [C54.1] (Primary Dx) 10/20/2024 Orders Only RAD ONC TREATMENTS Miscellaneous, Not In File 10/20/2024 Home Care Visit [address] [place] [address] Cherie Camarillo, PT CARE CONFERENCE 10/19/2024 3:56 PM BRIDAL SALES CONSULTANT - 10/19/2024 11:59 PM BRIDAL SALES CONSULTANT Hospital Encounter [facility] Radiation Oncology [address] [place] [address] Kirsten Del Rosario MD Discharge Disposition: Discharge to home or self care 10/19/2024 Orders Only RAD ONC TREATMENTS Miscellaneous, Not In File 10/18/2024 Home Care Visit [address] [place] [address] Sera Lopez, LOLA NURSE MED RECON FOR THERAPY 10/17/2024 9:00 AM BRIDAL SALES CONSULTANT Home Care Visit [address] [place] [address] Suhail Huff, PT PT OASIS START OF CARE 10/17/2024 Plan of Care Documentation [address] [place] [address] 10/16/2024 2:34 PM BRIDAL SALES CONSULTANT - 10/16/2024 11:59 PM BRIDAL SALES CONSULTANT Hospital Encounter [facility] Radiation Oncology [address] [place] [address] Kirsten Del Rosario MD Discharge Disposition: Discharge to home or self care 10/16/2024 Orders Only RAD ONC TREATMENTS Miscellaneous, Not In File 10/13/2024 10:38 AM BRIDAL SALES CONSULTANT - 10/13/2024 11:59 PM BRIDAL SALES CONSULTANT Hospital Encounter [facility] Medicine Radiation Oncology [address] [facility] [place] [place] [address] Kirsten Del Rosario MD Discharge Disposition: Discharge to home or self care 10/12/2024 7:55 AM BRIDAL SALES CONSULTANT Ancillary Procedure [facility] Vascular Lab IP [address] [facility] [address] [place] [address] 10/08/2024 11:12 AM BRIDAL SALES CONSULTANT - 10/15/2024 12:30 PM BRIDAL SALES CONSULTANT Hospital Encounter [facility] [address] [place] [address] Fe Le MD Sanders, Brooke Elizabeth, MD Diagnosis unknown (Primary Dx); Endometrial cancer (CMS/HCC) (HCC); Physical deconditioning Discharge Disposition: Discharge to home, home health skilled care 09/24/2024 4:55 PM BRIDAL SALES CONSULTANT Lab [facility] [address] [place] [address] Endometrial cancer (CMS/HCC) (HCC) (Primary Dx) 09/24/2024 1:00 PM BRIDAL SALES CONSULTANT Office Visit [facility] Obstetrics and Gynecology [address] [facility] 13th [place] [address] [place] [address] Fe Le MD Endometrial cancer (CMS/HCC) (HCC) 09/24/2024 Orders Only [facility] Gynecologic [facility] [address] [place] [address] Linda Medley RN Endometrial cancer (CMS/HCC) (HCC) (Primary Dx) 09/23/2024 Orders Only [facility] Gynecologic On[facility] [address] [place] [address] Linda Medley RN Endometrial cancer (CMS/HCC) (HCC) (Primary Dx) 09/23/2024 Telephone [facility] Nutrition Counseling 1 [place] [address] 09/15/2024 9:53 AM BRIDAL SALES CONSULTANT - 09/15/2024 11:59 PM BRIDAL SALES CONSULTANT Hospital Encounter [facility] Radiation Oncology [address] [facility] [place] [address] Kirsten Del Rosario MD Discharge Disposition: Discharge to home or self care 09/15/2024 Completion of Therapy [facility] Radiation Oncology [address] [facility] [place] [address] Kirsten Del Rosario MD 09/15/2024 Orders Only RAD ONC TREATMENTS Miscellaneous, Not In File 09/15/2024 OTV [facility] Radiation Oncology [address] [place] [address] Kirsten Del Rosario MD Endometrial cancer (CMS/HCC) (HCC) [C54.1] (Primary Dx) 09/15/2024 Orders Only RAD ONC TREATMENTS Miscellaneous, Not In File 09/14/2024 12:38 PM BRIDAL SALES CONSULTANT - 09/14/2024 11:59 PM BRIDAL SALES CONSULTANT Hospital Encounter 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 Not on file Not on file Not [...] Comments Blood Pressure 104/62 12/12/2024 12:15 PM BRIDAL SALES CONSULTANT Pulse 70 12/12/2024 12:15 PM BRIDAL SALES CONSULTANT Temperature 36.4 ??C (97.5 ??F) 12/12/2024 1 2:15 PM BRIDAL SALES CONSULTANT Respiratory Rate 17 12/12/2024 12:1 5 PM BRIDAL SALES CONSULTANT Oxygen Saturation 99% 12/12/2024 12: 15 PM BRIDAL SALES CONSULTANT Inhaled Oxygen Concentration - - Weight 46.2 kg (101 lb 14.4 oz) 024 11:48 AM BRIDAL SALES CONSULTANT Height 157.5 cm (5' 2.01 ) 10/29/2024 1 1:48 AM BRIDAL SALES CONSULTANT Body Mass Index 18.63 10/29/2024 11:48 AM BRIDAL SALES CONSULTANT Plan of Treatment Health Maintenance Due Date [...] 10/15/2024, 06/30/2024 Medical Devices Implanted Type Area Brine Tank Operator Device Identifier Shelf Expiration Date Model / Serial / Lot [employer] Excela Low Porfile Power Port 8fr 1.6mm 1 Lumen [id number] - [id number] Implanted:Qty: 1 on 04/14/2024 at [facility] [employer] 01/11/2029 [id number] / / [id number] Procedures Procedure Name Priority Date/Time Associated Diagnosis Comments EGFR Routine 12/11/2024 4:17 PM BRIDAL SALES CONSULTANT Endometrial cancer (CMS/HCC) (HCC) DIFFERENTIAL AUTO Routine 12/11/2024 4:1 7 PM BRIDAL SALES CONSULTANT Endometrial cancer (CMS/HCC) (HCC) CBC WITH AUTO DIFFERENTIAL Routine 12/11/2024 4:17 PM BRIDAL SALES CONSULTANT Endometrial cancer (CMS/HCC) (HCC) COMPREHENSIVE METABOLIC PANEL Routine 12/11/2024 4:17 PM BRIDAL SALES CONSULTANT Endometrial cancer (CMS/HCC) (HCC) XR SPINE CERVICAL 2 OR 3 VIEWS Schedule Routine, Read Routine (OP Routine) 11/13/2024 2:02 PM BRIDAL SALES CONSULTANT Cervical spinal stenosis RAD ONC ARIA SESSION SUMMARY 10/22/2024 4:33 PM BRIDAL SALES CONSULTANT RAD ONC ARIA SESSION SUMMARY 10/21/2024 3:32 PM BRIDAL SALES CONSULTANT RAD ONC ARIA SESSION SUMMARY 10/20/2024 3:06 PM BRIDAL SALES CONSULTANT RAD ONC ARIA SESSION SUMMARY 10/19/2024 4:23 PM BRIDAL SALES CONSULTANT RAD ONC ARIA SESSION SUMMARY 10/16/2024 3:10 PM BRIDAL SALES CONSULTANT EGFR Routine 10/14/2024 9:03 PM BRIDAL SALES CONSULTANT PHOSPHORUS Routine 10/14/2024 9:03 PM BRIDAL SALES CONSULTANT MAGNESIUM Routine 10/14/2024 9:03 PM BRIDAL SALES CONSULTANT BASIC METABOLIC PANEL Routine 10/14/2024 9:03 PM BRIDAL SALES CONSULTANT CBC WITHOUT DIFFERENTIAL Routine 10/14/2024 9:03 PM BRIDAL SALES CONSULTANT EGFR Routine 10/13/2024 8:20 PM BRIDAL SALES CONSULTANT PHOSPHORUS Routine 10/13/2024 8:20 PM BRIDAL SALES CONSULTANT MAGNESIUM Routine 10/13/2024 8:20 PM BRIDAL SALES CONSULTANT BASIC METABOLIC PANEL Routine 10/13/2024 8:20 PM BRIDAL SALES CONSULTANT CBC WITHOUT DIFFERENTIAL Routine 10/13/2024 8:20 PM BRIDAL SALES CONSULTANT TRANSFUSE RED BLOOD CELLS Timed 10/13/2024 5:35 PM BRIDAL SALES CONSULTANT TYPE AND SCREEN Timed 10/13/2024 3:35 PM BRIDAL SALES CONSULTANT PREPARE RBC Timed 10/13/2024 3:31 PM BRIDAL SALES CONSULTANT EGFR Routine 10/12/2024 8:40 PM BRIDAL SALES CONSULTANT PHOSPHORUS Routine 10/12/2024 8:40 PM BRIDAL SALES CONSULTANT MAGNESIUM Routine 10/12/2024 8:40 PM BRIDAL SALES CONSULTANT BASIC METABOLIC PANEL Routine 10/12/2024 8:40 PM BRIDAL SALES CONSULTANT CBC WITHOUT DIFFERENTIAL Routine 10/12/2024 8:40 PM BRIDAL SALES CONSULTANT US CAROTIDS DUPLEX BILATERAL ED Urgent/IP Urgent 10/12/2024 2:45 [address] CHEST PE ABDOMEN PELVIS W CONTRAST ED Urgent/IP Urgent 10/12/2024 10:50 AM BRIDAL SALES CONSULTANT TROPONIN I HIGH-SENSITIVITY Timed 10/12/2024 7:07 AM BRIDAL SALES CONSULTANT ECG 12-LEAD Routine 10/12/2024 6:58 AM BRIDAL SALES CONSULTANT EGFR Routine 10/11/2024 8:23 PM BRIDAL SALES CONSULTANT PHOSPHORUS Routine 10/11/2024 8:23 PM BRIDAL SALES CONSULTANT MAGNESIUM Routine 10/11/2024 8:23 PM BRIDAL SALES CONSULTANT BASIC METABOLIC PANEL Routine 10/11/2024 8:23 PM BRIDAL SALES CONSULTANT CBC WITHOUT DIFFERENTIAL Routine 10/11/2024 8:23 PM BRIDAL SALES CONSULTANT XR CHEST 1 VIEW ED Urgent/IP Urgent 10/11/2024 3:07 PM BRIDAL SALES CONSULTANT URINALYSIS, MICROSCOPIC ONLY STAT 10/11/2024 2:32 PM BRIDAL SALES CONSULTANT URINALYSIS AND REFLEX TO MICROSCOPIC AND CULTURE STAT 10/11/2024 2:32 PM BRIDAL SALES CONSULTANT EGFR STAT 10/11/2024 2:22 PM BRIDAL SALES CONSULTANT DIFFERENTIAL AUTO STAT 10/11/2024 2:2 2 PM BRIDAL SALES CONSULTANT LACTATE STAT 10/11/2024 2:22 PM BRIDAL SALES CONSULTANT BASIC METABOLIC PANEL STAT 10/11/2024 2:22 PM BRIDAL SALES CONSULTANT CBC WITH AUTO DIFFERENTIAL STAT 10/11/2024 2:22 PM BRIDAL SALES CONSULTANT RESPIRATORY PATHOGEN PANEL Routine 10/11/2024 2:22 PM BRIDAL SALES CONSULTANT BLOOD CULTURE Routine 10/11/2024 2:22 PM BRIDAL SALES CONSULTANT BLOOD CULTURE Routine 10/11/2024 2:22 PM BRIDAL SALES CONSULTANT EGFR Routine 10/10/2024 8:47 PM BRIDAL SALES CONSULTANT PHOSPHORUS Routine 10/10/2024 8:47 PM BRIDAL SALES CONSULTANT MAGNESIUM Routine 10/10/2024 8:47 PM BRIDAL SALES CONSULTANT BASIC METABOLIC PANEL Routine 10/10/2024 8:47 PM BRIDAL SALES CONSULTANT CBC WITHOUT DIFFERENTIAL Routine 10/10/2024 8:47 PM BRIDAL SALES CONSULTANT ECG 12-LEAD STAT 10/10/2024 2:15 PM BRIDAL SALES CONSULTANT EGFR Routine 10/09/2024 8:11 PM BRIDAL SALES CONSULTANT PHOSPHORUS Routine 10/09/2024 8:11 PM BRIDAL SALES CONSULTANT MAGNESIUM Routine 10/09/2024 8:11 PM BRIDAL SALES CONSULTANT BASIC METABOLIC PANEL Routine 10/09/2024 8:11 PM BRIDAL SALES CONSULTANT CBC WITHOUT DIFFERENTIAL Routine 10/09/2024 8:11 PM BRIDAL SALES CONSULTANT MRI BRAIN W WO CONTRAST IP Routine 10/09/2024 2:25 PM BRIDAL SALES CONSULTANT MRI SPINE TOTAL COMPLETE W WO CONTRAST IP Routine 10/09/2024 2:25 PM BRIDAL SALES CONSULTANT EGFR Routine 10/08/2024 8:48 PM BRIDAL SALES CONSULTANT PHOSPHORUS Routine 10/08/2024 8:48 PM BRIDAL SALES CONSULTANT MAGNESIUM Routine 10/08/2024 8:48 PM BRIDAL SALES CONSULTANT BASIC METABOLIC PANEL Routine 10/08/2024 8:48 PM BRIDAL SALES CONSULTANT CBC WITHOUT DIFFERENTIAL Routine 10/08/2024 8:48 PM BRIDAL SALES CONSULTANT XR SPINE CERVICAL 2 OR 3 VIEWS IP Routine 10/08/2024 6:20 PM BRIDAL SALES CONSULTANT XR SCOLIOSIS AP LAT IP Routine 10/08/2024 6 :19 PM BRIDAL SALES CONSULTANT XR TRANSFER OF OUTSIDE FILMS Routine 10/08/2024 2:48 PM BRIDAL SALES CONSULTANT NEURO CT OUTSIDE CONSULT Routine 10/08/2024 2:42 PM BRIDAL SALES CONSULTANT Diagnosis unknown NEURO CT OUTSIDE CONSULT Routine 10/08/2024 2:35 PM BRIDAL SALES CONSULTANT Diagnosis unknown EGFR Routine 10/08/2024 12:25 PM BRIDAL SALES CONSULTANT DIFFERENTIAL AUTO Routine 10/08/2024 12: 25 PM BRIDAL SALES CONSULTANT CBC WITH AUTO DIFFERENTIAL Routine 10/08/2024 12:25 PM BRIDAL SALES CONSULTANT PHOSPHORUS Routine 10/08/2024 12:25 PM BRIDAL SALES CONSULTANT MAGNESIUM Routine 10/08/2024 12:25 PM BRIDAL SALES CONSULTANT COMPREHENSIVE METABOLIC PANEL Routine 10/08/2024 12:25 PM BRIDAL SALES CONSULTANT EGFR Routine 09/24/2024 2:26 PM BRIDAL SALES CONSULTANT Endometrial cancer (CMS/HCC) (HCC) DIFFERENTIAL AUTO Routine 09/24/2024 2:2 6 PM BRIDAL SALES CONSULTANT Endometrial cancer (CMS/HCC) (HCC) COMPREHENSIVE METABOLIC PANEL Routine 09/24/2024 2:26 PM BRIDAL SALES CONSULTANT Endometrial cancer (CMS/HCC) (HCC) CA 125 Routine 09/24/2024 2:26 PM BRIDAL SALES CONSULTANT Endometrial cancer (CMS/HCC) (HCC) CBC WITH AUTO DIFFERENTIAL Routine 09/24/2024 2:26 PM BRIDAL SALES CONSULTANT Endometrial cancer (CMS/HCC) (HCC) RAD ONC ARIA COURSE SUMMARY 09/15/2024 1:49 PM BRIDAL SALES CONSULTANT RAD ONC ARIA SESSION SUMMARY 09/15/2024 10:26 AM BRIDAL SALES CONSULTANT RAD ONC ARIA SESSION SUMMARY 09/14/2024 1:15 PM BRIDAL SALES CONSULTANT from Last 3 Months Results * eGFR (12/11/2024 4:17 PM BRIDAL SALES CONSULTANT) eGFR >90 >=60 mL/min/1. 73 m2 Comment: [...] last reviewed 2021. Blood 12/11/2024 4:17 PM BRIDAL SALES CONSULTANT 12/11/2024 8:52 PM BRIDAL SALES CONSULTANT us Fe Le MD LAB BLOOD ORDERABLES Eleni l Result [facility] [id number] [address] Department [place] [address] * (ABNORMAL) Differential, auto (12/11/2024 4:17 PM BRIDAL SALES CONSULTANT) Neutrophil abs 6.2 1.5 - 6.5 K/cumm Imm gran abs 0.2(H) 0.0 - 0.1 K/cumm [facility] Lymphocyte abs 0.9 0.8 - 3.3 K/cumm [facility] Monocyte abs 1.2(H) 0.2 - 0.8 K/cumm [facility] Eosinophil abs 0.0 0.0 - 0.5 K/cumm [facility] Basophil abs 0.0 0.0 - 0.1 K/cumm [facility] Neutrophil pct 72.4 % [facility] Comment: Interpretive Data Percent cell count reference ranges are not reported, since discordance with absolute values may lead to misinterpretation of CBC data. Current Interpretive Data was last revised on 2018. Imm gran pct 1.8 % [facility] Comment: Interpretive Data Percent cell count reference ranges are not reported, since discordance with absolute values may lead to misinterpretation of CBC data. Current Interpretive Data was last revised on 2018. Lymphocyte pct 10.9 % [facility] Comment: Interpretive Data Percent cell count reference ranges are not reported, since discordance with absolute values may lead to misinterpretation of CBC data. Current Interpretive Data was last revised on 2018. Monocyte pct 14.0 % [facility] Comment: Interpretive Data Percent cell count reference ranges are not reported, since discordance with absolute values may lead to misinterpretation of CBC data. Current Interpretive Data was last revised on 2018. Eosinophil pct 0.4 % [facility] Comment: Interpretive Data Percent cell count reference ranges are not reported, since discordance with absolute values may lead to misinterpretation of CBC data. Current Interpretive Data was last revised on 2018. Basophil pct 0.5 % [facility] Comment: Interpretive Data Percent cell count reference ranges are not reported, since discordance with absolute values may lead to misinterpretation of CBC data. Current Interpretive Data was last revised on 2018. Blood 12/11/2024 4:17 PM BRIDAL SALES CONSULTANT 12/11/2024 8:47 PM BRIDAL SALES CONSULTANT eF Le MD LAB BLOOD ORDERABLES Eleni parker Result [facility] [id number] [address] Department [place] [address] * (ABNORMAL) CBC with auto differential (12/11/2024 4:17 PM BRIDAL SALES CONSULTANT) WBC 8.5 3.8 - 9.9 K/cumm Hgb 6.8(L) 11.9 - 15.5 g/dL [facility] Hct 23.1(L) 35.6 - 45.5 % [facility] Plt 562(H) 150 - 400 K/cumm [facility] MPV 9.4 9.1 - 12.3 fL [facility] RBC 3.13(L) 3.90 - 5.20 M/cumm [facility] MCV 73.8(L) 81.3 - 96.4 fL [facility] MCH 21.7(L) 27.1 - 33.3 pg [facility] MCHC 29.4(L) 32.3 - 35.7 g/dL [facility] RDW CV 19.4(H) 11.1 - 14.9 % [facility] RDW SD 51.6(H) 35.7 - 48.1 fL [facility] NRBC abs 0.00 0.00 - 0.01 K/cumm [facility] Blood 12/11/2024 4:17 PM BRIDAL SALES CONSULTANT 12/11/2024 8:47 PM BRIDAL SALES CONSULTANT us Fe Le MD LAB BLOOD ORDERABLES Eleni parker Result [facility] [id number] [address] Department [place] [address] * (ABNORMAL) Comprehensive metabolic panel (12/11/2024 4:17 PM BRIDAL SALES CONSULTANT) Sodium 129(L) 135 - 145 mmol/L Potassium, [...] Units/L [facility] Blood 12/11/2024 4:17 PM BRIDAL SALES CONSULTANT 12/11/2024 8:47 PM BRIDAL SALES CONSULTANT us Fe Le MD LAB BLOOD ORDERABLES Eleni elena Result [facility] [address] Department [place] [address] * XR Spine Cervical 2 or 3 Views (11/13/2024 2:02 PM BRIDAL SALES CONSULTANT) Anatomical Region Laterality Modality Spine N/A Computed Radiogr aphy 11/13/2024 2:33 PM BRIDAL SALES CONSULTANT Impressions 11/13/2024 2:33 PM BRIDAL SALES CONSULTANT 1. ??Unchanged appearance of the lytic C6 lesion with pathologic fracture without interval height loss. Electronically signed by: Shruti Hogue MD Narrative 11/13/2024 2:33 PM BRIDAL SALES CONSULTANT EXAMINATION: XR SPINE CERVICAL 2 OR 3 [...] ONC ARIA SESSION SUMMARY (10/22/2024 4:33 PM BRIDAL SALES CONSULTANT) Course Name C2_C_spine ARIA Course Plan Date 10/13/2024 6:42 AM ARIA Elapsed Days 6 ARIA Treatment Start Date 10/16/2024 ARIA Treatment Site C Spine ARIA Dose Given To Date (cGy) 2,000 ARIA Session Dosage Given (cGy) 400 ARIA Plan ID C Spine ARIA Fractions Treated 5 ARIA Prescribed Dose Per Fraction (cGy) 400 ARIA Prescribed Total Dose (cGy) 2,000 ARIA 10/22/2024 4:33 PM BRIDAL SALES CONSULTANT us Not In File Miscellaneous RADIATION ONCOLOGY ORD ERABLES Final Result Performing Organization Address [facility] Co de Phone Number ARIA * RAD ONC ARIA SESSION SUMMARY (10/21/2024 3:32 PM BRIDAL SALES CONSULTANT) Course Name C2_C_spine ARIA Course Plan Date 10/13/2024 6:42 AM ARIA Elapsed Days 5 ARIA Treatment Start Date 10/16/2024 ARIA Treatment Site C Spine ARIA Dose Given To Date (cGy) 1,600 ARIA Session Dosage Given (cGy) 400 ARIA Plan ID C Spine ARIA Fractions Treated 4 ARIA Prescribed Dose Per Fraction (cGy) 400 ARIA Prescribed Total Dose (cGy) 2,000 ARIA 10/21/2024 3:32 PM BRIDAL SALES CONSULTANT us Not In File Miscellaneous RADIATION ONCOLOGY ORD ERABLES Final Result ARIA * RAD ONC ARIA SESSION SUMMARY (10/20/2024 3:06 PM BRIDAL SALES CONSULTANT) Course Name C2_C_spine ARIA Course Plan Date 10/13/2024 6:42 AM ARIA Elapsed Days 4 ARIA Treatment Start Date 10/16/2024 ARIA Treatment Site C Spine ARIA Dose Given To Date (cGy) 1,200 ARIA Session Dosage Given (cGy) 400 ARIA Plan ID C Spine ARIA Fractions Treated 3 ARIA Prescribed Dose Per Fraction (cGy) 400 ARIA Prescribed Total Dose (cGy) 2,000 ARIA 10/20/2024 3:06 PM BRIDAL SALES CONSULTANT us Not In File Miscellaneous RADIATION ONCOLOGY ORD ERABLES Final Result FLORECITA * RAD ONC ARIA SESSION SUMMARY (10/19/2024 4:23 PM BRIDAL SALES CONSULTANT) Course Name C2_C_spine _2023 ARIA Course Plan [...] Dose (cGy) 2,000 ARIA 10/19/2024 4:23 PM BRIDAL SALES CONSULTANT us Not In File Miscellaneous RADIATION ONCOLOGY ORD ERABLES Final Result FLORECITA * RAD ONC ARIA SESSION SUMMARY (10/16/2024 3:10 PM BRIDAL SALES CONSULTANT) Course Name C2_C_spine _2023 ARIA Course Plan [...] Dose (cGy) 2,000 ARIA 10/16/2024 3:10 PM BRIDAL SALES CONSULTANT us Not In File Miscellaneous RADIATION ONCOLOGY ORD ERABLES Final Result FLORECITA * eGFR (10/14/2024 9:03 PM BRIDAL SALES CONSULTANT) eGFR >90 >=60 mL/min/1. 73 m2 Comment: [...] last reviewed 2021. Blood 10/14/2024 9:03 PM BRIDAL SALES CONSULTANT 10/14/2024 9:22 PM BRIDAL SALES CONSULTANT us Fe Le MD LAB BLOOD ORDERABLES Eleni parker Result [facility] Department of Laboratories [place], [place] [id number] * (ABNORMAL) CBC without differential (10/14/2024 9:03 PM BRIDAL SALES CONSULTANT) Pathologist [facility] WBC 6.9 3.8 - 9.9 K/cumm Hgb 8.4(L) 11.9 - 15.5 g/dL [facility] Hct 26.2(L) 35.6 - 45.5 % [facility] Plt 354 150 - 400 K/cumm [facility] MPV 9.5 9.1 - 12.3 fL [facility] RBC 3.33(L) 3.90 - 5.20 M/cumm [facility] MCV 78.7(L) 81.3 - 96.4 fL [facility] MCH 25.2(L) 27.1 - 33.3 pg [facility] MCHC 32.1(L) 32.3 - 35.7 g/dL [facility] RDW CV 19.8(H) 11.1 - 14.9 % [facility] RDW SD 57.2(H) 35.7 - 48.1 fL [facility] NRBC abs 0.00 0.00 - 0.01 K/cumm [facility] Blood 10/14/2024 9:03 PM BRIDAL SALES CONSULTANT 10/14/2024 9:22 PM BRIDAL SALES CONSULTANT Fe Le MD LAB BLOOD ORDERABLES Eleni l Result [facility] [employer] [place] [address] * Phosphorus (10/14/2024 9:03 PM BRIDAL SALES CONSULTANT) Phosphorus, pl 2.5 2.3 - 4.5 mg/dL Blood 10/14/2024 9:03 PM BRIDAL SALES CONSULTANT 10/14/2024 9:22 PM BRIDAL SALES CONSULTANT Fe Le MD LAB BLOOD ORDERABLES Eleni l Result [facility] [place] [employer] [place] [address] * Magnesium (10/14/2024 9:03 PM BRIDAL SALES CONSULTANT) Magnesium 1.9 1.4 - 2.5 mg/dL Blood 10/14/2024 9:03 PM BRIDAL SALES CONSULTANT 10/14/2024 9:22 PM BRIDAL SALES CONSULTANT Fe Le MD LAB BLOOD ORDERABLES Eleni l Result [facility] Department [place] [address] * (ABNORMAL) Basic metabolic panel (10/14/2024 9:03 PM BRIDAL SALES CONSULTANT) [facility] Sodium 135 135 - 145 mmol/L Potassium, pl 3.5 3.3 - 4.9 mmol/L [facility] Chloride 98 97 - 110 mmol/L [facility] CO2 24 22 - 32 mmol/L [facility] Anion gap 13 2 - 15 mmol/L [facility] BUN 12 6 - 25 mg/dL [facility] Creatinine 0.59(L) 0.60 - 1.10 mg/dL [facility] Glucose 218(H) 70 - 199 mg/dL [facility] Comment: Interpretive Data Fasting [...] 2022. Calcium 8.9 8.5 - 10.3 mg/dL [facility] Blood 10/14/2024 9:03 PM BRIDAL SALES CONSULTANT 10/14/2024 9:22 PM BRIDAL SALES CONSULTANT us Fe Le MD LAB BLOOD ORDERABLES Eleni l Result Performing Organization Address [facility]/ZIP Co de Phone Number [facility] Department [place] [address] * eGFR (10/13/2024 8:20 PM BRIDAL SALES CONSULTANT) eGFR >90 >=60 mL/min/1. 73 m2 Comment: [...] last reviewed 2021. Blood 10/13/2024 8:20 PM BRIDAL SALES CONSULTANT 10/13/2024 8:49 PM BRIDAL SALES CONSULTANT us Fe Le MD LAB BLOOD ORDERABLES Eleni elena Result [facility] [place] [address] * (ABNORMAL) CBC without differential (10/13/2024 8:20 PM BRIDAL SALES CONSULTANT) Pathologist [facility] WBC 6.7 3.8 - 9.9 K/cumm Hgb 8.6(L) 11.9 - 15.5 g/dL [facility] Hct 26.3(L) 35.6 - 45.5 % [facility] Plt 351 150 - 400 K/cumm [facility] MPV 9.3 9.1 - 12.3 fL [facility] RBC 3.40(L) 3.90 - 5.20 M/cumm [facility] MCV 77.4(L) 81.3 - 96.4 fL [facility] MCH 25.3(L) 27.1 - 33.3 pg [facility] MCHC 32.7 32.3 - 35.7 g/dL [facility] RDW CV 20.0(H) 11.1 - 14.9 % [facility] RDW SD 56.2(H) 35.7 - 48.1 fL [facility] NRBC abs 0.00 0.00 - 0.01 K/cumm [facility] Blood 10/13/2024 8:20 PM BRIDAL SALES CONSULTANT 10/13/2024 8:48 PM BRIDAL SALES CONSULTANT Fe Le MD LAB BLOOD ORDERABLES Eleni l Result [facility] Department [place] [employer] [place] [address] * Phosphorus (10/13/2024 8:20 PM BRIDAL SALES CONSULTANT) Pathologist [facility] Phosphorus, pl 3.7 2.3 - 4.5 mg/dL Blood 10/13/2024 8:20 PM BRIDAL SALES CONSULTANT 10/13/2024 8:49 PM BRIDAL SALES CONSULTANT Fe Le MD LAB BLOOD ORDERABLES Eleni l Result [facility] [place] [employer] [place] [address] * Magnesium (10/13/2024 8:20 PM BRIDAL SALES CONSULTANT) Pathologist [facility] Magnesium 2.1 1.4 - 2.5 mg/dL Blood 10/13/2024 8:20 PM BRIDAL SALES CONSULTANT 10/13/2024 8:49 PM BRIDAL SALES CONSULTANT Fe Le MD LAB BLOOD ORDERABLES Eleni l Result Performing Organization Address [facility]/ZIP Co de Phone Number [facility] Department [place] [address] * (ABNORMAL) Basic metabolic panel (10/13/2024 8:20 PM BRIDAL SALES CONSULTANT) Pathologist [facility] Sodium 137 135 - 145 mmol/L Potassium, pl 3.9 3.3 - 4.9 mmol/L [facility] Chloride 100 97 - 110 mmol/L [facility] CO2 27 22 - 32 mmol/L [facility] Anion gap 10 2 - 15 mmol/L [facility] BUN 12 6 - 25 mg/dL [facility] Creatinine 0.58(L) 0.60 - 1.10 mg/dL [facility] Glucose 97 70 - 199 mg/dL [facility] Comment: Interpretive Data Fasting [...] 2022. Calcium 9.2 8.5 - 10.3 mg/dL [facility] Blood 10/13/2024 8:20 PM BRIDAL SALES CONSULTANT 10/13/2024 8:49 PM BRIDAL SALES CONSULTANT Fe Le MD LAB BLOOD ORDERABLES Eleni l Result Performing Organization Address [facility]/ZIP Co de Phone Number [facility] Department [place] [address] * Transfuse RBC (10/13/2024 7:17 PM BRIDAL SALES CONSULTANT) Blood Fe Le MD BLOOD TRANSFUSION ORDERAB LES Final Result Performing Organization Address [facility] Co de Phone Number [facility] [employer] [place] [address] * Type and screen (10/13/2024 3:35 PM BRIDAL SALES CONSULTANT) ABO Rh AB Positive Dara, indirect Negative [facility] Blood 10/13/2024 3:35 PM BRIDAL SALES CONSULTANT 10/13/2024 3:54 PM BRIDAL SALES CONSULTANT Narrative [facility] - 10/13/2024 5:03 PM BRIDAL SALES CONSULTANT Has the patient had Daratumumab or Isatuximab in the past 6 months?->Unknown Fe Le MD LAB BLOOD BANK TEST ORDER VANESSA Final Result Performing Organization Address [facility] de Phone Number [facility] [employer] [place] [address] * Prepare RBC: 1 Units (10/13/2024 3:31 PM BRIDAL SALES CONSULTANT) Pathologist [facility] Product code [id number] Unit Number [id number] [facility] Product Blood Type APOS [facility] Dispense Status PRESUMED TRANSFUSED [facility] Blood 10/13/2024 3:31 PM BRIDAL SALES CONSULTANT 10/13/2024 3:31 PM BRIDAL SALES CONSULTANT Narrative [facility] - 10/14/2024 12:55 AM BRIDAL SALES CONSULTANT Other indication->Rads < 8 Are special requirements needed? (All products are leukoreduced and CMV- safe)- >No Date required:-20241013 LRRBC # of [id number] Reasons:-Other (specify)} Fe Le MD BLOOD BANK PRODUCT ORDERA BLES Final Result Performing Organization Address [facility] Co de Phone Number [facility] [employer] [place] [address] * eGFR (10/12/2024 8:40 PM BRIDAL SALES CONSULTANT) Pathologist [facility] eGFR >90 >=60 mL/min/1. 73 m2 Comment: [...] last reviewed 2021. Blood 10/12/2024 8:40 PM BRIDAL SALES CONSULTANT 10/12/2024 9:20 PM BRIDAL SALES CONSULTANT us Fe Le MD LAB BLOOD ORDERABLES Eleni parker Result [facility] Department [place] [address] * (ABNORMAL) CBC without differential (10/12/2024 8:40 PM BRIDAL SALES CONSULTANT) Pathologist [facility] WBC 7.5 3.8 - 9.9 K/cumm Hgb 7.4(L) 11.9 - 15.5 g/dL [facility] Hct 23.1(L) 35.6 - 45.5 % [facility] Plt 375 150 - 400 K/cumm [facility] MPV 9.6 9.1 - 12.3 fL [facility] RBC 3.04(L) 3.90 - 5.20 M/cumm [facility] MCV 76.0(L) 81.3 - 96.4 fL [facility] MCH 24.3(L) 27.1 - 33.3 pg [facility] MCHC 32.0(L) 32.3 - 35.7 g/dL [facility] RDW CV 20.7(H) 11.1 - 14.9 % [facility] RDW SD 57.1(H) 35.7 - 48.1 fL [facility] NRBC abs 0.00 0.00 - 0.01 K/cumm [facility] Blood 10/12/2024 8:40 PM BRIDAL SALES CONSULTANT 10/12/2024 9:20 PM BRIDAL SALES CONSULTANT Fe Le MD LAB BLOOD ORDERABLES Eleni l Result [facility] Department [place] [employer] [place] [address] * Phosphorus (10/12/2024 8:40 PM BRIDAL SALES CONSULTANT) Phosphorus, pl 3.4 2.3 - 4.5 mg/dL Blood 10/12/2024 8:40 PM BRIDAL SALES CONSULTANT 10/12/2024 9:20 PM BRIDAL SALES CONSULTANT Fe Le MD LAB BLOOD ORDERABLES Eleni l Result [facility] [place] [place] [address] * Magnesium (10/12/2024 8:40 PM BRIDAL SALES CONSULTANT) Magnesium 2.0 1.4 - 2.5 mg/dL Blood 10/12/2024 8:40 PM BRIDAL SALES CONSULTANT 10/12/2024 9:20 PM BRIDAL SALES CONSULTANT Fe Le MD LAB BLOOD ORDERABLES Eleni l Result Performing Organization Address [facility] Co de Phone Number [facility] Department [place] [address] * Basic metabolic panel (10/12/2024 8:40 PM BRIDAL SALES CONSULTANT) [facility] Sodium 136 135 - 145 mmol/L Potassium, pl 4.1 3.3 - 4.9 mmol/L [facility] Chloride 99 97 - 110 mmol/L [facility] CO2 26 22 - 32 mmol/L [facility] Anion gap 11 2 - 15 mmol/L [facility] BUN 13 6 - 25 mg/dL [facility] Creatinine 0.63 0.60 - 1.10 mg/dL [facility] Glucose 155 70 - 199 mg/dL [facility] Comment: Interpretive Data Fasting [...] 2022. Calcium 9.3 8.5 - 10.3 mg/dL [facility] Blood 10/12/2024 8:40 PM BRIDAL SALES CONSULTANT 10/12/2024 9:20 PM BRIDAL SALES CONSULTANT Fe Le MD LAB BLOOD ORDERABLES Eleni l Result Performing Organization Address [facility] Co de Phone Number [facility] Department [place] [address] * US Carotids Duplex Bilateral (10/12/2024 2:45 PM BRIDAL SALES CONSULTANT) Anatomical Region Laterality Modality Vascular Bilateral Ultrasound 10/12/2024 12:1 7 PM BRIDAL SALES CONSULTANT Narrative 10/13/2024 1:10 AM BRIDAL SALES CONSULTANT [facility] [employer] [facility] - Department of Vascular Surgery, Vascular Laboratory [address] [place] [id number] Carotid Duplex Ultrasound Report Patient Name: AMY HARE M : 1950 (74y 7m) Study Date: 10/12/2024 12:17:45 PM Gender: F Tech: Location: [id number] Ref Provider: FE LE Quality: Adequate Order [...] PSV ?86 ? cm/sec - FINDINGS: Performing Copy And Print Associate: Liana Hills RVT. Rt Common Carotid Artery: [...] Fly Argueta MD FACS 10/13/2024 1:09:29 AM BRIDAL SALES CONSULTANT Procedure Note Fly Argueta MD - 10/13/2024 [facility] - Department of Vascular Surgery,Vascular Laboratory [address] [place] [address] Carotid Duplex Ultrasound Report Patient Name: AMY HARE M : 1950 (74y 7m) Study Date: 10/12/2024 12:17:45 PM Gender: F Tech: Location: [id number] Ref Provider: FE LE Quality: Adequate Order [...] LT VERT PSV 86cm/sec - FINDINGS: Performing Copy And Print Associate: Liana Hills RVT. Rt Common Carotid Artery: [...] above. Electronically Signed By: Fly Argueta MD [facility] 10/13/2024 1:09:29 AM BRIDAL SALES CONSULTANT us Fe Le MD IM US PROCEDURES Final R esult * CT Chest PE (CTA) Abdomen Pelvis W Contrast (10/12/2024 10:50 AM BRIDAL SALES CONSULTANT) Anatomical Region Laterality Modality Body N/A Computed Tomogra phy 10/12/2024 11:3 1 AM BRIDAL SALES CONSULTANT Impressions 10/12/2024 11:31 AM BRIDAL SALES CONSULTANT 1. ??No pulmonary embolism. 2. ??Progressive disease with progressive mediastinal, retroperitoneal, and pelvic lymphadenopathy. ??There is also increased size of a hepatic segment 7 metastatic lesion. 3. ??New small left lower lobe groundglass nodule, indeterminate, this may be infectious or inflammatory. ??Recommend attention on follow-up. 4. ??Redemonstrated osseous metastatic disease. Electronically signed by: Erna Lebron M.D. Narrative 10/12/2024 11:31 AM BRIDAL SALES CONSULTANT EXAMINATION: CT CHEST PE (CTA) ABDOMEN PELVIS [...] * Troponin I high-sensitivity (10/12/2024 7:07 AM BRIDAL SALES CONSULTANT) Pathologist [facility] Trop I hs <4 <=17 ng/L Comment: Interpretive Data For further hscTnI resources including the diagnostic algorithm and an aid in interpretation, copy and paste this link: [email or web address]/[email or web address] Current Interpretive Data last revised 2020. Blood 10/12/2024 7:07 AM BRIDAL SALES CONSULTANT 10/12/2024 7:52 AM BRIDAL SALES CONSULTANT Fe Le MD LAB BLOOD ORDERABLES Eleni l Result [facility] Department [place] [address] * ECG 12 lead (10/12/2024 6:58 AM BRIDAL SALES CONSULTANT) [facility] Ventricular Rate EKG/Min 91 BPM [facility] Atrial Rate 91 BPM [facility] WI-Interval (MSEC) [address] [facility] QRS-Interval (MSEC) [address] [facility] QT-Interval (MSEC) 354 ms [facility] QTc 435 ms [facility] P [place] 54 degrees [facility] R [place] 29 degrees [facility] T [place] 40 degrees [facility] Diagnosis Normal sinus rhythm Normal ECG When compared with ECG of 10-OCT-2024 14:15, (unconfirmed ) Nonspecific T wave abnormality, improved in Anterior leads Confirmed by YAIR LUJAN M.D ([id number]) on 10/13/2024 8:39:16 AM [facility] 10/12/2024 6:58 AM BRIDAL SALES CONSULTANT 10/13/2024 8:39 AM BRIDAL SALES CONSULTANT Fe Le MD ECG ORDERABLES Final Res ult [facility] * eGFR (10/11/2024 8:23 PM BRIDAL SALES CONSULTANT) [facility] eGFR >90 >=60 mL/min/1. 73 m2 [...] last reviewed 2021. Blood 10/11/2024 8:23 PM BRIDAL SALES CONSULTANT 10/11/2024 8:43 PM BRIDAL SALES CONSULTANT us Fe Le MD LAB BLOOD ORDERABLES Eleni parker Result [facility] Department [place] [address] * (ABNORMAL) CBC without differential (10/11/2024 8:23 PM BRIDAL SALES CONSULTANT) [facility] WBC 7.0 3.8 - 9.9 K/cumm Hgb 7.5(L) 11.9 - 15.5 g/dL [facility] Hct 24.0(L) 35.6 - 45.5 % [facility] Plt 364 150 - 400 K/cumm [facility] MPV 9.2 9.1 - 12.3 fL [facility] RBC 3.15(L) 3.90 - 5.20 M/cumm [facility] MCV 76.2(L) 81.3 - 96.4 fL [facility] MCH 23.8(L) 27.1 - 33.3 pg [facility] MCHC 31.3(L) 32.3 - 35.7 g/dL [facility] RDW CV 21.0(H) 11.1 - 14.9 % [facility] RDW SD 57.8(H) 35.7 - 48.1 fL [facility] NRBC abs 0.00 0.00 - 0.01 K/cumm [facility] Blood 10/11/2024 8:23 PM BRIDAL SALES CONSULTANT 10/11/2024 8:43 PM BRIDAL SALES CONSULTANT Fe Le MD LAB BLOOD ORDERABLES Eleni l Result [facility] Department of [employer] [place] [address] * Phosphorus (10/11/2024 8:23 PM BRIDAL SALES CONSULTANT) Phosphorus, pl 3.1 2.3 - 4.5 mg/dL Blood 10/11/2024 8:23 PM BRIDAL SALES CONSULTANT 10/11/2024 8:43 PM BRIDAL SALES CONSULTANT Fe Le MD LAB BLOOD ORDERABLES Eleni l Result [facility] [place] [employer] [place] [address] * Magnesium (10/11/2024 8:23 PM BRIDAL SALES CONSULTANT) Pathologist [facility] Magnesium 2.1 1.4 - 2.5 mg/dL Blood 10/11/2024 8:23 PM BRIDAL SALES CONSULTANT 10/11/2024 8:43 PM BRIDAL SALES CONSULTANT Fe Le MD LAB BLOOD ORDERABLES Eleni parker Result [facility] Department [place] [address] * (ABNORMAL) Basic metabolic panel (10/11/2024 8:23 PM BRIDAL SALES CONSULTANT) Sodium 133(L) 135 - 145 mmol/L Potassium, pl 3.6 3.3 - 4.9 mmol/L [facility] Chloride 98 97 - 110 mmol/L [facility] CO2 25 22 - 32 mmol/L [facility] Anion gap 10 2 - 15 mmol/L [facility] BUN 14 6 - 25 mg/dL [facility] Creatinine 0.63 0.60 - 1.10 mg/dL [facility] Glucose 199 70 - 199 mg/dL [facility] Comment: Interpretive Data Fasting [...] 2022. Calcium 9.2 8.5 - 10.3 mg/dL [facility] Blood 10/11/2024 8:23 PM BRIDAL SALES CONSULTANT 10/11/2024 8:43 PM BRIDAL SALES CONSULTANT Fe Le MD LAB BLOOD ORDERABLES Eleni l Result Performing Organization Address [facility]/ZIP Co de Phone Number [facility] Department [place] [address] * XR Chest 1 View (10/11/2024 3:07 PM BRIDAL SALES CONSULTANT) Anatomical Region Laterality Modality Body, Chest N/A Computed Radiogr aphy 10/11/2024 3:35 PM BRIDAL SALES CONSULTANT Impressions 10/11/2024 3:35 PM BRIDAL SALES CONSULTANT Comparison 07/30/2024 5:57 PM. Heart size remains within normal limits. ??New mild contour bulge seen in the region of the aortopulmonary window, corresponding to lymphadenopathy on computed tomographic examination 08/17/2024. The lungs are clear without focal consolidation or pulmonary edema. No pneumothorax or pleural effusion seen. Electronically signed by: Jerrell Reyes M.D. Narrative 10/11/2024 3:35 PM BRIDAL SALES CONSULTANT EXAMINATION: 1 view chest radiograph Procedure Note [...] culture Urine, clean voided (10/11/2024 2:32 PM BRIDAL SALES CONSULTANT) Color, ur Straw Yellow Clarity, ur Clear Clear [facility] Specific gravity, ur 1.012 1.003 - 1.030 [facility] pH, urine 7.0 [facility] Comment: Interpretive Data ? Urine pH is affected by diet, medications, systemic acid-base disturbances, and renal tubular function. ??pH may affect urinary stone formation. ??For example, urine pH below 6.0 may help reduce the tendency for calcium phosphate stones and pH greater than 6.0 may reduce the tendency for uric acid stone formation. Source: [employer] Current Interpretive Data was last revised on 2017 Protein, ur ql Trace Negative [facility] Glucose, ur ql Negative Negative [facility] Ketones, ur Negative Negative [facility] Bilirubin, ur Negative Negative [facility] Blood, ur 2+(A) Negative [facility] Urobilinogen, ur <2.0 <2.0 mg/dL [facility] Nitrite, ur Negative Negative [facility] Leukocyte esterase, ur Negative Negative [facility] UA reflex comment Reflex to microscopic UA will be performed. [facility] [facility] Urine, clean voided 10/11/2024 2:32 PM BRIDAL SALES CONSULTANT 10/11/2024 2:53 PM BRIDAL SALES CONSULTANT Fe Le MD LAB MICROBIOLOGY - GENERA L ORDERABLES Final Result Performing Organization Address [facility] Co de Phone Number [facility] of [employer] [place] [address] * (ABNORMAL) Urinalysis, microscopic only (10/11/2024 2:32 PM BRIDAL SALES CONSULTANT) WBC, ur 6-10(A) 0 - 5 /HPF RBC, ur 21-50(A) 0 - 2 /HPF [facility] Epithelial cells, squamous, ur 1-5 0 - 5 /HPF [facility] Mucous, ur Present(A) [facility] Culture Reflex Comment Reflex conditions for urine culture (WBC >10) not met. [facility] Urine, clean voided 10/11/2024 2:32 PM BRIDAL SALES CONSULTANT 10/11/2024 2:53 PM BRIDAL SALES CONSULTANT Fe Le MD LAB URINE ORDERABLES Eleni l Result Performing Organization Address [facility]/ZIP Co de Phone Number [facility] Department [place] [employer] [place] [address] * Lactate (10/11/2024 2:22 PM BRIDAL SALES CONSULTANT) Lactate 0.7 0.7 - 2.0 mmol/L Blood 10/11/2024 2:22 PM BRIDAL SALES CONSULTANT 10/11/2024 3:00 PM BRIDAL SALES CONSULTANT Fe Le MD LAB BLOOD ORDERABLES Eleni l Result Performing Organization Address [facility] Co de Phone Number MELA COKER [facility] Department [place] [address] * eGFR (10/11/2024 2:22 PM BRIDAL SALES CONSULTANT) eGFR >90 >=60 mL/min/1. 73 m2 Comment: [...] last reviewed 2021. Blood 10/11/2024 2:22 PM BRIDAL SALES CONSULTANT 10/11/2024 3:00 PM BRIDAL SALES CONSULTANT us Fe Le MD LAB BLOOD ORDERABLES Eleni l Result Performing Organization Address [facility] Co de Phone Number MELA COKER [facility] Department [place] [address] * (ABNORMAL) Differential, auto (10/11/2024 2:22 PM BRIDAL SALES CONSULTANT) Neutrophil abs 5.3 1.5 - 6.5 K/cumm Imm gran abs 0.1 0.0 - 0.1 K/cumm [facility] Lymphocyte abs 1.0 0.8 - 3.3 K/cumm [facility] Monocyte abs 1.1(H) 0.2 - 0.8 K/cumm [facility] Eosinophil abs 0.0 0.0 - 0.5 K/cumm [facility] Basophil abs 0.0 0.0 - 0.1 K/cumm [facility] Neutrophil pct 71.0 % [facility] Comment: Interpretive Data Percent cell count reference ranges are not reported, since discordance with absolute values may lead to misinterpretation of CBC data. Current Interpretive Data was last revised on 2018. Imm gran pct 0.7 % [facility] Comment: Interpretive Data Percent cell count reference ranges are not reported, since discordance with absolute values may lead to misinterpretation of CBC data. Current Interpretive Data was last revised on 2018. Lymphocyte pct 12.8 % [facility] Comment: Interpretive Data Percent cell count reference ranges are not reported, since discordance with absolute values may lead to misinterpretation of CBC data. Current Interpretive Data was last revised on 2018. Monocyte pct 14.5 % [facility] Comment: Interpretive Data Percent cell count reference ranges are not reported, since discordance with absolute values may lead to misinterpretation of CBC data. Current Interpretive Data was last revised on 2018. Eosinophil pct 0.5 % [facility] Comment: Interpretive Data Percent cell count reference ranges are not reported, since discordance with absolute values may lead to misinterpretation of CBC data. Current Interpretive Data was last revised on 2018. Basophil pct 0.5 % [facility] Comment: Interpretive Data Percent cell count reference ranges are not reported, since discordance with absolute values may lead to misinterpretation of CBC data. Current Interpretive Data was last revised on 2018. Blood 10/11/2024 2:22 PM BRIDAL SALES CONSULTANT 10/11/2024 3:00 PM BRIDAL SALES CONSULTANT Fe Le MD LAB BLOOD ORDERABLES Eleni parker Result [facility] Department [place] [address] * Respiratory pathogen panel Nasopharyngeal (10/11/2024 2:22 PM BRIDAL SALES CONSULTANT) Pathologist [facility] Influenza A RNA Not Detected Not Detected Influenza B RNA Not Detected Not Detected [facility] RSV RNA Not Detected Not Detected [facility] COVID-19 RNA Not Detected Not Detected [facility] Coronavirus 229E RNA Not Detected Not Detected [facility] Coronavirus HKU1 RNA Not Detected Not Detected [facility] Coronavirus NL63 RNA Not Detected Not Detected [facility] Coronavirus OC43 RNA Not Detected Not Detected [facility] Adenovirus DNA Not Detected Not Detected [facility] Metapneumovirus RNA Not Detected Not Detected [facility] Rhinovirus/Enterov irus RNA Not Detected Not Detected [facility] Parainfluenza 1 RNA Not Detected Not Detected [facility] Parainfluenza 2 RNA Not Detected Not Detected [facility] Parainfluenza 3 RNA Not Detected Not Detected [facility] Parainfluenza 4 RNA Not Detected Not Detected [facility] B. pertussis DNA Not Detected Not Detected [facility] B. parapertussis DNA Not Detected Not Detected [facility] C. pneumoniae DNA Not Detected Not Detected [facility] M. pneumoniae DNA Not Detected Not Detected [facility] Nasopharyngeal 10/11/2024 2: 22 PM BRIDAL SALES CONSULTANT 10/11/2024 3:13 PM BRIDAL SALES CONSULTANT Narrative [facility] - 10/11/2024 4:10 PM BRIDAL SALES CONSULTANT Is the Patient experiencing symptoms consistent with COVID?->No Surveillance testing for transplant patient?->No ??Interpretive Data The [employer] FilmArray Respiratory Panel (RP2.1) assay is a [...] assay has FDA clearance for testing of ORGAN TUNER swabs. ??The performance of additional specimen types has been assessed by the performing laboratory. ??The performance characteristics of this assay have been determined by [facility] Molecular Infectious Disease Laboratory. Current interpretive data was last revised on 22. us Fe Le MD LAB MICROBIOLOGY - GENERA L ORDERABLES Final Result [facility] Department [place] [address] * (ABNORMAL) CBC with auto differential (10/11/2024 2:22 PM BRIDAL SALES CONSULTANT) [facility] WBC 7.5 3.8 - 9.9 K/cumm Hgb 7.4(L) 11.9 - 15.5 g/dL [facility] Hct 24.1(L) 35.6 - 45.5 % [facility] Plt 387 150 - 400 K/cumm [facility] MPV 9.8 9.1 - 12.3 fL [facility] RBC 3.11(L) 3.90 - 5.20 M/cumm [facility] MCV 77.5(L) 81.3 - 96.4 fL [facility] MCH 23.8(L) 27.1 - 33.3 pg [facility] MCHC 30.7(L) 32.3 - 35.7 g/dL [facility] RDW CV 20.9(H) 11.1 - 14.9 % [facility] RDW SD 58.3(H) 35.7 - 48.1 fL [facility] NRBC abs 0.00 0.00 - 0.01 K/cumm [facility] Blood 10/11/2024 2:22 PM BRIDAL SALES CONSULTANT 10/11/2024 3:00 PM BRIDAL SALES CONSULTANT Fe Le MD LAB BLOOD ORDERABLES Eleni parker Result [facility] Department [place] [address] * Blood culture Blood (10/11/2024 2:22 PM BRIDAL SALES CONSULTANT) Pathologist [facility] Report Final Report: No growth Blood 10/11/2024 2:22 PM BRIDAL SALES CONSULTANT 10/11/2024 3:23 PM BRIDAL SALES CONSULTANT Narrative [facility] - 10/15/2024 4:00 PM BRIDAL SALES CONSULTANT From a different site than #1. Collection->Peripheral [...] organism identification may be performed using the [employer] Gram-Positive Blood Culture Assay. This assay detects microbial DNA in positive blood culture broth via hybridization of target DNA to capture oligonucleotides on a microarray. This assay has been cleared by the [place] Food and Drug Administration and its performance characteristics have been verified by the [facility] Microbiology Laboratory. 5. ?For questions about this culture, contact the Microbiology Laboratory at [phone]. Interpretive data was last revised on 2020. Fe Le MD LAB MICROBIOLOGY - GENERA L ORDERABLES Final Result [facility] Department [place] [address] * Blood culture Blood (10/11/2024 2:22 PM BRIDAL SALES CONSULTANT) Report Final Report: No growth Blood 10/11/2024 2:22 PM BRIDAL SALES CONSULTANT 10/11/2024 3:23 PM BRIDAL SALES CONSULTANT Narrative [facility] - 10/15/2024 4:00 PM BRIDAL SALES CONSULTANT Collection->Peripheral 1. ?Blood cultures are incubated for [...] organism identification may be performed using the [employer]oy[employer] Gram-Positive Blood Culture Assay. This assay detects microbial DNA in positive blood culture broth via hybridization of target DNA to capture oligonucleotides on a microarray. This assay has been cleared by the [place] Food and Drug Administration and its performance characteristics have been verified by the [facility] Microbiology Laboratory. 5. ?For questions about this culture, contact the Microbiology Laboratory at [phone]. Interpretive data was last revised on 2020. Fe Le MD LAB MICROBIOLOGY - GENERA L ORDERABLES Final Result [facility] Department [place] [address] * (ABNORMAL) Basic metabolic panel (10/11/2024 2:22 PM BRIDAL SALES CONSULTANT) Sodium 134(L) 135 - 145 mmol/L Potassium, pl 3.8 3.3 - 4.9 mmol/L [facility] Chloride 97 97 - 110 mmol/L [facility] CO2 26 22 - 32 mmol/L [facility] Anion gap 11 2 - 15 mmol/L [facility] BUN 14 6 - 25 mg/dL [facility] Creatinine 0.61 0.60 - 1.10 mg/dL [facility] Glucose 110 70 - 199 mg/dL [facility] Comment: Interpretive Data Fasting [...] Calcium 9.2 8.5 - 10.3 mg/dL [facility] Blood 10/11/2024 2:22 PM BRIDAL SALES CONSULTANT 10/11/2024 3:00 PM BRIDAL SALES CONSULTANT us Fe Le MD LAB BLOOD ORDERABLES Eleni parker Result [facility] Department [place] [address] * eGFR (10/10/2024 8:47 PM BRIDAL SALES CONSULTANT) eGFR >90 >=60 mL/min/1. 73 m2 Comment: [...] last reviewed 2021. Blood 10/10/2024 8:47 PM BRIDAL SALES CONSULTANT 10/10/2024 9:23 PM BRIDAL SALES CONSULTANT Fe Le MD LAB BLOOD ORDERABLES Eleni l Result Performing Organization Address [facility]/ZIP Co de Phone Number [facility] Department [place] [address] * (ABNORMAL) CBC without differential (10/10/2024 8:47 PM BRIDAL SALES CONSULTANT) WBC 8.4 3.8 - 9.9 K/cumm Hgb 8.0(L) 11.9 - 15.5 g/dL [facility] Hct 25.1(L) 35.6 - 45.5 % [facility] Plt 392 150 - 400 K/cumm [facility] MPV 9.6 9.1 - 12.3 fL [facility] RBC 3.23(L) 3.90 - 5.20 M/cumm [facility] MCV 77.7(L) 81.3 - 96.4 fL [facility] MCH 24.8(L) 27.1 - 33.3 pg [facility] MCHC 31.9(L) 32.3 - 35.7 g/dL [facility] RDW CV 21.0(H) 11.1 - 14.9 % [facility] RDW SD 59.2(H) 35.7 - 48.1 fL [facility] NRBC abs 0.00 0.00 - 0.01 K/cumm [facility] Blood 10/10/2024 8:47 PM BRIDAL SALES CONSULTANT 10/10/2024 9:24 PM BRIDAL SALES CONSULTANT Fe Le MD LAB BLOOD ORDERABLES Eleni l Result [facility] [place] [employer] [place] [address] * Phosphorus (10/10/2024 8:47 PM BRIDAL SALES CONSULTANT) Phosphorus, pl 3.4 2.3 - 4.5 mg/dL Blood 10/10/2024 8:47 PM BRIDAL SALES CONSULTANT 10/10/2024 9:23 PM BRIDAL SALES CONSULTANT Fe Le MD LAB BLOOD ORDERABLES Eleni l Result Performing Organization Address [facility] Co de Phone Number [facility] Department [place] [address] * Magnesium (10/10/2024 8:47 PM BRIDAL SALES CONSULTANT) [facility] Magnesium 2.1 1.4 - 2.5 mg/dL Blood 10/10/2024 8:47 PM BRIDAL SALES CONSULTANT 10/10/2024 9:23 PM BRIDAL SALES CONSULTANT Fe Le MD LAB BLOOD ORDERABLES Eleni l Result Performing Organization Address [facility] de Phone Number [facility] Department [place] [address] * Basic metabolic panel (10/10/2024 8:47 PM BRIDAL SALES CONSULTANT) [facility] Sodium 136 135 - 145 mmol/L Potassium, pl 3.8 3.3 - 4.9 mmol/L [facility] Chloride 98 97 - 110 mmol/L [facility] CO2 26 22 - 32 mmol/L [facility] Anion gap 12 2 - 15 mmol/L [facility] BUN 19 6 - 25 mg/dL [facility] Creatinine 0.68 0.60 - 1.10 mg/dL [facility] Glucose 189 70 - 199 mg/dL [facility] Comment: Interpretive Data Fasting [...] 2022. Calcium 9.4 8.5 - 10.3 mg/dL [facility] Blood 10/10/2024 8:47 PM BRIDAL SALES CONSULTANT 10/10/2024 9:23 PM BRIDAL SALES CONSULTANT Fe Le MD LAB BLOOD ORDERABLES Eleni l Result Performing Organization Address [facility] Co de Phone Number [facility] Department [place] [address] * ECG 12 lead (10/10/2024 2:15 PM BRIDAL SALES CONSULTANT) Ventricular Rate EKG/Min 103 BPM [facility] Atrial Rate [address] [facility] WI-Interval (MSEC) [address] [facility] QRS-Interval (MSEC) [address] [facility] QT-Interval (MSEC) [address] [facility] QTc 440 ms [facility] P [place] 58 degrees [facility] R [place] 49 degrees [facility] T [place] 5 degrees [facility] Diagnosis Sinus tachycardia Nonspecific T wave abnormality Abnormal ECG No previous ECGs available Confirmed by STEFFANY BLOUNT M.D ([id number]) on 10/13/2024 4:52:56 PM [facility] 10/10/2024 2:15 PM BRIDAL SALES CONSULTANT 10/13/2024 4:52 PM BRIDAL SALES CONSULTANT us Fe Le MD ECG ORDERABLES Final Res ult Performing Organization Address [facility] de Phone Number [facility] * eGFR (10/09/2024 8:11 PM BRIDAL SALES CONSULTANT) eGFR 87 >=60 mL/min/1. 73 m2 Comment: [...] last reviewed 2021. Blood 10/09/2024 8:11 PM BRIDAL SALES CONSULTANT 10/09/2024 8:42 PM BRIDAL SALES CONSULTANT us Fe Le MD LAB BLOOD ORDERABLES Eleni parker Result [facility] Department [place] [address] * (ABNORMAL) CBC without differential (10/09/2024 8:11 PM BRIDAL SALES CONSULTANT) WBC 7.2 3.8 - 9.9 K/cumm Hgb 7.4(L) 11.9 - 15.5 g/dL [facility] Hct 23.8(L) 35.6 - 45.5 % [facility] Plt 342 150 - 400 K/cumm [facility] MPV 9.4 9.1 - 12.3 fL [facility] RBC 3.10(L) 3.90 - 5.20 M/cumm [facility] MCV 76.8(L) 81.3 - 96.4 fL [facility] MCH 23.9(L) 27.1 - 33.3 pg [facility] MCHC 31.1(L) 32.3 - 35.7 g/dL [facility] RDW CV 21.1(H) 11.1 - 14.9 % [facility] RDW SD 58.5(H) 35.7 - 48.1 fL [facility] NRBC abs 0.00 0.00 - 0.01 K/cumm [facility] Blood 10/09/2024 8:11 PM BRIDAL SALES CONSULTANT 10/09/2024 8:42 PM BRIDAL SALES CONSULTANT Fe Le MD LAB BLOOD ORDERABLES Eleni l Result Performing Organization Address [facility] Co de Phone Number [facility] [place] [address] * (ABNORMAL) Phosphorus (10/09/2024 8:11 PM BRIDAL SALES CONSULTANT) Pathologist [facility] Phosphorus, pl 1.8(L) 2.3 - 4.5 mg/dL Blood 10/09/2024 8:11 PM BRIDAL SALES CONSULTANT 10/09/2024 8:42 PM BRIDAL SALES CONSULTANT Fe Le MD LAB BLOOD ORDERABLES Eleni l Result Performing Organization Address [facility] de Phone Number [facility] of [employer] [place] [address] * Magnesium (10/09/2024 8:11 PM BRIDAL SALES CONSULTANT) Magnesium 1.9 1.4 - 2.5 mg/dL Blood 10/09/2024 8:11 PM BRIDAL SALES CONSULTANT 10/09/2024 8:42 PM BRIDAL SALES CONSULTANT Fe Le MD LAB BLOOD ORDERABLES Eleni l Result Performing Organization Address [facility] Co de Phone Number [facility] [employer] [place] [address] * Basic metabolic panel (10/09/2024 8:11 PM BRIDAL SALES CONSULTANT) Sodium 136 135 - 145 mmol/L Potassium, pl 3.7 3.3 - 4.9 mmol/L [facility] Chloride 99 97 - 110 mmol/L [facility] CO2 27 22 - 32 mmol/L [facility] Anion gap 10 2 - 15 mmol/L [facility] BUN 15 6 - 25 mg/dL [facility] Creatinine 0.73 0.60 - 1.10 mg/dL [facility] Glucose 193 70 - 199 mg/dL [facility] Comment: Interpretive Data Fasting [...] 2022. Calcium 9.5 8.5 - 10.3 mg/dL [facility] Blood 10/09/2024 8:11 PM BRIDAL SALES CONSULTANT 10/09/2024 8:42 PM BRIDAL SALES CONSULTANT Fe Le MD LAB BLOOD ORDERABLES Eleni parker Result [facility] Department [place] [address] * MRI Spine Total Complete W WO Contrast (10/09/2024 2:25 PM BRIDAL SALES CONSULTANT) Anatomical Region Laterality Modality Spine N/A Magnetic Resonan ce 10/09/2024 3:21 PM BRIDAL SALES CONSULTANT Impressions 10/09/2024 4:36 PM BRIDAL SALES CONSULTANT 1. Findings concerning for metastatic disease in [...] Weathers MD, PHD Narrative 10/09/2024 4:36 PM BRIDAL SALES CONSULTANT EXAMINATION: 1. Magnetic resonance imaging (MRI) of [...] Brain W WO Contrast (10/09/2024 2:25 PM BRIDAL SALES CONSULTANT) Anatomical Region Laterality Modality Head and Neck N/A Magnetic Resonan ce 10/09/2024 3:21 PM BRIDAL SALES CONSULTANT Impressions 10/09/2024 4:36 PM BRIDAL SALES CONSULTANT 1. Findings concerning for metastatic disease in [...] Weathers MD, PHD Narrative 10/09/2024 4:36 PM BRIDAL SALES CONSULTANT EXAMINATION: 1. Magnetic resonance imaging (MRI) of [...] Final Result * eGFR (10/08/2024 8:48 PM BRIDAL SALES CONSULTANT) eGFR 79 >=60 mL/min/1. 73 m2 Comment: [...] last reviewed 2021. Blood 10/08/2024 8:48 PM BRIDAL SALES CONSULTANT 10/08/2024 9:13 PM BRIDAL SALES CONSULTANT Fe Le MD LAB BLOOD ORDERABLES Eleni elena Result Performing Organization Address [facility] Co de Phone Number [facility] Department [place] [address] * (ABNORMAL) CBC without differential (10/08/2024 8:48 PM BRIDAL SALES CONSULTANT) [facility] WBC 7.8 3.8 - 9.9 K/cumm Hgb 7.5(L) 11.9 - 15.5 g/dL [facility] Hct 23.9(L) 35.6 - 45.5 % [facility] Plt 376 150 - 400 K/cumm [facility] MPV 9.7 9.1 - 12.3 fL [facility] RBC 3.11(L) 3.90 - 5.20 M/cumm [facility] MCV 76.8(L) 81.3 - 96.4 fL [facility] MCH 24.1(L) 27.1 - 33.3 pg [facility] MCHC 31.4(L) 32.3 - 35.7 g/dL [facility] RDW CV 20.9(H) 11.1 - 14.9 % [facility] RDW SD 58.6(H) 35.7 - 48.1 fL [facility] NRBC abs 0.00 0.00 - 0.01 K/cumm [facility] Blood 10/08/2024 8:48 PM BRIDAL SALES CONSULTANT 10/08/2024 9:13 PM BRIDAL SALES CONSULTANT Fe Le MD LAB BLOOD ORDERABLES Eleni parker Result Performing Organization Address [facility]/ZIP Co de Phone Number [facility] Department [place] [address] * Phosphorus (10/08/2024 8:48 PM BRIDAL SALES CONSULTANT) Pathologist [facility] Phosphorus, pl 2.3 2.3 - 4.5 mg/dL Blood 10/08/2024 8:48 PM BRIDAL SALES CONSULTANT 10/08/2024 9:13 PM BRIDAL SALES CONSULTANT Fe Le MD LAB BLOOD ORDERABLES Eleni l Result Performing Organization Address [facility]/ZIP Co de Phone Number [facility] [place] [employer] [place] [address] * Magnesium (10/08/2024 8:48 PM BRIDAL SALES CONSULTANT) Pathologist [facility] Magnesium 2.4 1.4 - 2.5 mg/dL Blood 10/08/2024 8:48 PM BRIDAL SALES CONSULTANT 10/08/2024 9:13 PM BRIDAL SALES CONSULTANT Fe Le MD LAB BLOOD ORDERABLES Eleni l Result Performing Organization Address [facility] de Phone Number [facility] [place] [address] * Basic metabolic panel (10/08/2024 8:48 PM BRIDAL SALES CONSULTANT) Pathologist [facility] Sodium 140 135 - 145 mmol/L Potassium, pl 4.4 3.3 - 4.9 mmol/L [facility] Chloride 102 97 - 110 mmol/L [facility] CO2 27 22 - 32 mmol/L [facility] Anion gap 11 2 - 15 mmol/L [facility] BUN 17 6 - 25 mg/dL [facility] Creatinine 0.79 0.60 - 1.10 mg/dL [facility] Glucose 98 70 - 199 mg/dL [facility] Comment: Interpretive Data Fasting [...] Calcium 9.4 8.5 - 10.3 mg/dL [facility] Blood 10/08/2024 8:48 PM BRIDAL SALES CONSULTANT 10/08/2024 9:13 PM BRIDAL SALES CONSULTANT us Fe Le MD LAB BLOOD ORDERABLES Eleni l Result [facility] Department [place] [address] * XR Spine Cervical 2 or 3 Views (10/08/2024 6:20 PM BRIDAL SALES CONSULTANT) Anatomical Region Laterality Modality Spine N/A Computed Radiogr aphy 10/08/2024 7:05 PM BRIDAL SALES CONSULTANT Impressions 10/08/2024 7:05 PM BRIDAL SALES CONSULTANT 1. ??C6 pathologic impression fracture with unchanged mild height loss. 2. ??Lytic defect in posterior elements of T12-L1 as well as the left iliac bone lesion are better characterized on prior CT. Electronically signed by: Cristian Salgado D.O. Narrative 10/08/2024 7:05 PM BRIDAL SALES CONSULTANT EXAMINATION: XR SCOLIOSIS AP AND LATERAL, XR [...] XR Scoliosis Ap Lat (10/08/2024 6:19 PM BRIDAL SALES CONSULTANT) Anatomical Region Laterality Modality Spine N/A Computed Radiogr aphy 10/08/2024 7:05 PM BRIDAL SALES CONSULTANT Impressions 10/08/2024 7:05 PM BRIDAL SALES CONSULTANT 1. ??C6 pathologic impression fracture with unchanged mild height loss. 2. ??Lytic defect in posterior elements of T12-L1 as well as the left iliac bone lesion are better characterized on prior CT. Electronically signed by: Cristian Salgado D.O. Narrative 10/08/2024 7:05 PM BRIDAL SALES CONSULTANT EXAMINATION: XR SCOLIOSIS AP AND LATERAL, XR [...] * XR Outside Reference (10/08/2024 2:48 PM BRIDAL SALES CONSULTANT) Impressions [facility] - 10/08/2024 2:48 PM BRIDAL SALES CONSULTANT These images are for Reference purposes only and have not been reviewed by [facility]. ??There will be no report generated by a [facility] Radiologist. Narrative [facility] - 10/08/2024 2:48 PM BRIDAL SALES CONSULTANT EXAMINATION: ??Images For Reference Purposes Only us Manjinder Hines MD IMG XR PROCEDURES Final Resul t [facility] * Neuro CT Outside Consult (10/08/2024 2:42 PM BRIDAL SALES CONSULTANT) Anatomical Region Laterality Modality N/A Computed Tomogra phy 10/08/2024 5:14 PM BRIDAL SALES CONSULTANT Impressions 10/09/2024 12:53 AM BRIDAL SALES CONSULTANT 1. No acute intracranial process. 2. Lytic [...] Jc Masters MD Narrative 10/09/2024 12:53 AM BRIDAL SALES CONSULTANT EXAMINATION: 1. CT head without contrast 2. [...] Neuro CT Outside Consult (10/08/2024 2:35 PM BRIDAL SALES CONSULTANT) Anatomical Region Laterality Modality N/A Computed Tomogra phy 10/08/2024 5:14 PM BRIDAL SALES CONSULTANT Impressions 10/09/2024 12:53 AM BRIDAL SALES CONSULTANT 1. No acute intracranial process. 2. Lytic [...] Jc Masters MD Narrative 10/09/2024 12:53 AM BRIDAL SALES CONSULTANT EXAMINATION: 1. CT head without contrast 2. [...] Resul t * eGFR (10/08/2024 12:25 PM BRIDAL SALES CONSULTANT) eGFR >90 >=60 mL/min/1. 73 m2 Comment: [...] reviewed 2021. Blood 10/08/2024 12:2 5 PM BRIDAL SALES CONSULTANT 10/08/2024 12:55 PM BRIDAL SALES CONSULTANT us Fe Le MD LAB BLOOD ORDERABLES Eleni parker Result [facility] Department [place] [address] * (ABNORMAL) Differential, auto (10/08/2024 12:25 PM BRIDAL SALES CONSULTANT) Pathologist [facility] Neutrophil abs 5.0 1.5 - 6.5 K/cumm Imm gran abs 0.1 0.0 - 0.1 K/cumm [facility] Lymphocyte abs 1.0 0.8 - 3.3 K/cumm [facility] Monocyte abs 1.2(H) 0.2 - 0.8 K/cumm [facility] Eosinophil abs 0.1 0.0 - 0.5 K/cumm [facility] Basophil abs 0.0 0.0 - 0.1 K/cumm [facility] Neutrophil pct 69.2 % [facility] Comment: Interpretive Data Percent cell count reference ranges are not reported, since discordance with absolute values may lead to misinterpretation of CBC data. Current Interpretive Data was last revised on 2018. Imm gran pct 0.7 % [facility] Comment: Interpretive Data Percent cell count reference ranges are not reported, since discordance with absolute values may lead to misinterpretation of CBC data. Current Interpretive Data was last revised on 2018. Lymphocyte pct 13.0 % [facility] Comment: Interpretive Data Percent cell count reference ranges are not reported, since discordance with absolute values may lead to misinterpretation of CBC data. Current Interpretive Data was last revised on 2018. Monocyte pct 16.0 % [facility] Comment: Interpretive Data Percent cell count reference ranges are not reported, since discordance with absolute values may lead to misinterpretation of CBC data. Current Interpretive Data was last revised on 2018. Eosinophil pct 0.7 % [facility] Comment: Interpretive Data Percent cell count reference ranges are not reported, since discordance with absolute values may lead to misinterpretation of CBC data. Current Interpretive Data was last revised on 2018. Basophil pct 0.4 % [facility] Comment: Interpretive Data Percent cell count reference ranges are not reported, since discordance with absolute values may lead to misinterpretation of CBC data. Current Interpretive Data was last revised on 2018. Blood 10/08/2024 12:2 5 PM BRIDAL SALES CONSULTANT 10/08/2024 12:55 PM BRIDAL SALES CONSULTANT us Fe Le MD LAB BLOOD ORDERABLES Eleni parker Result [facility] Department [place] [address] * (ABNORMAL) CBC with auto differential (10/08/2024 12:25 PM BRIDAL SALES CONSULTANT) Pathologist [facility] WBC 7.3 3.8 - 9.9 K/cumm Hgb 7.5(L) 11.9 - 15.5 g/dL [facility] Hct 24.7(L) 35.6 - 45.5 % [facility] Plt 393 150 - 400 K/cumm [facility] MPV 9.6 9.1 - 12.3 fL [facility] RBC 3.18(L) 3.90 - 5.20 M/cumm [facility] MCV 77.7(L) 81.3 - 96.4 fL [facility] MCH 23.6(L) 27.1 - 33.3 pg [facility] MCHC 30.4(L) 32.3 - 35.7 g/dL [facility] RDW CV 20.8(H) 11.1 - 14.9 % [facility] RDW SD 58.4(H) 35.7 - 48.1 fL [facility] NRBC abs 0.00 0.00 - 0.01 K/cumm [facility] Blood 10/08/2024 12:2 5 PM BRIDAL SALES CONSULTANT 10/08/2024 12:55 PM BRIDAL SALES CONSULTANT Fe Le MD LAB BLOOD ORDERABLES Eleni l Result Performing Organization Address [facility] Co de Phone Number [facility] of [employer] [place] [address] * Phosphorus (10/08/2024 12:25 PM BRIDAL SALES CONSULTANT) Pathologist [facility] Phosphorus, pl 2.5 2.3 - 4.5 mg/dL Blood 10/08/2024 12:2 5 PM BRIDAL SALES CONSULTANT 10/08/2024 12:55 PM BRIDAL SALES CONSULTANT Fe Le MD LAB BLOOD ORDERABLES Eleni l Result Performing Organization Address [facility]/ZIP Co de Phone Number [facility] Department [place] [address] * Magnesium (10/08/2024 12:25 PM BRIDAL SALES CONSULTANT) Pathologist [facility] Magnesium 2.0 1.4 - 2.5 mg/dL Blood 10/08/2024 12:2 5 PM BRIDAL SALES CONSULTANT 10/08/2024 12:55 PM BRIDAL SALES CONSULTANT Fe Le MD LAB BLOOD ORDERABLES Eleni elena Result [facility] Department [place] [address] * (ABNORMAL) Comprehensive metabolic panel (10/08/2024 12:25 PM BRIDAL SALES CONSULTANT) Pathologist [facility] Sodium 134(L) 135 - 145 mmol/L Potassium, pl 3.8 3.3 - 4.9 mmol/L [facility] Chloride 96(L) 97 - 110 mmol/L [facility] CO2 28 22 - 32 mmol/L [facility] Anion gap 10 2 - 15 mmol/L [facility] BUN 13 6 - 25 mg/dL [facility] Creatinine 0.58(L) 0.60 - 1.10 mg/dL [facility] Glucose 111 70 - 199 mg/dL [facility] Comment: Interpretive Data Fasting [...] 2022. Calcium 9.6 8.5 - 10.3 mg/dL [facility] Bilirubin, total 0.2 0.1 - 1.2 mg/dL [facility] Protein, pl 7.7 6.5 - 8.5 g/dL [facility] Albumin 2.9(L) 3.5 - 5.0 g/dL [facility] Alk phos 64 40 - 130 Units/L [facility] ALT 36 7 - 45 Units/L [facility] AST 31 10 - 45 Units/L [facility] Blood 10/08/2024 12:2 5 PM BRIDAL SALES CONSULTANT 10/08/2024 12:55 PM BRIDAL SALES CONSULTANT us Fe Le MD LAB BLOOD ORDERABLES Eleni elena Result [facility] Department [place] [address] * eGFR (09/24/2024 2:26 PM BRIDAL SALES CONSULTANT) eGFR 83 >=60 mL/min/1. 73 m2 Comment: [...] last reviewed 2021. Blood 09/24/2024 2:26 PM BRIDAL SALES CONSULTANT 09/24/2024 3:04 PM BRIDAL SALES CONSULTANT us Fe Le MD LAB BLOOD ORDERABLES Eleni parker Result [facility] Department [place] [address] * (ABNORMAL) Differential, auto (09/24/2024 2:26 PM BRIDAL SALES CONSULTANT) Pathologist [facility] Neutrophil abs 5.3 1.5 - 6.5 K/cumm Imm gran abs 0.1 0.0 - 0.1 K/cumm [facility] Lymphocyte abs 0.9 0.8 - 3.3 K/cumm [facility] Monocyte abs 1.2(H) 0.2 - 0.8 K/cumm [facility] Eosinophil abs 0.0 0.0 - 0.5 K/cumm [facility] Basophil abs 0.0 0.0 - 0.1 K/cumm [facility] Neutrophil pct 70.5 % [facility] Comment: Interpretive Data Percent cell count reference ranges are not reported, since discordance with absolute values may lead to misinterpretation of CBC data. Current Interpretive Data was last revised on 2018. Imm gran pct 0.9 % [facility] Comment: Interpretive Data Percent cell count reference ranges are not reported, since discordance with absolute values may lead to misinterpretation of CBC data. Current Interpretive Data was last revised on 2018. Lymphocyte pct 11.9 % [facility] Comment: Interpretive Data Percent cell count reference ranges are not reported, since discordance with absolute values may lead to misinterpretation of CBC data. Current Interpretive Data was last revised on 2018. Monocyte pct 16.0 % [facility] Comment: Interpretive Data Percent cell count reference ranges are not reported, since discordance with absolute values may lead to misinterpretation of CBC data. Current Interpretive Data was last revised on 2018. Eosinophil pct 0.4 % [facility] Comment: Interpretive Data Percent cell count reference ranges are not reported, since discordance with absolute values may lead to misinterpretation of CBC data. Current Interpretive Data was last revised on 2018. Basophil pct 0.3 % [facility] Comment: Interpretive Data Percent cell count reference ranges are not reported, since discordance with absolute values may lead to misinterpretation of CBC data. Current Interpretive Data was last revised on 2018. Blood 09/24/2024 2:26 PM BRIDAL SALES CONSULTANT 09/24/2024 2:53 PM BRIDAL SALES CONSULTANT Fe Le MD LAB BLOOD ORDERABLES Eleni l Result Performing Organization Address [facility] Co de Phone Number [facility] Department [place] [address] * (ABNORMAL) CBC with auto differential (09/24/2024 2:26 PM BRIDAL SALES CONSULTANT) WBC 7.6 3.8 - 9.9 K/cumm Hgb 8.1(L) 11.9 - 15.5 g/dL [facility] Hct 25.2(L) 35.6 - 45.5 % [facility] Plt 451(H) 150 - 400 K/cumm [facility] MPV 10.0 9.1 - 12.3 fL [facility] RBC 3.27(L) 3.90 - 5.20 M/cumm [facility] MCV 77.1(L) 81.3 - 96.4 fL [facility] MCH 24.8(L) 27.1 - 33.3 pg [facility] MCHC 32.1(L) 32.3 - 35.7 g/dL [facility] RDW CV 20.7(H) 11.1 - 14.9 % [facility] RDW SD 58.1(H) 35.7 - 48.1 fL [facility] NRBC abs 0.00 0.00 - 0.01 K/cumm [facility] Blood 09/24/2024 2:26 PM BRIDAL SALES CONSULTANT 09/24/2024 2:53 PM BRIDAL SALES CONSULTANT us Fe Le MD LAB BLOOD ORDERABLES Eleni l Result Performing Organization Address [facility]/ZIP Co de Phone Number [facility] [place] [address] * (ABNORMAL) CA 125 (09/24/2024 2:26 PM BRIDAL SALES CONSULTANT) [facility] CA 125 ag 60.6(H) 0.0 - 38.1 units/mL Comment: Interpretive Data [employer] CA 125 assay procedure was used. Results from different manufacturers or methods may not be comparable. Serial testing should be performed using the same method. Blood 09/24/2024 2:26 PM BRIDAL SALES CONSULTANT 09/24/2024 2:53 PM BRIDAL SALES CONSULTANT Fe Le MD LAB BLOOD ORDERABLES Eleni l Result Performing Organization Address [facility] de Phone Number [facility] [place] [address] * (ABNORMAL) Comprehensive metabolic panel (09/24/2024 2:26 PM BRIDAL SALES CONSULTANT) [facility] Sodium 132(L) 135 - 145 mmol/L Potassium, pl 3.8 3.3 - 4.9 mmol/L [facility] Chloride 93(L) 97 - 110 mmol/L [facility] CO2 27 22 - 32 mmol/L [facility] Anion gap 12 2 - 15 mmol/L [facility] BUN 19 6 - 25 mg/dL [facility] Creatinine 0.76 0.60 - 1.10 mg/dL [facility] Glucose 95 70 - 199 mg/dL [facility] Comment: Interpretive Data Fasting [...] Calcium 10.3 8.5 - 10.3 mg/dL [facility] Bilirubin, total 0.2 0.1 - 1.2 mg/dL [facility] Protein, pl 8.4 6.5 - 8.5 g/dL [facility] Albumin 3.2(L) 3.5 - 5.0 g/dL [facility] Alk phos 73 40 - 130 Units/L [facility] ALT 44 7 - 45 Units/L [facility] AST 49(H) 10 - 45 Units/L [facility] Blood 09/24/2024 2:26 PM BRIDAL SALES CONSULTANT 09/24/2024 2:53 PM BRIDAL SALES CONSULTANT us Fe Le MD LAB BLOOD ORDERABLES Eleni l Result [facility] Department [place] [address] * RAD ONC ARIA COURSE SUMMARY (09/15/2024 1:49 PM BRIDAL SALES CONSULTANT) Course Name [id number] ARIA Course Plan [...] Dose (cGy) 2,000 ARIA 09/15/2024 1:49 PM BRIDAL SALES CONSULTANT us Not In File Miscellaneous RADIATION ONCOLOGY ORD ERABLES Final Result ARIA * RAD ONC ARIA SESSION SUMMARY (09/15/2024 10:26 AM BRIDAL SALES CONSULTANT) Course Name [id number]_[id number]_Li [id number] ARIA Course Plan [...] (cGy) 2,000 ARIA 09/15/2024 10:2 6 AM BRIDAL SALES CONSULTANT us Not In File Miscellaneous RADIATION ONCOLOGY ORD ERABLES Final Result ARIA * RAD ONC ARIA SESSION SUMMARY (09/14/2024 1:15 PM BRIDAL SALES CONSULTANT) Course Name [id number]_Lspn_Li [id number] ARIA Course Plan [...] Dose (cGy) 2,000 ARIA 09/14/2024 1:15 PM BRIDAL SALES CONSULTANT us Not In File Miscellaneous RADIATION ONCOLOGY ORD ERABLES Final Result [facility] from Last 3 Months Insurance [facility] CHOICE PLUS MEDICARE [facility] CHOICE PLUS MEDICARE Advance Directives For more information, please contact: [phone] * Full Code (Latest Code Status on File) Date Activated Date Inactivated Comments 10/08/2024 11:44 AM 10/15/2024 4:56 PM * Full Code Date Activated Date Inactivated Comments 04/14/2024 7:20 AM 04/15/2024 5:32 AM Care Teams Packaging Engineer Relationship Specialty Start Date End Date Cristobal Salvador MD [address] [address] PCP - General Family Medicine 03/17/24 Shea Mercado NP Nurse Practitioner Obstetrics and Gynecology 06/22/22 Kirsten Del Rosario MD [address] [facility] # LL LL [id number] [place] [address] Radiation Oncologist Radiation Oncology 06/30/24 Fe Le MD [address] [facility] [id number] [place] [address] Surgeon Gynecologic Oncology 06/30/24
--- OUTSIDE RECORDS SUMMARY | 2024-12-15 23:55 | XMS_ITS | Referral Summary ---
Author Organization [facility] Address [address] [place] [address] Care Team Providers Care Polisher Eyeglass Frames Name Role Phone Shea Mercado CELERY WRAPPER Unavailable [phone] Cristobal Salvador MD Primary Care Provider Kirsten Del Rosario MD Unavailable Fe Le MD Unavailable Encounters Date Type Department Care Team Description 12/15/2024 Home Care Visit [address] [place] [address] Eveline Lagos, RN NURSE MED RECON FOR THERAPY 12/15/2024 Home Care Visit [address] [place] [address] Cherie Camarillo, PT CARE CONFERENCE 12/12/2024 Plan of Care Documentation [address] [place] [address] 12/12/2024 11:30 AM SENIOR COBOL DEVELOPER Home Care Visit [address] [place] [address] Yesenia Verma, PT PT OASIS START OF CARE 12/11/2024 3:42 PM SENIOR COBOL DEVELOPER - 12/11/2024 11:59 PM SENIOR COBOL DEVELOPER Hospital Encounter [address] [address] Endometrial cancer (CMS/HCC) (HCC) Discharge Disposition: Discharge to home or self care 12/11/2024 4:00 PM SENIOR COBOL DEVELOPER Lab [facility] Outpatient Lab at [address] [address] Hypercholesteremia (Primary Dx) 12/11/2024 Telephone [facility] Gynecologic On[facility]) [address] [place] [address] Linda Medley, LOLA 12/11/2024 Orders Only [facility] Gynecologic Oncology [facility]) [address] [place] [address] Linda Medley, LOLA Endometrial cancer (CMS/HCC) (HCC) (Primary Dx) 12/11/2024 Telephone [facility] [address] [place] [phone] Betzy Miller, LOLA Home Health 12/11/[address] [facility] Geriatric Medicine [address] [facility] [address] Medical Office Building 2 [place] [phone] Kymberly Shelton RN 12/10/[address] [facility] Orthopaedic Surgery [address] [place] [address] 6th [place] [address] [place] [address] Jay Hussein MD Appointment 12/10/2024 Telephone [facility] Nutrition Counseling 1 [place] [address] 12/10/2024 3:00 PM SENIOR COBOL DEVELOPER Telemedicine [facility] Outpatient Health - Palliative Care [address] [place] [address] Catrachita Freeman MD Cancer related pain (Primary Dx); Endometrial cancer (CMS/HCC) (HCC); Pain from bone metastases (HCC); Nausea and vomiting, unspecified vomiting type; Physical debility; Constipation, unspecified constipation type; Repeated falls; Palliative care encounter 11/26/[address] [facility] Outpatient Health - Palliative Care [address] [place] [address] Millie Tim, LOLA 11/19/2024 Telephone [facility] Nutrition Counseling 1 [facility] [place] [address] 11/18/2024 Orders Only [facility] ([facility]) [address] [place] [address] Linda Medley, LOLA 11/17/2024 Orders Only [facility] Gynecologic [facility] ([facility]) [address] [place] [address] Linda Medley RN Endometrial cancer (CMS/HCC) (HCC) (Primary Dx); High risk medication use 11/13/2024 1:45 PM SENIOR COBOL DEVELOPER - 11/13/2024 11:59 PM SENIOR COBOL DEVELOPER Hospital Encounter [facility] Radiology [facility] ([facility]) [address] [place] [address] Cervical spinal stenosis Discharge Disposition: Discharge to home or self care 11/13/2024 2:30 PM SENIOR COBOL DEVELOPER Office Visit [facility] Orthopaedic Surgery [address] [place] [address] [facility] 6th [place] [address] [place] [address] Aiden Rowe MD Cervical spinal stenosis (Primary Dx) 11/12/2024 Orders Only [facility] Gynecologic On[facility] ([facility]) [address] [place] [address] Linda Medley, LOLA 11/06/[address] [facility] Outpatient Health - Palliative Care [address] [place] [address] [place] [address] Lolita Rojas RN 10/30/2024 9:00 AM SENIOR COBOL DEVELOPER Home Care Visit [address] [place] [id number] Cherie Camarillo, PT PT OASIS DISCHARGE 10/29/2024 Orders Only [facility] Gynecologic [facility] ([facility]) [address] [place] [address] Linda Medley, LOLA Endometrial cancer (CMS/HCC) (HCC) (Primary Dx) 10/29/2024 Orders Only [facility] Gynecologic On[facility] ([facility]) [address] [place] [address] Linda Medley RN 10/29/2024 11:30 AM SENIOR COBOL DEVELOPER Office Visit [facility] Obstetrics and Gynecology [address] [facility] Advanced [facility] 13th [place] [address] [place] [address] Fe Le MD Endometrial cancer (CMS/HCC) (HCC) (Primary Dx) 10/28/2024 12:15 PM SENIOR COBOL DEVELOPER Home Care Visit [address] [place] [address] Lorie Schaeffer PTA PT HOME VISIT 10/27/[address] [facility] Radiation Oncology [address] [place] [address] Kirsten Del Rosario MD Adverse effect of radiation therapy, initial encounter (Primary Dx) 10/27/2024 Telephone [facility] Nutrition Counseling 1 [place] [address] 10/23/2024 1:30 PM SENIOR COBOL DEVELOPER Home Care Visit [address] [place] [address] Lorie Schaeffer PTA PT HOME VISIT 10/22/[address] [facility] Radiation Oncology [address] [place] [address] Kirsten Del Rosario MD 10/22/2024 Orders Only RAD ONC TREATMENTS Miscellaneous, Not In File 10/22/2024 3:43 PM SENIOR COBOL DEVELOPER - 10/22/2024 11:59 PM SENIOR COBOL DEVELOPER Hospital Encounter [facility] Radiation Oncology [address] [place] [address] Kirsten Del Rosario MD Discharge Disposition: Discharge to home or self care 10/21/2024 Orders Only RAD ONC TREATMENTS Miscellaneous, Not In File 10/21/2024 12:15 PM SENIOR COBOL DEVELOPER Home Care Visit [address] [place] [address] Lorie Schaeffer PTA PT HOME VISIT 10/21/2024 3:00 PM SENIOR COBOL DEVELOPER - 10/21/2024 11:59 PM SENIOR COBOL DEVELOPER Hospital Encounter [facility] Radiation Oncology [address] [facility] [place] [address] Kirsten Del Rosario MD Discharge Disposition: Discharge to home or self care 10/20/2024 OTV [facility] Radiation Oncology [address] [place] [address] Kirsten Del Rosario MD Endometrial cancer (CMS/HCC) (HCC) [C54.1] (Primary Dx) 10/20/2024 Orders Only RAD ONC TREATMENTS Miscellaneous, Not In File 10/20/2024 Home Care Visit [address] [place] [address] Cherie Camarillo, PT CARE CONFERENCE 10/20/2024 2:40 PM SENIOR COBOL DEVELOPER - 10/20/2024 11:59 PM SENIOR COBOL DEVELOPER Hospital Encounter [facility] Radiation Oncology [address] [place] [address] Kirsten Del Rosario MD Discharge Disposition: Discharge to home or self care 10/19/2024 Orders Only RAD ONC TREATMENTS Miscellaneous, Not In File 10/19/2024 3:56 PM SENIOR COBOL DEVELOPER - 10/19/2024 11:59 PM SENIOR COBOL DEVELOPER Hospital Encounter [facility] Radiation Oncology [address] [place] [address] Kirsten Del Rosario MD Discharge Disposition: Discharge to home or self care 10/18/2024 Home Care Visit [address] [place] [address] Sera Lopez, LOLA NURSE MED RECON FOR THERAPY 10/17/2024 Plan of Care Documentation [address] [place] [address] 10/17/2024 9:00 AM SENIOR COBOL DEVELOPER Home Care Visit [address] [place] [address] Suhail Huff, PT PT OASIS START OF CARE 10/16/2024 Orders Only RAD ONC TREATMENTS Miscellaneous, Not In File 10/16/2024 2:34 PM SENIOR COBOL DEVELOPER - 10/16/2024 11:59 PM SENIOR COBOL DEVELOPER Hospital Encounter [facility] Radiation Oncology [address] [place] [address] Kirsten Del Rosario MD Discharge Disposition: Discharge to home or self care 10/08/2024 11:12 AM SENIOR COBOL DEVELOPER - 10/15/2024 12:30 PM SENIOR COBOL DEVELOPER Hospital Encounter [address] [address] Fe Le MD Sanders, Brooke Elizabeth, MD Diagnosis unknown (Primary Dx); Endometrial cancer (CMS/HCC) (HCC); Physical deconditioning Discharge Disposition: Discharge to home, home health skilled care 10/13/2024 10:38 AM SENIOR COBOL DEVELOPER - 10/13/2024 11:59 PM SENIOR COBOL DEVELOPER Hospital Encounter [facility] Radiation Oncology [address] [place] [address] Kirsten Del Rosario MD Discharge Disposition: Discharge to home or self care 10/12/2024 7:55 AM SENIOR COBOL DEVELOPER Ancillary Procedure [facility] Vascular Lab IP [address] [place] [address] [place] [address] 09/24/2024 4:55 PM SENIOR COBOL DEVELOPER Lab [facility] [place] [address] Endometrial cancer (CMS/HCC) (HCC) (Primary Dx) 09/24/2024 Orders Only [facility] Gynecologic On[facility] [address] [place] [address] Linda Medley RN Endometrial cancer (CMS/HCC) (HCC) (Primary Dx) 09/24/2024 1:00 PM SENIOR COBOL DEVELOPER Office Visit [facility] Obstetrics and Gynecology [address] [facility] 13th [place] [address] [place] [address] Fe Le MD Endometrial cancer (CMS/HCC) (HCC) 09/23/2024 Orders Only [facility] Gynecologic Oncology [facility]) [address] [place] [address] Linda Medley RN Endometrial cancer (CMS/HCC) (HCC) (Primary Dx) 09/23/2024 Telephone [facility] Nutrition Counseling [address] [place] [address] Moon Daniels, JOSSELYN 09/15/[address] [facility] Radiation Oncology [address] [place] [address] [place] [address] Kirsten Del Rosario MD 09/15/2024 Orders Only RAD ONC TREATMENTS Miscellaneous, Not In File 09/15/[address] [facility] Radiation Oncology [address] [place] [address] Kirsten Del Rosario MD Endometrial cancer ([facility]/HCC) (HCC) [C54.1] (Primary Dx) 09/15/2024 Orders Only RAD ONC TREATMENTS Miscellaneous, Not In File 09/15/2024 9:53 AM SENIOR COBOL DEVELOPER - 09/15/2024 11:59 PM SENIOR COBOL DEVELOPER Hospital Encounter [facility] Radiation Oncology [address] [place] [address] Kirsten Del Rosario MD Discharge Disposition: Discharge to home or self care 09/14/2024 Orders Only RAD ONC TREATMENTS Miscellaneous, Not In File 09/14/2024 12:38 PM SENIOR COBOL DEVELOPER - 09/14/2024 11:59 PM SENIOR COBOL DEVELOPER Hospital Encounter [facility] Radiation Oncology [address] 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 Not on file Not on file Not on file Last Filed Vital Signs Vital Sign Reading Time Taken Comments Blood Pressure 104/62 12/12/2024 12:15 PM SENIOR COBOL DEVELOPER Pulse 70 12/12/2024 12:15 PM SENIOR COBOL DEVELOPER Temperature 36.4 ??C (97.5 ??F) 12/12/2024 1 2:15 PM SENIOR COBOL DEVELOPER Respiratory Rate 17 12/12/2024 12:1 5 PM SENIOR COBOL DEVELOPER Oxygen Saturation 99% 12/12/2024 12: 15 PM SENIOR COBOL DEVELOPER Inhaled Oxygen Concentration - - Weight 46.2 kg (101 lb 14.4 oz) 024 11:48 AM SENIOR COBOL DEVELOPER Height 157.5 cm (5' 2.01 ) 10/29/2024 1 1:48 AM SENIOR COBOL DEVELOPER Body Mass Index 18.63 10/29/2024 11:48 AM SENIOR COBOL DEVELOPER Plan of Treatment Not on file Medical Devices Implanted Type Area [employer] Device Identifier Shelf Expiration Date Model / Serial / Lot [employer] Excela Low Porfile Power Port 8fr 1.6mm 1 Lumen [id number] - [id number] Implanted:Qty: 1 on 04/14/2024 at [facility] [employer] 01/11/2029 [id number] / / [id number] Procedures Procedure Name Priority Date/Time Associated Diagnosis Comments EGFR Routine 12/11/2024 4:17 PM SENIOR COBOL DEVELOPER Endometrial cancer (CMS/HCC) (HCC) DIFFERENTIAL AUTO Routine 12/11/2024 4:1 7 PM SENIOR COBOL DEVELOPER Endometrial cancer (CMS/HCC) (HCC) CBC WITH AUTO DIFFERENTIAL Routine 12/11/2024 4:17 PM SENIOR COBOL DEVELOPER Endometrial cancer (CMS/HCC) (HCC) COMPREHENSIVE METABOLIC PANEL Routine 12/11/2024 4:17 PM SENIOR COBOL DEVELOPER Endometrial cancer (CMS/HCC) (HCC) XR SPINE CERVICAL 2 OR 3 VIEWS Schedule Routine, Read Routine (OP Routine) 11/13/2024 2:02 PM SENIOR COBOL DEVELOPER Cervical spinal stenosis RAD ONC ARIA SESSION SUMMARY 10/22/2024 4:33 PM SENIOR COBOL DEVELOPER RAD ONC ARIA SESSION SUMMARY 10/21/2024 3:32 PM SENIOR COBOL DEVELOPER RAD ONC ARIA SESSION SUMMARY 10/20/2024 3:06 PM SENIOR COBOL DEVELOPER RAD ONC ARIA SESSION SUMMARY 10/19/2024 4:23 PM SENIOR COBOL DEVELOPER RAD ONC ARIA SESSION SUMMARY 10/16/2024 3:10 PM SENIOR COBOL DEVELOPER EGFR Routine 10/14/2024 9:03 PM SENIOR COBOL DEVELOPER PHOSPHORUS Routine 10/14/2024 9:03 PM SENIOR COBOL DEVELOPER MAGNESIUM Routine 10/14/2024 9:03 PM SENIOR COBOL DEVELOPER BASIC METABOLIC PANEL Routine 10/14/2024 9:03 PM SENIOR COBOL DEVELOPER CBC WITHOUT DIFFERENTIAL Routine 10/14/2024 9:03 PM SENIOR COBOL DEVELOPER EGFR Routine 10/13/2024 8:20 PM SENIOR COBOL DEVELOPER PHOSPHORUS Routine 10/13/2024 8:20 PM SENIOR COBOL DEVELOPER MAGNESIUM Routine 10/13/2024 8:20 PM SENIOR COBOL DEVELOPER BASIC METABOLIC PANEL Routine 10/13/2024 8:20 PM SENIOR COBOL DEVELOPER CBC WITHOUT DIFFERENTIAL Routine 10/13/2024 8:20 PM SENIOR COBOL DEVELOPER TRANSFUSE RED BLOOD CELLS Timed 10/13/2024 5:35 PM SENIOR COBOL DEVELOPER TYPE AND SCREEN Timed 10/13/2024 3:35 PM SENIOR COBOL DEVELOPER PREPARE RBC Timed 10/13/2024 3:31 PM SENIOR COBOL DEVELOPER EGFR Routine 10/12/2024 8:40 PM SENIOR COBOL DEVELOPER PHOSPHORUS Routine 10/12/2024 8:40 PM SENIOR COBOL DEVELOPER MAGNESIUM Routine 10/12/2024 8:40 PM SENIOR COBOL DEVELOPER BASIC METABOLIC PANEL Routine 10/12/2024 8:40 PM SENIOR COBOL DEVELOPER CBC WITHOUT DIFFERENTIAL Routine 10/12/2024 8:40 PM SENIOR COBOL DEVELOPER US CAROTIDS DUPLEX BILATERAL ED Urgent/IP Urgent 10/12/2024 2:45 PM [address]IOR COBOL [address] CT CHEST PE ABDOMEN PELVIS W CONTRAST ED Urgent/IP Urgent 10/12/2024 10:50 AM SENIOR COBOL DEVELOPER TROPONIN I HIGH-SENSITIVITY Timed 10/12/2024 7:07 AM SENIOR COBOL DEVELOPER ECG 12-LEAD Routine 10/12/2024 6:58 AM SENIOR COBOL DEVELOPER EGFR Routine 10/11/2024 8:23 PM SENIOR COBOL DEVELOPER PHOSPHORUS Routine 10/11/2024 8:23 PM SENIOR COBOL DEVELOPER MAGNESIUM Routine 10/11/2024 8:23 PM SENIOR COBOL DEVELOPER BASIC METABOLIC PANEL Routine 10/11/2024 8:23 PM SENIOR COBOL DEVELOPER CBC WITHOUT DIFFERENTIAL Routine 10/11/2024 8:23 PM SENIOR COBOL DEVELOPER XR CHEST 1 VIEW ED Urgent/IP Urgent 10/11/2024 3:07 PM SENIOR COBOL DEVELOPER URINALYSIS, MICROSCOPIC ONLY STAT 10/11/2024 2:32 PM SENIOR COBOL DEVELOPER URINALYSIS AND REFLEX TO MICROSCOPIC AND CULTURE STAT 10/11/2024 2:32 PM SENIOR COBOL DEVELOPER EGFR STAT 10/11/2024 2:22 PM SENIOR COBOL DEVELOPER DIFFERENTIAL AUTO STAT 10/11/2024 2:2 2 PM SENIOR COBOL DEVELOPER LACTATE STAT 10/11/2024 2:22 PM SENIOR COBOL DEVELOPER BASIC METABOLIC PANEL STAT 10/11/2024 2:22 PM SENIOR COBOL DEVELOPER CBC WITH AUTO DIFFERENTIAL STAT 10/11/2024 2:22 PM SENIOR COBOL DEVELOPER RESPIRATORY PATHOGEN PANEL Routine 10/11/2024 2:22 PM SENIOR COBOL DEVELOPER BLOOD CULTURE Routine 10/11/2024 2:22 PM SENIOR COBOL DEVELOPER BLOOD CULTURE Routine 10/11/2024 2:22 PM SENIOR COBOL DEVELOPER EGFR Routine 10/10/2024 8:47 PM SENIOR COBOL DEVELOPER PHOSPHORUS Routine 10/10/2024 8:47 PM SENIOR COBOL DEVELOPER MAGNESIUM Routine 10/10/2024 8:47 PM SENIOR COBOL DEVELOPER BASIC METABOLIC PANEL Routine 10/10/2024 8:47 PM SENIOR COBOL DEVELOPER CBC WITHOUT DIFFERENTIAL Routine 10/10/2024 8:47 PM SENIOR COBOL DEVELOPER ECG 12-LEAD STAT 10/10/2024 2:15 PM SENIOR COBOL DEVELOPER EGFR Routine 10/09/2024 8:11 PM SENIOR COBOL DEVELOPER PHOSPHORUS Routine 10/09/2024 8:11 PM SENIOR COBOL DEVELOPER MAGNESIUM Routine 10/09/2024 8:11 PM SENIOR COBOL DEVELOPER BASIC METABOLIC PANEL Routine 10/09/2024 8:11 PM SENIOR COBOL DEVELOPER CBC WITHOUT DIFFERENTIAL Routine 10/09/2024 8:11 PM SENIOR COBOL DEVELOPER MRI BRAIN W WO CONTRAST IP Routine 10/09/2024 2:25 PM SENIOR COBOL DEVELOPER MRI SPINE TOTAL COMPLETE W WO CONTRAST IP Routine 10/09/2024 2:25 PM SENIOR COBOL DEVELOPER EGFR Routine 10/08/2024 8:48 PM SENIOR COBOL DEVELOPER PHOSPHORUS Routine 10/08/2024 8:48 PM SENIOR COBOL DEVELOPER MAGNESIUM Routine 10/08/2024 8:48 PM SENIOR COBOL DEVELOPER BASIC METABOLIC PANEL Routine 10/08/2024 8:48 PM SENIOR COBOL DEVELOPER CBC WITHOUT DIFFERENTIAL Routine 10/08/2024 8:48 PM SENIOR COBOL DEVELOPER XR SPINE CERVICAL 2 OR 3 VIEWS IP Routine 10/08/2024 6:20 PM SENIOR COBOL DEVELOPER XR SCOLIOSIS AP LAT IP Routine 10/08/2024 6 :19 PM SENIOR COBOL DEVELOPER XR TRANSFER OF OUTSIDE FILMS Routine 10/08/2024 2:48 PM SENIOR COBOL DEVELOPER NEURO CT OUTSIDE CONSULT Routine 10/08/2024 2:42 PM SENIOR COBOL DEVELOPER Diagnosis unknown NEURO CT OUTSIDE CONSULT Routine 10/08/2024 2:35 PM SENIOR COBOL DEVELOPER Diagnosis unknown EGFR Routine 10/08/2024 12:25 PM SENIOR COBOL DEVELOPER DIFFERENTIAL AUTO Routine 10/08/2024 12: 25 PM SENIOR COBOL DEVELOPER CBC WITH AUTO DIFFERENTIAL Routine 10/08/2024 12:25 PM SENIOR COBOL DEVELOPER PHOSPHORUS Routine 10/08/2024 12:25 PM SENIOR COBOL DEVELOPER MAGNESIUM Routine 10/08/2024 12:25 PM SENIOR COBOL DEVELOPER COMPREHENSIVE METABOLIC PANEL Routine 10/08/2024 12:25 PM SENIOR COBOL DEVELOPER EGFR Routine 09/24/2024 2:26 PM SENIOR COBOL DEVELOPER Endometrial cancer (CMS/HCC) (HCC) DIFFERENTIAL AUTO Routine 09/24/2024 2:2 6 PM SENIOR COBOL DEVELOPER Endometrial cancer (CMS/HCC) (HCC) COMPREHENSIVE METABOLIC PANEL Routine 09/24/2024 2:26 PM SENIOR COBOL DEVELOPER Endometrial cancer (CMS/HCC) (HCC) CA 125 Routine 09/24/2024 2:26 PM SENIOR COBOL DEVELOPER Endometrial cancer (CMS/HCC) (HCC) CBC WITH AUTO DIFFERENTIAL Routine 09/24/2024 2:26 PM SENIOR COBOL DEVELOPER Endometrial cancer (CMS/HCC) (HCC) RAD ONC ARIA COURSE SUMMARY 09/15/2024 1:49 PM SENIOR COBOL DEVELOPER RAD ONC ARIA SESSION SUMMARY 09/15/2024 10:26 AM SENIOR COBOL DEVELOPER RAD ONC ARIA SESSION SUMMARY 09/14/2024 1:15 PM SENIOR COBOL DEVELOPER from Last 3 Months Results * eGFR (12/11/2024 4:17 PM SENIOR COBOL DEVELOPER) eGFR >90 >=60 mL/min/1. 73 m2 Comment: [...] last reviewed 2021. Blood 12/11/2024 4:17 PM SENIOR COBOL DEVELOPER 12/11/2024 8:52 PM SENIOR COBOL DEVELOPER us Fe Le MD LAB BLOOD ORDERABLES Eleni parker Result [facility] [id number] [place] [address] * (ABNORMAL) Differential, auto (12/11/2024 4:17 PM SENIOR COBOL DEVELOPER) Neutrophil abs 6.2 1.5 - 6.5 K/cumm Imm gran abs 0.2(H) 0.0 - 0.1 K/cumm [facility] Lymphocyte abs 0.9 0.8 - 3.3 K/cumm [facility] Monocyte abs 1.2(H) 0.2 - 0.8 K/cumm [facility] Eosinophil abs 0.0 0.0 - 0.5 K/cumm [facility] Basophil abs 0.0 0.0 - 0.1 K/cumm [facility] Neutrophil pct 72.4 % [facility] Comment: Interpretive Data Percent cell [...] revised on 2018. Basophil pct 0.5 % [facility] Comment: Interpretive Data Percent cell count reference ranges are not reported, since discordance with absolute values may lead to misinterpretation of CBC data. Current Interpretive Data was last revised on 2018. Blood 12/11/2024 4:17 PM SENIOR COBOL DEVELOPER 12/11/2024 8:47 PM SENIOR COBOL DEVELOPER us Fe Le MD LAB BLOOD ORDERABLES Eleni l Result [facility] [id number] Department of Laboratories [place], [place] [id number] * (ABNORMAL) CBC with auto differential (12/11/2024 4:17 PM SENIOR COBOL DEVELOPER) WBC 8.5 3.8 - 9.9 K/cumm Hgb [...] 0.01 K/cumm [facility] Blood 12/11/2024 4:17 PM SENIOR COBOL DEVELOPER 12/11/2024 8:47 PM SENIOR COBOL DEVELOPER us Fe Le MD LAB BLOOD ORDERABLES Eleni parker Result [facility] [id number] [place] [address] * (ABNORMAL) Comprehensive metabolic panel (12/11/2024 4:17 PM SENIOR COBOL DEVELOPER) Sodium 129(L) 135 - 145 mmol/L Potassium, pl 4.7 3.3 - 4.9 mmol/L [facility] Chloride 92(L) 97 - 110 mmol/L [facility] CO2 24 22 - 32 mmol/L [facility] Anion gap 13 2 - 15 mmol/L [facility] BUN 10 6 - 25 mg/dL [facility] Creatinine 0.49(L) 0.60 - 1.10 mg/dL [facility] Glucose 134 70 - 199 mg/dL [facility] Comment: Interpretive Data Fasting glucose >/= 126 [...] Units/L [facility] Blood 12/11/2024 4:17 PM SENIOR COBOL DEVELOPER 12/11/2024 8:47 PM SENIOR COBOL DEVELOPER Fe Le MD LAB [place]LOOD [place] [id number] [address] [place] [address] * XR Spine Cervical 2 or 3 Views (11/13/2024 2:02 PM SENIOR COBOL DEVELOPER) Anatomical Region Laterality Modality Spine N/A Computed Radiogr aphy 11/13/2024 2:33 PM SENIOR COBOL DEVELOPER Impressions 11/13/2024 2:33 PM SENIOR COBOL DEVELOPER 1. ??Unchanged appearance of the lytic C6 lesion with pathologic fracture without interval height loss. Electronically signed by: Shruti Hogue MD Narrative 11/13/2024 2:33 PM SENIOR COBOL DEVELOPER EXAMINATION: XR SPINE CERVICAL 2 OR 3 [...] ONC ARIA SESSION SUMMARY (10/22/2024 4:33 PM SENIOR COBOL DEVELOPER) Course Name C2_C_spine _2023 ARIA Course Plan [...] Dose (cGy) 2,000 ARIA 10/22/2024 4:33 PM SENIOR COBOL DEVELOPER us Not In File Miscellaneous RADIATION ONCOLOGY ORD ERABLES Final Result ARIA * RAD ONC ARIA SESSION SUMMARY (10/21/2024 3:32 PM SENIOR COBOL DEVELOPER) Course Name C2_C_spine _2023 ARIA Course Plan [...] Dose (cGy) 2,000 ARIA 10/21/2024 3:32 PM SENIOR COBOL DEVELOPER us Not In File Miscellaneous RADIATION ONCOLOGY ORD ERABLES Final Result [facility] * RAD ONC ARIA SESSION SUMMARY (10/20/2024 3:06 PM SENIOR COBOL DEVELOPER) Course Name C2_C_spine _2023 ARIA Course Plan [...] Dose (cGy) 2,000 ARIA 10/20/2024 3:06 PM SENIOR COBOL DEVELOPER us Not In File Miscellaneous RADIATION ONCOLOGY ORD ERABLES Final Result Performing Organization Address City/[facility] Co de Phone Number ARIA * RAD ONC ARIA SESSION SUMMARY (10/19/2024 4:23 PM SENIOR COBOL DEVELOPER) Course Name C2_C_spine ARIA Course Plan Date 10/13/2024 6:42 AM ARIA Elapsed Days 3 ARIA Treatment Start Date 10/16/2024 ARIA Treatment Site C Spine ARIA Dose Given To Date (cGy) 800 ARIA Session Dosage Given (cGy) 400 ARIA Plan ID C Spine ARIA Fractions Treated 2 ARIA Prescribed Dose Per Fraction (cGy) 400 ARIA Prescribed Total Dose (cGy) 2,000 ARIA 10/19/2024 4:23 PM SENIOR COBOL DEVELOPER us Not In File Miscellaneous RADIATION ONCOLOGY ORD ERABLES Final Result ARIA * RAD ONC ARIA SESSION SUMMARY (10/16/2024 3:10 PM SENIOR COBOL DEVELOPER) Course Name [id number] _2024 ARIA Course Plan [...] Dose (cGy) 2,000 ARIA 10/16/2024 3:10 PM SENIOR COBOL DEVELOPER us Not In File Miscellaneous RADIATION ONCOLOGY ORD ERABLES Final Result ARIA * eGFR (10/14/2024 9:03 PM SENIOR COBOL DEVELOPER) eGFR >90 >=60 mL/min/1. 73 m2 Comment: [...] last reviewed 2021. Blood 10/14/2024 9:03 PM SENIOR COBOL DEVELOPER 10/14/2024 9:22 PM SENIOR COBOL DEVELOPER Fe Le MD LAB BLOOD ORDERABLES Eleni l Result Performing Organization Address [facility]/ZIP Co de Phone Number [facility] [place] [address] * (ABNORMAL) CBC without differential (10/14/2024 9:03 PM SENIOR COBOL DEVELOPER) Pathologist [facility] WBC 6.9 3.8 - 9.9 K/cumm Hgb 8.4(L) 11.9 - 15.5 g/dL [facility] Hct 26.2(L) 35.6 - 45.5 % [facility] Plt 354 150 - 400 K/cumm [facility] MPV 9.5 9.1 - 12.3 fL [facility] RBC 3.33(L) 3.90 - 5.20 M/cumm [facility] MCV 78.7(L) 81.3 - 96.4 fL [facility] MCH 25.2(L) 27.1 - 33.3 pg [facility] MCHC 32.1(L) 32.3 - 35.7 g/dL [facility] RDW CV 19.8(H) 11.1 - 14.9 % [facility] RDW SD 57.2(H) 35.7 - 48.1 fL [facility] NRBC abs 0.00 0.00 - 0.01 K/cumm [facility] Blood 10/14/2024 9:03 PM SENIOR COBOL DEVELOPER 10/14/2024 9:22 PM SENIOR COBOL DEVELOPER Fe Le MD LAB BLOOD ORDERABLES Eleni l Result [facility] [place] [address] * Phosphorus (10/14/2024 9:03 PM SENIOR COBOL DEVELOPER) Pathologist [facility] Phosphorus, pl 2.5 2.3 - 4.5 mg/dL Blood 10/14/2024 9:03 PM SENIOR COBOL DEVELOPER 10/14/2024 9:22 PM SENIOR COBOL DEVELOPER Fe Le MD LAB BLOOD ORDERABLES Eleni l Result Performing Organization Address City/[facility]/ZIP Co de Phone Number [facility] [place] [address] * Magnesium (10/14/2024 9:03 PM SENIOR COBOL DEVELOPER) [facility] Magnesium 1.9 1.4 - 2.5 mg/dL Blood 10/14/2024 9:03 PM SENIOR COBOL DEVELOPER 10/14/2024 9:22 PM SENIOR COBOL DEVELOPER Fe Le MD LAB BLOOD ORDERABLES Eleni l Result Performing Organization Address [facility] de Phone Number [facility] [place] [address] * (ABNORMAL) Basic metabolic panel (10/14/2024 9:03 PM SENIOR COBOL DEVELOPER) [facility] Sodium 135 135 - 145 mmol/L Potassium, pl 3.5 3.3 - 4.9 mmol/L [facility] Chloride 98 97 - 110 mmol/L [facility] CO2 24 22 - 32 mmol/L [facility] Anion gap 13 2 - 15 mmol/L [facility] BUN 12 6 - 25 mg/dL [facility] Creatinine 0.59(L) 0.60 - 1.10 mg/dL [facility] Glucose 218(H) 70 - 199 mg/dL [facility] Comment: Interpretive Data Fasting glucose >/= 126 [...] Calcium 8.9 8.5 - 10.3 mg/dL [facility] Blood 10/14/2024 9:03 PM SENIOR COBOL DEVELOPER 10/14/2024 9:22 PM SENIOR COBOL DEVELOPER us Fe Le MD LAB BLOOD ORDERABLES Eleni parker Result [facility]EL[facility] One [facility] [place] [address] * eGFR (10/13/2024 8:20 PM SENIOR COBOL DEVELOPER) eGFR >90 >=60 mL/min/1. 73 m2 Comment: [...] last reviewed 2021. Blood 10/13/2024 8:20 PM SENIOR COBOL DEVELOPER 10/13/2024 8:49 PM SENIOR COBOL DEVELOPER Fe Le MD LAB BLOOD ORDERABLES Eleni l Result Performing Organization Address City/[facility]/ZIP Co de Phone Number [facility] Department [place] [address] * (ABNORMAL) CBC without differential (10/13/2024 8:20 PM SENIOR COBOL DEVELOPER) Pathologist [facility] WBC 6.7 3.8 - 9.9 K/cumm Hgb 8.6(L) 11.9 - 15.5 g/dL [facility] Hct 26.3(L) 35.6 - 45.5 % [facility] Plt 351 150 - 400 K/cumm [facility] MPV 9.3 9.1 - 12.3 fL [facility] RBC 3.40(L) 3.90 - 5.20 M/cumm [facility] MCV 77.4(L) 81.3 - 96.4 fL [facility] MCH 25.3(L) 27.1 - 33.3 pg [facility] MCHC 32.7 32.3 - 35.7 g/dL [facility] RDW CV 20.0(H) 11.1 - 14.9 % [facility] RDW SD 56.2(H) 35.7 - 48.1 fL [facility] NRBC abs 0.00 0.00 - 0.01 K/cumm [facility] Blood 10/13/2024 8:20 PM SENIOR COBOL DEVELOPER 10/13/2024 8:48 PM SENIOR COBOL DEVELOPER Fe Le MD LAB BLOOD ORDERABLES Eleni l Result [facility] [place] [address] * Phosphorus (10/13/2024 8:20 PM SENIOR COBOL DEVELOPER) Pathologist [facility] Phosphorus, pl 3.7 2.3 - 4.5 mg/dL Blood 10/13/2024 8:20 PM SENIOR COBOL DEVELOPER 10/13/2024 8:49 PM SENIOR COBOL DEVELOPER Fe Le MD LAB BLOOD ORDERABLES Eleni l Result Performing Organization Address City/[facility]/ZIP Co de Phone Number [facility] [place] [address] * Magnesium (10/13/2024 8:20 PM SENIOR COBOL DEVELOPER) Pathologist [facility] Magnesium 2.1 1.4 - 2.5 mg/dL Blood 10/13/2024 8:20 PM SENIOR COBOL DEVELOPER 10/13/2024 8:49 PM SENIOR COBOL DEVELOPER Fe Le MD LAB BLOOD ORDERABLES Eleni l Result Performing Organization Address [facility] de Phone Number [facility] [place] [address] * (ABNORMAL) Basic metabolic panel (10/13/2024 8:20 PM SENIOR COBOL DEVELOPER) [facility] Sodium 137 135 - 145 mmol/L Potassium, pl 3.9 3.3 - 4.9 mmol/L [facility] Chloride 100 97 - 110 mmol/L [facility] CO2 27 22 - 32 mmol/L [facility] Anion gap 10 2 - 15 mmol/L [facility] BUN 12 6 - 25 mg/dL [facility] Creatinine 0.58(L) 0.60 - 1.10 mg/dL [facility] Glucose 97 70 - 199 mg/dL [facility] Comment: Interpretive Data Fasting glucose >/= 126 [...] 2022. Calcium 9.2 8.5 - 10.3 mg/dL [facility] Blood 10/13/2024 8:20 PM SENIOR COBOL DEVELOPER 10/13/2024 8:49 PM SENIOR COBOL DEVELOPER Fe Le MD LAB BLOOD ORDERABLES Eleni l Result Performing Organization Address [facility]/ZIP Co de Phone Number [facility] [place] [address] * Transfuse RBC (10/13/2024 7:17 PM SENIOR COBOL DEVELOPER) Blood Fe Le MD BLOOD TRANSFUSION ORDERAB LES Final Result Performing Organization Address [facility] Co de Phone Number [facility] [place] [address] * Type and screen (10/13/2024 3:35 PM SENIOR COBOL DEVELOPER) ABO Rh AB Positive Dara, indirect Negative [facility] Blood 10/13/2024 3:35 PM SENIOR COBOL DEVELOPER 10/13/2024 3:54 PM SENIOR COBOL DEVELOPER Narrative [facility] - 10/13/2024 5:03 PM SENIOR COBOL DEVELOPER Has the patient had Daratumumab or Isatuximab in the past 6 months?->Unknown Fe Le MD LAB BLOOD BANK TEST ORDER VANESSA Final Result Performing Organization Address [facility] Co de Phone Number [facility] [place] [address] * Prepare RBC: 1 Units (10/13/2024 3:31 PM SENIOR COBOL DEVELOPER) Product code [id number] Unit Number [id number] [facility] Product Blood Type APOS [facility] Dispense Status PRESUMED TRANSFUSED [facility] Blood 10/13/2024 3:31 PM SENIOR COBOL DEVELOPER 10/13/2024 3:31 PM SENIOR COBOL DEVELOPER Narrative MELA COKER - 10/14/2024 12:55 AM SENIOR COBOL DEVELOPER Other indication->Rads < 8 Are special requirements needed? (All products are leukoreduced and CMV- safe)- >No Date required:-20241013 LRRBC # of [id number] Reasons:-Other (specify)} us Fe Le MD BLOOD BANK PRODUCT ORDERA BLES Final Result [facility]EL[facility] One [facility] [place] [address] * eGFR (10/12/2024 8:40 PM SENIOR COBOL DEVELOPER) eGFR >90 >=60 mL/min/1. 73 m2 Comment: [...] last reviewed 2021. Blood 10/12/2024 8:40 PM SENIOR COBOL DEVELOPER 10/12/2024 9:20 PM SENIOR COBOL DEVELOPER Fe Le MD LAB BLOOD ORDERABLES Eleni parker Result Performing Organization Address [facility] Co de Phone Number [facility] [place] [address] * (ABNORMAL) CBC without differential (10/12/2024 8:40 PM SENIOR COBOL DEVELOPER) WBC 7.5 3.8 - 9.9 K/cumm Hgb 7.4(L) 11.9 - 15.5 g/dL [facility] Hct 23.1(L) 35.6 - 45.5 % [facility] Plt 375 150 - 400 K/cumm [facility] MPV 9.6 9.1 - 12.3 fL [facility] RBC 3.04(L) 3.90 - 5.20 M/cumm [facility] MCV 76.0(L) 81.3 - 96.4 fL [facility] MCH 24.3(L) 27.1 - 33.3 pg [facility] MCHC 32.0(L) 32.3 - 35.7 g/dL [facility] RDW CV 20.7(H) 11.1 - 14.9 % [facility] RDW SD 57.1(H) 35.7 - 48.1 fL [facility] NRBC abs 0.00 0.00 - 0.01 K/cumm [facility] Blood 10/12/2024 8:40 PM SENIOR COBOL DEVELOPER 10/12/2024 9:20 PM SENIOR COBOL DEVELOPER Fe Le MD LAB BLOOD ORDERABLES Eleni l Result [facility] [place] [address] * Phosphorus (10/12/2024 8:40 PM SENIOR COBOL DEVELOPER) Phosphorus, pl 3.4 2.3 - 4.5 mg/dL Blood 10/12/2024 8:40 PM SENIOR COBOL DEVELOPER 10/12/2024 9:20 PM SENIOR COBOL DEVELOPER Fe Le MD LAB BLOOD ORDERABLES Eleni l Result Performing Organization Address City/[facility]/ZIP Co de Phone Number [facility] [place] [address] * Magnesium (10/12/2024 8:40 PM SENIOR COBOL DEVELOPER) Pathologist [facility] Magnesium 2.0 1.4 - 2.5 mg/dL Blood 10/12/2024 8:40 PM SENIOR COBOL DEVELOPER 10/12/2024 9:20 PM SENIOR COBOL DEVELOPER Fe Le MD LAB BLOOD ORDERABLES Eleni l Result Performing Organization Address [facility] de Phone Number [facility] [place] [address] * Basic metabolic panel (10/12/2024 8:40 PM SENIOR COBOL DEVELOPER) Pathologist [facility] Sodium 136 135 - 145 mmol/L Potassium, pl 4.1 3.3 - 4.9 mmol/L [facility] Chloride 99 97 - 110 mmol/L [facility] CO2 26 22 - 32 mmol/L [facility] Anion gap 11 2 - 15 mmol/L [facility] BUN 13 6 - 25 mg/dL [facility] Creatinine 0.63 0.60 - 1.10 mg/dL [facility] Glucose 155 70 - 199 mg/dL [facility] Comment: Interpretive Data Fasting glucose >/= 126 [...] Calcium 9.3 8.5 - 10.3 mg/dL [facility] Blood 10/12/2024 8:40 PM SENIOR COBOL DEVELOPER 10/12/2024 9:20 PM SENIOR COBOL DEVELOPER Fe Le MD LAB BLOOD ORDERABLES Eleni parker Result [facility] One [facility] [place] [address] * Carotids Duplex Bilateral (10/12/2024 2:45 PM SENIOR COBOL DEVELOPER) Anatomical Region Laterality Modality Vascular Bilateral Ultrasound 10/12/2024 12:1 7 PM SENIOR COBOL DEVELOPER Narrative 10/13/2024 1:[address] [facility] - Department of Vascular Surgery, Vascular Laboratory [address] [place] [id number] Carotid Duplex Ultrasound Report Patient Name: AMY HARE M : 1950 (74y 7m) Study Date: 10/12/2024 12:17:45 PM Gender: F Tech: Location: [id number] Ref Provider: FE LE Quality: Adequate Order [...] PSV ?86 ? cm/sec - FINDINGS: Performing Dermatology Teacher: Liana Hills RVT. Rt Common Carotid Artery: [...] Fly Argueta MD FACS 10/13/2024 1:09:29 AM SENIOR COBOL DEVELOPER Procedure Note Fly Argueta MD - 10/13/2024 [facility] - Department of Vascular Surgery,Vascular Laboratory [address] [place] [id number] Carotid Duplex Ultrasound Report Patient Name: AMY HARE M : 1950 (74y 7m) Study Date: 10/12/2024 12:17:45 PM Gender: F Tech: Location: [id number] Ref Provider: FE LE Quality: Adequate Order [...] LT VERT PSV 86cm/sec - FINDINGS: Performing Dermatology Teacher: Liana Hills RVT. Rt Common Carotid Artery: [...] above. Electronically Signed By: Fly Argueta MD [facility] 10/13/2024 1:09:29 AM SENIOR COBOL DEVELOPER Fe Le MD IM US PROCEDURES Final R esult * CT Chest PE (CTA) Abdomen Pelvis W Contrast (10/12/2024 10:50 AM SENIOR COBOL DEVELOPER) Anatomical Region Laterality Modality Body N/A Computed Tomogra phy 10/12/2024 11:3 1 AM SENIOR COBOL DEVELOPER Impressions 10/12/2024 11:31 AM SENIOR COBOL DEVELOPER 1. ??No pulmonary embolism. 2. ??Progressive disease with progressive mediastinal, retroperitoneal, and pelvic lymphadenopathy. ??There is also increased size of a hepatic segment 7 metastatic lesion. 3. ??New small left lower lobe groundglass nodule, indeterminate, this may be infectious or inflammatory. ??Recommend attention on follow-up. 4. ??Redemonstrated osseous metastatic disease. Electronically signed by: Erna Lebron M.D. Narrative 10/12/2024 11:31 AM SENIOR COBOL DEVELOPER EXAMINATION: CT CHEST PE (CTA) ABDOMEN PELVIS [...] * Troponin I high-sensitivity (10/12/2024 7:07 AM SENIOR COBOL DEVELOPER) Pathologist [facility] Trop I hs <4 <=17 ng/L Comment: Interpretive Data For further hscTnI resources including the diagnostic algorithm and an aid in interpretation, copy and paste this link: [email or web address].testcatalog.org/[email or web address] Current Interpretive Data last revised 2020. Blood 10/12/2024 7:07 AM SENIOR COBOL DEVELOPER 10/12/2024 7:52 AM SENIOR COBOL DEVELOPER Fe Le MD LAB BLOOD ORDERABLES Eleni l Result [facility] One [facility] [place] [address] * ECG 12 lead (10/12/2024 6:58 AM SENIOR COBOL DEVELOPER) Ventricular Rate EKG/Min 91 BPM [facility] Atrial Rate 91 BPM [facility] RI-Interval (MSEC) 146 ms [facility] QRS-Interval (MSEC) 70 ms [facility] QT-Interval (MSEC) 354 ms [facility] QTc 435 ms [facility] P [place] 54 degrees [facility] R [place] 29 degrees [facility] T [place] 40 degrees [facility] Diagnosis Normal sinus rhythm Normal ECG When compared with ECG of 10-OCT-2024 14:15, (unconfirmed ) Nonspecific T wave abnormality, improved in Anterior leads Confirmed by YAIR LUJAN M.D ([id number]) on 10/13/2024 8:39:16 AM [facility] 10/12/2024 6:58 AM SENIOR COBOL DEVELOPER 10/13/2024 8:39 AM SENIOR COBOL DEVELOPER us Fe Le MD ECG ORDERABLES Final Res ult [facility] * eGFR (10/11/2024 8:23 PM SENIOR COBOL DEVELOPER) eGFR >90 >=60 mL/min/1. 73 m2 Comment: [...] last reviewed 2021. Blood 10/11/2024 8:23 PM SENIOR COBOL DEVELOPER 10/11/2024 8:43 PM SENIOR COBOL DEVELOPER Fe Le MD LAB BLOOD ORDERABLES Eleni l Result [facility] [place] [address] * (ABNORMAL) CBC without differential (10/11/2024 8:23 PM SENIOR COBOL DEVELOPER) WBC 7.0 3.8 - 9.9 K/cumm Hgb 7.5(L) 11.9 - 15.5 g/dL [facility] Hct 24.0(L) 35.6 - 45.5 % [facility] Plt 364 150 - 400 K/cumm [facility] MPV 9.2 9.1 - 12.3 fL [facility] RBC 3.15(L) 3.90 - 5.20 M/cumm [facility] MCV 76.2(L) 81.3 - 96.4 fL [facility] MCH 23.8(L) 27.1 - 33.3 pg [facility] MCHC 31.3(L) 32.3 - 35.7 g/dL [facility] RDW CV 21.0(H) 11.1 - 14.9 % [facility] RDW SD 57.8(H) 35.7 - 48.1 fL [facility] NRBC abs 0.00 0.00 - 0.01 K/cumm [facility] Blood 10/11/2024 8:23 PM SENIOR COBOL DEVELOPER 10/11/2024 8:43 PM SENIOR COBOL DEVELOPER Fe Le MD LAB BLOOD ORDERABLES Eleni l Result [facility] [place] [address] * Phosphorus (10/11/2024 8:23 PM SENIOR COBOL DEVELOPER) Phosphorus, pl 3.1 2.3 - 4.5 mg/dL Blood 10/11/2024 8:23 PM SENIOR COBOL DEVELOPER 10/11/2024 8:43 PM SENIOR COBOL DEVELOPER Fe Le MD LAB BLOOD ORDERABLES Eleni l Result Performing Organization Address City/[facility]/ZIP Co de Phone Number [facility] [place] [address] * Magnesium (10/11/2024 8:23 PM SENIOR COBOL DEVELOPER) Pathologist [facility] Magnesium 2.1 1.4 - 2.5 mg/dL Blood 10/11/2024 8:23 PM SENIOR COBOL DEVELOPER 10/11/2024 8:43 PM SENIOR COBOL DEVELOPER Fe Le MD LAB BLOOD ORDERABLES Eleni l Result Performing Organization Address [facility] Co de Phone Number [facility] [place] [address] * (ABNORMAL) Basic metabolic panel (10/11/2024 8:23 PM SENIOR COBOL DEVELOPER) [facility] Sodium 133(L) 135 - 145 mmol/L Potassium, pl 3.6 3.3 - 4.9 mmol/L [facility] Chloride 98 97 - 110 mmol/L [facility] CO2 25 22 - 32 mmol/L [facility] Anion gap 10 2 - 15 mmol/L [facility] BUN 14 6 - 25 mg/dL [facility] Creatinine 0.63 0.60 - 1.10 mg/dL [facility] Glucose 199 70 - 199 mg/dL [facility] Comment: Interpretive Data Fasting glucose >/= 126 [...] Calcium 9.2 8.5 - 10.3 mg/dL [facility] Blood 10/11/2024 8:23 PM SENIOR COBOL DEVELOPER 10/11/2024 8:43 PM SENIOR COBOL DEVELOPER Fe Le MD LAB BLOOD ORDERABLES Eleni parker Result [facility] One [facility] [place] [address] * XR Chest 1 View (10/11/2024 3:07 PM SENIOR COBOL DEVELOPER) Anatomical Region Laterality Modality Body, Chest N/A Computed Radiogr aphy 10/11/2024 3:35 PM SENIOR COBOL DEVELOPER Impressions 10/11/2024 3:35 PM SENIOR COBOL DEVELOPER Comparison 07/30/2024 5:57 PM. Heart size remains within normal limits. ??New mild contour bulge seen in the region of the aortopulmonary window, corresponding to lymphadenopathy on computed tomographic examination 08/17/2024. The lungs are clear without focal consolidation or pulmonary edema. No pneumothorax or pleural effusion seen. Electronically signed by: Jerrell Reyes M.D. Narrative 10/11/2024 3:35 PM SENIOR COBOL DEVELOPER EXAMINATION: 1 view chest radiograph Procedure Note [...] culture Urine, clean voided (10/11/2024 2:32 PM SENIOR COBOL DEVELOPER) Color, ur Straw Yellow Clarity, ur Clear Clear [facility] Specific gravity, ur 1.012 1.003 - 1.030 [facility] pH, urine 7.0 [facility] Comment: Interpretive Data ? Urine pH is affected by diet, medications, systemic acid-base disturbances, and renal tubular function. ??pH may affect urinary stone formation. ??For example, urine pH below 6.0 may help reduce the tendency for calcium phosphate stones and pH greater than 6.0 may reduce the tendency for uric acid stone formation. Source: [facility] Current Interpretive Data was last revised on 2017 Protein, ur ql Trace Negative [facility] Glucose, ur ql Negative Negative [facility] Ketones, ur Negative Negative [facility] Bilirubin, ur Negative Negative [facility] Blood, ur 2+(A) Negative [facility] Urobilinogen, ur <2.0 <2.0 mg/dL [facility] Nitrite, ur Negative Negative [facility] Leukocyte esterase, ur Negative Negative [facility] UA reflex comment Reflex to microscopic UA will be performed. [facility] Urine, clean voided 10/11/2024 2:32 PM SENIOR COBOL DEVELOPER 10/11/2024 2:53 PM SENIOR COBOL DEVELOPER Fe Le MD LAB MICROBIOLOGY - GENERA L ORDERABLES Final Result [facility] One [facility] [place] [address] * (ABNORMAL) Urinalysis, microscopic only (10/11/2024 2:32 PM SENIOR COBOL DEVELOPER) WBC, ur 6-10(A) 0 - 5 /HPF RBC, ur 21-50(A) 0 - 2 /HPF [facility] Epithelial cells, squamous, ur 1-5 0 - 5 /HPF [facility] Mucous, ur Present(A) [facility] Culture Reflex Comment Reflex conditions for urine culture (WBC >10) not met. [facility] Urine, clean voided 10/11/2024 2:32 PM SENIOR COBOL DEVELOPER 10/11/2024 2:53 PM SENIOR COBOL DEVELOPER Fe Le MD LAB URINE ORDERABLES Eleni l Result Performing Organization Address [facility] Co de Phone Number MELA COKER Denise [facility] [place] [address] * Lactate (10/11/2024 2:22 PM SENIOR COBOL DEVELOPER) Lactate 0.7 0.7 - 2.0 mmol/L Blood 10/11/2024 2:22 PM SENIOR COBOL DEVELOPER 10/11/2024 3:00 PM SENIOR COBOL DEVELOPER Fe Le MD LAB BLOOD ORDERABLES Eleni l Result Performing Organization Address [facility] de Phone Number MELA COKER Denise [facility] [place] [address] * eGFR (10/11/2024 2:22 PM SENIOR COBOL DEVELOPER) eGFR >90 >=60 mL/min/1. 73 m2 Comment: [...] last reviewed 2021. Blood 10/11/2024 2:22 PM SENIOR COBOL DEVELOPER 10/11/2024 3:00 PM SENIOR COBOL DEVELOPER Fe Le MD LAB BLOOD ORDERABLES Eleni l Result [facility] One [facility] [place] [address] * (ABNORMAL) Differential, auto (10/11/2024 2:22 PM SENIOR COBOL DEVELOPER) Neutrophil abs 5.3 1.5 - 6.5 K/cumm Imm gran abs 0.1 0.0 - 0.1 K/cumm [facility] Lymphocyte abs 1.0 0.8 - 3.3 K/cumm [facility] Monocyte abs 1.1(H) 0.2 - 0.8 K/cumm [facility] Eosinophil abs 0.0 0.0 - 0.5 K/cumm [facility] Basophil abs 0.0 0.0 - 0.1 K/cumm [facility] Neutrophil pct 71.0 % [facility] Comment: Interpretive Data Percent cell count reference ranges are not reported, since discordance with absolute values may lead to misinterpretation of CBC data. Current Interpretive Data was last revised on 2018. Imm gran pct 0.7 % [facility] Comment: Interpretive Data Percent cell count reference ranges are not reported, since discordance with absolute values may lead to misinterpretation of CBC data. Current Interpretive Data was last revised on 2018. Lymphocyte pct 12.8 % [facility] Comment: Interpretive Data Percent cell count reference ranges are not reported, since discordance with absolute values may lead to misinterpretation of CBC data. Current Interpretive Data was last revised on 2018. Monocyte pct 14.5 % [facility] Comment: Interpretive Data Percent cell count reference ranges are not reported, since discordance with absolute values may lead to misinterpretation of CBC data. Current Interpretive Data was last revised on 2018. Eosinophil pct 0.5 % [facility] Comment: Interpretive Data Percent cell count reference ranges are not reported, since discordance with absolute values may lead to misinterpretation of CBC data. Current Interpretive Data was last revised on 2018. Basophil pct 0.5 % [facility] Comment: Interpretive Data Percent cell count reference ranges are not reported, since discordance with absolute values may lead to misinterpretation of CBC data. Current Interpretive Data was last revised on 2018. Blood 10/11/2024 2:22 PM SENIOR COBOL DEVELOPER 10/11/2024 3:00 PM SENIOR COBOL DEVELOPER us Fe Le MD LAB BLOOD ORDERABLES Eleni parker Result [facility] One [facility] [place] [address] * Respiratory pathogen panel Nasopharyngeal (10/11/2024 2:22 PM SENIOR COBOL DEVELOPER) Pathologist [facility] Influenza A RNA Not Detected Not Detected Influenza B RNA Not Detected Not Detected [facility] RSV RNA Not Detected Not Detected [facility] COVID-19 RNA Not Detected Not Detected [facility] Coronavirus 229E RNA Not Detected Not Detected [facility] Coronavirus HKU1 RNA Not Detected Not Detected [facility] Coronavirus NL63 RNA Not Detected Not Detected [facility] Coronavirus OC43 RNA Not Detected Not Detected [facility] Adenovirus DNA Not Detected Not Detected [facility] Metapneumovirus RNA Not Detected Not Detected [facility] Rhinovirus/Enterov irus RNA Not Detected Not Detected [facility] Parainfluenza 1 RNA Not Detected Not Detected [facility] Parainfluenza 2 RNA Not Detected Not Detected [facility] Parainfluenza 3 RNA Not Detected Not Detected [facility] Parainfluenza 4 RNA Not Detected Not Detected [facility] B. pertussis DNA Not Detected Not Detected [facility] B. parapertussis DNA Not Detected Not Detected [facility] C. pneumoniae DNA Not Detected Not Detected [facility] M. pneumoniae DNA Not Detected Not Detected [facility] Nasopharyngeal 10/11/2024 2: 22 PM SENIOR COBOL DEVELOPER 10/11/2024 3:13 PM SENIOR COBOL DEVELOPER Sharon PLAZA [facility] - 10/11/2024 4:10 PM SENIOR COBOL DEVELOPER Is the Patient experiencing symptoms consistent with COVID?->No Surveillance testing for transplant patient?->No ??Interpretive Data The [employer] FilmArray Respiratory Panel (RP2.1) assay is a [...] assay has FDA clearance for testing of CELERY WRAPPER swabs. ??The performance of additional specimen types has been assessed by the performing laboratory. ??The performance characteristics of this assay have been determined by [facility] Molecular Infectious Disease Laboratory. Current interpretive data was last revised on 22. Fe Le MD LAB MICROBIOLOGY - GENERA L ORDERABLES Final Result Performing Organization Address [facility]/ZIP Co de Phone Number [facility] [place] [address] * (ABNORMAL) CBC with auto differential (10/11/2024 2:22 PM SENIOR COBOL DEVELOPER) Pathologist [facility] WBC 7.5 3.8 - 9.9 K/cumm Hgb 7.4(L) 11.9 - 15.5 g/dL [facility] Hct 24.1(L) 35.6 - 45.5 % [facility] Plt 387 150 - 400 K/cumm [facility] MPV 9.8 9.1 - 12.3 fL [facility] RBC 3.11(L) 3.90 - 5.20 M/cumm [facility] MCV 77.5(L) 81.3 - 96.4 fL [facility] MCH 23.8(L) 27.1 - 33.3 pg [facility] MCHC 30.7(L) 32.3 - 35.7 g/dL [facility] RDW CV 20.9(H) 11.1 - 14.9 % [facility] RDW SD 58.3(H) 35.7 - 48.1 fL [facility] NRBC abs 0.00 0.00 - 0.01 K/cumm [facility] Blood 10/11/2024 2:22 PM SENIOR COBOL DEVELOPER 10/11/2024 3:00 PM SENIOR COBOL DEVELOPER Fe Le MD LAB BLOOD ORDERABLES Eleni l Result Performing Organization Address City/[facility]/ZIP Co de Phone Number [facility] [place] [address] * Blood culture Blood (10/11/2024 2:22 PM SENIOR COBOL DEVELOPER) Report Final Report: No growth Blood 10/11/2024 2:22 PM SENIOR COBOL DEVELOPER 10/11/2024 3:23 PM SENIOR COBOL DEVELOPER Sharon GALLAGHER - 10/15/2024 4:00 PM SENIOR COBOL DEVELOPER From a different site than #1. Collection->Peripheral [...] organism identification may be performed using the [employer] Gram-Positive Blood Culture Assay. This assay detects microbial DNA in positive blood culture broth via hybridization of target DNA to capture oligonucleotides on a microarray. This assay has been cleared by the [place] Food and Drug Administration and its performance characteristics have been verified by the [facility] Microbiology Laboratory. 5. ?For questions about this culture, contact the Microbiology Laboratory at [phone]. Interpretive data was last revised on 2020. us Fe Le MD LAB MICROBIOLOGY - GENERA L ORDERABLES Final Result MELA GALLAGHER One [facility] [place] [address] * Blood culture Blood (10/11/2024 2:22 PM SENIOR COBOL DEVELOPER) Report Final Report: No growth Blood 10/11/2024 2:22 PM SENIOR COBOL DEVELOPER 10/11/2024 3:23 PM SENIOR COBOL DEVELOPER Narrative [facility] - 10/15/2024 4:00 PM SENIOR COBOL DEVELOPER Collection->Peripheral 1. ?Blood cultures are incubated for [...] organism identification may be performed using the [employer] Gram-Positive Blood Culture Assay. This assay detects microbial DNA in positive blood culture broth via hybridization of target DNA to capture oligonucleotides on a microarray. This assay has been cleared by the [place] Food and Drug Administration and its performance characteristics have been verified by the [facility] Microbiology Laboratory. 5. ?For questions about this culture, contact the Microbiology Laboratory at [phone]. Interpretive data was last revised on 2020. Fe Le MD LAB MICROBIOLOGY - GENERA L ORDERABLES Final Result [facility] One [facility] Department [place] [address] * (ABNORMAL) Basic metabolic panel (10/11/2024 2:22 PM SENIOR COBOL DEVELOPER) Sodium 134(L) 135 - 145 mmol/L Potassium, pl 3.8 3.3 - 4.9 mmol/L [facility] Chloride 97 97 - 110 mmol/L [facility] CO2 26 22 - 32 mmol/L [facility] Anion gap 11 2 - 15 mmol/L [facility] BUN 14 6 - 25 mg/dL [facility] Creatinine 0.61 0.60 - 1.10 mg/dL [facility] Glucose 110 70 - 199 mg/dL [facility] Comment: Interpretive Data Fasting glucose >/= 126 [...] 2022. Calcium 9.2 8.5 - 10.3 mg/dL [facility] Blood 10/11/2024 2:22 PM SENIOR COBOL DEVELOPER 10/11/2024 3:00 PM SENIOR COBOL DEVELOPER us Fe Le MD LAB BLOOD ORDERABLES Eleni parker Result [facility] One [facility] [place] [address] * eGFR (10/10/2024 8:47 PM SENIOR COBOL DEVELOPER) eGFR >90 >=60 mL/min/1. 73 m2 Comment: [...] last reviewed 2021. Blood 10/10/2024 8:47 PM SENIOR COBOL DEVELOPER 10/10/2024 9:23 PM SENIOR COBOL DEVELOPER us Fe Le MD LAB BLOOD ORDERABLES Eleni parker Result [facility] One [facility] [place] [address] * (ABNORMAL) CBC without differential (10/10/2024 8:47 PM SENIOR COBOL DEVELOPER) WBC 8.4 3.8 - 9.9 K/cumm Hgb 8.0(L) 11.9 - 15.5 g/dL [facility] Hct 25.1(L) 35.6 - 45.5 % [facility] Plt 392 150 - 400 K/cumm [facility] MPV 9.6 9.1 - 12.3 fL [facility] RBC 3.23(L) 3.90 - 5.20 M/cumm [facility] MCV 77.7(L) 81.3 - 96.4 fL [facility] MCH 24.8(L) 27.1 - 33.3 pg [facility] MCHC 31.9(L) 32.3 - 35.7 g/dL [facility] RDW CV 21.0(H) 11.1 - 14.9 % [facility] RDW SD 59.2(H) 35.7 - 48.1 fL [facility] NRBC abs 0.00 0.00 - 0.01 K/cumm [facility] Blood 10/10/2024 8:47 PM SENIOR COBOL DEVELOPER 10/10/2024 9:24 PM SENIOR COBOL DEVELOPER Fe Le MD LAB BLOOD ORDERABLES Eleni l Result Performing Organization Address [facility] Co de Phone Number [facility] [place] [address] * Phosphorus (10/10/2024 8:47 PM SENIOR COBOL DEVELOPER) [facility] Phosphorus, pl 3.4 2.3 - 4.5 mg/dL Blood 10/10/2024 8:47 PM SENIOR COBOL DEVELOPER 10/10/2024 9:23 PM SENIOR COBOL DEVELOPER Fe Le MD LAB BLOOD ORDERABLES Eleni l Result Performing Organization Address [facility] Phone Number [facility] [place] [address] * Magnesium (10/10/2024 8:47 PM SENIOR COBOL DEVELOPER) [facility] Magnesium 2.1 1.4 - 2.5 mg/dL Blood 10/10/2024 8:47 PM SENIOR COBOL DEVELOPER 10/10/2024 9:23 PM SENIOR COBOL DEVELOPER Fe Le MD LAB BLOOD ORDERABLES Eleni l Result Performing Organization Address [facility] de Phone Number [facility] [place] [employer] [place] [address] * Basic metabolic panel (10/10/2024 8:47 PM SENIOR COBOL DEVELOPER) [facility] Sodium 136 135 - 145 mmol/L Potassium, pl 3.8 3.3 - 4.9 mmol/L [facility] Chloride 98 97 - 110 mmol/L [facility] CO2 26 22 - 32 mmol/L [facility] Anion gap 12 2 - 15 mmol/L [facility] BUN 19 6 - 25 mg/dL [facility] Creatinine 0.68 0.60 - 1.10 mg/dL [facility] Glucose 189 70 - 199 mg/dL [facility] Comment: Interpretive Data Fasting glucose >/= 126 [...] 2022. Calcium 9.4 8.5 - 10.3 mg/dL [facility] Blood 10/10/2024 8:47 PM SENIOR COBOL DEVELOPER 10/10/2024 9:23 PM SENIOR COBOL DEVELOPER Fe Le MD LAB BLOOD ORDERABLES Eleni l Result Performing Organization Address City/[facility] Co de Phone Number [facility] One [facility] [place] [address] * ECG 12 lead (10/10/2024 2:15 PM SENIOR COBOL DEVELOPER) Ventricular Rate EKG/Min 103 BPM [facility] Atrial Rate 103 BPM [facility] RI-Interval (MSEC) 138 ms [facility] QRS-Interval (MSEC) 70 ms [facility] QT-Interval (MSEC) 336 ms [facility] QTc 440 ms [facility] P [place] 58 degrees [facility] R [place] 49 degrees [facility] T [place] 5 degrees [facility] Diagnosis Sinus tachycardia Nonspecific T wave abnormality Abnormal ECG No previous ECGs available Confirmed by STEFFANY BLOUNT M.D ([id number]) on 10/13/2024 4:52:56 PM [facility] 10/10/2024 2:15 PM SENIOR COBOL DEVELOPER 10/13/2024 4:52 PM SENIOR COBOL DEVELOPER Fe Le MD ECG ORDERABLES Final Res [facility] * eGFR (10/09/2024 8:11 PM SENIOR COBOL DEVELOPER) eGFR 87 >=60 mL/min/1. 73 m2 Comment: [...] last reviewed 2021. Blood 10/09/2024 8:11 PM SENIOR COBOL DEVELOPER 10/09/2024 8:42 PM SENIOR COBOL DEVELOPER us Fe Le MD LAB BLOOD ORDERABLES Eleni l Result [facility]EL[facility] One [facility] Department [place] [address] * (ABNORMAL) CBC without differential (10/09/2024 8:11 PM SENIOR COBOL DEVELOPER) WBC 7.2 3.8 - 9.9 K/cumm Hgb 7.4(L) 11.9 - 15.5 g/dL [facility] Hct 23.8(L) 35.6 - 45.5 % [facility] Plt 342 150 - 400 K/cumm [facility] MPV 9.4 9.1 - 12.3 fL [facility] RBC 3.10(L) 3.90 - 5.20 M/cumm [facility] MCV 76.8(L) 81.3 - 96.4 fL [facility] MCH 23.9(L) 27.1 - 33.3 pg [facility] MCHC 31.1(L) 32.3 - 35.7 g/dL [facility] RDW CV 21.1(H) 11.1 - 14.9 % [facility] RDW SD 58.5(H) 35.7 - 48.1 fL [facility] NRBC abs 0.00 0.00 - 0.01 K/cumm [facility] Blood 10/09/2024 8:11 PM SENIOR COBOL DEVELOPER 10/09/2024 8:42 PM SENIOR COBOL DEVELOPER Fe Le MD LAB BLOOD ORDERABLES Eleni l Result [facility] [place] [address] * (ABNORMAL) Phosphorus (10/09/2024 8:11 PM SENIOR COBOL DEVELOPER) Pathologist [facility] Phosphorus, pl 1.8(L) 2.3 - 4.5 mg/dL Blood 10/09/2024 8:11 PM SENIOR COBOL DEVELOPER 10/09/2024 8:42 PM SENIOR COBOL DEVELOPER Fe Le MD LAB BLOOD ORDERABLES Eleni l Result [facility] [place] [address] * Magnesium (10/09/2024 8:11 PM SENIOR COBOL DEVELOPER) Pathologist [facility] Magnesium 1.9 1.4 - 2.5 mg/dL Blood 10/09/2024 8:1 1 PM SENIOR COBOL DEVELOPER 10/09/2024 8:42 PM SENIOR COBOL DEVELOPER Fe Le MD LAB BLOOD ORDERABLES Eleni l Result Performing Organization Address [facility]/ZIP Co de Phone Number [facility] [place] [address] * Basic metabolic panel (10/09/2024 8:11 PM SENIOR COBOL DEVELOPER) [facility] Sodium 136 135 - 145 mmol/L Potassium, pl 3.7 3.3 - 4.9 mmol/L [facility] Chloride 99 97 - 110 mmol/L [facility] CO2 27 22 - 32 mmol/L [facility] Anion gap 10 2 - 15 mmol/L [facility] BUN 15 6 - 25 mg/dL [facility] Creatinine 0.73 0.60 - 1.10 mg/dL [facility] Glucose 193 70 - 199 mg/dL [facility] Comment: Interpretive Data Fasting glucose >/= 126 [...] 2022. Calcium 9.5 8.5 - 10.3 mg/dL [facility] Blood 10/09/2024 8:11 PM SENIOR COBOL DEVELOPER 10/09/2024 8:42 PM SENIOR COBOL DEVELOPER Fe Le MD LAB BLOOD ORDERABLES Eleni l Result Performing Organization Address [facility] Co de Phone Number [facility] [place] [address] * MRI Spine Total Complete W WO Contrast (10/09/2024 2:25 PM SENIOR COBOL DEVELOPER) Anatomical Region Laterality Modality Spine N/A Magnetic Resonan ce 10/09/2024 3:21 PM SENIOR COBOL DEVELOPER Impressions 10/09/2024 4:36 PM SENIOR COBOL DEVELOPER 1. Findings concerning for metastatic disease in [...] Weathers MD, PHD Narrative 10/09/2024 4:36 PM SENIOR COBOL DEVELOPER EXAMINATION: 1. Magnetic resonance imaging (MRI) of [...] Brain W WO Contrast (10/09/2024 2:25 PM SENIOR COBOL DEVELOPER) Anatomical Region Laterality Modality Head and Neck N/A Magnetic Resonan ce 10/09/2024 3:21 PM SENIOR COBOL DEVELOPER Impressions 10/09/2024 4:36 PM SENIOR COBOL DEVELOPER 1. Findings concerning for metastatic disease in [...] Weathers MD, PHD Narrative 10/09/2024 4:36 PM SENIOR COBOL DEVELOPER EXAMINATION: 1. Magnetic resonance imaging (MRI) of [...] Final Result * eGFR (10/08/2024 8:48 PM SENIOR COBOL DEVELOPER) [facility] Signature eGFR 79 >=60 mL/min/1. 73 m2 [...] last reviewed 2021. Blood 10/08/2024 8:48 PM SENIOR COBOL DEVELOPER 10/08/2024 9:13 PM SENIOR COBOL DEVELOPER us Fe Le MD LAB BLOOD ORDERABLES Eleni parker Result [facility] One [facility] [place] [address] * (ABNORMAL) CBC without differential (10/08/2024 8:48 PM SENIOR COBOL DEVELOPER) WBC 7.8 3.8 - 9.9 K/cumm Hgb 7.5(L) 11.9 - 15.5 g/dL [facility] Hct 23.9(L) 35.6 - 45.5 % [facility] Plt 376 150 - 400 K/cumm [facility] MPV 9.7 9.1 - 12.3 fL [facility] RBC 3.11(L) 3.90 - 5.20 M/cumm [facility] MCV 76.8(L) 81.3 - 96.4 fL [facility] MCH 24.1(L) 27.1 - 33.3 pg [facility] MCHC 31.4(L) 32.3 - 35.7 g/dL [facility] RDW CV 20.9(H) 11.1 - 14.9 % [facility] RDW SD 58.6(H) 35.7 - 48.1 fL [facility] NRBC abs 0.00 0.00 - 0.01 K/cumm [facility] Blood 10/08/2024 8:48 PM SENIOR COBOL DEVELOPER 10/08/2024 9:13 PM SENIOR COBOL DEVELOPER Fe Le MD LAB BLOOD ORDERABLES Eleni l Result Performing Organization Address [facility] Co de Phone Number [facility] [place] [address] * Phosphorus (10/08/2024 8:48 PM SENIOR COBOL DEVELOPER) [facility] Phosphorus, pl 2.3 2.3 - 4.5 mg/dL Blood 10/08/2024 8:48 PM SENIOR COBOL DEVELOPER 10/08/2024 9:13 PM SENIOR COBOL DEVELOPER Fe Le MD LAB BLOOD ORDERABLES Eleni l Result Performing Organization Address [facility] Co de Phone Number [facility] [place] [address] * Magnesium (10/08/2024 8:48 PM SENIOR COBOL DEVELOPER) [facility] Magnesium 2.4 1.4 - 2.5 mg/dL Blood 10/08/2024 8:48 PM SENIOR COBOL DEVELOPER 10/08/2024 9:13 PM SENIOR COBOL DEVELOPER Fe Le MD LAB BLOOD ORDERABLES Eleni l Result Performing Organization Address [facility] [place] [address] * Basic metabolic panel (10/08/2024 8:48 PM SENIOR COBOL DEVELOPER) [facility] Sodium 140 135 - 145 mmol/L Potassium, pl 4.4 3.3 - 4.9 mmol/L [facility] Chloride 102 97 - 110 mmol/L [facility] CO2 27 22 - 32 mmol/L [facility] Anion gap 11 2 - 15 mmol/L [facility] BUN 17 6 - 25 mg/dL [facility] Creatinine 0.79 0.60 - 1.10 mg/dL [facility] Glucose 98 70 - 199 mg/dL [facility] Comment: Interpretive Data Fasting glucose >/= 126 [...] 2022. Calcium 9.4 8.5 - 10.3 mg/dL [facility] Blood 10/08/2024 8:48 PM SENIOR COBOL DEVELOPER 10/08/2024 9:13 PM SENIOR COBOL DEVELOPER Fe Le MD LAB BLOOD ORDERABLES Eleni l Result [facility] One [facility] [place] [address] * XR Spine Cervical 2 or 3 Views (10/08/2024 6:20 PM SENIOR COBOL DEVELOPER) Anatomical Region Laterality Modality Spine N/A Computed Radiogr aphy 10/08/2024 7:05 PM SENIOR COBOL DEVELOPER Impressions 10/08/2024 7:05 PM SENIOR COBOL DEVELOPER 1. ??C6 pathologic impression fracture with unchanged mild height loss. 2. ??Lytic defect in posterior elements of T12-L1 as well as the left iliac bone lesion are better characterized on prior CT. Electronically signed by: Cristian Salgado D.O. Narrative 10/08/2024 7:05 PM SENIOR COBOL DEVELOPER EXAMINATION: XR SCOLIOSIS AP AND LATERAL, XR [...] XR Scoliosis Ap Lat (10/08/2024 6:19 PM SENIOR COBOL DEVELOPER) Anatomical Region Laterality Modality Spine N/A Computed Radiogr aphy 10/08/2024 7:05 PM SENIOR COBOL DEVELOPER Impressions 10/08/2024 7:05 PM SENIOR COBOL DEVELOPER 1. ??C6 pathologic impression fracture with unchanged mild height loss. 2. ??Lytic defect in posterior elements of T12-L1 as well as the left iliac bone lesion are better characterized on prior CT. Electronically signed by: Cristian Salgado D.O. Narrative 10/08/2024 7:05 PM SENIOR COBOL DEVELOPER EXAMINATION: XR SCOLIOSIS AP AND LATERAL, XR [...] * XR Outside Reference (10/08/2024 2:48 PM SENIOR COBOL DEVELOPER) Impressions [facility] - 10/08/2024 2:48 PM SENIOR COBOL DEVELOPER These images are for Reference purposes only and have not been reviewed by [facility] Radiology. ??There will be no report generated by a [facility] Radiologist. Narrative [facility] - 10/08/2024 2:48 PM SENIOR COBOL DEVELOPER EXAMINATION: ??Images For Reference Purposes Only us Manjinder Hines MD IMG XR PROCEDURES Final Resul t [facility] * Neuro CT Outside Consult (10/08/2024 2:42 PM SENIOR COBOL DEVELOPER) Anatomical Region Laterality Modality N/A Computed Tomogra phy 10/08/2024 5:14 PM SENIOR COBOL DEVELOPER Impressions 10/09/2024 12:53 AM SENIOR COBOL DEVELOPER 1. No acute intracranial process. 2. Lytic [...] Jc Masters MD Narrative 10/09/2024 12:53 AM SENIOR COBOL DEVELOPER EXAMINATION: 1. CT head without contrast 2. [...] Neuro CT Outside Consult (10/08/2024 2:35 PM SENIOR COBOL DEVELOPER) Anatomical Region Laterality Modality N/A Computed Tomogra phy 10/08/2024 5:14 PM SENIOR COBOL DEVELOPER Impressions 10/09/2024 12:53 AM SENIOR COBOL DEVELOPER 1. No acute intracranial process. 2. Lytic [...] Jc Masters MD Narrative 10/09/2024 12:53 AM SENIOR COBOL DEVELOPER EXAMINATION: 1. CT head without contrast 2. [...] Resul t * eGFR (10/08/2024 12:25 PM SENIOR COBOL DEVELOPER) eGFR >90 >=60 mL/min/1. 73 m2 Comment: [...] reviewed 2021. Blood 10/08/2024 12:2 5 PM SENIOR COBOL DEVELOPER 10/08/2024 12:55 PM SENIOR COBOL DEVELOPER us Fe Le MD LAB BLOOD ORDERABLES Eleni parker Result [facility]EL[facility] One [facility] [place] [address] * (ABNORMAL) Differential, auto (10/08/2024 12:25 PM SENIOR COBOL DEVELOPER) Neutrophil abs 5.0 1.5 - 6.5 K/cumm Imm gran abs 0.1 0.0 - 0.1 K/cumm [facility] Lymphocyte abs 1.0 0.8 - 3.3 K/cumm [facility] Monocyte abs 1.2(H) 0.2 - 0.8 K/cumm [facility] Eosinophil abs 0.1 0.0 - 0.5 K/cumm [facility] Basophil abs 0.0 0.0 - 0.1 K/cumm [facility] Neutrophil pct 69.2 % [facility] Comment: Interpretive Data Percent cell count reference ranges are not reported, since discordance with absolute values may lead to misinterpretation of CBC data. Current Interpretive Data was last revised on 2018. Imm gran pct 0.7 % [facility] Comment: Interpretive Data Percent cell count reference ranges are not reported, since discordance with absolute values may lead to misinterpretation of CBC data. Current Interpretive Data was last revised on 2018. Lymphocyte pct 13.0 % [facility] Comment: Interpretive Data Percent cell count reference ranges are not reported, since discordance with absolute values may lead to misinterpretation of CBC data. Current Interpretive Data was last revised on 2018. Monocyte pct 16.0 % [facility] Comment: Interpretive Data Percent cell count reference ranges are not reported, since discordance with absolute values may lead to misinterpretation of CBC data. Current Interpretive Data was last revised on 2018. Eosinophil pct 0.7 % [facility] Comment: Interpretive Data Percent cell count reference ranges are not reported, since discordance with absolute values may lead to misinterpretation of CBC data. Current Interpretive Data was last revised on 2018. Basophil pct 0.4 % [facility] Comment: Interpretive Data Percent cell count reference ranges are not reported, since discordance with absolute values may lead to misinterpretation of CBC data. Current Interpretive Data was last revised on 2018. Blood 10/08/2024 12:2 5 PM SENIOR COBOL DEVELOPER 10/08/2024 12:55 PM SENIOR COBOL DEVELOPER Fe Le MD LAB BLOOD ORDERABLES Eleni l Result Performing Organization Address [facility] Co de Phone Number [facility] [place] [address] * (ABNORMAL) CBC with auto differential (10/08/2024 12:25 PM SENIOR COBOL DEVELOPER) WBC 7.3 3.8 - 9.9 K/cumm Hgb 7.5(L) 11.9 - 15.5 g/dL [facility] Hct 24.7(L) 35.6 - 45.5 % [facility] Plt 393 150 - 400 K/cumm [facility] MPV 9.6 9.1 - 12.3 fL [facility] RBC 3.18(L) 3.90 - 5.20 M/cumm [facility] MCV 77.7(L) 81.3 - 96.4 fL [facility] MCH 23.6(L) 27.1 - 33.3 pg [facility] MCHC 30.4(L) 32.3 - 35.7 g/dL [facility] RDW CV 20.8(H) 11.1 - 14.9 % [facility] RDW SD 58.4(H) 35.7 - 48.1 fL [facility] NRBC abs 0.00 0.00 - 0.01 K/cumm [facility] Blood 10/08/2024 12:2 5 PM SENIOR COBOL DEVELOPER 10/08/2024 12:55 PM SENIOR COBOL DEVELOPER Fe Le MD LAB BLOOD ORDERABLES Eleni l Result Performing Organization Address [facility] Co de Phone Number [facility] [place] [address] * Phosphorus (10/08/2024 12:25 PM SENIOR COBOL DEVELOPER) [facility] Phosphorus, pl 2.5 2.3 - 4.5 mg/dL Blood 10/08/2024 12:2 5 PM SENIOR COBOL DEVELOPER 10/08/2024 12:55 PM SENIOR COBOL DEVELOPER Fe Le MD LAB BLOOD ORDERABLES Eleni l Result [facility] [place] [address] * Magnesium (10/08/2024 12:25 PM SENIOR COBOL DEVELOPER) [facility] Magnesium 2.0 1.4 - 2.5 mg/dL Blood 10/08/2024 12:2 5 PM SENIOR COBOL DEVELOPER 10/08/2024 12:55 PM SENIOR COBOL DEVELOPER Fe Le MD LAB BLOOD ORDERABLES Eleni l Result Performing Organization Address City/[facility]/[place] [address] * (ABNORMAL) Comprehensive metabolic panel (10/08/2024 12:25 PM SENIOR COBOL DEVELOPER) [facility] Sodium 134(L) 135 - 145 mmol/L Potassium, pl 3.8 3.3 - 4.9 mmol/L [facility] Chloride 96(L) 97 - 110 mmol/L [facility] CO2 28 22 - 32 mmol/L [facility] Anion gap 10 2 - 15 mmol/L [facility] BUN 13 6 - 25 mg/dL [facility] Creatinine 0.58(L) 0.60 - 1.10 mg/dL [facility] Glucose 111 70 - 199 mg/dL [facility] Comment: Interpretive Data Fasting glucose >/= 126 [...] 2022. Calcium 9.6 8.5 - 10.3 mg/dL [facility] Bilirubin, total 0.2 0.1 - 1.2 mg/dL [facility] Protein, pl 7.7 6.5 - 8.5 g/dL [facility] Albumin 2.9(L) 3.5 - 5.0 g/dL [facility] Alk phos 64 40 - 130 Units/L [facility] ALT 36 7 - 45 Units/L [facility] AST 31 10 - 45 Units/L [facility] Blood 10/08/2024 12:2 5 PM SENIOR COBOL DEVELOPER 10/08/2024 12:55 PM SENIOR COBOL DEVELOPER us Fe Le MD LAB BLOOD ORDERABLES Eleni parker Result [facility] [place] [address] * eGFR (09/24/2024 2:26 PM SENIOR COBOL DEVELOPER) eGFR 83 >=60 mL/min/1. 73 m2 Comment: [...] last reviewed 2021. Blood 09/24/2024 2:26 PM SENIOR COBOL DEVELOPER 09/24/2024 3:04 PM SENIOR COBOL DEVELOPER us Fe Le MD LAB BLOOD ORDERABLES Eleni parker Result [facility] [place] [address] * (ABNORMAL) Differential, auto (09/24/2024 2:26 PM SENIOR COBOL DEVELOPER) Neutrophil abs 5.3 1.5 - 6.5 K/cumm Imm gran abs 0.1 0.0 - 0.1 K/cumm [facility] Lymphocyte abs 0.9 0.8 - 3.3 K/cumm [facility] Monocyte abs 1.2(H) 0.2 - 0.8 K/cumm [facility] Eosinophil abs 0.0 0.0 - 0.5 K/cumm [facility] Basophil abs 0.0 0.0 - 0.1 K/cumm [facility] Neutrophil pct 70.5 % [facility] Comment: Interpretive Data Percent cell count reference ranges are not reported, since discordance with absolute values may lead to misinterpretation of CBC data. Current Interpretive Data was last revised on 2018. Imm gran pct 0.9 % [facility] Comment: Interpretive Data Percent cell count reference ranges are not reported, since discordance with absolute values may lead to misinterpretation of CBC data. Current Interpretive Data was last revised on 2018. Lymphocyte pct 11.9 % [facility] Comment: Interpretive Data Percent cell count reference ranges are not reported, since discordance with absolute values may lead to misinterpretation of CBC data. Current Interpretive Data was last revised on 2018. Monocyte pct 16.0 % [facility] Comment: Interpretive Data Percent cell count reference ranges are not reported, since discordance with absolute values may lead to misinterpretation of CBC data. Current Interpretive Data was last revised on 2018. Eosinophil pct 0.4 % [facility] Comment: Interpretive Data Percent cell count reference ranges are not reported, since discordance with absolute values may lead to misinterpretation of CBC data. Current Interpretive Data was last revised on 2018. Basophil pct 0.3 % [facility] Comment: Interpretive Data Percent cell count reference ranges are not reported, since discordance with absolute values may lead to misinterpretation of CBC data. Current Interpretive Data was last revised on 2018. Blood 09/24/2024 2:26 PM SENIOR COBOL DEVELOPER 09/24/2024 2:53 PM SENIOR COBOL DEVELOPER us Fe Le MD LAB BLOOD ORDERABLES Eleni parker Result [facility] [place] [address] * (ABNORMAL) CBC with auto differential (09/24/2024 2:26 PM SENIOR COBOL DEVELOPER) WBC 7.6 3.8 - 9.9 K/cumm Hgb 8.1(L) 11.9 - 15.5 g/dL [facility] Hct 25.2(L) 35.6 - 45.5 % [facility] Plt 451(H) 150 - 400 K/cumm [facility] MPV 10.0 9.1 - 12.3 fL [facility] RBC 3.27(L) 3.90 - 5.20 M/cumm [facility] MCV 77.1(L) 81.3 - 96.4 fL [facility] MCH 24.8(L) 27.1 - 33.3 pg [facility] MCHC 32.1(L) 32.3 - 35.7 g/dL [facility] RDW CV 20.7(H) 11.1 - 14.9 % [facility] RDW SD 58.1(H) 35.7 - 48.1 fL [facility] NRBC abs 0.00 0.00 - 0.01 K/cumm [facility] Blood 09/24/2024 2:26 PM SENIOR COBOL DEVELOPER 09/24/2024 2:53 PM SENIOR COBOL DEVELOPER Fe Le MD LAB BLOOD ORDERABLES Eleni l Result Performing Organization Address [facility] Co de Phone Number [facility] [place] [employer] [address] * (ABNORMAL) CA 125 (09/24/2024 2:26 PM SENIOR COBOL DEVELOPER) [facility] CA 125 ag 60.6(H) 0.0 - 38.1 units/mL Comment: Interpretive Data The [employer] CA 125 assay procedure was used. Results from different manufacturers or methods may not be comparable. Serial testing should be performed using the same method. Blood 09/24/2024 2:26 PM SENIOR COBOL DEVELOPER 09/24/2024 2:53 PM SENIOR COBOL DEVELOPER Fe Le MD LAB BLOOD ORDERABLES Eleni l Result Performing Organization Address [facility] Co de Phone Number [facility] [place] [address] * (ABNORMAL) Comprehensive metabolic panel (09/24/2024 2:26 PM SENIOR COBOL DEVELOPER) Pathologist [facility] Sodium 132(L) 135 - 145 mmol/L Potassium, pl 3.8 3.3 - 4.9 mmol/L [facility] Chloride 93(L) 97 - 110 mmol/L [facility] CO2 27 22 - 32 mmol/L [facility] Anion gap 12 2 - 15 mmol/L [facility] BUN 19 6 - 25 mg/dL [facility] Creatinine 0.76 0.60 - 1.10 mg/dL [facility] Glucose 95 70 - 199 mg/dL [facility] Comment: Interpretive Data Fasting glucose >/= 126 [...] 2022. Calcium 10.3 8.5 - 10.3 mg/dL [facility] Bilirubin, total 0.2 0.1 - 1.2 mg/dL [facility] Protein, pl 8.4 6.5 - 8.5 g/dL [facility] Albumin 3.2(L) 3.5 - 5.0 g/dL [facility] Alk phos 73 40 - 130 Units/L [facility] ALT 44 7 - 45 Units/L [facility] AST 49(H) 10 - 45 Units/L [facility] Blood 09/24/2024 2:26 PM SENIOR COBOL DEVELOPER 09/24/2024 2:53 PM SENIOR COBOL DEVELOPER us Fe Le MD LAB BLOOD ORDERABLES Eleni l Result [facility] [place] [address] * RAD ONC ARIA COURSE SUMMARY (09/15/2024 1:49 PM SENIOR COBOL DEVELOPER) Course Name C1_Lspn_Li [id number] ARIA Course Plan [...] Dose (cGy) 2,000 ARIA 09/15/2024 1:49 PM SENIOR COBOL DEVELOPER us Not In File Miscellaneous RADIATION ONCOLOGY ORD ERABLES Final Result ARIA * RAD ONC ARIA SESSION SUMMARY (09/15/2024 10:26 AM SENIOR COBOL DEVELOPER) Course Name C1_Lspn_Li [id number] ARIA Course Plan [...] (cGy) 2,000 ARIA 09/15/2024 10:2 6 AM SENIOR COBOL DEVELOPER us Not In File Miscellaneous RADIATION ONCOLOGY ORD ERABLES Final Result ARIA * RAD ONC ARIA SESSION SUMMARY (09/14/2024 1:15 PM SENIOR COBOL DEVELOPER) Course Name C1_Lspn_Li [id number] ARIA Course Plan [...] Dose (cGy) 2,000 ARIA 09/14/2024 1:15 PM SENIOR COBOL DEVELOPER us Not In File Miscellaneous RADIATION ONCOLOGY ORD ERABLES Final Result Performing Organization Address City/State/[facility] Co de Phone Number ARIA from Last 3 Months Insurance [facility]/PPO Address: [address] [address] [place] [address] MEDICARE [facility] CHOICE [facility]US [facility] H[facility]/PPO Address: [address] [address] [place] [address] MEDICARE Advance Directives For more information, please contact: [phone] * Full Code (Latest Code Status on File) Date Activated Date Inactivated Comments 10/08/2024 11:44 AM 10/15/2024 4:56 PM * Full Code Date Activated Date Inactivated Comments 04/14/2024 7:20 AM 04/15/2024 5:32 AM Care Teams [employer] Relationship Specialty Start Date End Date Cristobal Salvador MD [address] [place] [address] PCP - General Family Medicine 03/17/24 Shea Mercado NP Nurse Practitioner Obstetrics and Gynecology 06/22/22 Kirsten Del Rosario MD [address] [facility] [address] [place] [address] Radiation Oncologist Radiation Oncology 06/30/24 Fe Le MD [id number] [place] [address] Surgeon Gynecologic Oncology 06/30/24
--- NOTE | 2024-12-15 23:58 | ED.SYNCOPE ---
HPI - Syncope General Chief Complaint: Syncope Stated Complaint: Syncopal episode while walking--x sev weeks Time Seen by Provider: 12/15/24 23:37 Source: patient and family Mode of arrival: EMS Limitations: no limitations History of Present Illness HPI narrative: Patient presents with report of recurrent episodes of syncope over the past several weeks. She has had multiple episodes. Many of these occur while she is walking from her bed or chair to the bathroom or when she is climbing stairs. Sometimes it occurs when she is on the toilet and getting up. She has a history of cervical cancer and finished radiation for this in October. She has also had chemotherapy for this. She has a port in place and states that she is supposed to start undergoing a treatment to strengthen her bones although she does not know the exact details. Her oncologist is through [place]. She has required 2 blood transfusions for anemia. She and her family member both confirm that the episodes occur and she loses both muscle tone and consciousness briefly. In general patient states that she is very weak. She has been trying to drink plenty of water, typically 416 oz bottles a day. She has had a decreased appetite. She has nausea and had been taking ondansetron at home but ran out of this medication. She also has another medication for nausea which she believes is Compazine. She occasionally vomits. Blood glucose was reportedly 158. She denies being short of breath with the episodes family member states when she passes out it seems that her breathing is labored. No history of heart failure. Denies melanotic or bright red stools. Related Data Home Medications ?Medication ?Instructions ?Recorded ?Confirmed ?Last Taken ?Type No Home Medications 05/20/23 12/16/24 Unknown History Allergies Allergy/AdvReac Type Severity Reaction Status Date / Time codeine Allergy Mild PASS OUT Verified 10/07/24 15:10 [facility] Past Medical History Medical History History of blood transfusion x2 prior to Dec 2024 Anemia Port-A-Cath in place Cervical cancer Status post radiation and chemotherapy Social History Social History Living arrangements: with family Exam Narrative: GENERAL: in no acute distress. Thin/gaunt HEAD: Normocephalic, atraumatic. EYES: Non injected, non icteric ENT: Nares clear, no rhinorrhea or epistaxis. Tacky mucous membranes. NECK: Supple. CHEST: Speaking in full sentences. No respiratory distress. Port in place in R upper chest. HEART: Regular rate and rhythm. ABDOMEN: Soft, nondistended. TERRANCE: Performed with LOLA Hirsch present. Hemorrhoid/skin tag large present but non thrombosed or actively bleeding. Slightly decreased rectal tone. Firm stool felt in rectal vault. No pain. Brown stool on gloved finger. FOBT negative. EXTREMITIES: Normal range of motion. No lower extremity edema. SKIN: Warm, dry, no rash. NEURO: No focal deficits. Alert and oriented x3. PSYCH: Normal mood and affect. Course Vital Signs Vital signs: Vital Signs Temperature 98.3 F 12/15/24 18:39 Pulse Rate 98 12/15/24 18:39 Respiratory Rate 16 12/15/24 18:39 Blood Pressure 91/54 L 12/15/24 18:39 Pulse Oximetry 97 12/15/24 18:39 Oxygen Delivery Room Air 12/15/24 18:39 Temperature 98.1 F 12/16/24 18:07 Pulse Rate 78 12/16/24 18:07 Respiratory Rate 16 12/16/24 18:07 Blood Pressure 99/59 L 12/16/24 18:07 Pulse Oximetry 98 12/16/24 18:07 Oxygen Delivery Room Air 12/15/24 18:39 MDM - Syncope MDM Narrative Medical decision making narrative: Patient presents with recurrent episodes of syncope over the past several weeks. Many of them occur when she gets up from her bed or chair and is walking to the bathroom or when she is climbing stairs although sometimes it occurs when she is on the toilet and getting up. Patient currently has cervical cancer status post chemotherapy and radiation and is to start another therapy to strengthen her bones although the exact details are unknown. Her oncologist is through [place]. Has required 2 blood transfusions for anemia. In the emergency department she is afebrile with vital signs notable for hypotension with a mean arterial pressure of 66mmHg. 1L IV fluid bolus ordered initially. Microcytic anemia and thrombocytosis. She is at transfusion criteria and we discussed the risks and benefits 1U leukocyte reduced pRBCs ordered. Mild hyponatremia. She also is hypoalbuminemic. Dimer greater than 7. Will proceed with CT PE imaging. Her in BNP is slightly elevated however not enough to suggest acute heart failure based on her age and the reference range of the assay. [place] Syncope Rule: Congestive heart failure history: 0 Hematocrit <30%: Yes EKG abnormal (changed or any non-sinus rhythm): No SOB symptoms: No SBP <90mmHg at triage: No but borderline NOT low risk. Orthostatic vital signs performed and patient is very symptomatic during this per tech. An additional 1 L fluids ordered. Patient will require admission for further workup. She verifies understanding and is in agreement. Patient discussed with Dr. Urias. Reviewed CT abd/pelvis; TERRANCE performed as above negative for occult blood. Recommends an additional 1 U pRBCs and IMU placement. Discussed code status with patient and she confirms that in the event of cardiopulmonary arrest she would NOT want chest compressions performed ( I have lost too much weight ) or intubation performed but medications are ok. She also states that if she went into a shockable rhythm, defibrillation would be acceptable. Differential Diagnosis Differential diagnosis: Likely syncope due to orthostatic hypotension, vasovagal syncope, complete atrioventricular block, subarachnoid hemorrhage, pulmonary embolism, dehydration and other (Sequelae of cancer and/or treatment, metastatic disease including to brain; acute viral syndrome; anemia; electrolyte abnormalities; ) Lab Data Attestation: I reviewed the patient's lab results. 12/16/24 00:34 12/16/24 00:34 Labs: Lab Results 12/16/24 12/16/24 Range/Units 00:34 01:11 WBC 9.9 (4.5-10.0) K/mm3 RBC 2.86 L (4.2-5.4) M/mm3 Hgb 6.4 L* (12.0-15.0) g/dL Hct 20.8 L* (37.0-47.0) % MCV 72.7 L (80-100) fl MCH 22.4 L (26-34) pg MCHC 30.8 L (32-36) g/dl RDW 19.2 H (11.5-14.5) % Plt Count 442 H (150-375) k/mm3 MPV 8.6 (7.4-10.4) fl Immature Gran % (Auto) 1.1 H (0-0.5) % Neut % (Auto) 77.1 H (45.5-73.1) % Lymph % (Auto) 8.0 L (18.3-44.2) % [place] % (Auto) 13.4 H (2.6-8.5) % Eos % (Auto) 0.1 (0-4.4) % Baso % (Auto) 0.3 (0.2-1.2) % Lymph # (Auto) 0.79 L (0.9-3.2) K/mm3 [place] # (Auto) 1.3 H (0.1-0.6) K/mm3 Eos # (Auto) 0.0 (0-0.3) K/mm3 Baso # (Auto) 0.0 (0.0-0.1) K/mm3 Abs Immat Gran (auto) 0.11 H (0.00-0.031) K/mm3 Absolute Neuts (auto) 7.6 H (1.3-6.7) K/mm3 Absolute Nucleated RBC 0.000 (0.0-0.012) K/mm3 Nucleated RBC % 0.0 (0.0-0.2) % Platelet Estimate Increased (Adequate) Hypochromasia 1+ Ovalocytes 1+ Stomatocytes 1+ Schistocytes None seen PT 16.1 H (11.1-14.7) Seconds INR 1.3 APTT 33.9 (22.3-36.8) Seconds D-Dimer 7.54 H (<0.48) ug/mL Sodium 132 L (137-145) mmol/L Potassium 3.5 (3.4-5.0) mmol/L Chloride 95 L (98-107) mmol/L Carbon Dioxide 27 (22-30) mmol/L Anion Gap 10 (4-12) mmol/L BUN 14 D (7-17) mg/dL Creatinine 0.52 L (0.7-1.0) mg/dL Estim Creat Clear Calc 59 ml/min Estimated GFR > 60 (59 - ) Glucose 125 H (65-110) mg/dL Lactic Acid 1.5 (0.7-2.0) mmol/L Calcium 10.0 (8.4-10.2) mg/dL Magnesium 2.2 (1.6-2.3) mg/dL Iron 21 L (37-170) ug/dL TIBC 157 L (261-462) ug/dL % Saturation 13 L (20-50) % Ferritin 1890.00 H (11.1-264) ng/mL Total Bilirubin 0.5 (0.2-1.3) mg/dL AST 79 H (14-36) U/L ALT 103 H (6-35) U/L Alkaline Phosphatase 231 H (38-126) U/L Troponin I < 0.012 (0.000-0.034) ng/mL NT-Pro-B Natriuret Pep 201 H (19.9-100) pg/mL Total Protein 8.0 (6.3-8.2) g/dL Albumin 3.1 L (3.5-5.1) g/dL Urine Color Yellow (Yellow) Urine Appearance Clear (Clear) Urine pH 5.5 (5.0-9.0) Ur Specific [place] 1.011 (1.001-1.035) Urine Protein 1+ H (Negative) mg/dL Urine Glucose (UA) Negative (Negative) mg/dL Urine Ketones Negative (Negative) mg/dL Ur Blood (Man) 2+ H (Negative) Urine Nitrate Negative (Negative) Urine Bilirubin Negative (Negative) Urine Urobilinogen 1.0 (<2.0) mg/dL Leukocyte Esterase Rfl Trace H (Negative) GIGI/UL Urine RBC 3-5 H (0-2) /hpf Urine WBC 11-20 H (0-3) /hpf Ur Squamous Epith Cells None seen (Few) /hpf Urine Bacteria None seen /hpf Urine Casts 0-2 Influenza A (RT-PCR) Negative (Negative) Influenza B (RT-PCR) Negative (Negative) RSV (RT-PCR) Negative (Negative) SARS-CoV-2 RNA (RT-PCR) Negative (Negative) Blood Type AB Positive Antibody Screen Negative Crossmatch See Detail Imaging Data Attestation: I personally reviewed and interpreted this imaging study as follows: My impression: Port in place in right upper chest. Otherwise no acute cardiothoracic process on my independent interpretation of CXR Radiologist's impression: CTA STAT RAD CHEST PE / ABD PELVIS: No evidence of pulmonary embolism and no thoracic aortic dissection or aneurysm. Mediastinal and hilar lymphadenopathy, presumably metastatic. Hepatic masses, likely reflecting metastatic disease. Expansile mass in the left iliac wing compatible with metastatic disease. Left inguinal lymphadenopathy and soft tissue mass in the posterior right leg insistent (? sic) with metastatic disease. ECG Data EKG #1: Attestation: I personally reviewed and interpreted this ECG as follows: ECG completion date: 12/16/24 ECG completion time: 00:18 Interpretation: Normal sinus rhythm at a rate of 87 beats per minute. [place] interval 137. QRS 76. QT/QTC 352/396. Good R-wave progression across the precordial leads. T-wave flat slightly in lead 3 but otherwise upright in normal in contiguous inferior leads 2 and AVF. No other T-wave inversions. Discharge Plan Discharge Clinical Impression: Microcytic anemia, Thrombocytosis, Recurrent syncope, Hyponatremia, Hypoalbuminemia Patient Disposition: Still a Patient Condition: Stable
[2024-12-16] VITALS (24 sets, daily range): BP systolic 91–126; BP diastolic 48–75; PULSE 72–101; RESP 16–34; TEMP 36.3–36.9; O2SAT 92–100; BMI 17.4
[2024-12-16] MEDS: SODIUM CHLORIDE 0.9% IV 1,000 ML 999 ML IV CONT ×2 (00:34→08:02)
[2024-12-16 00:42] LABS: Basophils Percent Auto 0.3 % (0.2-1.2); Eosinophils Percent Auto 0.1 % (0-4.4); Immature Granulocyte Absolute 0.11 K/mm3 (0.00-0.031); Immature Granulocyte Percent A 1.1 % (0-0.5); Lymphocytes Absolute Auto 0.79 K/mm3 (0.9-3.2); Mean Corpuscular HGB Conc 30.8 g/dl (32-36); Mean Corpuscular Hemoglobin 22.4 pg (26-34); Mean Corpuscular Volume 72.7 fl (80-100); Mean Platelet Volume 8.6 fl (7.4-10.4); Monocytes Absolute Auto 1.3 K/mm3 (0.1-0.6); Monocytes Percent Auto 13.4 % (2.6-8.5); Neutrophils Absolute Auto 7.6 K/mm3 (1.3-6.7); Neutrophils Percent Auto 77.1 % (45.5-73.1); Platelet Count Result 442 k/mm3 (150-375); Red Blood Count 2.86 M/mm3 (4.2-5.4); Red Cell Distribution Width 19.2 % (11.5-14.5); White Blood Count 9.9 K/mm3 (4.5-10.0)
[2024-12-16 00:52] LABS: Alanine Aminotransferase 103 U/L (6-35); Albumin Level 3.1 g/dL (3.5-5.1); Alkaline Phosphatase 231 U/L (38-126); Anion Gap 10 mmol/L (4-12); Aspartate Amino Transferase 79 U/L (14-36); Bilirubin,Total 0.5 mg/dL (0.2-1.3); Blood Urea Nitrogen 14 mg/dL (7-17); Carbon Dioxide 27 mmol/L (22-30); Chloride 95 mmol/L (98-107); Estimated CRCL calculation 59 ml/min; Estimated Glomerular Filt Rate > 60; Glucose 125 mg/dL (65-110); Lactic Acid Reflex 1.5 mmol/L (0.7-2.0); Magnesium 2.2 mg/dL (1.6-2.3); Potassium 3.5 mmol/L (3.4-5.0); Sodium 132 mmol/L (137-145)
[2024-12-16 00:53] LABS: INR 1.3; Prothrombin Time 16.1 Seconds (11.1-14.7)
[2024-12-16] MEDS: ONDANSETRON INJ 4 MG/2 ML VIAL IV PUSH (00:53)
[2024-12-16 00:54] LABS: Partial Thromboplastin Time 33.9 Seconds (22.3-36.8)
[2024-12-16 00:57] LABS: Hematocrit 20.8 % (37.0-47.0); Hemoglobin 6.4 g/dL (12.0-15.0); Platelet Estimate Increased (Adequate)
[2024-12-16 00:58] LABS: Hypochromasia 1+; Ovalocytes 1+; Schistocytes None Seen; Stomatocytes 1+
[2024-12-16 01:04] LABS: Troponin I < 0.012 ng/mL (0.000-0.034)
[2024-12-16 01:11] LABS: NT Pro B Type Natriuretic Pept 201 pg/mL (19.9-100)
[2024-12-16 01:18] LABS: Influenza A QL RT-PCR Negative (Negative); Influenza B QL RT-PCR Negative (Negative); RSV RNA, RT-PCR Negative (Negative); SARS-CoV-2 RNA PCR Negative (Negative)
[2024-12-16 01:21] LABS: Add Urine Microscopic? YES; Appearance Urine Clear (Clear); Bacteria Urine None Seen /hpf; Bilirubin Urine Negative (Negative); Blood Urine 2+ (Negative); Color Urine Yellow (Yellow); Glucose Urine UA Negative (Negative); Ketones Urine Negative (Negative); Leukocyte Esterase Ur Trace LEU/UL (Negative); Nitrate Urine Negative (Negative); Non Pathogenic Casts 0-2; Protein Urine 1+ mg/dL (Negative); Specific Grav Ur 1.011 (1.001-1.035); Squamous Epithelial Cell Urine None Seen /hpf (Few); pH Urine 5.5 (5.0-9.0)
[2024-12-16 01:46] LABS: D Dimer 7.54 ug/mL (<0.48)
[2024-12-16 02:48] LABS: Iron 21 ug/dL (37-170); Percent Iron Saturation 13 % (20-50)
--- NOTE | 2024-12-16 02:54 | PC.NURSE ---
This RN tried to draw pt confirmation blood tube but had no success. skin care technician Mary attempted 3x and was unable to get it as well. district manager postal service notified. Phlebotomy was called.
[2024-12-16] MEDS: TUBING, BLOOD SET 1 EACH XX (04:37)
[2024-12-16] MEDS: SODIUM CHLORIDE 0.9% IV 250 ML 30 ML IV CONT ×2 (04:37→10:48)
--- NOTE | 2024-12-16 09:19 | PC.NURSE ---
Up to bathroom via wheelchair. Tolerated well. Denies dizziness when up.
--- NOTE | 2024-12-16 09:43 | PC.NURSE ---
PIV site leaking at tubing hub. Arm and area cleaned and PIV patency verified and re-secured. VS reassessment delayed. Pt resting comfortably, VS as charted. Call light in reach.
--- NOTE | 2024-12-16 13:16 | P.HP_ITS ---
H&P: HPI History of Present Illness Date/Time: 12/16/24 13:16 Chief Complaint: Weakness and passing out. Narrative: 74-year-old female with widely metastatic endometrial cancer presented to the ER on account of a frequent personal and generalized weakness. She noted she has been passing hard past 2 weeks especially when she goes from sitting to standing has had about 3-4 episodes. 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 Noted poor oral intake otherwise denies any chest pain no shortness of a notable pain no diarrhea no dysuria no focal symptoms. ER evaluation notable for temperature 98.3? go up ulcerative go respiratory 16, shortness of present room air blood pressure 91/54. Hemoglobin was 6.4 patient received 2 units of blood Prior to admission CT chest abdomen pelvis showed extensive neoplastic metastatic disease including mediastinal lymphadenopathy, hepatic and right adrenal metastatic disease retroperitoneal and left inguinal lymphadenopathy as well as large soft tissue mass extending from all involving the anterior margin of the left iliac wing addition of showed metastases present in posterior elements of T12 and soft tissue metastases in the posterior lateral right thigh. CT head unremarkable. Review of Systems Review of Systems: All other systems reviewed and negative except as noted in history above. [facility] Social History Social History Living arrangements: with family Meds Home Medications and Allergies Home Medications ?Medication ?Instructions ?Recorded ?Confirmed ?Type No Home Medications 05/20/23 12/16/24 History Allergies Allergy/AdvReac Type Severity Reaction Status Date / Time codeine Allergy Mild PASS OUT Verified 10/07/24 15:10 Vital Signs Vital Signs - 24 hr 12/15/24 18:39 12/16/24 00:07 12/16/24 01:09 Temperature 98.3 F Pulse Rate 98 82 85 Respiratory Rate 16 18 18 Blood Pressure 91/54 L 109/67 109/62 Pulse Oximetry 97 100 98 Oxygen Delivery Room Air 12/16/24 02:58 12/16/24 04:31 12/16/24 04:39 Temperature 97.6 F Pulse Rate 85 85 85 Respiratory Rate 18 27 H 18 Blood Pressure 101/59 L 101/57 L 101/57 L Pulse Oximetry 97 100 100 Oxygen Delivery 12/16/24 04:48 12/16/24 05:48 12/16/24 06:45 Temperature 97.7 F 97.6 F Pulse Rate 83 82 82 Respiratory Rate 18 18 Blood Pressure 109/56 L 117/65 120/73 Pulse Oximetry 100 100 Oxygen Delivery 12/16/24 06:46 12/16/24 06:46 12/16/24 06:47 Temperature Pulse Rate 92 101 H 86 Respiratory Rate 18 Blood Pressure 105/70 104/71 118/71 Pulse Oximetry 98 Oxygen Delivery 12/16/24 06:48 12/16/24 07:54 12/16/24 09:11 Temperature 97.8 F 97.8 F Pulse Rate 86 93 90 Respiratory Rate 18 20 18 Blood Pressure 115/72 120/65 126/74 Pulse Oximetry 98 100 95 Oxygen Delivery 12/16/24 09:29 12/16/24 09:40 12/16/24 10:49 Temperature 98.3 F 98.3 F 97.3 F L Pulse Rate 81 82 83 Respiratory Rate 16 18 18 Blood Pressure 105/62 117/75 113/69 Pulse Oximetry 99 100 95 Oxygen Delivery Exam Narrative: General: lethargic Eyes: EOMI, PERRLA ENNT External ears normal, Neck is supple, no masses, Respiratory systems: Clear to auscultation Cardiovascular S1, S2, normal rhythm, no murmur, rub, or gallop; no thrill or palpable murmurs on palpation. Gastrointestinal: soft, abdominal tenderness, and non-distended abdomen with no masses; BS present Skin: no rash, lesions, ulcerations, subcutaneous nodules or induration Musculoskeletal: no abnormality and no tenderness, normal ROM Neurologic: Alert and oriented x3, non focal Mental Status Exam: normal affect H&P: Results Labs Labs: Short CBC 12/16/24 Range/Units 00:34 WBC 9.9 (4.5-10.0) K/mm3 Hgb 6.4 L* (12.0-15.0) g/dL Hct 20.8 L* (37.0-47.0) % Plt Count 442 H (150-375) k/mm3 BMP 12/16/24 00:34 Sodium 132 L Potassium 3.5 Chloride 95 L Carbon Dioxide 27 BUN 14 D Creatinine 0.52 L Glucose 125 H Calcium 10.0 Cardiac Enzymes 12/16/24 Range/Units 00:34 Troponin I < 0.012 (0.000-0.034) ng/mL Liver Function 12/16/24 Range/Units 00:34 Total Bilirubin 0.5 (0.2-1.3) mg/dL AST 79 H (14-36) U/L ALT 103 H (6-35) U/L Alkaline Phosphatase 231 H (38-126) U/L Albumin 3.1 L (3.5-5.1) g/dL Urine 12/16/24 Range/Units 01:11 Urine Color Yellow (Yellow) Urine Appearance Clear (Clear) Urine pH 5.5 (5.0-9.0) Ur Specific [place] 1.011 (1.001-1.035) Urine Protein 1+ H (Negative) mg/dL Urine Glucose (UA) Negative (Negative) mg/dL Assessment and Plan Assessment and plan (1) Microcytic anemia: Code(s): D50.9 - Iron deficiency anemia, unspecified Status: Acute (2) Recurrent syncope: Code(s): R55 - Syncope and collapse Status: Acute (3) FTT (failure to thrive) in adult: Code(s): R62.7 - Adult failure to thrive Status: Acute Plan Severe anemia with iron deficiency Hemoglobin was 6.4 on presentation Likely from Cancer Treatment vs possible GI bleed Patient received 2 units of PRBC and I ER. Iron saturation 13, start IV iron infusion 500/1000. Occult blood stool pending. Is his son Corey Gupta. FTT/protein energy malnutrition Patient reported poor oral intake Started dronabinol Dietitian consulted PT/OT. Widely metastatic endometrial cancer Patient concluded treatment in October and currently palliative care. The Patient will be discharged to palliative care. DVT prophylaxis subQ Lovenox. Patient is do not resuscitate Surrogate decision maker Son Corey Hare Hospitalist [facility] Advance Care Plan I have confirmed that the patient's Advanced Care Plan is present, code status is documented, or surrogate decision maker is listed in patient medical record.: Yes Medication Reconciliation I have utilized all available resources to obtain, update and review the patients current medications (includes all prescriptions, OTC, herbals, cannabis, and nutritional supplements).: Yes
[2024-12-16] MEDS: IRON SUCROSE COMPLEX 400 MG, IRON SUCROSE COMPLEX 100 MG in SODIUM CHLORIDE 0.9% IV 250 ML 78.57 MG IVPB (14:01)
[2024-12-16] MEDS: droNABinol (*CRX) 2.5 MG CAPSULE 10 MG PO (15:06)
--- NOTE | 2024-12-16 18:49 | ADMGEN ---
This patient, Carlos Hare, was admitted to IMU Room 214-01. Patient/family oriented to hospital policies and general routines including ID bracelet, bed and alarms, visiting hours, pain management, procedures, bathroom and other care routines, personal items, smoking policy, room service/diet, and visiting hours. Information on how to activate the Rapid Response Team has been discussed. Patient/Family are encouraged to report perceived risks to care and to ask questions if they do not understand what they are told or what they should do.
[2024-12-16 20:16] LABS: Basophils Percent Auto 0.5 % (0.2-1.2); Eosinophils Percent Auto 0.3 % (0-4.4); Hematocrit 32.1 % (37.0-47.0); Hemoglobin 10.3 g/dL (12.0-15.0); Immature Granulocyte Percent A 1.3 % (0-0.5); Lymphocytes Absolute Auto 0.61 K/mm3 (0.9-3.2); Lymphocytes Percent Auto 7.8 % (18.3-44.2); Mean Corpuscular HGB Conc 32.1 g/dl (32-36); Mean Corpuscular Hemoglobin 24.8 pg (26-34); Mean Corpuscular Volume 77.2 fl (80-100); Mean Platelet Volume 9.2 fl (7.4-10.4); Monocytes Absolute Auto 0.9 K/mm3 (0.1-0.6); Monocytes Percent Auto 11.8 % (2.6-8.5); Neutrophils Absolute Auto 6.1 K/mm3 (1.3-6.7); Neutrophils Percent Auto 78.3 % (45.5-73.1); Nucleated Red Blood Cells Perc 0.3 % (0.0-0.2); Platelet Count Result 376 k/mm3 (150-375); Red Blood Count 4.16 M/mm3 (4.2-5.4); Red Cell Distribution Width 18.4 % (11.5-14.5); White Blood Count 7.8 K/mm3 (4.5-10.0)
[2024-12-16 20:26] LABS: Alanine Aminotransferase 85 U/L (6-35); Alkaline Phosphatase 217 U/L (38-126); Anion Gap 7 mmol/L (4-12); Aspartate Amino Transferase 64 U/L (14-36); Bilirubin,Total 1.5 mg/dL (0.2-1.3); Blood Urea Nitrogen 10 mg/dL (7-17); Calcium 9.4 mg/dL (8.4-10.2); Carbon Dioxide 24 mmol/L (22-30); Chloride 101 mmol/L (98-107); Estimated CRCL calculation 54 ml/min; Estimated Glomerular Filt Rate > 60; Glucose 101 mg/dL (65-110); Magnesium 2.2 mg/dL (1.6-2.3); Potassium 3.5 mmol/L (3.4-5.0); Sodium 132 mmol/L (137-145)
[2024-12-17] VITALS (14 sets, daily range): BP systolic 93–117; BP diastolic 50–65; PULSE 71–99; RESP 16–20; TEMP 36.4–37.7; O2SAT 93–100; BMI 17.6
[2024-12-17 05:32] LABS: Alanine Aminotransferase 73 U/L (6-35); Albumin Level 2.7 g/dL (3.5-5.1); Alkaline Phosphatase 201 U/L (38-126); Anion Gap 8 mmol/L (4-12); Aspartate Amino Transferase 55 U/L (14-36); Bilirubin,Total 1.1 mg/dL (0.2-1.3); Blood Urea Nitrogen 10 mg/dL (7-17); Calcium 9.2 mg/dL (8.4-10.2); Carbon Dioxide 25 mmol/L (22-30); Chloride 102 mmol/L (98-107); Estimated CRCL calculation 53 ml/min; Estimated Glomerular Filt Rate > 60; Glucose 88 mg/dL (65-110); Magnesium 2.1 mg/dL (1.6-2.3); Potassium 3.3 mmol/L (3.4-5.0); Sodium 135 mmol/L (137-145)
[2024-12-17 05:39] LABS: Basophils Percent Auto 0.4 % (0.2-1.2); Eosinophils Percent Auto 0.3 % (0-4.4); Hematocrit 32.1 % (37.0-47.0); Hemoglobin 10.3 g/dL (12.0-15.0); Immature Granulocyte Absolute 0.12 K/mm3 (0.00-0.031); Immature Granulocyte Percent A 1.5 % (0-0.5); Lymphocytes Absolute Auto 0.57 K/mm3 (0.9-3.2); Lymphocytes Percent Auto 7.3 % (18.3-44.2); Mean Corpuscular HGB Conc 32.1 g/dl (32-36); Mean Corpuscular Hemoglobin 24.5 pg (26-34); Mean Corpuscular Volume 76.2 fl (80-100); Monocytes Absolute Auto 1.1 K/mm3 (0.1-0.6); Monocytes Percent Auto 14.7 % (2.6-8.5); Neutrophils Absolute Auto 5.9 K/mm3 (1.3-6.7); Neutrophils Percent Auto 75.8 % (45.5-73.1); Platelet Count Result 386 k/mm3 (150-375); Red Blood Count 4.21 M/mm3 (4.2-5.4); Red Cell Distribution Width 18.6 % (11.5-14.5); White Blood Count 7.8 K/mm3 (4.5-10.0)
[2024-12-17] MEDS: droNABinol (*CRX) 2.5 MG CAPSULE 10 MG PO (08:16)
[2024-12-17] MEDS: POTASSIUM CHLORIDE 20 MEQ PACKET (FOR LIQUID) 40 MEQ PO (11:16)
[2024-12-17] MEDS: IRON SUCROSE COMPLEX 400 MG, IRON SUCROSE COMPLEX 100 MG in SODIUM CHLORIDE 0.9% IV 250 ML 78.57 MG IVPB (12:00)
--- NOTE | 2024-12-17 15:42 | P.DS_ITS ---
DS: Admitting Diagnosis Discharge Date 12/17/24 Admitting Diagnosis Weakness and passing out. DS: Discharge Diagnosis Discharge Diagnosis (1) Microcytic anemia: Code(s): D50.9 - Iron deficiency anemia, unspecified Status: Acute (2) FTT (failure to thrive) in adult: Code(s): R62.7 - Adult failure to thrive Status: Acute DS: Summary Hospital Course Hospital Course: 74-year-old female with widely metastatic endometrial cancer presented to the ER on account of a frequent personal and generalized weakness. She noted she has been passing hard past 2 weeks especially when she goes from sitting to standing has had about 3-4 episodes. 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 Noted poor oral intake otherwise denies any chest pain no shortness of a notable pain no diarrhea no dysuria no focal symptoms. ER evaluation notable for temperature 98.3? go up ulcerative go respiratory 16, shortness of present room air blood pressure 91/54. Hemoglobin was 6.4 patient received 2 units of blood Prior to admission CT chest abdomen pelvis showed extensive neoplastic metastatic disease including mediastinal lymphadenopathy, hepatic and right adrenal metastatic disease retroperitoneal and left inguinal lymphadenopathy as well as large soft tissue mass extending from all involving the anterior margin of the left iliac wing addition of showed metastases present in posterior elements of T12 and soft tissue metastases in the posterior lateral right thigh. CT head unremarkable. patient was transfused 2 units, iron profile showed Isat of 12 and patient was give 1000mg IV iron. Hb is 10.3, and vital signs were stable and within normal limits. Patient noted poor oral intake and consented to Dronabinol and today she was eating during our encounter. Discussed with patient and told her she is iron replete and does not need PO iron for now She is discharged back to palliative care continue follow up with PCP and Palliative care. Time Spent with Patient Time attestation: Total time spent providing and/or coordinating discharge services: DS: Data Data Completed and Pending Labs on day of discharge: Labs from last 24 hours 12/17/24 12/16/24 04:50 20:03 WBC 7.8 7.8 RBC 4.21 4.16 L Hgb 10.3 L 10.3 L D Hct 32.1 L 32.1 L MCV 76.2 L 77.2 L D MCH 24.5 L 24.8 L D MCHC 32.1 32.1 RDW 18.6 H 18.4 H Plt Count 386 H 376 H MPV 9.0 9.2 Immature Gran % (Auto) 1.5 H 1.3 H Neut % (Auto) 75.8 H 78.3 H Lymph % (Auto) 7.3 L 7.8 L [place] % (Auto) 14.7 H 11.8 H Eos % (Auto) 0.3 0.3 Baso % (Auto) 0.4 0.5 Lymph # (Auto) 0.57 L 0.61 L [place] # (Auto) 1.1 H 0.9 H Eos # (Auto) 0.0 0.0 Baso # (Auto) 0.0 0.0 Abs Immat Gran (auto) 0.12 H 0.10 H Absolute Neuts (auto) 5.9 6.1 Absolute Nucleated RBC 0.000 0.020 H Nucleated RBC % 0.0 0.3 H Sodium 135 L 132 L Potassium 3.3 L 3.5 Chloride 102 101 Carbon Dioxide 25 24 Anion Gap 8 7 BUN 10 10 Creatinine 0.55 L 0.53 L Estim Creat Clear Calc 53 54 Estimated GFR > 60 > 60 Glucose 88 101 Calcium 9.2 9.4 Magnesium 2.1 2.2 Total Bilirubin 1.1 1.5 H AST 55 H 64 H ALT 73 H 85 H Alkaline Phosphatase 201 H 217 H Total Protein 7.0 7.0 Albumin 2.7 L 3.0 L Preliminary micro results at discharge 12/16/24 19:57 Blood Culture - Preliminary Blood 12/16/24 20:10 Blood Culture - Preliminary Blood Discharge Plan Discharge Attending physician on discharge: Sharan Ramos Discharging Clinician: Sharan Ramos Anticipated Discharge Date/Time: 12/17/24 15:39 Patient Disposition: Other Activity: as tolerated Diet: as tolerated Patient Instructions: Antibiotic Form Patient Language: Azeri Stand Alone Forms: General Discharge Information Follow-up/Referrals: Juarez Rod MD [Primary Care Provider] - (F/u with PCP in 3-5 days ) Discharge Medications: New dronabinol [Marinol] 2.5 mg Capsule 2.5 mg PO BID 7 Days Qty: 14 0RF Continued ondansetron HCl 8 mg tablet 8 mg PO Q4H PRN (Reason: nausea and vomiting) ibuprofen 800 mg tablet 800 mg PO Q8H PRN (Reason: pain) Date of admission: 12/16/24 14:54 Primary Care Provider: Juarez Rod Admitting Provider: Sharan Ramos Attending physician on admission: Sharan Ramos Condition: Stable
--- NOTE | 2024-12-18 07:37 | P.CDI_ITS ---
CDI Query Clarification Request BMI: 17.6 Nutritional Diagnostic Statement: Please refer to the comprehensive nutrition assessment for further information. 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 Please specify severity if known: * Mild * Moderate * Severe * Other/Unknown <Mary Joshua RN - Last Filed: 12/18/24 07:38> Clarified Diagnosis Clarified Diagnosis: * Severe <Sharan Ramos MD - Last Filed: 12/18/24 10:06>
== END 2024-12-17 16:39 | disposition home or self-care (01) | DRG 811 ==
LOC: ANHED 23:53 → ANHIMU 12-16 09:05
PROVIDERS: Admitting Provider Internal Medicine; Emergency Provider Student in an Organized Health Care Education/Training Program; PCP Family Medicine; Visit Provider Internal Medicine
DX: D50.9 Iron deficiency anemia, unspecified (principal); E43 Unspecified severe protein-calorie malnutrition; C78.6 Secondary malignant neoplasm of retroperitoneum and peritoneum; C79.71 Secondary malignant neoplasm of right adrenal gland; C78.7 Secondary malignant neoplasm of liver and intrahepatic bile duct; C77.4 Secondary and unspecified malignant neoplasm of inguinal and lower limb lymph nodes; C77.1 Secondary and unspecified malignant neoplasm of intrathoracic lymph nodes; E87.1 Hypo-osmolality and hyponatremia; Z68.1 Body mass index [BMI] 19.9 or less, adult; M84.48XA Pathological fracture, other site, initial encounter for fracture; R55 Syncope and collapse; R62.7 Adult failure to thrive; C54.1 Malignant neoplasm of endometrium; D75.839 Thrombocytosis, unspecified; E88.09 Other disorders of plasma-protein metabolism, not elsewhere classified; Z66 Do not resuscitate
CPT/HCPCS: 36415; 36430; 70450; 71045; 71275; 74177; 80053; 81001; 82728; 83540; 83550; 83605; 83735; 83880; 84484; 85025; 85380; 85610; 85730; 86850; 86900; 86901; 86923; 87040; 87086; 87637; 93005; 96361; 96365; 96375; 96376; 99285; A9270; G0378; J1756; J2405; J7030; J7050; P9016; Q9967